=== PATIENT | female | born 1945 | race Caucasian/White ===

== ENCOUNTER 2016-11-18 05:11 | Emergency (ER) | payer MEDICARE ==
[2016-11-18] MEDS ORDERED: Magnesium Sulfate 2 GM IV* 2 GM/50 ML BAG IVPB ONE (05:30)
[2016-11-18] MEDS ORDERED: methylPREDNISolone 125 MG* 2 ML VIAL IV ONE (05:30)
[2016-11-18] MEDS ORDERED: Albuterol/Ipratropium NEB.SOL* Albuterol 2.5 MG/Ipratropium 0.5 MG 3 ML INH ONE ×2 (05:30→07:55)
[2016-11-18] MEDS ORDERED: Ondansetron ODT TAB* 4 MG ONE (05:56)
[2016-11-18 06:19] LABS: Hematocrit 47 % (35-47); Hemoglobin 15.5 g/dl (12.0-16.0); Mean Corpuscular HGB Conc 33 g/dl (31-36); Mean Corpuscular Hemoglobin 30 pg (27-31); Mean Corpuscular Volume 92 fL (80-97); Mean Platelet Volume 8 um3 (7.4-10.4); Red Blood Count 5.14 10^6/ul (4.0-5.4); Red Cell Distribution Width 14 % (10.5-15); White Blood Count 12.4 10^3/ul (3.5-10.8)
[2016-11-18 06:25] LABS: Albumin 4.5 g/dL (3.2-5.2); BUN/Creatinine Ratio 10.1 (8-20); Calcium 9.7 mg/dL (8.6-10.3); EGFR African American 91.7 (>60); EGFR Non-African American 71.3 (>60); Globulin 2.7 g/dL (2-4); Total Bilirubin 0.5 mg/dL (0.2-1.0); Total Protein 7.2 g/dL (6.4-8.9)
--- NOTE | 2016-11-18 06:47 | ED ---
Baldomero Cast Aidan, scribed for Wan Pickens on 11/18/16 at 0541 . Shortness of Breath - HPI Summary HPI Summary: 71 y/o female presents to the ED with a complaint of SOB that began at 0300 this morning. Pt uses 3.5 L O2 at baseline at home. She denies any fever, CP, or Hx of smoking. Hx of COPD. - History of Current Complaint Chief Complaint: EDShortnessOfBreath Time Seen by Provider: 11/18/16 05:21 Hx Obtained From: Patient, Family/Tissue Inserter Onset/Duration: Sudden Onset, Lasting Hours, Still Present Timing: Constant Current Severity: Moderate Dyspnea At: Rest Aggrevating Factors: Nothing - unknown Alleviating Factors: Nothing - unknown Associated Signs & Symptoms: Negative - Risk Factors Pulmonary Embolism: Smoking - former smoker Cardiac: Smoking - former smoker Tuberculosis: Smoking - former smoker - Allergy/Home Medications Allergies/Adverse Reactions: Allergies Allergy/AdvReac Type Severity Reaction Status Date / Time Bee Venom Allergy Severe Hives/Diff. Verified 01/28/15 21:12 Breathing/I tching PMH/Surg Hx/FS Hx/Imm Hx Cardiovascular History: Reports: Hx Hypercholesterolemia Respiratory History: Reports: Hx Chronic Obstructive Pulmonary Disease (COPD), Other Respiratory Problems/Disorders - Hx Emphysema Sensory History: Reports: Hx Hearing Aid - Cancer History Hx Chemotherapy: No Hx Radiation Therapy: No - Immunization History Date of Tetanus Vaccine: unknown Date of Influenza Vaccine: 2014 Infectious Disease History: No Infectious Disease History: Denies: Hx of Known/Suspected MRSA, Traveled Outside the [place] in Last 30 Days - Family History Known Family History: Positive: Other - [place] (sister) - Social History Occupation: Disabled Lives: Alone Alcohol Use: None Substance Use Type: Reports: None Smoking Status (MU): Former Smoker Review of Systems Constitutional: Negative Eyes: Negative ENT: Negative Cardiovascular: Negative Positive: Shortness Of Breath. Negative: Cough Gastrointestinal: Negative Genitourinary: Negative Musculoskeletal: Negative Skin: Negative Neurological: Negative Psychological: Normal All Other Systems Reviewed And Are Negative: Yes Physical Exam Triage Information Reviewed: Yes Vital Signs On Initial Exam: Initial Vitals Temp Pulse Resp BP Pulse Ox 97.4 F 94 30 155/90 100 11/18/16 05:17 11/18/16 05:11/18/16 05:11/18/16 05:17 05:17 Vital Signs Reviewed: Yes Appearance: Positive: Well-Appearing, No Pain Distress Skin: Positive: Warm, Skin Color Reflects Adequate Perfusion, Dry Head/Face: Positive: Normal Head/Face Inspection Eyes: Positive: EOMI, GARCÍA ENT: Positive: Normal ENT inspection Neck: Positive: Supple, Nontender Respiratory/Lung Sounds: Positive: Decreased Breath Sounds, Other - poor air entry, bilateral wheeze Cardiovascular: Positive: Pulses are Symmetrical in both Upper and Lower Extremities, Tachycardia Abdomen Description: Positive: Nontender, Soft Bowel Sounds: Positive: Present Musculoskeletal: Positive: Normal, Strength/ROM Intact Neurological: Positive: Normal, Sensory/Motor Intact, Alert, Oriented to Person Place, Time Psychiatric: Positive: Normal, Affect/Mood Appropriate AVPU Assessment: Alert Diagnostics - Vital Signs Vital Signs Temp Pulse Resp BP Pulse Ox 11/18/16 05:17 97.4 F 94 30 155/90 100 - Laboratory Lab Results: Lab Results 11/18/16 11/18/16 11/18/16 Range/Units 05:50 05:50 05:50 WBC 12.4 H (3.5-10.8) 10^3/ul RBC 5.14 (4.0-5.4) 10^6/ul Hgb 15.5 (12.0-16.0) g/dl Hct 47 (35-47) % MCV 92 (80-97) fL MCH 30 (27-31) pg MCHC 33 (31-36) g/dl RDW 14 (10.5-15) % Plt Count 330 (150-450) 10^3/ul MPV 8 (7.4-10.4) um3 Neut % (Auto) 58.7 (38-83) % Lymph % (Auto) 23.0 L (25-47) % [place] % (Auto) 8.9 (1-9) % Eos % (Auto) 8.4 H (0-6) % Baso % (Auto) 1.0 (0-2) % Absolute Neuts (auto) 7.3 (1.5-7.7) 10^3/ul Absolute Lymphs (auto) 2.9 (1.0-4.8) 10^3/ul Absolute Monos (auto) 1.1 H (0-0.8) 10^3/ul Absolute Eos (auto) 1.0 H (0-0.6) 10^3/ul Absolute Basos (auto) 0.1 (0-0.2) 10^3/ul Absolute Nucleated RBC 0.01 10^3/ul Nucleated RBC % 0.1 Sodium 138 (133-145) mmol/L Potassium 4.0 (3.5-5.0) mmol/L Chloride 103 (101-111) mmol/L Carbon Dioxide 28 (22-32) mmol/L Anion Gap 7 (2-11) mmol/L BUN 8 (6-24) mg/dL Creatinine 0.79 (0.51-0.95) mg/dL Est GFR ( Amer) 91.7 (>60) Est GFR (Non-Af Amer) 71.3 (>60) BUN/Creatinine Ratio 10.1 (8-20) Glucose 108 H (70-100) mg/dL Calcium 9.7 (8.6-10.3) mg/dL Total Bilirubin 0.50 (0.2-1.0) mg/dL AST 18 (13-39) U/L ALT 11 (7-52) U/L Alkaline Phosphatase 74 (34-104) U/L Troponin I 0.00 (<0.04) ng/mL B-Natriuretic Peptide 46 ( - 100) pg/mL Total Protein 7.2 (6.4-8.9) g/dL Albumin 4.5 (3.2-5.2) g/dL Globulin 2.7 (2-4) g/dL Albumin/Globulin Ratio 1.7 (1-3) Result Diagrams: 11/18/16 05:50 11/18/16 05:50 Lab Statement: Any lab studies that have been ordered have been reviewed, and results considered in the medical decision making process. - EKG EKG 0527 Cardiac Rate: Tachycardia - 105 EKG Rhythm: Atrial Flutter EKG Interpretation: ATRIAL FLUTTER Course/Dx - Course Course Of Treatment: This is a 71 y/o female presenting with SOB. - Diagnoses Provider Diagnoses: COPD exacerbation Discharge - Discharge Plan Condition: Good Disposition: OTHER Discharge Disposition Comment: signed out to Dr Mcgee Referrals: Hailey Levi MD [Primary Care Provider] - The documentation as recorded by the Baldomero rios Aidan accurately reflects the service I personally performed and the decisions made by me, Wan Pickens.
[2016-11-18] MEDS ORDERED: Azithromycin TAB* 250 MG PO ONE (07:55)
[2016-11-18 08:52] VITALS: BP 123/73
--- NOTE | 2016-11-18 09:21 | RAD ---
Indication: Shortness of breath. Single frontal view of the chest performed at 0549 hours was reviewed. Comparison is made with previous exam dated May 27, 2016. No mediastinal shift is noted. Heart is of normal size and configuration. Lung vasquez appear clear. IMPRESSION: NO ACTIVE CARDIOPULMONARY DISEASE IS NOTED.
--- NOTE | 2016-11-18 14:35 | ED ---
Khanh Cast Rebecca, scribed for Karl Walker MD on 11/18/16 at 0823 . Progress - Progress Note Progress Note: Pt was signed out from Dr. Pickens. CXR reveals no acute findings. - EKG/XRAY/CT XRAY: chest Xray Comments: NO ACTIVE CARDIOPULMONARY DISEASE IS NOTED Re-Evaluation - Re-Evaluation First Eval Re-Evaluation Time: 07:55 Change: Improved Comment: Pt is feeling significantly better and would like to be D/C. She will receive one more breathing treatment and will be started on Abx and steroids as an outpatient. Course/Dx - Course Course Of Treatment: Pt was signed out from Dr. Pickens. CXR reveals no acute findings. Pt was D/C to home with a Dx of COPD exacerbation with Rx for Albuterol, Zithromax and Prednisone. She understands and is agreeable with this plan. - Diagnoses Provider Diagnoses: COPD exacerbation The documentation as recorded by the Khanh rios Rebecca accurately reflects the service I personally performed and the decisions made by , Karl Walker MD.
== END 2016-11-18 08:51 | disposition home or self-care (01) ==
LOC: ED 05:11
DX: J44.1 Chronic obstructive pulmonary disease with (acute) exacerbation (principal); Z91.030 Bee allergy status; E78.00 Pure hypercholesterolemia, unspecified; I48.92 Unspecified atrial flutter; Z87.891 Personal history of nicotine dependence
CPT/HCPCS: 36415; 71010; 80053; 83880; 84484; 85025; 93005; 96365; 96375; 99285; A9270-GY; J2930

== ENCOUNTER 2016-11-26 20:21 | Emergency (ER) | payer MEDICARE ==
[2016-11-26] MEDS ORDERED: Albuterol/Ipratropium NEB.SOL* Albuterol 2.5 MG/Ipratropium 0.5 MG 3 ML INH ONE ×2 (20:42→22:59)
[2016-11-26] MEDS ORDERED: methylPREDNISolone 125 MG* 2 ML VIAL IV ONE (20:45)
[2016-11-26] MEDS ORDERED: NS 0.9% 1000 ML* 2,000 ML IV ONE (20:45)
[2016-11-26] MEDS ORDERED: Albuterol/Ipratropium NEB.SOL* Albuterol 2.5 MG/Ipratropium 0.5 MG 3 ML ONE (21:06)
[2016-11-26 21:32] LABS: FIO2 28
[2016-11-26 21:34] LABS: PCO2 Arterial 43 mmHg (35-45)
[2016-11-26 21:58] LABS: Hematocrit 45 % (35-47); Mean Corpuscular HGB Conc 33 g/dl (31-36); Mean Corpuscular Hemoglobin 30 pg (27-31); Mean Corpuscular Volume 91 fL (80-97); Mean Platelet Volume 7 um3 (7.4-10.4); Red Blood Count 4.94 10^6/ul (4.0-5.4); Red Cell Distribution Width 14 % (10.5-15); White Blood Count 14.7 10^3/ul (3.5-10.8)
[2016-11-26 22:03] LABS: Add Diff/Slide Review? Slide Review Added; Comments Flag Yes
--- NOTE | 2016-11-26 22:14 | RAD ---
Indication: Cough, shortness of breath, decreased breath sounds. Question pneumonia and CHF. History of emphysema. Comparison: November 18, 2016 Technique: Sitting AP and lateral chest views. Report: Elevated lung volumes and both diffuse mild prominence of the interstitial markings and patchy rarefaction of the mid to upper lung zone interstitial markings. No focal pulmonary lesion, compelling alveolar consolidation, pleural effusion, pneumothorax. The heart, pulmonary vasculature, and mediastinal contours are unremarkable. Unremarkable osseous structures and soft tissue contours. IMPRESSION: Stigmata of obstructive lung disease. No acute pulmonary or cardiac process evident.
[2016-11-26 22:19] LABS: Albumin 4.4 g/dL (3.2-5.2); BUN/Creatinine Ratio 11.4 (8-20); C Reactive Protein 24.45 mg/L (< 5.00); Calcium 9.5 mg/dL (8.6-10.3); EGFR African American 105.5 (>60); Globulin 2.4 g/dL (2-4); Potassium 3.9 mmol/L (3.5-5.0); Total Bilirubin 0.6 mg/dL (0.2-1.0); Total Protein 6.8 g/dL (6.4-8.9)
[2016-11-26 23:45] VITALS: BP 129/77
--- NOTE | 2016-11-27 03:00 | ED ---
I, Trung,Brandon, scribed for Rowdy Shelton MD on 11/26/16 at 2045 . Shortness of Breath - HPI Summary HPI Summary: This 71 y/o female presents to ED for acute on chronic SOB since 1600 PM tonight. Positive productive cough. Negative CP or fever. Pt is oxygen dependent at home with 2 L at night. PMHx includes COPD. She visited ED about a week ago with similar complaint of dyspnea and respiratory distress. Pt sleeps on 2 pillows. Pt did have AC on tonight. - History of Current Complaint Chief Complaint: EDShortnessOfBreath Hx Obtained From: Patient, Medical Records Onset/Duration: Sudden Onset Timing: Constant Dyspnea At: Rest Associated Signs & Symptoms: Cough (Productive), Wheezing - Allergy/Home Medications Allergies/Adverse Reactions: Allergies Allergy/AdvReac Type Severity Reaction Status Date / Time Bee Venom Allergy Severe Hives/Diff. Verified 01/28/15 21:12 Breathing/I tching PMH/Surg Hx/FS Hx/Imm Hx Cardiovascular History: Reports: Hx Hypercholesterolemia Respiratory History: Reports: Hx Chronic Obstructive Pulmonary Disease (COPD), Other Respiratory Problems/Disorders - Hx Emphysema Sensory History: Reports: Hx Hearing Aid - Cancer History Hx Chemotherapy: No Hx Radiation Therapy: No - Immunization History Date of Tetanus Vaccine: unknown Date of Influenza Vaccine: 2014 Infectious Disease History: Denies: Hx of Known/Suspected MRSA, Traveled Outside the [place] in Last 30 Days - Family History Known Family History: Positive: Other - Breast [place] (sister) - Social History Alcohol Use: None Substance Use Type: Reports: None Hx Tobacco Use: Yes Smoking Status (MU): Former Smoker Review of Systems Negative: Fever Negative: Chest Pain Positive: Shortness Of Breath Negative: dysuria All Other Systems Reviewed And Are Negative: Yes Physical Exam - Summary Physical Exam Summary: The patient is well-nourished in no acute distress and in no acute pain. The skin is warm and diaphoretic. HEENT: The head is normocephalic and atraumatic. The pupils are equal and reactive. The conjunctivae are clear and without drainage. Nares are patent and without drainage. Mouth reveals dry oral mucosa and the throat is without erythema and exudate. The external ears are intact. The ear canals are patent and without drainage. The tympanic membranes are intact. Neck is supple with full range of motion and non-tender. There are no carotid bruits. There is no neck vein distension. Respiratory: Chest is non-tender. Positive expiratory wheeze. Decreased breath sounds. NC in place. Cardiovascular: Hear is regular rate and rhythm. There is no murmur or rub auscultated. There is no peripheral edema and pulses are symmetrical and equal. Abdomen: The abdomen is soft and non-tender. There are normal bowel sounds heard in all four quadrants and there is no organomegaly palpated. Musculoskeletal: There is no back pain noted. Extremities are non-tender with full range of motion. There is good capillary refill. There is no peripheral edema or calf tenderness elicited. Neurological: Patient is alert and oriented to person, place and time. The patient has symmetrical motor strength in all four extremities. Cranial nerves are grossly intact. Deep tendon reflexes are symmetrical and equal in all four extremities. Psychiatric: The patient has an appropriate affect and does not exhibit any anxiety or depression. Triage Information Reviewed: Yes Vital Signs On Initial Exam: Initial Vitals Temp Pulse Resp BP Pulse Ox 96.7 F 106 24 156/86 96 11/26/16 20:22 11/26/16 20:22 11/26/16 20:22 11/26/16 20:22 11/26/16 20:22 Vital Signs Reviewed: Yes Diagnostics - Vital Signs Vital Signs Temp Pulse Resp BP Pulse Ox 11/26/16 20:22 96.7 F 106 24 156/86 96 - Laboratory Lab Results: Lab Results 11/26/16 11/26/16 11/26/16 Range/Units 21:20 21:45 21:45 WBC 14.7 H (3.5-10.8) 10^3/ul RBC 4.94 (4.0-5.4) 10^6/ul Hgb 15.0 (12.0-16.0) g/dl Hct 45 (35-47) % MCV 91 (80-97) fL MCH 30 (27-31) pg MCHC 33 (31-36) g/dl RDW 14 (10.5-15) % Plt Count 299 (150-450) 10^3/ul MPV 7 L (7.4-10.4) um3 Neut % (Auto) 62.5 (38-83) % Lymph % (Auto) 15.9 L (25-47) % [place] % (Auto) 9.0 (1-9) % Eos % (Auto) 11.6 H (0-6) % Baso % (Auto) 1.0 (0-2) % Absolute Neuts (auto) 9.2 H (1.5-7.7) 10^3/ul Absolute Lymphs (auto) 2.3 (1.0-4.8) 10^3/ul Absolute Monos (auto) 1.3 H (0-0.8) 10^3/ul Absolute Eos (auto) 1.7 H (0-0.6) 10^3/ul Absolute Basos (auto) 0.1 (0-0.2) 10^3/ul Absolute Nucleated RBC 0.01 10^3/ul Nucleated RBC % 0.1 Patient Temperature Not Reportable ABG pH 7.39 (7.35-7.45) ABG pCO2 43 (35-45) mmHg ABG pO2 173 H (80-100) mmHg ABG HCO3 25.4 (19-31) mmol/L ABG O2 Saturation 99.5 H (95-98) % ABG Base Excess 0.7 (-2.0-2.0) Respiration Rate Not Reportable O2 Delivery Device nasal cannula Ventilator Type Not Reportable Vent Mode Not Reportable FiO2 28 Inspiratory Time Not Reportable PEEP Not Reportable Pressure Support Not Reportable Pressure Control Not Reportable EPAP Not Reportable IPAP Not Reportable BiPAP Not Reportable Sodium 136 (133-145) mmol/L Potassium 3.9 (3.5-5.0) mmol/L Chloride 101 (101-111) mmol/L Carbon Dioxide 25 (22-32) mmol/L Anion Gap 10 (2-11) mmol/L BUN 8 (6-24) mg/dL Creatinine 0.70 (0.51-0.95) mg/dL Est GFR ( Amer) 105.5 (>60) Est GFR (Non-Af Amer) 82.0 (>60) BUN/Creatinine Ratio 11.4 (8-20) Glucose 139 H (70-100) mg/dL Lactic Acid (0.5-2.0) mmol/L Calcium 9.5 (8.6-10.3) mg/dL Total Bilirubin 0.60 (0.2-1.0) mg/dL AST 12 L (13-39) U/L ALT 12 (7-52) U/L Alkaline Phosphatase 61 (34-104) U/L Troponin I 0.00 (<0.04) ng/mL C-Reactive Protein 24.45 H (< 5.00) mg/L B-Natriuretic Peptide ( - 100) pg/mL Total Protein 6.8 (6.4-8.9) g/dL Albumin 4.4 (3.2-5.2) g/dL Globulin 2.4 (2-4) g/dL Albumin/Globulin Ratio 1.8 (1-3) 11/26/16 11/26/16 Range/Units 21:45 21:45 WBC (3.5-10.8) 10^3/ul RBC (4.0-5.4) 10^6/ul Hgb (12.0-16.0) g/dl Hct (35-47) % MCV (80-97) fL MCH (27-31) pg MCHC (31-36) g/dl RDW (10.5-15) % Plt Count (150-450) 10^3/ul MPV (7.4-10.4) um3 Neut % (Auto) (38-83) % Lymph % (Auto) (25-47) % [place] % (Auto) (1-9) % Eos % (Auto) (0-6) % Baso % (Auto) (0-2) % Absolute Neuts (auto) (1.5-7.7) 10^3/ul Absolute Lymphs (auto) (1.0-4.8) 10^3/ul Absolute Monos (auto) (0-0.8) 10^3/ul Absolute Eos (auto) (0-0.6) 10^3/ul Absolute Basos (auto) (0-0.2) 10^3/ul Absolute Nucleated RBC 10^3/ul Nucleated RBC % Patient Temperature ABG pH (7.35-7.45) ABG pCO2 (35-45) mmHg ABG pO2 (80-100) mmHg ABG HCO3 (19-31) mmol/L ABG O2 Saturation (95-98) % ABG Base Excess (-2.0-2.0) Respiration Rate O2 Delivery Device Ventilator Type Vent Mode FiO2 Inspiratory Time PEEP Pressure Support Pressure Control EPAP IPAP BiPAP Sodium (133-145) mmol/L Potassium (3.5-5.0) mmol/L Chloride (101-111) mmol/L Carbon Dioxide (22-32) mmol/L Anion Gap (2-11) mmol/L BUN (6-24) mg/dL Creatinine (0.51-0.95) mg/dL Est GFR ( Amer) (>60) Est GFR (Non-Af Amer) (>60) BUN/Creatinine Ratio (8-20) Glucose (70-100) mg/dL Lactic Acid 1.4 (0.5-2.0) mmol/L Calcium (8.6-10.3) mg/dL Total Bilirubin (0.2-1.0) mg/dL AST (13-39) U/L ALT (7-52) U/L Alkaline Phosphatase (34-104) U/L Troponin I (<0.04) ng/mL C-Reactive Protein (< 5.00) mg/L B-Natriuretic Peptide 19 ( - 100) pg/mL Total Protein (6.4-8.9) g/dL Albumin (3.2-5.2) g/dL Globulin (2-4) g/dL Albumin/Globulin Ratio (1-3) Result Diagrams: 11/26/16 21:45 11/26/16 21:45 Lab Statement: Any lab studies that have been ordered have been reviewed, and results considered in the medical decision making process. - Radiology CXR Xray Interpretation: No Acute Changes - Stigmata of obstructive lung disease. No acute pulmonary or cardiac process evident. Radiology Interpretation Completed By: Radiologist - EKG 2028 Cardiac Rate: Tachycardia - 2028 PM EKG Rhythm: Sinus Tachycardia ST Segment: Normal EKG Interpretation: Artifact noted. Re-Evaluation - Re-Evaluation First Eval Re-Evaluation Time: 22:36 Comment: Dr. Shelton in room to update pt on CXR and bloodwork. Pt was re-examined , and noted with increased breath sound upon ascultation. Course/Dx - Course Assessment/Plan: This 71 y/o female presents to ED for acute on chronic SOB since today. PMHx is significant for known COPD. Prior ED visit was due to similar complaint. She is two pillow sleeper. ABG is noted unremarkable. Pt is noted with improved air movement after breathing treatment. Pt is discharged with rx for duoneb and prednisone as well as instruction for outpatient f/u with her PCP. Bloodwork is noted with elevated WBC of 14.7 and CRP. - Diagnoses Differential Diagnosis/HQI/PQRI: Positive: Bronchitis, CHF, COPD Exacerbation, [place], Pneumonia Provider Diagnoses: Acute exacerbation of chronic obstructive pulmonary disease (COPD) - Critical Care Time Critical Care Time: 30-74 min - 30 minutes Discharge - Discharge Plan Condition: Stable Disposition: HOME Prescriptions: Albuterol/Ipratropium NEB.JAJA* [Duoneb (Albuterol 2.5 MG/Ipratropium 0.5 MG)] 1 neb INH Q6H PRN #30 neb.jaja PRN Reason: shortness of breath predniSONE TAB* [Deltasone TAB*] 60 mg PO DAILY #15 tab Patient Education Materials: COPD (Chronic Obstructive Pulmonary Disease) (ED) , Dyspnea (ED), Prednisone (By mouth), Ipratropium/Albuterol (By breathing), How to Use a Nebulizer (ED) Referrals: Hailey Levi MD [Primary Care Provider] - 2 Days The documentation as recorded by the Trung rios Soohyun accurately reflects the service I personally performed and the decisions made by , Rowdy Shelton MD.
== END 2016-11-26 23:40 | disposition home or self-care (01) ==
LOC: ED 20:21
DX: J44.1 Chronic obstructive pulmonary disease with (acute) exacerbation (principal); R06.02 Shortness of breath; R05 Cough; R06.2 Wheezing; Z87.891 Personal history of nicotine dependence
CPT/HCPCS: 36415; 36600; 71020; 80053; 82803; 83605; 83880; 84484; 85025; 86140; 87040; 93005; 94640; 96374; 99283; A9270-GY; J2930

== ENCOUNTER 2016-12-08 19:32 | Inpatient (IN) | payer MEDICARE ==
[2016-12-08] MEDS ORDERED: Albuterol (2.5 MG) 0.5 % CONC 2.5 MG/0.5 ML NEB.SOLN (ICU and ED only) INH ONE (19:39)
[2016-12-08] MEDS ORDERED: methylPREDNISolone 125 MG* 2 ML VIAL ONE (19:39)
[2016-12-08] MEDS ORDERED: Albuterol/Ipratropium NEB.SOL* Albuterol 2.5 MG/Ipratropium 0.5 MG 3 ML ONE (19:40)
[2016-12-08 20:03] LABS: Hematocrit 44 % (35-47); Hemoglobin 14.1 g/dl (12.0-16.0); Mean Corpuscular HGB Conc 32 g/dl (31-36); Mean Corpuscular Hemoglobin 30 pg (27-31); Mean Corpuscular Volume 94 fL (80-97); Mean Platelet Volume 8 um3 (7.4-10.4); Red Cell Distribution Width 14 % (10.5-15)
[2016-12-08 20:05] LABS: Add Diff/Slide Review? Slide Review Added; Comments Flag Yes
--- NOTE | 2016-12-08 20:10 | RAD ---
INDICATION: Respiratory distress COMPARISON: Chest x-ray November 26, 2016 TECHNIQUE: An AP portable view obtained at 2005 hours is submitted. FINDINGS: Bones/Soft Tissues: There are no acute bony findings. Cardiomediastinal: The cardiomediastinal silhouette is normal. Lungs: There are no infiltrates. There is mild hyperinflation Pleura: There are no pleural effusions. Other: None IMPRESSION: MILD HYPERINFLATION. NO ACTIVE DISEASE
[2016-12-08] MEDS ORDERED: Albuterol/Ipratropium NEB.SOL* Albuterol 2.5 MG/Ipratropium 0.5 MG 3 ML INH ONE (20:12)
[2016-12-08 20:14] LABS: BUN/Creatinine Ratio 15.7 (8-20); Calcium 9.3 mg/dL (8.6-10.3); EGFR African American 86.7 (>60); EGFR Non-African American 67.4 (>60); Globulin 2.4 g/dL (2-4); Potassium 4.4 mmol/L (3.5-5.0); Total Bilirubin 0.4 mg/dL (0.2-1.0); Total Protein 6.4 g/dL (6.4-8.9)
--- NOTE | 2016-12-08 20:25 | ED ---
Kisha Cast Alfonso, scribed for Serg Julio MD on 12/08/16 at 1942 . Shortness of Breath - HPI Summary HPI Summary: This is a 71 year old female presenting to [facility] accompanied by a friend for SOB at rest that began 30 minutes ago. The patient presents with rapid labored breathing, diaphoresis, abdominal pain, and a headache. Symptoms aggravated and alleviated by nothing. Her friend reports she smoked a cigarette tonight. Her friend reports she has presented to the ED for similar symptoms 4 times this month. She uses nasal cannula O2 at home during the night. PMHx of COPD. - History of Current Complaint Hx Obtained From: Patient, Family/[employer] - Friend of 35 years Onset/Duration: Sudden Onset, Lasting Minutes - 30 minutes ago Timing: Constant Current Severity: Moderate Dyspnea At: Rest Aggrevating Factors: Nothing Alleviating Factors: Nothing Associated Signs & Symptoms: Diaphoresis - Allergy/Home Medications Allergies/Adverse Reactions: Allergies Allergy/AdvReac Type Severity Reaction Status Date / Time Bee Venom Allergy Severe Hives/Diff. Verified 01/28/15 21:12 Breathing/I tching PMH/Surg Hx/FS Hx/Imm Hx Cardiovascular History: Reports: Hx Hypercholesterolemia Respiratory History: Reports: Hx Chronic Obstructive Pulmonary Disease (COPD), Other Respiratory Problems/Disorders - Hx Emphysema Sensory History: Reports: Hx Hearing Aid - Cancer History Hx Chemotherapy: No Hx Radiation Therapy: No - Immunization History Date of Tetanus Vaccine: unknown Date of Influenza Vaccine: 2014 Infectious Disease History: Denies: Hx of Known/Suspected MRSA, Traveled Outside the [place] in Last 30 Days - Family History Known Family History: Positive: Other - Breast [place] (sister) - Social History Alcohol Use: None Substance Use Type: Reports: None Hx Tobacco Use: Yes Smoking Status (MU): Former Smoker Review of Systems Positive: Skin Diaphoresis Positive: Shortness Of Breath - At rest, Other - Positive rapid labored breathing Positive: Abdominal Pain Positive: Headache All Other Systems Reviewed And Are Negative: Yes Physical Exam Triage Information Reviewed: Yes Vital Signs On Initial Exam: Initial Vitals Temp Pulse Resp BP Pulse Ox 96.5 F 102 33 166/92 96 12/08/16 20:02 12/08/16 20:02 12/08/16 20:02 12/08/16 20:02 12/08/16 20:02 Vital Signs Reviewed: Yes Appearance: Positive: Ill-Appearing - marked resp distress, Thin Skin: Positive: Warm Head/Face: Positive: Normal Head/Face Inspection Eyes: Positive: GARCÍA ENT: Positive: Hearing grossly normal Neck: Positive: Supple Respiratory/Lung Sounds: Positive: Decreased Breath Sounds, Unable to speak in full sentences, Other - m,arked distress, consuelo;at diffuse wheezing Cardiovascular: Positive: Tachycardia Abdomen Description: Positive: Nontender, Soft Musculoskeletal: Positive: Strength/ROM Intact Psychiatric: Positive: Anxious Diagnostics - Vital Signs Vital Signs Temp Pulse Resp BP Pulse Ox 12/08/16 20:12 100 34 96 12/08/16 20:02 96.5 F 102 33 166/92 96 - Laboratory Lab Results: Lab Results 12/08/16 12/08/16 12/08/16 Range/Units 19:41 19:41 19:41 WBC 16.0 H (3.5-10.8) 10^3/ul RBC 4.70 (4.0-5.4) 10^6/ul Hgb 14.1 (12.0-16.0) g/dl Hct 44 (35-47) % MCV 94 (80-97) fL MCH 30 (27-31) pg MCHC 32 (31-36) g/dl RDW 14 (10.5-15) % Plt Count 279 (150-450) 10^3/ul MPV 8 (7.4-10.4) um3 Neut % (Auto) 47.6 (38-83) % Lymph % (Auto) 35.6 (25-47) % [place] % (Auto) 9.7 H (1-9) % Eos % (Auto) 5.7 (0-6) % Baso % (Auto) 1.4 (0-2) % Absolute Neuts (auto) 7.6 (1.5-7.7) 10^3/ul Absolute Lymphs (auto) 5.7 H (1.0-4.8) 10^3/ul Absolute Monos (auto) 1.5 H (0-0.8) 10^3/ul Absolute Eos (auto) 0.9 H (0-0.6) 10^3/ul Absolute Basos (auto) 0.2 (0-0.2) 10^3/ul Absolute Nucleated RBC 0.02 10^3/ul Nucleated RBC % 0.1 Sodium 134 (133-145) mmol/L Potassium 4.4 (3.5-5.0) mmol/L Chloride 100 L (101-111) mmol/L Carbon Dioxide 23 (22-32) mmol/L Anion Gap 11 (2-11) mmol/L BUN 13 (6-24) mg/dL Creatinine 0.83 (0.51-0.95) mg/dL Est GFR ( Amer) 86.7 (>60) Est GFR (Non-Af Amer) 67.4 (>60) BUN/Creatinine Ratio 15.7 (8-20) Glucose 273 H (70-100) mg/dL Lactic Acid 5.3 H* (0.5-2.0) mmol/L Calcium 9.3 (8.6-10.3) mg/dL Total Bilirubin 0.40 (0.2-1.0) mg/dL AST 18 (13-39) U/L ALT 13 (7-52) U/L Alkaline Phosphatase 57 (34-104) U/L Troponin I 0.00 (<0.04) ng/mL B-Natriuretic Peptide ( - 100) pg/mL Total Protein 6.4 (6.4-8.9) g/dL Albumin 4.0 (3.2-5.2) g/dL Globulin 2.4 (2-4) g/dL Albumin/Globulin Ratio 1.7 (1-3) 12/08/16 Range/Units 19:41 WBC (3.5-10.8) 10^3/ul RBC (4.0-5.4) 10^6/ul Hgb (12.0-16.0) g/dl Hct (35-47) % MCV (80-97) fL MCH (27-31) pg MCHC (31-36) g/dl RDW (10.5-15) % Plt Count (150-450) 10^3/ul MPV (7.4-10.4) um3 Neut % (Auto) (38-83) % Lymph % (Auto) (25-47) % [place] % (Auto) (1-9) % Eos % (Auto) (0-6) % Baso % (Auto) (0-2) % Absolute Neuts (auto) (1.5-7.7) 10^3/ul Absolute Lymphs (auto) (1.0-4.8) 10^3/ul Absolute Monos (auto) (0-0.8) 10^3/ul Absolute Eos (auto) (0-0.6) 10^3/ul Absolute Basos (auto) (0-0.2) 10^3/ul Absolute Nucleated RBC 10^3/ul Nucleated RBC % Sodium (133-145) mmol/L Potassium (3.5-5.0) mmol/L Chloride (101-111) mmol/L Carbon Dioxide (22-32) mmol/L Anion Gap (2-11) mmol/L BUN (6-24) mg/dL Creatinine (0.51-0.95) mg/dL Est GFR ( Amer) (>60) Est GFR (Non-Af Amer) (>60) BUN/Creatinine Ratio (8-20) Glucose (70-100) mg/dL Lactic Acid (0.5-2.0) mmol/L Calcium (8.6-10.3) mg/dL Total Bilirubin (0.2-1.0) mg/dL AST (13-39) U/L ALT (7-52) U/L Alkaline Phosphatase (34-104) U/L Troponin I (<0.04) ng/mL B-Natriuretic Peptide 50 ( - 100) pg/mL Total Protein (6.4-8.9) g/dL Albumin (3.2-5.2) g/dL Globulin (2-4) g/dL Albumin/Globulin Ratio (1-3) Result Diagrams: 12/08/16 19:41 12/08/16 19:41 Lab Statement: Any lab studies that have been ordered have been reviewed, and results considered in the medical decision making process. - Radiology CXR Radiology Interpretation Completed By: Radiologist - MILD HYPERINFLATION. NO ACTIVE DISEASE - CT Chest/Thorax CTA CT Interpretation Completed By: Radiologist - NO CT EVIDENCE OF ACUTE PULMONARY EMBOLIC DISEASE. EMPHYSEMA. - EKG 1936 Cardiac Rate: Tachycardia - BPm 140 EKG Rhythm: Atrial Fibrillation - With Rapid Ventricular Response Re-Evaluation - Re-Evaluation First Eval Change: Improved Course/Dx - Diagnoses Provider Diagnoses: COPD exacerbation - Physician Notifications Instructed by Provider To: Admit As Inpatient Discharge - Discharge Plan Condition: Fair Disposition: ADMITTED TO [facility] documentation as recorded by the Kisha rios Alfonso accurately reflects the service I personally performed and the decisions made by me, Serg Julio MD.
[2016-12-08] MEDS ORDERED: Iohexol 350* (CONTRAST) 500 ML MDV IV ONE (20:41)
--- NOTE | 2016-12-08 21:11 | RAD ---
INDICATION: Chest pain. Short of breath. Evaluate for pulmonary embolus. COMPARISON: Chest x-ray December 08, 2016 TECHNIQUE: Axial source images were obtained from the thoracic inlet to the hemidiaphragms following administration of [address] angiographic technique was utilized. Coronal and sagittal reconstructed images were acquired. CHEST FINDINGS: Neck/thyroid: The visualized neck to include the thyroid appear normal. Chest wall: There are no acute abnormalities of the bony thorax or chest wall. There is no supraclavicular, infraclavicular, or axillary lymphadenopathy. Lungs : There are no pulmonary parenchymal masses or infiltrates. There is underlying emphysematous change. There is mild parenchymal scarring. There is a tiny right upper lobe granuloma There are no endobronchial lesions. Cardiomediastinal structures: There is no CT evidence of acute pulmonary embolic disease. The heart is normal in size. There is no pericardial effusion. There is no evidence of aortic aneurysm or dissection. There is no mediastinal or hilar adenopathy. The esophagus appears normal. Pleura : There are no pleural-based masses or effusions. Other: None. IMPRESSION: NO CT EVIDENCE OF ACUTE PULMONARY EMBOLIC DISEASE. EMPHYSEMA.
[2016-12-08] MEDS ORDERED: Acetaminophen TAB* 325 MG PO PRN (22:55)
[2016-12-08] MEDS ORDERED: Ondansetron INJ* 2 MG/ML VIAL IV PRN (22:56)
[2016-12-08] MEDS ORDERED: Nicotine Inhaler* 10 MG AMP INH PRN (22:56)
[2016-12-08] MEDS ORDERED: CMCS: Melatonin (NF) 3 MG TAB PO PRN (22:56)
--- NOTE | 2016-12-08 23:08 | HP ---
H&P (Free Text) History and Physical: PCP: Reginaldo Levi MD Date/Time of Evaluation: 12/08/2016 2245 CC: SOB HPI: Mrs Ely is a 72YO female HX COPD on 2L NC nightly last cigarette 3 months ago presenting with SOB onset around 0200 yesterday AM for which she used her nebulizer and returned to bed, but awakened in the AM with more SOB. She has used her nebulizer Q4H without relief. This is associated with cough producing clear phlegm and some sweats, but no F/C, N/V, normal bowel/bladder, chest pain, palpitations, or open wounds/rash. She does have some upper abdominal discomfort. This is her 3rd visit to [facility] this month for the same. PMedHx COPD on 2L NC nocturnal oxygen HLD GERD OU cataracts Ambulatory Orders Nursing to reconcile. Albuterol HFA INHALER* [Ventolin HFA Inhaler*] 2 puff INH Q4H PRN 05/29/16 Simvastatin [Zocor 5 MG-] 20 mg PO 1700 05/29/16 Fluticasone Furoate-Vilanterol [Breo Ellipta 200-25 Mcg/INH] 1 puff INH DAILY Tiotropium CAP.INH* [Spiriva CAP.INH*] 1 cap INH DAILY #30 cap.inh 05/31/16 predniSONE TAB* [Deltasone TAB*] 40 mg PO DAILY #4 tab 05/31/16 Albuterol/Ipratropium NEB.JAJA* [Duoneb (Albuterol 2.5 MG/Ipratropium 0.5 MG)] 1 jaja INH Q4H PRN #30 unit 11/18/16 Azithromycin TAB* [Zithromax TAB (Z-AMANDEEP) 250 mg #6 tabs] 250 mg PO DAILY #4 tab 11/18/16 predniSONE TAB* [Deltasone TAB*] 40 mg PO DAILY #10 tab 11/18/16 Albuterol/Ipratropium NEB.JAJA* [Duoneb (Albuterol 2.5 MG/Ipratropium 0.5 MG)] 1 neb INH Q6H PRN #30 neb.jaja 11/26/16 predniSONE TAB* [Deltasone TAB*] 60 mg PO DAILY #15 tab 11/26/16 Allergies Bee Venom Allergy (Severe, Verified 01/28/15 21:12) Hives/Diff.Breathing/Itching PSurgHx denies SocHx: former smoker last cigarette 3 months ago, mild alcohol, no recreational drugs; lives alone; DNR/I code status, MOLST filled out FamHx: Mother passed in her 80s 2nd CVA. Father passed in his 50s 2nd MVA. ROS: as above, otherwise reviewed and all were negative Constitutional: NAD, normally developed, well-nourished white female vitals: Vital Signs Temp 35.8 C 12/08/16 20:02 Pulse 102 12/08/16 21:30 Resp 26 12/08/16 21:30 BP 127/74 12/08/16 21:30 Pulse Ox 96 12/08/16 21:30 Intake & Output 12/07/16 12/08/16 12/08/16 23:59 11:59 23:59 Weight 58.967 kg HEENM: atraumatic; sclera/conjunctiva: non-icteric/clear; hearing: clinically intact; oropharynx: clear, mucosa moist Neck: soft tissue: non-tender; thyroid: normal Pulmonary: tachypneic, monreal-inspiratory & expiratory wheeze, poor aeration, moderate accessory muscle use; on Vapotherm CV: TR/RR, normal S1S2, no carotid bruit, no jugular venous distention, 2+ B DP/ PT, no edema Abdominal: soft, non-distended, non-tender, no rebound/guarding/rigidity, normoactive bowel sounds, no hepatosplenomegaly or masses, no costovertebral angle tenderness Musculoskeletal: general: grossly intact; gait: to SOB to ambulate Integumental: normal appearance and texture of exposed skin Psychiatric orientation: AA&O to PPS affect: calm mood: cooperative eye contact: good content: reliable responses: timely insight: fair to good Testing: Lab Results 12/08/16 12/08/16 12/08/16 Range/Units 19:41 19:41 19:41 WBC 16.0 H (3.5-10.8) 10^3/ul RBC 4.70 (4.0-5.4) 10^6/ul Hgb 14.1 (12.0-16.0) g/dl Hct 44 (35-47) % MCV 94 (80-97) fL MCH 30 (27-31) pg MCHC 32 (31-36) g/dl RDW 14 (10.5-15) % Plt Count 279 (150-450) 10^3/ul MPV 8 (7.4-10.4) um3 Neut % (Auto) 47.6 (38-83) % Lymph % (Auto) 35.6 (25-47) % Orange % (Auto) 9.7 H (1-9) % Eos % (Auto) 5.7 (0-6) % Baso % (Auto) 1.4 (0-2) % Absolute Neuts (auto) 7.6 (1.5-7.7) 10^3/ul Absolute Lymphs (auto) 5.7 H (1.0-4.8) 10^3/ul Absolute Monos (auto) 1.5 H (0-0.8) 10^3/ul Absolute Eos (auto) 0.9 H (0-0.6) 10^3/ul Absolute Basos (auto) 0.2 (0-0.2) 10^3/ul Absolute Nucleated RBC 0.02 10^3/ul Nucleated RBC % 0.1 D-Dimer, Quantitative (Less Than 230) ng/mL Sodium 134 (133-145) mmol/L Potassium 4.4 (3.5-5.0) mmol/L Chloride 100 L (101-111) mmol/L Carbon Dioxide 23 (22-32) mmol/L Anion Gap 11 (2-11) mmol/L BUN 13 (6-24) mg/dL Creatinine 0.83 (0.51-0.95) mg/dL Est GFR ( Amer) 86.7 (>60) Est GFR (Non-Af Amer) 67.4 (>60) BUN/Creatinine Ratio 15.7 (8-20) Glucose 273 H (70-100) mg/dL Lactic Acid 5.3 H* (0.5-2.0) mmol/L Calcium 9.3 (8.6-10.3) mg/dL Total Bilirubin 0.40 (0.2-1.0) mg/dL AST 18 (13-39) U/L ALT 13 (7-52) U/L Alkaline Phosphatase 57 (34-104) U/L Troponin I 0.00 (<0.04) ng/mL B-Natriuretic Peptide ( - 100) pg/mL Total Protein 6.4 (6.4-8.9) g/dL Albumin 4.0 (3.2-5.2) g/dL Globulin 2.4 (2-4) g/dL Albumin/Globulin Ratio 1.7 (1-3) 12/08/16 12/08/16 Range/Units 19:41 19:41 WBC (3.5-10.8) 10^3/ul RBC (4.0-5.4) 10^6/ul Hgb (12.0-16.0) g/dl Hct (35-47) % MCV (80-97) fL MCH (27-31) pg MCHC (31-36) g/dl RDW (10.5-15) % Plt Count (150-450) 10^3/ul MPV (7.4-10.4) um3 Neut % (Auto) (38-83) % Lymph % (Auto) (25-47) % Orange % (Auto) (1-9) % Eos % (Auto) (0-6) % Baso % (Auto) (0-2) % Absolute Neuts (auto) (1.5-7.7) 10^3/ul Absolute Lymphs (auto) (1.0-4.8) 10^3/ul Absolute Monos (auto) (0-0.8) 10^3/ul Absolute Eos (auto) (0-0.6) 10^3/ul Absolute Basos (auto) (0-0.2) 10^3/ul Absolute Nucleated RBC 10^3/ul Nucleated RBC % D-Dimer, Quantitative > 1050 H (Less Than 230) ng/mL Sodium (133-145) mmol/L Potassium (3.5-5.0) mmol/L Chloride (101-111) mmol/L Carbon Dioxide (22-32) mmol/L Anion Gap (2-11) mmol/L BUN (6-24) mg/dL Creatinine (0.51-0.95) mg/dL Est GFR ( Amer) (>60) Est GFR (Non-Af Amer) (>60) BUN/Creatinine Ratio (8-20) Glucose (70-100) mg/dL Lactic Acid (0.5-2.0) mmol/L Calcium (8.6-10.3) mg/dL Total Bilirubin (0.2-1.0) mg/dL AST (13-39) U/L ALT (7-52) U/L Alkaline Phosphatase (34-104) U/L Troponin I (<0.04) ng/mL B-Natriuretic Peptide 50 ( - 100) pg/mL Total Protein (6.4-8.9) g/dL Albumin (3.2-5.2) g/dL Globulin (2-4) g/dL Albumin/Globulin Ratio (1-3) ECG, personally reviewed: AFIB rate 140, no ischemia, artifactual baseline CXR, personally reviewed: IMPRESSION: MILD HYPERINFLATION. NO ACTIVE DISEASE CTA chest, personally reviewed: IMPRESSION: NO CT EVIDENCE OF ACUTE PULMONARY EMBOLIC DISEASE. EMPHYSEMA. Impression: 71F presenting with COPD exacerbation DIAGNOSIS & PLAN Primary COPD exacerbation : requires Vapotherm, may progress to BiPap; otherwise is DNR/I : 1H continuous albuterol neb upon arrival to ICU : ICU monitoring : albuterol nebs PRN after above : mometasone/formoterol : tiotropium : incentive spirometry : PO azithromycin : supportive care Secondary HLD : continue simvastatin GERD : continue omeprazole Admission Rational: inpatient for ICU management of COPD exacerbation in patient at high risk of terminal decompensation in outpatient setting DVTp: SCDs & heparin SQ Code Status: full HCP: daughter, Chanda Felix
[2016-12-09] MEDS: Azithromycin TAB* 250 MG PO SCH ×2 (00:03→10:46)
[2016-12-09] MEDS: NS 0.9% 1000 ML* 1,000 ML IV SCH ×3 (00:11→15:52)
[2016-12-09] MEDS ORDERED: Albuterol 0.5% CONC NEB.SOL* 5 MG/ML 20 ml BOT INH ONE (00:13)
[2016-12-09] MEDS ORDERED: Morphine INJ* 2 MG/ML 1 ML SYRINGE IV PRN (00:53)
[2016-12-09] MEDS: Albuterol 2.5 MG/3 ML NEB.SOL* (0.083%) INH SCH ×4 (00:57→19:54)
[2016-12-09] MEDS: Omeprazole CAP* 20 MG PO SCH (05:12)
[2016-12-09] MEDS: Heparin VIAL(*) 5000 UNITS/ML VIAL (FIVE THOUSAND) SUBCUT SCH ×3 (05:12→22:51)
[2016-12-09 05:23] LABS: Hematocrit 41 % (35-47); Hemoglobin 13.5 g/dl (12.0-16.0); Mean Corpuscular HGB Conc 33 g/dl (31-36); Mean Corpuscular Hemoglobin 30 pg (27-31); Mean Corpuscular Volume 92 fL (80-97); Mean Platelet Volume 8 um3 (7.4-10.4); Red Blood Count 4.51 10^6/ul (4.0-5.4); Red Cell Distribution Width 13 % (10.5-15); White Blood Count 11.9 10^3/ul (3.5-10.8)
[2016-12-09 05:34] LABS: BUN/Creatinine Ratio 17.1 (8-20); EGFR African American 105.5 (>60); Potassium 4.2 mmol/L (3.5-5.0)
[2016-12-09] MEDS: Tiotropium CAP.INH* CAP.INH/18 MCG INH SCH (07:58)
[2016-12-09] MEDS: Mometasone/Formoter 200/5 MDI INH SCH ×2 (07:59→19:54)
[2016-12-09] MEDS ORDERED: Spiriva Inhaler DEVICE* 1 EACH DEVICE INH ONE (09:00)
[2016-12-09] MEDS ORDERED: cefTRIAXone VIAL(*) 1,000 MG in NS 0.9% 50 ML* 50 ML IVPB SCH (10:00)
[2016-12-09] MEDS: methylPREDNISolone SOD 40 MG* 1 ML VIAL IV SCH ×2 (10:46→17:59)
[2016-12-09] MEDS: Docusate CAP* 100 MG PO SCH ×2 (10:46→22:46)
--- NOTE | 2016-12-09 16:11 | PN ---
Subjective Date of Service: 12/09/16 Interval History: Seen and examined this AM Breathing feels much better. Titrated off of vapotherm but back on later in the day Notes increase cough with sputum production for the entire week prior to presentation without fevers/chills COPD is worse in the summer for her Objective Active Medications: Acetaminophen (Tylenol Tab*) 650 mg PO Q6H PRN PRN Reason: FEVER/PAIN Last Admin: 12/09/16 04:56 Dose: 650 mg Albuterol (Ventolin 2.5 Mg/3 Ml Neb.Steph*) 2.5 mg INH Q2H PRN PRN Reason: SOB/WHEEZING Albuterol (Ventolin 2.5 Mg/3 Ml Neb.Steph*) 2.5 mg INH [id number] Last Admin: 12/09/16 13:57 Dose: 2.5 mg Azithromycin (Zithromax Tab*) 500 mg PO DAILY [facility] Last Admin: 12/09/16 10:46 Dose: 500 mg Docusate Sodium (Colace Cap*) 200 mg PO BID [facility] Last Admin: 12/09/16 10:46 Dose: Not Given Heparin Sodium (Porcine) (Heparin Vial(*)) 5,000 units SUBCUT Q8HR [facility] Last Admin: 12/09/16 14:22 Dose: 5,000 units Sodium Chloride (Ns 0.9% 1000 Ml*) 1,000 mls @ 125 mls/hr IV PER RATE [facility] Last Admin: 12/09/16 15:52 Dose: 125 mls/hr Melatonin (Melatonin (Nf)) 3 mg PO BEDTIME PRN; Protocol PRN Reason: Sleep Methylprednisolone Sodium Succinate (Solu-Medrol 40 Mg) 40 mg IV Q8H [facility] Last Admin: 12/09/16 10:46 Dose: 40 mg Mometasone Furoate/Formoterol Fumar (Dulera 200/5 Mdi*) 2 puff INH BID [facility] Last Admin: 12/09/16 07:59 Dose: 2 puff Morphine Sulfate (Morphine Inj (Syringe)*) 2 mg IV Q2H PRN PRN Reason: Air hunger Last Admin: 12/09/16 01:23 Dose: 2 mg Nicotine (Nicotine Inhaler*) 10 mg INH Q2H PRN PRN Reason: CRAVING Omeprazole (Prilosec Cap*) 20 mg PO DAILY@0600 [facility] Last Admin: 12/09/16 05:12 Dose: 20 mg Ondansetron HCl (Zofran Inj*) 4 mg IV Q6H PRN PRN Reason: NAUSEA Tiotropium [place] (Spiriva Cap.Inh*) 1 cap INH DAILY [facility] Last Admin: 12/09/16 07:58 Dose: 1 inh Vital Signs 12/08/16 12/08/16 12/09/16 23:30 23:52 00:00 Temperature 96.6 F 97.6 F Pulse Rate 100 106 Respiratory 26 26 32 Rate Blood Pressure 115/78 115/78 (mmHg) O2 Sat by Pulse 97 Oximetry 12/09/16 12/09/16 12/09/16 00:01 00:15 01:00 Temperature Pulse Rate 103 99 92 Respiratory 26 33 22 Rate Blood Pressure 134/70 147/65 137/90 (mmHg) O2 Sat by Pulse 97 98 99 Oximetry 12/09/16 12/09/16 12/09/16 01:02 01:03 01:08 Temperature 97.2 F Pulse Rate 91 106 Respiratory 25 28 Rate Blood Pressure 105/76 (mmHg) O2 Sat by Pulse 99 99 99 Oximetry 12/09/16 12/09/16 12/09/16 01:23 02:00 03:00 Temperature Pulse Rate 84 78 Respiratory 20 15 15 Rate Blood Pressure 119/53 95/56 (mmHg) O2 Sat by Pulse 99 100 Oximetry 12/09/16 12/09/16 12/09/16 04:00 05:00 05:45 Temperature 100.0 F Pulse Rate 77 90 Respiratory 15 24 18 Rate Blood Pressure 107/53 118/63 (mmHg) O2 Sat by Pulse 100 99 Oximetry 12/09/16 12/09/16 12/09/16 06:00 07:00 07:22 Temperature 97.6 F Pulse Rate 76 81 Respiratory 16 13 Rate Blood Pressure 98/64 109/49 (mmHg) O2 Sat by Pulse 99 99 Oximetry 12/09/16 12/09/16 12/09/16 07:42 08:00 09:00 Temperature Pulse Rate 80 78 77 Respiratory 17 19 17 Rate Blood Pressure 111/47 94/47 (mmHg) O2 Sat by Pulse 98 96 99 Oximetry 12/09/16 12/09/16 12/09/16 10:00 11:00 11:02 Temperature Pulse Rate 77 79 81 Respiratory 18 18 15 Rate Blood Pressure 110/61 106/48 (mmHg) O2 Sat by Pulse 100 100 100 Oximetry 12/09/16 12/09/16 12/09/16 11:51 12:00 13:00 Temperature 98 F Pulse Rate 72 78 Respiratory 19 23 Rate Blood Pressure 114/59 114/56 (mmHg) O2 Sat by Pulse 100 99 Oximetry 12/09/16 12/09/16 12/09/16 13:55 14:00 15:00 Temperature Pulse Rate 80 85 85 Respiratory 17 20 17 Rate Blood Pressure 116/59 (mmHg) O2 Sat by Pulse 98 98 100 Oximetry 12/09/16 15:39 Temperature 98.9 F Pulse Rate Respiratory Rate Blood Pressure (mmHg) O2 Sat by Pulse Oximetry Oxygen Devices in Use Now: High Flow Nasal Cannula Appearance: lying flat, NAD Eyes: No Scleral Icterus, PERRLA Ears/Nose/Mouth/Throat: Clear Oropharnyx, Mucous Membranes Moist Neck: NL Appearance and Movements; NL JVP, Trachea Midline Respiratory: Symmetrical Chest Expansion and Respiratory Effort, - - expiratory wheeze throughout Cardiovascular: RRR Abdominal: NL Sounds; No Tenderness; No Distention, No Hepatosplenomegaly Lymphatic: No Cervical Adenopathy Extremities: No Edema Skin: No Rash or Ulcers Neurological: Alert and Oriented x 3 Result Diagrams: 12/09/16 05:00 12/09/16 05:00 Additional Lab and Data: Lab Results 12/08/16 12/08/16 12/08/16 Range/Units 19:41 19:41 19:41 WBC 16.0 H (3.5-10.8) 10^3/ul RBC 4.70 (4.0-5.4) 10^6/ul Hgb 14.1 (12.0-16.0) g/dl Hct 44 (35-47) % MCV 94 (80-97) fL MCH 30 (27-31) pg MCHC 32 (31-36) g/dl RDW 14 (10.5-15) % Plt Count 279 (150-450) 10^3/ul MPV 8 (7.4-10.4) um3 Neut % (Auto) 47.6 (38-83) % Lymph % (Auto) 35.6 (25-47) % Hale % (Auto) 9.7 H (1-9) % Eos % (Auto) 5.7 (0-6) % Baso % (Auto) 1.4 (0-2) % Absolute Neuts (auto) 7.6 (1.5-7.7) 10^3/ul Absolute Lymphs (auto) 5.7 H (1.0-4.8) 10^3/ul Absolute Monos (auto) 1.5 H (0-0.8) 10^3/ul Absolute Eos (auto) 0.9 H (0-0.6) 10^3/ul Absolute Basos (auto) 0.2 (0-0.2) 10^3/ul Absolute Nucleated RBC 0.02 10^3/ul Nucleated RBC % 0.1 Sodium 134 (133-145) mmol/L Potassium 4.4 (3.5-5.0) mmol/L Chloride 100 L (101-111) mmol/L Carbon Dioxide 23 (22-32) mmol/L Anion Gap 11 (2-11) mmol/L BUN 13 (6-24) mg/dL Creatinine 0.83 (0.51-0.95) mg/dL Est GFR ( Amer) 86.7 (>60) Est GFR (Non-Af Amer) 67.4 (>60) BUN/Creatinine Ratio 15.7 (8-20) Glucose 273 H (70-100) mg/dL Lactic Acid 5.3 H* (0.5-2.0) mmol/L Calcium 9.3 (8.6-10.3) mg/dL Total Bilirubin 0.40 (0.2-1.0) mg/dL AST 18 (13-39) U/L ALT 13 (7-52) U/L Alkaline Phosphatase 57 (34-104) U/L Troponin I 0.00 (<0.04) ng/mL B-Natriuretic Peptide ( - 100) pg/mL Total Protein 6.4 (6.4-8.9) g/dL Albumin 4.0 (3.2-5.2) g/dL Globulin 2.4 (2-4) g/dL Albumin/Globulin Ratio 1.7 (1-3) 12/08/ Range/Units 19:41 WBC (3.5-10.8) 10^3/ul RBC (4.0-5.4) 10^6/ul Hgb (12.0-16.0) g/dl Hct (35-47) % MCV (80-97) fL MCH (27-31) pg MCHC (31-36) g/dl RDW (10.5-15) % Plt Count (150-450) 10^3/ul MPV (7.4-10.4) um3 Neut % (Auto) (38-83) % Lymph % (Auto) (25-47) % Hale % (Auto) (1-9) % Eos % (Auto) (0-6) % Baso % (Auto) (0-2) % Absolute Neuts (auto) (1.5-7.7) 10^3/ul Absolute Lymphs (auto) (1.0-4.8) 10^3/ul Absolute Monos (auto) (0-0.8) 10^3/ul Absolute Eos (auto) (0-0.6) 10^3/ul Absolute Basos (auto) (0-0.2) 10^3/ul Absolute Nucleated RBC 10^3/ul Nucleated RBC % Sodium (133-145) mmol/L Potassium (3.5-5.0) mmol/L Chloride (101-111) mmol/L Carbon Dioxide (22-32) mmol/L Anion Gap (2-11) mmol/L BUN (6-24) mg/dL Creatinine (0.51-0.95) mg/dL Est GFR ( Amer) (>60) Est GFR (Non-Af Amer) (>60) BUN/Creatinine Ratio (8-20) Glucose (70-100) mg/dL Lactic Acid (0.5-2.0) mmol/L Calcium (8.6-10.3) mg/dL Total Bilirubin (0.2-1.0) mg/dL AST (13-39) U/L ALT (7-52) U/L Alkaline Phosphatase (34-104) U/L Troponin I (<0.04) ng/mL B-Natriuretic Peptide 50 ( - 100) pg/mL Total Protein (6.4-8.9) g/dL Albumin (3.2-5.2) g/dL Globulin (2-4) g/dL Albumin/Globulin Ratio (1-3) Microbiology and Other Data: Microbiology 12/09/16 00:31 Nasal Screen MRSA (PCR)(JIGAR) - Final Nasal Mrsa Negative Assess/Plan/Problems-Billing Assessment: 71 yo F admitted with COPD exacerbation - Patient Problems (1) COPD exacerbation Comment: Last admission for same - 05/2016 Start IV steroids c/w nebs, dulera, spiriva (2) Chronic respiratory failure Comment: home oxygen 2L in setting of COPD (3) GERD (gastroesophageal reflux disease) Comment: omeprazole (4) Hyperlipidemia Comment: home simvastatin converted to atorvastatin (5) DVT prophylaxis Comment: HSQ
[2016-12-09] MEDS: Atorvastatin* 10 MG TAB PO SCH (17:59)
[2016-12-10] MEDS: Albuterol 2.5 MG/3 ML NEB.SOL* (0.083%) INH SCH ×2 (00:53→08:47)
[2016-12-10] MEDS: methylPREDNISolone SOD 40 MG* 1 ML VIAL IV SCH ×3 (02:44→17:39)
[2016-12-10] MEDS: Heparin VIAL(*) 5000 UNITS/ML VIAL (FIVE THOUSAND) SUBCUT SCH ×3 (05:20→20:46)
[2016-12-10] MEDS: Omeprazole CAP* 20 MG PO SCH (05:20)
[2016-12-10 05:36] LABS: Hematocrit 35 % (35-47); Hemoglobin 11.8 g/dl (12.0-16.0); Mean Corpuscular HGB Conc 34 g/dl (31-36); Mean Corpuscular Hemoglobin 31 pg (27-31); Mean Corpuscular Volume 91 fL (80-97); Mean Platelet Volume 8 um3 (7.4-10.4); Red Blood Count 3.85 10^6/ul (4.0-5.4); Red Cell Distribution Width 13 % (10.5-15); White Blood Count 12.5 10^3/ul (3.5-10.8)
[2016-12-10 05:41] LABS: BUN/Creatinine Ratio 14.3 (8-20); Calcium 8.8 mg/dL (8.6-10.3); EGFR African American 105.5 (>60); Potassium 4.2 mmol/L (3.5-5.0)
[2016-12-10] MEDS: Tiotropium CAP.INH* CAP.INH/18 MCG INH SCH (08:36)
[2016-12-10] MEDS: Mometasone/Formoter 200/5 MDI INH SCH ×2 (08:37→19:17)
[2016-12-10] MEDS: Azithromycin TAB* 250 MG PO SCH (08:59)
[2016-12-10] MEDS: Docusate CAP* 100 MG PO SCH ×2 (08:59→20:47)
[2016-12-10] MEDS: Albuterol 2.5 MG/3 ML NEB.SOL* (0.083%) INH PRN ×2 (11:05→19:16)
--- NOTE | 2016-12-10 13:55 | PN ---
Subjective Date of Service: 12/10/16 Interval History: Walking to bathroom with some SOB, no quite back to baseline minimal cough In good spirits Objective Active Medications: Acetaminophen (Tylenol Tab*) 650 mg PO Q6H PRN PRN Reason: FEVER/PAIN Last Admin: 12/09/16 04:56 Dose: 650 mg Albuterol (Ventolin 2.5 Mg/3 Ml Neb.Steph*) 2.5 mg INH Q2H PRN PRN Reason: SOB/WHEEZING Last Admin: 12/10/16 11:05 Dose: 2.5 mg Atorvastatin Calcium (Lipitor*) 10 mg PO 1700 [facility] Last Admin: 12/09/16 17:59 Dose: Not Given Azithromycin (Zithromax Tab*) 500 mg PO DAILY [facility] Last Admin: 12/10/16 08:59 Dose: 500 mg Docusate Sodium (Colace Cap*) 200 mg PO BID [facility] Last Admin: 12/10/16 08:59 Dose: 200 mg Heparin Sodium (Porcine) (Heparin Vial(*)) 5,000 units SUBCUT Q8HR [facility] Last Admin: 12/10/16 05:20 Dose: 5,000 units Melatonin (Melatonin (Nf)) 3 mg PO BEDTIME PRN; Protocol PRN Reason: Sleep Methylprednisolone Sodium Succinate (Solu-Medrol 40 Mg) 40 mg IV Q8H [facility] Last Admin: 12/10/16 09:00 Dose: 40 mg Mometasone Furoate/Formoterol Fumar (Dulera 200/5 Mdi*) 2 puff INH BID [facility] Last Admin: 12/10/16 08:37 Dose: 2 puff Nicotine (Nicotine Inhaler*) 10 mg INH Q2H PRN PRN Reason: CRAVING Omeprazole (Prilosec Cap*) 20 mg PO DAILY@0600 [facility] Last Admin: 12/10/16 05:20 Dose: 20 mg Ondansetron HCl (Zofran Inj*) 4 mg IV Q6H PRN PRN Reason: NAUSEA Last Admin: 12/09/16 18:56 Dose: 4 mg Tiotropium [place] (Spiriva Cap.Inh*) 1 cap INH DAILY [facility] Last Admin: 12/10/16 08:36 Dose: 1 inh Vital Signs 12/09/16 12/09/16 12/09/16 13:55 14:00 15:00 Temperature Pulse Rate 80 85 85 Respiratory 17 20 17 Rate Blood Pressure 116/59 103/39 (mmHg) O2 Sat by Pulse 98 98 100 Oximetry 12/09/16 12/09/16 12/09/16 15:39 16:00 17:00 Temperature 98.9 F Pulse Rate 81 87 Respiratory 19 23 Rate Blood Pressure 99/48 (mmHg) O2 Sat by Pulse 100 100 Oximetry 12/09/16 12/09/16 12/09/16 18:00 18:50 20:00 Temperature 98.0 F Pulse Rate 82 83 Respiratory 15 18 16 Rate Blood Pressure 116/48 (mmHg) O2 Sat by Pulse 99 99 Oximetry 12/09/16 12/10/16 12/10/16 23:11 03:20 03:21 Temperature 98.1 F 97.8 F Pulse Rate 75 76 Respiratory 16 18 Rate Blood Pressure 113/47 99/42 105/45 (mmHg) O2 Sat by Pulse 97 99 Oximetry 12/10/16 12/10/16 12/10/16 08:43 08:44 11:06 Temperature Pulse Rate 74 83 Respiratory 19 19 Rate Blood Pressure (mmHg) O2 Sat by Pulse 99 99 99 Oximetry Oxygen Devices in Use Now: Nasal Cannula - 3L Appearance: NAD Eyes: No Scleral Icterus, PERRLA Ears/Nose/Mouth/Throat: NL Teeth, Lips, Gums, Clear Oropharnyx, Mucous Membranes Moist Neck: NL Appearance and Movements; NL JVP Respiratory: Symmetrical Chest Expansion and Respiratory Effort, - - greatly decreased BS throughout all lung vasquez Cardiovascular: RRR Abdominal: NL Sounds; No Tenderness; No Distention, No Hepatosplenomegaly Lymphatic: No Cervical Adenopathy Extremities: No Edema Skin: No Rash or Ulcers Neurological: Alert and Oriented x 3 Result Diagrams: 12/10/16 05:05 12/10/16 05:05 Additional Lab and Data: Lab Results 12/08/16 12/08/16 12/08/16 Range/Units 19:41 19:41 19:41 WBC 16.0 H (3.5-10.8) 10^3/ul RBC 4.70 (4.0-5.4) 10^6/ul Hgb 14.1 (12.0-16.0) g/dl Hct 44 (35-47) % MCV 94 (80-97) fL MCH 30 (27-31) pg MCHC 32 (31-36) g/dl RDW 14 (10.5-15) % Plt Count 279 (150-450) 10^3/ul MPV 8 (7.4-10.4) um3 Neut % (Auto) 47.6 (38-83) % Lymph % (Auto) 35.6 (25-47) % Ogle % (Auto) 9.7 H (1-9) % Eos % (Auto) 5.7 (0-6) % Baso % (Auto) 1.4 (0-2) % Absolute Neuts (auto) 7.6 (1.5-7.7) 10^3/ul Absolute Lymphs (auto) 5.7 H (1.0-4.8) 10^3/ul Absolute Monos (auto) 1.5 H (0-0.8) 10^3/ul Absolute Eos (auto) 0.9 H (0-0.6) 10^3/ul Absolute Basos (auto) 0.2 (0-0.2) 10^3/ul Absolute Nucleated RBC 0.02 10^3/ul Nucleated RBC % 0.1 Sodium 134 (133-145) mmol/L Potassium 4.4 (3.5-5.0) mmol/L Chloride 100 L (101-111) mmol/L Carbon Dioxide 23 (22-32) mmol/L Anion Gap 11 (2-11) mmol/L BUN 13 (6-24) mg/dL Creatinine 0.83 (0.51-0.95) mg/dL Est GFR ( Amer) 86.7 (>60) Est GFR (Non-Af Amer) 67.4 (>60) BUN/Creatinine Ratio 15.7 (8-20) Glucose 273 H (70-100) mg/dL Lactic Acid 5.3 H* (0.5-2.0) mmol/L Calcium 9.3 (8.6-10.3) mg/dL Total Bilirubin 0.40 (0.2-1.0) mg/dL AST 18 (13-39) U/L ALT 13 (7-52) U/L Alkaline Phosphatase 57 (34-104) U/L Troponin I 0.00 (<0.04) ng/mL B-Natriuretic Peptide ( - 100) pg/mL Total Protein 6.4 (6.4-8.9) g/dL Albumin 4.0 (3.2-5.2) g/dL Globulin 2.4 (2-4) g/dL Albumin/Globulin Ratio 1.7 (1-3) 12/08/16 Range/Units 19:41 WBC (3.5-10.8) 10^3/ul RBC (4.0-5.4) 10^6/ul Hgb (12.0-16.0) g/dl Hct (35-47) % MCV (80-97) fL MCH (27-31) pg MCHC (31-36) g/dl RDW (10.5-15) % Plt Count (150-450) 10^3/ul MPV (7.4-10.4) um3 Neut % (Auto) (38-83) % Lymph % (Auto) (25-47) % Ogle % (Auto) (1-9) % Eos % (Auto) (0-6) % Baso % (Auto) (0-2) % Absolute Neuts (auto) (1.5-7.7) 10^3/ul Absolute Lymphs (auto) (1.0-4.8) 10^3/ul Absolute Monos (auto) (0-0.8) 10^3/ul Absolute Eos (auto) (0-0.6) 10^3/ul Absolute Basos (auto) (0-0.2) 10^3/ul Absolute Nucleated RBC 10^3/ul Nucleated RBC % Sodium (133-145) mmol/L Potassium (3.5-5.0) mmol/L Chloride (101-111) mmol/L Carbon Dioxide (22-32) mmol/L Anion Gap (2-11) mmol/L BUN (6-24) mg/dL Creatinine (0.51-0.95) mg/dL Est GFR ( Amer) (>60) Est GFR (Non-Af Amer) (>60) BUN/Creatinine Ratio (8-20) Glucose (70-100) mg/dL Lactic Acid (0.5-2.0) mmol/L Calcium (8.6-10.3) mg/dL Total Bilirubin (0.2-1.0) mg/dL AST (13-39) U/L ALT (7-52) U/L Alkaline Phosphatase (34-104) U/L Troponin I (<0.04) ng/mL B-Natriuretic Peptide 50 ( - 100) pg/mL Total Protein (6.4-8.9) g/dL Albumin (3.2-5.2) g/dL Globulin (2-4) g/dL Albumin/Globulin Ratio (1-3) Microbiology and Other Data: Microbiology 12/09/16 00:31 Nasal Screen MRSA (PCR)([facility]) - Final Nasal Mrsa Negative Assess/Plan/Problems-Billing Assessment: 71 yo F admitted with COPD exacerbation - Patient Problems (1) COPD exacerbation Comment: Last admission for same - 05/2016 c/w IV steroids in setting of poor lung exam c/w nebs, dulera, spiriva azithromycin (2) Chronic respiratory failure Comment: home oxygen 2L in setting of COPD (3) GERD (gastroesophageal reflux disease) Comment: omeprazole (4) Hyperlipidemia Comment: home simvastatin converted to atorvastatin (5) DVT prophylaxis Comment: HSQ Status and Disposition: suspect home tomorrow after another 24 hrs IV steroids
[2016-12-10] MEDS: Atorvastatin* 10 MG TAB PO SCH (17:39)
[2016-12-11] MEDS: methylPREDNISolone SOD 40 MG* 1 ML VIAL IV SCH ×2 (02:54→10:03)
[2016-12-11] MEDS: Omeprazole CAP* 20 MG PO SCH (06:44)
[2016-12-11] MEDS: Heparin VIAL(*) 5000 UNITS/ML VIAL (FIVE THOUSAND) SUBCUT SCH (06:44)
[2016-12-11] MEDS: Tiotropium CAP.INH* CAP.INH/18 MCG INH SCH (08:11)
[2016-12-11] MEDS: Mometasone/Formoter 200/5 MDI INH SCH (08:11)
[2016-12-11] MEDS: Albuterol 2.5 MG/3 ML NEB.SOL* (0.083%) INH PRN (08:15)
[2016-12-11] MEDS: Docusate CAP* 100 MG PO SCH (08:44)
[2016-12-11] MEDS: Azithromycin TAB* 250 MG PO SCH (08:45)
[2016-12-11 09:06] VITALS: BP 124/51
--- NOTE | 2016-12-12 09:48 | DS ---
CC: Dr. Levi * DISCHARGE SUMMARY: DATE OF ADMISSION: 12/08/16 DATE OF DISCHARGE: 12/11/16 PRIMARY CARE PROVIDER: Dr. Levi. PRIMARY DIAGNOSIS: Chronic obstructive pulmonary disease exacerbation. SECONDARY DIAGNOSES: 1. Chronic respiratory failure at 2 L oxygen at home at all times. 2. Hyperlipidemia. 3. Gastroesophageal reflux disease. MEDICATIONS ON DISCHARGE: 1. Simvastatin 20 mg in the evening. 2. Prednisone 40 mg daily for 3 additional days. 3. Tiotropium one cap inhaled daily. 4. Breo Ellipta 200/25 mcg one puff daily. 5. Albuterol ipratropium nebulizer one puff every 4 hours as needed for shortness of breath or wheezing. 6. Ventolin HFA as needed every 4 hours as needed for shortness of breath or wheezing. PERTINENT IMAGING PERFORMED DURING HOSPITAL STAY: CTA chest and thorax, impression: No CT evidence of acute pulmonary embolic disease. Emphysema present. HISTORY OF PRESENT ILLNESS AND HOSPITAL COURSE: This is a pleasant 72-year-old female with past medical history of chronic respiratory failure secondary to COPD on 2 L of oxygen at home who presented to the hospital after increasing cough frequency and volume for the week prior to presentation with shortness of breath and acute hypoxic respiratory failure requiring admission to the ICU and Vapotherm. She was treated with IV steroids in addition to nebulizers including Dulera, ipratropium, albuterol, and Spiriva with improvement in respiratory status titration back with 2 L nasal cannula. She was ambulatory in the hospital her usual distance without becoming shortness of breath on the day of discharge. She felt back to her baseline. There are no complications during this hospital stay. At followup, please: 1. Please review medications with patient; ensure she is taking accurately as prescribed. In particular, the patient has Ellipta prescribed, however, I am concerned about her insurance coverage for this medication, although she indicates she is currently taking it. 2. No other specific labs or vitals that need followup. Reasons to return to the hospital including, but not limited to recurrent or worsening symptoms, chest pain, shortness of breath, wheezing, nausea, vomiting , lightheadedness, loss of consciousness, near loss of consciousness, bleeding from any source, or inability to obtain or tolerate her medications were discussed with the patient, she acknowledged understanding. TIME SPENT: Greater than 45 minutes were spent on the discharge of this patient , greater than half was spent [id number] with the patient. [id number]/[facility] #: [id number] BELINDA
== END 2016-12-11 12:50 | disposition home or self-care (01) | DRG 189 ==
LOC: ED 19:32 → ICU 23:08 → MED 12-09 18:34
PROVIDERS: ADMIT Hospitalist; ATTEND Internal Medicine
DX: J96.21 Acute and chronic respiratory failure with hypoxia (principal); J44.1 Chronic obstructive pulmonary disease with (acute) exacerbation; Z99.81 Dependence on supplemental oxygen; E78.5 Hyperlipidemia, unspecified; K21.9 Gastro-esophageal reflux disease without esophagitis; Z66 Do not resuscitate; Z79.52 Long term (current) use of systemic steroids; Z79.899 Other long term (current) drug therapy; Z91.030 Bee allergy status; Z82.3 Family history of stroke; Z87.891 Personal history of nicotine dependence
CPT/HCPCS: 36415; 71010; 71275; 80048; 80053; 83605; 83880; 84484; 85025; 85379; 87641; 93005; 94640; 94760; 99285; 99406; A9270-GY; J0696; J1644; J2270; J2405; J2920; J2930; J7611; Q9967

== ENCOUNTER 2016-12-20 06:25 | Emergency (ER) | payer MEDICARE ==
[2016-12-20] MEDS ORDERED: Albuterol/Ipratropium NEB.SOL* Albuterol 2.5 MG/Ipratropium 0.5 MG 3 ML INH ONE (06:49)
[2016-12-20] MEDS ORDERED: Albuterol/Ipratropium NEB.SOL* Albuterol 2.5 MG/Ipratropium 0.5 MG 3 ML ONE (06:50)
[2016-12-20] MEDS ORDERED: NS 0.9% 1000 ML* 1,000 ML IV SCH (07:15)
[2016-12-20] MEDS ORDERED: methylPREDNISolone 125 MG* 2 ML VIAL IV ONE (07:15)
[2016-12-20] MEDS ORDERED: cefTRIAXone(*) 1 GM in NS 0.9% 50 ML* 50 ML IVPB ONE (07:15)
[2016-12-20] MEDS ORDERED: Azithromycin IV(*) 500 MG in NS 0.9% 250 ML* 250 ML IVPB ONE (07:16)
[2016-12-20 07:30] LABS: Hematocrit 43 % (35-47); Hemoglobin 14.5 g/dl (12.0-16.0); Mean Corpuscular HGB Conc 34 g/dl (31-36); Mean Corpuscular Hemoglobin 32 pg (27-31); Mean Corpuscular Volume 94 fL (80-97); Mean Platelet Volume 8 um3 (7.4-10.4); Red Cell Distribution Width 14 % (10.5-15); White Blood Count 12.8 10^3/ul (3.5-10.8)
[2016-12-20] MEDS ORDERED: cefTRIAXone(*) 1 GM ADVAN ONE (07:39)
[2016-12-20 07:55] LABS: Albumin 4.3 g/dL (3.2-5.2); BUN/Creatinine Ratio 11.7 (8-20); C Reactive Protein 23.95 mg/L (< 5.00); Calcium 9.4 mg/dL (8.6-10.3); EGFR African American 94.5 (>60); EGFR Non-African American 73.5 (>60); Globulin 2.6 g/dL (2-4); Magnesium 2.2 mg/dL (1.9-2.7); Potassium 4.1 mmol/L (3.5-5.0); Total Bilirubin 0.6 mg/dL (0.2-1.0); Total Protein 6.9 g/dL (6.4-8.9)
[2016-12-20 07:57] LABS: TSH (Thyroid Stimulating Horm) 2.66 mcIU/mL (0.34-5.60)
--- NOTE | 2016-12-20 08:02 | RAD ---
INDICATION: Shortness of breath. COMPARISON: Chest x-ray dated December 08, 2016 TECHNIQUE: Single AP portable view of the chest was obtained. FINDINGS: Image quality is compromised due to the relative inferiority of a portable chest x-ray. The heart and mediastinum exhibit normal size and contour. The lungs are grossly clear. There is no evidence of a large pleural effusion. Visualized bones are normal for the patient's age. IMPRESSION: No radiographic evidence for acute cardiopulmonary abnormality on this portable chest x-ray.
[2016-12-20] MEDS: Albuterol/Ipratropium NEB.SOL* Albuterol 2.5 MG/Ipratropium 0.5 MG 3 ML INH ONE ×2 (09:40→09:46)
--- NOTE | 2016-12-20 10:26 | ED ---
Kisha Cast Alfonso, scribed for Karl Walker MD on 12/20/16 at 0711 . Shortness of Breath - HPI Summary HPI Summary: This patient is a 71 year old female presenting accompanied by friend to [facility] c /o SOB at rest that became worse at 2000 yesterday. She presented to [facility] 12 days ago with a provider diagnosis of COPD exacerbation. She rates the pain 0/ 10 in severity. Symptoms aggravated by nothing and alleviated by breathing treatment. The patient reports a productive cough and insomnia. She denies fever , CP, and calf swelling. She uses nasal cannula O2 at home during the night. PMHx of COPD. - History of Current Complaint Chief Complaint: EDShortnessOfBreath Hx Obtained From: Patient Onset/Duration: Gradual Onset, Lasting Hours - Since 05 this morning, Worse Since Timing: Constant Current Severity: Moderate Dyspnea At: Rest Aggrevating Factors: Nothing Alleviating Factors: EMS Tx Associated Signs & Symptoms: Cough (Productive) - Allergy/Home Medications Allergies/Adverse Reactions: Allergies Allergy/AdvReac Type Severity Reaction Status Date / Time Bee Venom Allergy Severe Hives/Diff. 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 - Cancer History Hx Chemotherapy: No Hx Radiation Therapy: No - Immunization History Date of Tetanus Vaccine: unknown Date of Influenza Vaccine: 2014 Infectious Disease History: No Infectious Disease History: Denies: Hx of Known/Suspected MRSA, Traveled Outside the [place] in Last 30 Days - Family History Known Family History: Positive: Other - Breast CA (sister) - Social History Alcohol Use: Weekly Alcohol Amount: 3 drinks/week Substance Use Type: Reports: None Hx Tobacco Use: Yes Smoking Status (MU): Former Smoker Type: Cigarettes Amount Used/How Often: 10 cigarettes/day Length of Time of Smoking/Using Tobacco: 40 years Have You Smoked in the Last Year: Yes Review of Systems Negative: Fever Negative: Chest Pain Positive: Shortness Of Breath - at rest, Cough - Productive cough Positive: Edema - Negative calf swelling Neurological: Other - Positive insomnia All Other Systems Reviewed And Are Negative: Yes Physical Exam Triage Information Reviewed: Yes Vital Signs On Initial Exam: Initial Vitals Temp Pulse Resp BP Pulse Ox 97.5 F 115 26 178/92 95 12/20/16 06:25 12/20/16 06:25 12/20/16 06:25 12/20/16 06:25 12/20/16 06:25 Vital Signs Reviewed: Yes Appearance: Positive: Well-Appearing, No Pain Distress Skin: Positive: Warm, Skin Color Reflects Adequate Perfusion, Dry Head/Face: Positive: Normal Head/Face Inspection Eyes: Positive: EOMI, GARCÍA ENT: Positive: Normal ENT inspection Neck: Positive: Supple, Nontender Respiratory/Lung Sounds: Positive: Other - moderate respiratory distress and pursed lip breathing Cardiovascular: Positive: Tachycardia Abdomen Description: Positive: Nontender, Soft Bowel Sounds: Positive: Present Musculoskeletal: Positive: Normal, Strength/ROM Intact Neurological: Positive: Normal, Sensory/Motor Intact, Alert, Oriented to Person Place, Time Psychiatric: Positive: Affect/Mood Appropriate - [place] Coma Scale Coma Scale Total: 15 Diagnostics - Vital Signs Vital Signs Temp Pulse Resp BP Pulse Ox 12/20/16 06:53 98 24 98 12/20/16 06:25 97.5 F 115 26 178/92 95 - Laboratory Lab Results: Lab Results 12/20/16 12/20/16 12/20/16 Range/Units 06:40 06:40 06:40 WBC 12.8 H (3.5-10.8) 10^3/ul RBC 4.60 (4.0-5.4) 10^6/ul Hgb 14.5 (12.0-16.0) g/dl Hct 43 (35-47) % MCV 94 (80-97) fL MCH 32 H (27-31) pg MCHC 34 (31-36) g/dl RDW 14 (10.5-15) % Plt Count 312 (150-450) 10^3/ul MPV 8 (7.4-10.4) um3 Neut % (Auto) 65.3 (38-83) % Lymph % (Auto) 16.9 L (25-47) % Person % (Auto) 8.8 (1-9) % Eos % (Auto) 7.4 H (0-6) % Baso % (Auto) 1.6 (0-2) % Absolute Neuts (auto) 8.4 H (1.5-7.7) 10^3/ul Absolute Lymphs (auto) 2.2 (1.0-4.8) 10^3/ul Absolute Monos (auto) 1.1 H (0-0.8) 10^3/ul Absolute Eos (auto) 0.9 H (0-0.6) 10^3/ul Absolute Basos (auto) 0.2 (0-0.2) 10^3/ul Absolute Nucleated RBC 0.01 10^3/ul Nucleated RBC % 0.1 INR (Anticoag Therapy) 0.92 (0.89-1.11) APTT 29.4 (26.0-36.3) seconds Sodium 135 (133-145) mmol/L Potassium 4.1 (3.5-5.0) mmol/L Chloride 103 (101-111) mmol/L Carbon Dioxide 25 (22-32) mmol/L Anion Gap 7 (2-11) mmol/L BUN 9 (6-24) mg/dL Creatinine 0.77 (0.51-0.95) mg/dL Est GFR ( Amer) 94.5 (>60) Est GFR (Non-Af Amer) 73.5 (>60) BUN/Creatinine Ratio 11.7 (8-20) Glucose 133 H (70-100) mg/dL Lactic Acid (0.5-2.0) mmol/L Calcium 9.4 (8.6-10.3) mg/dL Magnesium 2.2 (1.9-2.7) mg/dL Total Bilirubin 0.60 (0.2-1.0) mg/dL AST 14 (13-39) U/L ALT 14 (7-52) U/L Alkaline Phosphatase 63 (34-104) U/L Troponin I 0.00 (<0.04) ng/mL C-Reactive Protein 23.95 H (< 5.00) mg/L B-Natriuretic Peptide ( - 100) pg/mL Total Protein 6.9 (6.4-8.9) g/dL Albumin 4.3 (3.2-5.2) g/dL Globulin 2.6 (2-4) g/dL Albumin/Globulin Ratio 1.7 (1-3) TSH 2.66 (0.34-5.60) mcIU/mL 12/20/16 12/20/16 Range/Units 06:40 06:40 WBC (3.5-10.8) 10^3/ul RBC (4.0-5.4) 10^6/ul Hgb (12.0-16.0) g/dl Hct (35-47) % MCV (80-97) fL MCH (27-31) pg MCHC (31-36) g/dl RDW (10.5-15) % Plt Count (150-450) 10^3/ul MPV (7.4-10.4) um3 Neut % (Auto) (38-83) % Lymph % (Auto) (25-47) % Person % (Auto) (1-9) % Eos % (Auto) (0-6) % Baso % (Auto) (0-2) % Absolute Neuts (auto) (1.5-7.7) 10^3/ul Absolute Lymphs (auto) (1.0-4.8) 10^3/ul Absolute Monos (auto) (0-0.8) 10^3/ul Absolute Eos (auto) (0-0.6) 10^3/ul Absolute Basos (auto) (0-0.2) 10^3/ul Absolute Nucleated RBC 10^3/ul Nucleated RBC % INR (Anticoag Therapy) (0.89-1.11) APTT (26.0-36.3) seconds Sodium (133-145) mmol/L Potassium (3.5-5.0) mmol/L Chloride (101-111) mmol/L Carbon Dioxide (22-32) mmol/L Anion Gap (2-11) mmol/L BUN (6-24) mg/dL Creatinine (0.51-0.95) mg/dL Est GFR ( Amer) (>60) Est GFR (Non-Af Amer) (>60) BUN/Creatinine Ratio (8-20) Glucose (70-100) mg/dL Lactic Acid 1.6 (0.5-2.0) mmol/L Calcium (8.6-10.3) mg/dL Magnesium (1.9-2.7) mg/dL Total Bilirubin (0.2-1.0) mg/dL AST (13-39) U/L ALT (7-52) U/L Alkaline Phosphatase (34-104) U/L Troponin I (<0.04) ng/mL C-Reactive Protein (< 5.00) mg/L B-Natriuretic Peptide 29 ( - 100) pg/mL Total Protein (6.4-8.9) g/dL Albumin (3.2-5.2) g/dL Globulin (2-4) g/dL Albumin/Globulin Ratio (1-3) TSH (0.34-5.60) mcIU/mL Result Diagrams: 12/20/16 06:40 12/20/16 06:40 Lab Statement: Any lab studies that have been ordered have been reviewed, and results considered in the medical decision making process. - Radiology CXR Radiology Interpretation Completed By: Radiologist - No radiographic evidence for acute cardiopulmonary abnormality on this portable chest x-ray. - EKG 0700 Cardiac Rate: NL - BPM 97 EKG Rhythm: Sinus Rhythm ST Segment: Normal Ectopy: None Re-Evaluation - Re-Evaluation First Eval Re-Evaluation Time: 09:13 Change: Improved Comment: Patient reports her symptoms have improved and she would like to be discharged home. Will administer another breathing treatment and do a road test in the ED course. Course/Dx - Course Course Of Treatment: NO CRITICAL CARE TIME. IMPROVED IN ED AFTER BREATHING TREATMENTS AND SOLUMEDROL. DISCUSSED ADMISSION, PATIENT WISHES TO GO HOME. AMBULATED IN ED. DISCHARGE HOME STABLE. - Diagnoses Provider Diagnoses: COPD with acute bronchitis Discharge - Discharge Plan Condition: Stable Disposition: HOME Prescriptions: Azithromycin TAB* [Zithromax TAB (Z-AMANDEEP) 250 mg #6 tabs] 250 mg PO DAILY #4 tab predniSONE TAB* [Deltasone TAB*] 40 mg PO DAILY #10 tab Patient Education Materials: COPD (Chronic Obstructive Pulmonary Disease) (ED) , Acute Bronchitis (ED) Referrals: Hailey Levi MD [Primary Care Provider] - Additional Instructions: FOLLOW UP WITH YOUR DOCTOR. RETURN TO THE EMERGENCY DEPARTMENT FOR ANY WORSENING OF YOUR CONDITION; CHEST PAIN, SHORTNESS OF BREATH, FEVER, YOU FEEL ILL OR QUESTIONS OR CONCERNS. The documentation as recorded by the Kisha rios Alfonso accurately reflects the service I personally performed and the decisions made by me, Karl Walker MD.
[2016-12-20 13:35] VITALS: BP 152/73
== END 2016-12-20 13:35 | disposition home or self-care (01) ==
LOC: ED 06:25
DX: J44.9 Chronic obstructive pulmonary disease, unspecified (principal); J20.9 Acute bronchitis, unspecified; R05 Cough; R06.02 Shortness of breath; Z87.891 Personal history of nicotine dependence
CPT/HCPCS: 36415; 71010; 80053; 83605; 83735; 83880; 84443; 84484; 85025; 85610; 85730; 86140; 87040; 93005; 94640; 99284; A9270-GY; J0456; J0696; J2930

== ENCOUNTER 2017-01-09 09:56 | Emergency (ER) | payer MEDICARE ==
[2017-01-09] MEDS ORDERED: diPHENhydraMINE IV* 50 MG/ML 1 ml VIAL (BENADRYL) IV ONE (10:01)
[2017-01-09] MEDS ORDERED: Albuterol/Ipratropium NEB.SOL* Albuterol 2.5 MG/Ipratropium 0.5 MG 3 ML INH ONE (10:01)
[2017-01-09] MEDS ORDERED: methylPREDNISolone 125 MG* 2 ML VIAL IV ONE (10:01)
[2017-01-09] MEDS ORDERED: Famotidine IV* 10 MG/ML 2 ML (20 mg) IV SLOW PU ONE (10:01)
[2017-01-09 12:52] VITALS: BP 124/87
--- NOTE | 2017-01-09 15:46 | ED ---
I, Oh,Solu, scribed for Shiva Harman MD on 01/09/17 at 1019 . Allergic Reaction/Systemic - HPI Summary HPI Summary: This 71 y/o female presents to ED via private transportation for acute allergic reaction after stung by a bee 20 minutes ago. Pt states that she does have prescription for EpiPen, but does not have it dispensed to herself due to financial problem, per pt. No Benadryl or EpiPen [employer]. Negative throat tightening. Positive itchiness bilat palms, dyspnea, and hives. PMHx includes COPD with oxygen dependence at home, and prior anaphylactic reaction. - History of Current Complaint Hx Obtained From: Patient, Medical Records Onset/Duration: Started minutes ago - 20 minutes ago, Still Present Timing: Constant Location: Diffuse Aggravating Factor(s): Nothing Alleviating Factor(s): Nothing Associated Signs And Symptoms: Positive: Vomiting - tingling/numbness at bilat hands. Negative: Throat Tightening - Allergies/Home Medications Allergies/Adverse Reactions: Allergies Allergy/AdvReac Type Severity Reaction Status Date / Time Bee Venom Allergy Severe Hives/Diff. 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 Denies: Hx Hearing Aid Opthamlomology History: Reports: Hx Contacts or Glasses, 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 - Cancer History Hx Chemotherapy: No Hx Radiation Therapy: No - Immunization History Date of Tetanus Vaccine: unknown Date of Influenza Vaccine: 2014 Infectious Disease History: Denies: Hx of Known/Suspected MRSA - Family History Known Family History: Positive: Other - Breast CA (sister) - Social History Alcohol Use: Weekly Alcohol Amount: 3 drinks/week Hx Substance Use: No Substance Use Type: Reports: None Hx Tobacco Use: Yes Smoking Status (MU): Former Smoker Type: Cigarettes Amount Used/How Often: 10 cigarettes/day Length of Time of Smoking/Using Tobacco: 40 years Have You Smoked in the Last Year: Yes Review of Systems Negative: Fever Negative: Other - throat tightening Positive: Shortness Of Breath Positive: Other - bilat hand itchiness. Positive hives All Other Systems Reviewed And Are Negative: Yes Physical Exam - Summary Physical Exam Summary: Well-appearing, no pain distress, BMI > 30 = obese Warm, dry, color reflects adequate perfusion. Negative hives. Positive erythemous bilat palms. Nml head/face Nml eyes Nml ENT. Throat patent. Supple, non-tender CTA, breath sound present RRR Abd soft, non-tender, Bowel sounds + Nml musculoskeletal Nml neuro (unless it is a neuro Pt, then click the first 4) Nml psychiatric, affect/mood appropriate Triage Information Reviewed: Yes Vital Signs On Initial Exam: Initial Vitals Temp Pulse Resp BP Pulse Ox 97.8 F 99 20 165/80 97 01/09/17 10:00 01/09/17 10:00 01/09/17 10:00 01/09/17 10:00 01/09/17 10:00 Vital Signs Reviewed: Yes Diagnostics - Vital Signs Vital Signs Temp Pulse Resp BP Pulse Ox 01/09/17 12:50 98.3 F 88 16 124/87 01/09/17 12:00 84 128/59 98 01/09/17 11:32 83 98 01/09/17 11:31 120/63 01/09/17 11:00 84 16 127/74 100 01/09/17 10:30 84 16 143/78 99 01/09/17 10:02 98.3 F 83 24 164/82 100 01/09/17 10:00 97.8 F 99 20 165/80 97 - Laboratory Lab Statement: Any lab studies that have been ordered have been reviewed, and results considered in the medical decision making process. Re-Evaluation - Re-Evaluation First Eval Re-Evaluation Time: 12:19 Comment: MD in room to re-evaluate pt. She is feeling better with Pt is agreeable to discharge. Allergic Reaction Course/Dx - Course Course Of Treatment: Ms. Ely did well here with medications and observation and was D/C'd. I recommended that she obtain an epipen but she is concerned about the roach. - Diagnoses Provider Diagnoses: Allergic reaction Discharge - Discharge Plan Condition: Stable Disposition: HOME Patient Education Materials: General Allergic Reaction (ED) Referrals: Hailey Levi MD [Primary Care Provider] - 2 Days The documentation as recorded by the Trung rios Soohyun accurately reflects the service I personally performed and the decisions made by me, Shiva Harman MD.
== END 2017-01-09 12:50 | disposition home or self-care (01) ==
LOC: ED 09:56
DX: T78.40XA Allergy, unspecified, initial encounter (principal); R11.10 Vomiting, unspecified; R06.02 Shortness of breath; Z87.891 Personal history of nicotine dependence; X58.XXXA Exposure to other specified factors, initial encounter
CPT/HCPCS: 96374; 96375; 99283; A9270-GY; J1200; J2930

== ENCOUNTER 2017-02-04 21:23 | Emergency (ER) | payer MEDICARE ==
[2017-02-04] MEDS ORDERED: Albuterol/Ipratropium NEB.SOL* Albuterol 2.5 MG/Ipratropium 0.5 MG 3 ML INH ONE ×2 (21:41→22:29)
[2017-02-04] MEDS ORDERED: Albuterol/Ipratropium NEB.SOL* Albuterol 2.5 MG/Ipratropium 0.5 MG 3 ML ONE (21:43)
[2017-02-04] MEDS ORDERED: methylPREDNISolone 125 MG* 2 ML VIAL IV ONE (22:29)
[2017-02-04] MEDS: NS 0.9% 1000 ML* 2,000 ML IV ONE (23:06)
[2017-02-04 23:10] LABS: Hematocrit 43 % (35-47); Hemoglobin 14.7 g/dl (12.0-16.0); Mean Corpuscular HGB Conc 34 g/dl (31-36); Mean Corpuscular Hemoglobin 32 pg (27-31); Mean Corpuscular Volume 93 fL (80-97); Mean Platelet Volume 8 um3 (7.4-10.4); Red Blood Count 4.64 10^6/ul (4.0-5.4); Red Cell Distribution Width 14 % (10.5-15); White Blood Count 10.5 10^3/ul (3.5-10.8)
[2017-02-04 23:23] LABS: Albumin 4.5 g/dL (3.2-5.2); Calcium 9.5 mg/dL (8.6-10.3); EGFR African American 97.1 (>60); EGFR Non-African American 75.5 (>60); Globulin 2.2 g/dL (2-4); Potassium 4.1 mmol/L (3.5-5.0); Total Bilirubin 0.3 mg/dL (0.2-1.0); Total Protein 6.7 g/dL (6.4-8.9)
[2017-02-05] MEDS ORDERED: Azithromycin TAB* 250 MG PO ONE (01:17)
[2017-02-05 01:41] VITALS: BP 110/60
--- NOTE | 2017-02-05 05:25 | ED ---
Khanh Cast Rebecca, scribed for Rowdy Shelton MD on 02/04/17 at 2208 . Shortness of Breath - HPI Summary HPI Summary: Pt is a 72 y/o F BIBA who presents to ED c/o SOB. Sx began tonight at 1999 while at rest. Sx aggravated and alleviated by nothing. Additionally c/o productive cough and sore throat. Denies fever, chills, nausea, CP, edema and rhionrrhea. Pt uses 2L O2 at home. Reports she slept well last night. PMHx COPD. SHx former smoker and lives alone in a one-story house. - History of Current Complaint Chief Complaint: EDRespiratoryDistress Time Seen by Provider: 02/04/17 21:57 Hx Obtained From: Patient Onset/Duration: Still Present Dyspnea At: Rest Aggrevating Factors: Nothing Alleviating Factors: Nothing Associated Signs & Symptoms: Cough (Productive) - Allergy/Home Medications Allergies/Adverse Reactions: Allergies Allergy/AdvReac Type Severity Reaction Status Date / Time Bee Venom Allergy Severe Hives/Diff. 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 - Cancer History Hx Chemotherapy: No Hx Radiation Therapy: No - Immunization History Date of Tetanus Vaccine: unknown Date of Influenza Vaccine: 2014 Infectious Disease History: No Infectious Disease History: Denies: Hx of Known/Suspected MRSA, Traveled Outside the [place] in Last 30 Days - Family History Known Family History: Positive: Other - Breast CA (sister) - Social History Alcohol Use: Weekly Alcohol Amount: 3 drinks/week Hx Substance Use: No Substance Use Type: Reports: None Hx Tobacco Use: Yes Smoking Status (MU): Former Smoker Type: Cigarettes Amount Used/How Often: 10 cigarettes/day Length of Time of Smoking/Using Tobacco: 40 years Have You Smoked in the Last Year: Yes Review of Systems Negative: Fever, Chills Positive: Sore Throat. Negative: Nasal Discharge Negative: Chest Pain Positive: Shortness Of Breath, Cough - productive Negative: Nausea Negative: Edema All Other Systems Reviewed And Are Negative: Yes Physical Exam - Summary Physical Exam Summary: The patient is in mild distress. The skin is warm and dry and skin color reflects adequate perfusion. Ther eis decreased skin turgor. HEENT: The head is normocephalic and atraumatic. The pupils are equal and reactive. The conjunctivae are clear and without drainage. Nares are patent and without drainage. Mouth reveals dry mucous membranes and the throat is without erythema and exudate. The external ears are intact. The ear canals are patent and without drainage. The tympanic membranes are intact. Neck is supple with full range of motion and non-tender. There are no carotid bruits. There is no neck vein distension. Respiratory: Chest is non-tender. Diminished breath sounds throughout with audible wheezing. There is no rhonchi and no rales. She is retracting and talking in full sentences. Cardiovascular: Hear is regular rate and rhythm. There is no murmur or rub auscultated. There is no peripheral edema and pulses are symmetrical and equal. Musculoskeletal: There is no back pain noted. Extremities are non-tender with full range of motion. There is good capillary refill of 2 seconds. There is no peripheral edema or calf tenderness elicited. Neurological: Patient is alert and oriented to person, place and time. The patient has symmetrical motor strength in all four extremities. Psychiatric: The patient has an appropriate affect and does not exhibit any anxiety or depression. Triage Information Reviewed: Yes Vital Signs On Initial Exam: Initial Vitals Temp Pulse Resp BP Pulse Ox 97.3 F 110 24 154/75 95 02/04/17 21:32 02/04/17 21:32 02/04/17 21:32 02/04/17 21:32 02/04/17 21:32 Vital Signs Reviewed: Yes - Mcgraw Coma Scale Coma Scale Total: 15 Diagnostics - Vital Signs Vital Signs Temp Pulse Resp BP Pulse Ox 02/04/17 21:57 110 25 99 02/04/17 21:32 97.3 F 110 24 154/75 95 - Laboratory Lab Results: Lab Results 02/04/17 02/04/17 02/04/17 Range/Units 22:52 22:52 22:52 WBC 10.5 (3.5-10.8) 10^3/ul RBC 4.64 (4.0-5.4) 10^6/ul Hgb 14.7 (12.0-16.0) g/dl Hct 43 (35-47) % MCV 93 (80-97) fL MCH 32 H (27-31) pg MCHC 34 (31-36) g/dl RDW 14 (10.5-15) % Plt Count 255 (150-450) 10^3/ul MPV 8 (7.4-10.4) um3 Neut % (Auto) 76.9 (38-83) % Lymph % (Auto) 12.4 L (25-47) % [place] % (Auto) 3.9 (1-9) % Eos % (Auto) 5.6 (0-6) % Baso % (Auto) 1.2 (0-2) % Absolute Neuts (auto) 8.1 H (1.5-7.7) 10^3/ul Absolute Lymphs (auto) 1.3 (1.0-4.8) 10^3/ul Absolute Monos (auto) 0.4 (0-0.8) 10^3/ul Absolute Eos (auto) 0.6 (0-0.6) 10^3/ul Absolute Basos (auto) 0.1 (0-0.2) 10^3/ul Absolute Nucleated RBC 0.01 10^3/ul Nucleated RBC % 0.1 Sodium 135 (133-145) mmol/L Potassium 4.1 (3.5-5.0) mmol/L Chloride 101 (101-111) mmol/L Carbon Dioxide 28 (22-32) mmol/L Anion Gap 6 (2-11) mmol/L BUN 6 (6-24) mg/dL Creatinine 0.75 (0.51-0.95) mg/dL Est GFR ( Amer) 97.1 (>60) Est GFR (Non-Af Amer) 75.5 (>60) BUN/Creatinine Ratio 8.0 (8-20) Glucose 145 H (70-100) mg/dL Lactic Acid 1.9 (0.5-2.0) mmol/L Calcium 9.5 (8.6-10.3) mg/dL Total Bilirubin 0.30 (0.2-1.0) mg/dL AST 16 (13-39) U/L ALT 12 (7-52) U/L Alkaline Phosphatase 59 (34-104) U/L Troponin I 0.00 (<0.04) ng/mL B-Natriuretic Peptide ( - 100) pg/mL Total Protein 6.7 (6.4-8.9) g/dL Albumin 4.5 (3.2-5.2) g/dL Globulin 2.2 (2-4) g/dL Albumin/Globulin Ratio 2.0 (1-3) 02/04/17 Range/Units 22:52 WBC (3.5-10.8) 10^3/ul RBC (4.0-5.4) 10^6/ul Hgb (12.0-16.0) g/dl Hct (35-47) % MCV (80-97) fL MCH (27-31) pg MCHC (31-36) g/dl RDW (10.5-15) % Plt Count (150-450) 10^3/ul MPV (7.4-10.4) um3 Neut % (Auto) (38-83) % Lymph % (Auto) (25-47) % [place] % (Auto) (1-9) % Eos % (Auto) (0-6) % Baso % (Auto) (0-2) % Absolute Neuts (auto) (1.5-7.7) 10^3/ul Absolute Lymphs (auto) (1.0-4.8) 10^3/ul Absolute Monos (auto) (0-0.8) 10^3/ul Absolute Eos (auto) (0-0.6) 10^3/ul Absolute Basos (auto) (0-0.2) 10^3/ul Absolute Nucleated RBC 10^3/ul Nucleated RBC % Sodium (133-145) mmol/L Potassium (3.5-5.0) mmol/L Chloride (101-111) mmol/L Carbon Dioxide (22-32) mmol/L Anion Gap (2-11) mmol/L BUN (6-24) mg/dL Creatinine (0.51-0.95) mg/dL Est GFR ( Amer) (>60) Est GFR (Non-Af Amer) (>60) BUN/Creatinine Ratio (8-20) Glucose (70-100) mg/dL Lactic Acid (0.5-2.0) mmol/L Calcium (8.6-10.3) mg/dL Total Bilirubin (0.2-1.0) mg/dL AST (13-39) U/L ALT (7-52) U/L Alkaline Phosphatase (34-104) U/L Troponin I (<0.04) ng/mL B-Natriuretic Peptide 21 ( - 100) pg/mL Total Protein (6.4-8.9) g/dL Albumin (3.2-5.2) g/dL Globulin (2-4) g/dL Albumin/Globulin Ratio (1-3) Result Diagrams: 02/04/17 22:52 02/04/17 22:52 Lab Statement: Any lab studies that have been ordered have been reviewed, and results considered in the medical decision making process. - Radiology CXR Radiology Interpretation Completed By: ED Physician - Hyperinflation. COPD changes. - EKG 2247 Cardiac Rate: NL - 94 bpm EKG Rhythm: Sinus Rhythm EKG Interpretation: Normal axis, no ST elevation Re-Evaluation - Re-Evaluation First Eval Re-Evaluation Time: 01:15 Change: Improved Comment: Expresses that she would like to go home. No more wheezing on auscultation. better aeration but still diminished breath sounds. Pt feels much better. Course/Dx - Course Assessment/Plan: Pt is a 72 y/o F BIBA who presents to ED c/o SOB. Sx began tonight at 1999 while at rest. Sx aggravated and alleviated by nothing. Additionally c/o productive cough and sore throat. Denies fever, chills, nausea , CP, edema and rhionrrhea. Pt uses 2L O2 at home. Reports she slept well last night. PMHx COPD. SHx former smoker and lives alone in a one-story house. CXR reveals Hyperinflation and COPD changes. EKG reveals sinus rhythm with no ST elevations. In the ED course, the pt received 2 Duonebs, Zithromax, Solu-Medrol and fluids which improved sx. Upon reevaluation her wheezing had improved and she expressed the desire to be D/C. She will be D/C to home with Dx of acute bronchitis and COPD exacerbation with a followup with her PCP and Rx for Z-Julio and Prednisone. She understands and agrees. Elevated BP noted and advised to f/ u with PCP. - Diagnoses Differential Diagnosis/HQI/PQRI: Positive: Bronchitis, CHF, COPD Exacerbation, [place], Pneumonia Provider Diagnoses: Acute bronchitis, COPD exacerbation Discharge - Discharge Plan Condition: Stable Disposition: HOME Prescriptions: Azithromycin TAB* [Zithromax TAB (Z-JULIO) 250 mg #6 tabs] 2 tab PO .TODAY, THEN 1 DAILY #1 julio predniSONE TAB* [Deltasone TAB*] 60 mg PO DAILY #15 tab Patient Education Materials: Acute Bronchitis (ED), COPD (Chronic Obstructive Pulmonary Disease) (ED) Referrals: Hailey Levi MD [Primary Care Provider] - 3 Days The documentation as recorded by the Khanh rios Rebecca accurately reflects the service I personally performed and the decisions made by me, Rowdy Shelton MD.
--- NOTE | 2017-02-05 07:56 | RAD ---
INDICATION: Shortness of breathing, wheezing, cough. History of emphysema; tobacco use. COMPARISON: December 08, 2016 CT. TECHNIQUE: Dual energy PA and routine lateral views of the chest were obtained. REPORT: Small calcified granuloma at the RIGHT lung apex. Elevated lung volumes and both diffuse mild prominence of the interstitial markings and patchy rarefaction of the mid to upper lung zone interstitial markings. No suspicious focal pulmonary lesions, alveolar consolidation, pleural effusion, pneumothorax. The heart, pulmonary vasculature, and mediastinal contours are unremarkable. IMPRESSION: Stigmata of obstructive lung disease. No acute pulmonary or cardiac process evident.
== END 2017-02-05 02:00 | disposition home or self-care (01) ==
LOC: ED 21:23
DX: J44.1 Chronic obstructive pulmonary disease with (acute) exacerbation (principal); J02.9 Acute pharyngitis, unspecified; R06.02 Shortness of breath; R05 Cough; Z87.891 Personal history of nicotine dependence; J20.9 Acute bronchitis, unspecified
CPT/HCPCS: 36415; 71020; 80053; 83605; 83880; 84484; 85025; 93005; 94640; 99283; A9270-GY; J2930

== ENCOUNTER 2017-02-20 16:36 | Inpatient (IN) | payer MEDICARE ==
[2017-02-20] MEDS ORDERED: Albuterol/Ipratropium NEB.SOL* Albuterol 2.5 MG/Ipratropium 0.5 MG 3 ML INH ONE ×2 (16:39→16:42)
[2017-02-20] MEDS ORDERED: methylPREDNISolone 125 MG* 2 ML VIAL IV ONE (16:39)
--- NOTE | 2017-02-20 17:06 | RAD ---
Indication: COPD exacerbation. Shortness of breath. Comparison: February 04, 2017 Technique: Upright AP 1642 hours Report: Elevated lung volumes and both diffuse mild prominence of the interstitial markings and patchy rarefaction of the mid to upper lung zone interstitial markings. IMPRESSION: Stigmata of obstructive lung disease. No acute pulmonary or cardiac process evident.
[2017-02-20 17:25] LABS: Hematocrit 43 % (35-47); Hemoglobin 14.7 g/dl (12.0-16.0); Mean Corpuscular HGB Conc 34 g/dl (31-36); Mean Corpuscular Hemoglobin 32 pg (27-31); Mean Corpuscular Volume 93 fL (80-97); Mean Platelet Volume 8 um3 (7.4-10.4); Red Blood Count 4.66 10^6/ul (4.0-5.4); Red Cell Distribution Width 14 % (10.5-15)
[2017-02-20 17:41] LABS: Albumin 4.3 g/dL (3.2-5.2); C Reactive Protein 5.95 mg/L (< 5.00); Calcium 9.3 mg/dL (8.6-10.3); EGFR African American 94.2 (>60); EGFR Non-African American 73.3 (>60); Globulin 2.7 g/dL (2-4); Magnesium 2.1 mg/dL (1.9-2.7); Total Bilirubin 0.3 mg/dL (0.2-1.0)
[2017-02-20] MEDS ORDERED: Albuterol 2.5 MG/3 ML NEB.SOL* (0.083%) INH PRN (18:08)
[2017-02-20] MEDS ORDERED: Ondansetron INJ* 2 MG/ML VIAL IV PRN (18:08)
[2017-02-20 18:15] LABS: TSH (Thyroid Stimulating Horm) 4.91 mcIU/mL (0.34-5.60)
[2017-02-20] MEDS: Albuterol/Ipratropium NEB.SOL* Albuterol 2.5 MG/Ipratropium 0.5 MG 3 ML INH SCH ×2 (19:30→23:29)
--- NOTE | 2017-02-20 19:49 | ED ---
Miguel Cast Angela, scribed for Karl Walker MD on 02/20/17 at 1648 . Shortness of Breath - HPI Summary HPI Summary: This pt is a 72 y/o female presenting to [facility] c/o SOB today. Pt reports using her nebulizer as usual with no relief. Pt endorses feeling "clammy" and productive cough with occasional yellow sputum. Pt has a PMHx of COPD. - History of Current Complaint Time Seen by Provider: 02/20/17 16:39 Hx Obtained From: Patient Onset/Duration: Sudden Onset - Allergy/Home Medications Allergies/Adverse Reactions: Allergies Allergy/AdvReac Type Severity Reaction Status Date / Time Bee Venom Allergy Severe Hives/Diff. 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 Denies: Hx Hearing Aid Opthamlomology History: Reports: Hx Contacts or Glasses, 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 - Cancer History Hx Chemotherapy: No Hx Radiation Therapy: No - Immunization History Date of Tetanus Vaccine: unknown Date of Influenza Vaccine: 2014 Infectious Disease History: Denies: Hx of Known/Suspected MRSA - Family History Known Family History: Positive: Other - Breast CA (sister) - Social History Alcohol Use: Weekly Alcohol Amount: 3 drinks/week Hx Substance Use: No Substance Use Type: Reports: None Hx Tobacco Use: Yes Smoking Status (MU): Former Smoker Type: Cigarettes Amount Used/How Often: 10 cigarettes/day Length of Time of Smoking/Using Tobacco: 40 years Have You Smoked in the Last Year: Yes Review of Systems Positive: Other - "clammy". Negative: Fever, Chills Eyes: Negative Positive: Shortness Of Breath, Cough Gastrointestinal: Negative Genitourinary: Negative Musculoskeletal: Negative Skin: Negative Neurological: Negative All Other Systems Reviewed And Are Negative: Yes Physical Exam Triage Information Reviewed: Yes Vital Signs On Initial Exam: Initial Vitals Temp Pulse Resp BP Pulse Ox 97 F 124 30 120/93 75 02/20/17 16:40 02/20/17 16:40 02/20/17 16:40 02/20/17 16:40 02/20/17 16:40 Vital Signs Reviewed: Yes Appearance: Positive: Well-Nourished Skin: Positive: Warm, Skin Color Reflects Adequate Perfusion, Dry Head/Face: Positive: Normal Head/Face Inspection Eyes: Positive: EOMI, GARCÍA ENT: Positive: Normal ENT inspection Neck: Positive: Supple, Nontender Cardiovascular: Positive: RRR Abdomen Description: Positive: Nontender, Soft Bowel Sounds: Positive: Present Musculoskeletal: Positive: Normal, Strength/ROM Intact Neurological: Positive: Normal, Sensory/Motor Intact, Alert, Oriented to Person Place, Time Psychiatric: Positive: Affect/Mood Appropriate Diagnostics - Vital Signs Vital Signs Temp Pulse Resp BP Pulse Ox 02/20/17 18:00 102 24 159/69 100 02/20/17 17:30 105 21 139/66 99 02/20/17 17:11 112 21 154/84 99 02/20/17 17:02 113 29 100 02/20/17 16:49 100 02/20/17 16:40 97 F 124 30 120/93 75 - Laboratory Lab Results: Lab Results 02/20/17 02/20/17 02/20/17 Range/Units 16:55 16:55 16:55 WBC (3.5-10.8) 10^3/ul RBC (4.0-5.4) 10^6/ul Hgb (12.0-16.0) g/dl Hct (35-47) % MCV (80-97) fL MCH (27-31) pg MCHC (31-36) g/dl RDW (10.5-15) % Plt Count (150-450) 10^3/ul MPV (7.4-10.4) um3 Neut % (Auto) (38-83) % Lymph % (Auto) (25-47) % [place] % (Auto) (1-9) % Eos % (Auto) (0-6) % Baso % (Auto) (0-2) % Absolute Neuts (auto) (1.5-7.7) 10^3/ul Absolute Lymphs (auto) (1.0-4.8) 10^3/ul Absolute Monos (auto) (0-0.8) 10^3/ul Absolute Eos (auto) (0-0.6) 10^3/ul Absolute Basos (auto) (0-0.2) 10^3/ul Absolute Nucleated RBC 10^3/ul Nucleated RBC % INR (Anticoag Therapy) 0.90 (0.89-1.11) APTT 28.9 (26.0-36.3) seconds D-Dimer, Quantitative < 200 (Less Than 230) ng/mL Sodium 137 (133-145) mmol/L Potassium 4.0 (3.5-5.0) mmol/L Chloride 104 (101-111) mmol/L Carbon Dioxide 24 (22-32) mmol/L Anion Gap 9 (2-11) mmol/L BUN 10 (6-24) mg/dL Creatinine 0.77 (0.51-0.95) mg/dL Est GFR ( Amer) 94.2 (>60) Est GFR (Non-Af Amer) 73.3 (>60) BUN/Creatinine Ratio 13.0 (8-20) Glucose 114 H (70-100) mg/dL Lactic Acid (0.5-2.0) mmol/L Calcium 9.3 (8.6-10.3) mg/dL Magnesium 2.1 (1.9-2.7) mg/dL Total Bilirubin 0.30 (0.2-1.0) mg/dL AST 16 (13-39) U/L ALT 11 (7-52) U/L Alkaline Phosphatase 64 (34-104) U/L Total Creatine Kinase 37 (10-223) U/L CK-MB (CK-2) 1.6 (0.6-6.3) ng/mL Troponin I 0.00 (<0.04) ng/mL C-Reactive Protein 5.95 H (< 5.00) mg/L B-Natriuretic Peptide 22 ( - 100) pg/mL Total Protein 7.0 (6.4-8.9) g/dL Albumin 4.3 (3.2-5.2) g/dL Globulin 2.7 (2-4) g/dL Albumin/Globulin Ratio 1.6 (1-3) Lipase 23 (11.0-82.0) U/L TSH 4.91 (0.34-5.60) mcIU/mL 02/20/17 02/20/17 Range/Units 16:55 16:55 WBC 11.0 H (3.5-10.8) 10^3/ul RBC 4.66 (4.0-5.4) 10^6/ul Hgb 14.7 (12.0-16.0) g/dl Hct 43 (35-47) % MCV 93 (80-97) fL MCH 32 H (27-31) pg MCHC 34 (31-36) g/dl RDW 14 (10.5-15) % Plt Count 319 (150-450) 10^3/ul MPV 8 (7.4-10.4) um3 Neut % (Auto) 45.2 (38-83) % Lymph % (Auto) 35.5 (25-47) % [place] % (Auto) 9.9 H (1-9) % Eos % (Auto) 8.0 H (0-6) % Baso % (Auto) 1.4 (0-2) % Absolute Neuts (auto) 5.0 (1.5-7.7) 10^3/ul Absolute Lymphs (auto) 3.9 (1.0-4.8) 10^3/ul Absolute Monos (auto) 1.1 H (0-0.8) 10^3/ul Absolute Eos (auto) 0.9 H (0-0.6) 10^3/ul Absolute Basos (auto) 0.2 (0-0.2) 10^3/ul Absolute Nucleated RBC 0.01 10^3/ul Nucleated RBC % 0.1 INR (Anticoag Therapy) (0.89-1.11) APTT (26.0-36.3) seconds D-Dimer, Quantitative (Less Than 230) ng/mL Sodium (133-145) mmol/L Potassium (3.5-5.0) mmol/L Chloride (101-111) mmol/L Carbon Dioxide (22-32) mmol/L Anion Gap (2-11) mmol/L BUN (6-24) mg/dL Creatinine (0.51-0.95) mg/dL Est GFR ( Amer) (>60) Est GFR (Non-Af Amer) (>60) BUN/Creatinine Ratio (8-20) Glucose (70-100) mg/dL Lactic Acid 1.5 (0.5-2.0) mmol/L Calcium (8.6-10.3) mg/dL Magnesium (1.9-2.7) mg/dL Total Bilirubin (0.2-1.0) mg/dL AST (13-39) U/L ALT (7-52) U/L Alkaline Phosphatase (34-104) U/L Total Creatine Kinase (10-223) U/L CK-MB (CK-2) (0.6-6.3) ng/mL Troponin I (<0.04) ng/mL C-Reactive Protein (< 5.00) mg/L B-Natriuretic Peptide ( - 100) pg/mL Total Protein (6.4-8.9) g/dL Albumin (3.2-5.2) g/dL Globulin (2-4) g/dL Albumin/Globulin Ratio (1-3) Lipase (11.0-82.0) U/L TSH (0.34-5.60) mcIU/mL Result Diagrams: 02/20/17 16:55 02/20/17 16:55 Lab Statement: Any lab studies that have been ordered have been reviewed, and results considered in the medical decision making process. - Radiology Chest XR Xray Interpretation: Positive (See Comments) - IMPRESSION: stigmata of obstructive lung disease. No acute pulmonary or cardiac process evident. ED physician has reviewed this radiology report and agrees. Radiology Interpretation Completed By: Radiologist Course/Dx - Course Assessment/Plan: This pt is a 72 y/o female presenting to [facility] c/o SOB today. Pt reports using her nebulizer as usual with no relief. Pt endorses feeling "clammy" and productive cough with occasional yellow sputum. Pt has a PMHx of COPD. Labs, UA, and chest XR were obtained. In the ED course, pt was given steroids and 2 breathing treatments. Labs show WBC of 11, CRP of 5.95, and glucose of 114. Elevated BP noted and advised to follow up with PCP. Medications reviewed. Pt will be admitted by the hospitalist in stable condition. ADMIT HOSPITALIST GUARDED. - Diagnoses Provider Diagnoses: COPD exacerbation - Critical Care Time Critical Care Time: 30-74 min Discharge - Discharge Plan Condition: Guarded Disposition: ADMITTED TO [facility] The documentation as recorded by the Miguel rios Angela accurately reflects the service I personally performed and the decisions made by me, Karl Walker MD.
[2017-02-20] MEDS: predniSONE TAB* 20 MG PO SCH (20:08)
[2017-02-20] MEDS: Acetaminophen TAB* 325 MG PO PRN (20:08)
[2017-02-20] MEDS: Azithromycin IV(*) 500 MG in NS 0.9% 250 ML* 250 ML IVPB SCH (20:13)
[2017-02-20] MEDS: Mometasone/Formoter 200/5 MDI INH SCH (20:24)
[2017-02-20] MEDS: Heparin VIAL(*) 5000 UNITS/ML VIAL (FIVE THOUSAND) SUBCUT SCH (22:33)
--- NOTE | 2017-02-20 22:54 | HP ---
CC: Dr. Levi * HISTORY AND PHYSICAL: DATE OF ADMISSION: 02/20/17 PRIMARY CARE PROVIDER: Dr. Levi. ATTENDING PHYSICIAN WHILE IN THE HOSPITAL: Jordy Anthony MD * (report dictated by Carlos Meadows NP) CHIEF COMPLAINT: 1. Shortness of breath. 2. Cough. HISTORY OF PRESENT ILLNESS: Mrs. Ely is a 72-year-old female patient with a history of significant COPD. She wears O2 at all times and she has a history of hyperlipidemia and GERD. She recently according to the patient was here about 2 weeks ago. She was seen and discharged on steroids and antibiotics; however, she recently about a week ago finished her antibiotics and she has noticed in the last 24 hours, she has had progressive worsening shortness of breath again, cough. No fevers or chills, no chest pain, but she says she just was not able to catch her breath. She called her friend and asked her to come and take her to the ER because she was having a hard time breathing. She denied having any abdominal discomfort, no nausea, no vomiting. She says she has not had any chest pain and again has no documented fever. She does state that she has not had any sick contacts that she is aware of. She was concerned because she knew her breathing was not getting any better. She tried her nebulizers and her p.r.n. inhalers, but they just did not help her so she came into the ER, was evaluated. She was noted to be profoundly hypoxic, tachypneic , and tachycardic. In addition to this, she was requiring a significant amount of oxygen, so the hospitalist service was asked to evaluate for admission. PAST MEDICAL HISTORY: Significant for: 1. COPD. 2. Hyperlipidemia. 3. GERD. 4. Cataracts. PAST SURGICAL HISTORY: She has had a cataract extraction. HOME MEDICATIONS: According to the list that we were able to obtain include: 1. EpiPen 0.3 mg IM once as needed daily. 2. Spiriva 1 capsule inhaled daily. 3. Aspirin 81 mg daily. 4. DuoNeb 1 neb inhaled every 4 hours as needed. 5. Ventolin 2 puffs inhaled every 4 hours as needed. ALLERGIES TO MEDICATIONS: None, but she is allergic to BEES. FAMILY HISTORY: Mother had a history of CVA. Father in his 50s from a motor vehicle accident. SOCIAL HISTORY: She is a former smoker. She rarely drinks alcohol. Surrogate decision maker is her daughter. REVIEW OF SYSTEMS: There is no documented fever. She denied any significant weight change. There was no double vision. She denies having any ear discharge. There was some rhinorrhea, but no sore throat and no thyroid enlargement. Denies having any chest pain. There is no orthopnea. There is dyspnea on exertion. There is no nocturnal dyspnea. There was no abdominal pain. No nausea, no vomiting, no dysuria, no frequency, no loss of consciousness, no pruritus, and no skin ulcerations. Review of 15 systems completed, all others negative. PHYSICAL EXAMINATION GENERAL: At this time, Ms. Ely is a 72-year-old female patient. She is chronically ill-appearing. She is sitting in the ER stretcher. She does not appear to be in any acute distress. She is awake and alert. VITAL SIGNS: Blood pressure 109/69 with a pulse of 101, respirations 24, O2 sat 100% on 40 L of Vapotherm, on 50% oxygen. HEENT: Head is atraumatic and normocephalic. Eyes, EOMs are intact. Sclerae anicteric. Throat, oral mucosa appears to be moist. No oropharyngeal erythema. NECK: Supple. LUNGS: She had rhonchi noted in the left upper lobe. She had equal diaphragmatic expansion. HEART: Sounds S1 and S2. Regular rate and rhythm. No murmurs, rubs, or gallops. ABDOMEN: Soft, flat, and nontender. Bowel sounds present. EXTREMITIES: No peripheral edema. She is able to move all 4 extremities with 5 /5 strength. NEUROLOGIC: The patient is awake, alert, oriented x3. There are no gross focal deficits. SKIN: Her skin is intact. LABORATORY DATA: Revealed a WBC of 11.0, RBC of 4.66, hemoglobin 14.7, hematocrit 43, platelet count of 319. Coags, INR 0.90, PTT 28, D-dimer less than 200. Sodium of 137, potassium of 4, chloride of 104, bicarb 24, BUN 10, creatinine of 0.77, glucose 114, lactic 1.5, calcium 9.3, mag 2.0. Total bili 0.3, AST 16, ALT 11, alk phos 54, CK 37, CK-MB 1.6, troponin 0. Albumin of 4.3 , TSH is 4.91, lipase of 23. The patient did have an EKG obtained today, which shows sinus tachycardia at a rate of 111. No ST elevations or T-wave inversions were noted. She did have a chest x- ray obtained today, which showed stigmata of obstructive lung disease. No acute cardiopulmonary process evident. Old medical records were reviewed. ASSESSMENT AND PLAN: Ms. Ely is a 72-year-old female patient coming into the ER today with complaints of cough, not feeling well. On evaluation, there was concern for exacerbation requiring a significant amount of increased O2. She will be admitted under inpatient status for ICU for: 1. Chronic obstructive pulmonary disease exacerbation. I suspect this is probably being brought on by bronchitis. She is rhonchorous on exam. She is also wheezing. Plan to go ahead and put her on azithromycin. In addition to this, we will continue her on Vapotherm. We will put her on nebs around the clock. In addition to this, we will also put her on steroids, antibiotics, pulmonary toileting, and we will follow her closely. 2. Hyperlipidemia. Continue lifestyle modifications. 3. Gastroesophageal reflux disease. Continue meds as prescribed. 4. DVT prophylaxis. She is a high risk. She will be placed on heparin subcu. 5. Code status. She is a DNR/DNI. 6. Fluids, electrolytes, and nutrition. She can have a regular diet. TIME SPENT: Time spent on admission 60 minutes greater than half the time spent [id number] with the patient obtaining my history and physical; other half time spent going over the plan of care with the patient and implementing the plan of care. I discussed the plan of care with my attending, Dr. Anthony, who is in agreement. CARLOS MEADOWS NP [id number]/CPS #: [id number] BELINDA
[2017-02-21] MEDS: Albuterol/Ipratropium NEB.SOL* Albuterol 2.5 MG/Ipratropium 0.5 MG 3 ML INH SCH ×6 (03:35→23:40)
[2017-02-21] MEDS: Acetaminophen TAB* 325 MG PO PRN (03:48)
[2017-02-21 04:20] LABS: Urine Bilirubin Negative (Negative); Urine Glucose 3+(>=500 mg/dL) (Negative); Urine Nitrite Negative (Negative)
[2017-02-21] MEDS: Heparin VIAL(*) 5000 UNITS/ML VIAL (FIVE THOUSAND) SUBCUT SCH ×3 (06:12→22:37)
[2017-02-21 06:17] LABS: Hematocrit 38 % (35-47); Hemoglobin 12.8 g/dl (12.0-16.0); Mean Corpuscular HGB Conc 34 g/dl (31-36); Mean Corpuscular Hemoglobin 31 pg (27-31); Mean Corpuscular Volume 93 fL (80-97); Mean Platelet Volume 8 um3 (7.4-10.4); Red Blood Count 4.08 10^6/ul (4.0-5.4); Red Cell Distribution Width 13 % (10.5-15)
[2017-02-21 06:35] LABS: BUN/Creatinine Ratio 11.9 (8-20); Calcium 9.3 mg/dL (8.6-10.3); EGFR African American 110.7 (>60); Potassium 4.1 mmol/L (3.5-5.0)
[2017-02-21] MEDS: Mometasone/Formoter 200/5 MDI INH SCH ×2 (07:13→21:05)
[2017-02-21] MEDS: Aspirin EC Low Dose* 81 MG TAB.EC PO SCH (08:06)
[2017-02-21] MEDS: predniSONE TAB* 20 MG PO SCH (08:06)
[2017-02-21] MEDS: cefTRIAXone VIAL(*) 1,000 MG in NS 0.9% 50 ML* 50 ML IVPB SCH (09:11)
--- NOTE | 2017-02-21 16:50 | PN ---
Subjective Date of Service: 02/21/17 Interval History: HOSPITALIST PROGRESS NOTE Patient seen and examined at bedside. She feels a little better today. Still dyspneic, not back at her baseline, but better than last night. Family History: Unchanged from Admission Social History: Unchanged from Admission Past Medical History: Unchanged from Admission Objective Active Medications: Acetaminophen (Tylenol Tab*) 650 mg PO Q4H PRN PRN Reason: FEVER/PAIN Last Admin: 02/21/17 03:48 Dose: 650 mg Albuterol (Ventolin 2.5 Mg/3 Ml Neb.Steph*) 2.5 mg INH Q2H PRN PRN Reason: SOB/WHEEZING Albuterol/Ipratropium (Duoneb (Albuterol 2.5 Mg/Ipratropium 0.5 Mg)) 1 neb INH Q4H [facility] Last Admin: 02/21/17 15:05 Dose: 1 neb Aspirin (Aspirin Ec Low Dose*) 81 mg PO DAILY [facility] Last Admin: 02/21/17 08:06 Dose: 81 mg Heparin Sodium (Porcine) (Heparin Vial(*)) 5,000 units SUBCUT Q8HR [facility] Last Admin: 02/21/17 15:07 Dose: 5,000 units Azithromycin 500 mg/ Sodium (Chloride) 250 mls @ 250 mls/hr IVPB Q24H [facility] Last Admin: 02/20/17 20:13 Dose: 250 mls/hr Ceftriaxone Sodium 1,000 mg/ (Sodium Chloride) 50 mls @ 200 mls/hr IVPB Q24H [facility] Last Admin: 02/21/17 09:11 Dose: 200 mls/hr Methylprednisolone Sodium Succinate (Solu-Medrol 40 Mg) 40 mg IV Q12H [facility] Mometasone Furoate/Formoterol Fumar (Dulera 200/5 Mdi*) 2 puff INH BID [facility] Last Admin: 02/21/17 07:13 Dose: 2 puff Ondansetron HCl (Zofran Inj*) 4 mg IV Q6H PRN PRN Reason: NAUSEA Vital Signs 02/21/17 02/21/17 02/21/17 11:49 12:00 13:00 Temperature 98.7 F Pulse Rate 88 90 103 Respiratory 20 16 24 Rate Blood Pressure 130/70 (mmHg) O2 Sat by Pulse 97 96 95 Oximetry Oxygen Devices in Use Now: High Flow Nasal Cannula Appearance: Pleasant elderly lady sitting up in bed in NAD. Eyes: No Scleral Icterus Ears/Nose/Mouth/Throat: Mucous Membranes Moist Neck: Trachea Midline Respiratory: Symmetrical Chest Expansion and Respiratory Effort, - - BS+ bilaterally decreased with scattered wheezes Cardiovascular: RRR - Normal S1 and S2 Abdominal: NL Sounds; No Tenderness; No Distention Neurological: Alert and Oriented x 3, NL Muscle Strength and Tone Lines/Tubes/Other Access: Clean, Dry and Intact Peripheral IV Nutrition: Taking PO's Result Diagrams: 02/21/17 05:50 02/21/17 05:50 Assess/Plan/Problems-Billing Assessment: Mrs. Ely is a 72yo F with PMH of COPD, HLD, GERD, who presented to ED with c/ o dyspnea and cough, found to have another episode of COPD exacerbation secondary to bronchitis. - Patient Problems (1) COPD exacerbation Comment: - Secondary to bronchitis. - Has had frequent ED visits and this is her 2nd admission for COPD since November. - CxR shows no infiltrates and CTA chest done in November did not show masses. - Continue treatment with Ceftriaxone, Zithromax, IV and inhaled steroids, bronchodilators. - Titrate Vapotherm down - may transfer to floor if she tolerates nasal cannula. - Will refer to Pulm on discharge. (2) DVT prophylaxis Comment: - SQ heparin. (3) DNR (do not resuscitate) Status and Disposition: Inpatient for management of COPD exacerbation requiring >48h for stabilization.
[2017-02-21] MEDS: methylPREDNISolone SOD 40 MG* 1 ML VIAL IV SCH (17:55)
[2017-02-21] MEDS: Azithromycin IV(*) 500 MG in NS 0.9% 250 ML* 250 ML IVPB SCH (20:52)
[2017-02-21] MEDS ORDERED: NS 0.9% 1000 ML* 500 ML IV ONE (23:45)
[2017-02-22] MEDS: Acetaminophen TAB* 325 MG PO PRN (00:36)
[2017-02-22] MEDS ORDERED: NS 0.9% 1000 ML* 1,000 ML IV ONE (01:37)
--- NOTE | 2017-02-22 01:39 | PN ---
Progress Note - Progress Note Date of Service: 02/22/17 Note: Cross cover note Called for drop in BP. HR also elevated. Patient asymptomatic Little response with 1L (given as 500cc x2). Additional liter now, check cbc, bmp and reevaluate after 2nd liter.
[2017-02-22] MEDS ORDERED: NS 0.9% 500 ML BAG* 500 ML IV ONE (02:00)
[2017-02-22 03:25] LABS: Hematocrit 33 % (35-47); Hemoglobin 11.1 g/dl (12.0-16.0); Mean Corpuscular HGB Conc 34 g/dl (31-36); Mean Corpuscular Hemoglobin 31 pg (27-31); Mean Corpuscular Volume 93 fL (80-97); Mean Platelet Volume 8 um3 (7.4-10.4); Red Blood Count 3.54 10^6/ul (4.0-5.4); Red Cell Distribution Width 13 % (10.5-15)
[2017-02-22 03:51] LABS: Calcium 8.1 mg/dL (8.6-10.3); EGFR African American 125.7 (>60); EGFR Non-African American 97.7 (>60)
[2017-02-22] MEDS: Albuterol/Ipratropium NEB.SOL* Albuterol 2.5 MG/Ipratropium 0.5 MG 3 ML INH SCH ×6 (03:56→23:03)
[2017-02-22] MEDS: Heparin VIAL(*) 5000 UNITS/ML VIAL (FIVE THOUSAND) SUBCUT SCH ×3 (05:52→23:25)
[2017-02-22] MEDS: methylPREDNISolone SOD 40 MG* 1 ML VIAL IV SCH ×2 (05:52→18:07)
[2017-02-22] MEDS: Mometasone/Formoter 200/5 MDI INH SCH ×2 (07:45→19:30)
[2017-02-22] MEDS: Aspirin EC Low Dose* 81 MG TAB.EC PO SCH (08:08)
[2017-02-22] MEDS: cefTRIAXone VIAL(*) 1,000 MG in NS 0.9% 50 ML* 50 ML IVPB SCH (08:08)
--- NOTE | 2017-02-22 12:56 | PN ---
Subjective Date of Service: 02/22/17 Interval History: HOSPITALIST PROGRESS NOTE Patient seen and examined at bedside. She still has some dyspnea, but less intense than yesterday. Was hypotensive overnight, but denies dizziness or lightheadedness. Family History: Unchanged from Admission Social History: Unchanged from Admission Past Medical History: Unchanged from Admission Objective Active Medications: Acetaminophen (Tylenol Tab*) 650 mg PO Q4H PRN PRN Reason: FEVER/PAIN Last Admin: 02/22/17 00:36 Dose: 650 mg Albuterol (Ventolin 2.5 Mg/3 Ml Neb.Steph*) 2.5 mg INH Q2H PRN PRN Reason: SOB/WHEEZING Albuterol/Ipratropium (Duoneb (Albuterol 2.5 Mg/Ipratropium 0.5 Mg)) 1 neb INH Q4H [facility] Last Admin: 02/22/17 07:44 Dose: 1 neb Aspirin (Aspirin Ec Low Dose*) 81 mg PO DAILY [facility] Last Admin: 02/22/17 08:08 Dose: 81 mg Guaifenesin (Robitussin*) 5 ml PO Q4H PRN PRN Reason: COUGH Heparin Sodium (Porcine) (Heparin Vial(*)) 5,000 units SUBCUT Q8HR [facility] Last Admin: 02/22/17 05:52 Dose: 5,000 units Azithromycin 500 mg/ Sodium (Chloride) 250 mls @ 250 mls/hr IVPB Q24H [facility] Last Admin: 02/21/17 20:52 Dose: 250 mls/hr Ceftriaxone Sodium 1,000 mg/ (Sodium Chloride) 50 mls @ 200 mls/hr IVPB Q24H [facility] Last Admin: 02/22/17 08:08 Dose: 200 mls/hr Methylprednisolone Sodium Succinate (Solu-Medrol 40 Mg) 40 mg IV Q12H [facility] Last Admin: 02/22/17 05:52 Dose: 40 mg Mometasone Furoate/Formoterol Fumar (Dulera 200/5 Mdi*) 2 puff INH BID [facility] Last Admin: 02/22/17 07:45 Dose: 2 puff Ondansetron HCl (Zofran Inj*) 4 mg IV Q6H PRN PRN Reason: NAUSEA Vital Signs 02/22/17 02/22/17 02/22/17 04:08 07:18 08:00 Temperature 97.6 F 97.8 F Pulse Rate 97 95 Respiratory 16 18 18 Rate Blood Pressure 95/54 98/59 (mmHg) O2 Sat by Pulse 100 99 Oximetry Oxygen Devices in Use Now: Nasal Cannula Appearance: Elderly lady lying in bed in NAD. Eyes: No Scleral Icterus Ears/Nose/Mouth/Throat: Mucous Membranes Moist Neck: Trachea Midline Respiratory: Symmetrical Chest Expansion and Respiratory Effort, - - BS+ bilaterally decreased with scattered wheezes Cardiovascular: RRR - Normal S1 and S2 Abdominal: NL Sounds; No Tenderness; No Distention Extremities: No Edema Neurological: Alert and Oriented x 3, NL Muscle Strength and Tone Lines/Tubes/Other Access: Clean, Dry and Intact Peripheral IV Nutrition: Taking PO's Result Diagrams: 02/22/17 03:13 02/22/17 03:13 Assess/Plan/Problems-Billing Assessment: Mrs. Ely is a 72yo F with PMH of COPD, HLD, GERD, who presented to ED with c/ o dyspnea and cough, found to have another episode of COPD exacerbation secondary to bronchitis. - Patient Problems (1) COPD exacerbation Comment: - Secondary to bronchitis. - Has had frequent ED visits and this is her 2nd admission for COPD since November. - CxR shows no infiltrates and CTA chest done in November did not show masses. - Continue treatment with Ceftriaxone, Zithromax, IV and inhaled steroids, bronchodilators. - Titrate Vapotherm down - may transfer to floor if she tolerates nasal cannula. - Will refer to Pulm on discharge. (2) Hypotension Comment: - Suspect this is probably her baseline BP as she is asymptomatic. - Higher BP on admission could be secondary to respiratory distress. - Continue to monitor. (3) DVT prophylaxis Comment: - SQ heparin. (4) DNR (do not resuscitate) Status and Disposition: Inpatient for management of COPD exacerbation requiring >48h for stabilization. Anticipate d/c in AM.
[2017-02-22] MEDS: guaiFENesin LIQ* 100 MG/5 ML UDC PO PRN ×2 (13:11→19:39)
[2017-02-22] MEDS: Azithromycin IV(*) 500 MG in NS 0.9% 250 ML* 250 ML IVPB SCH (19:39)
[2017-02-23] MEDS ORDERED: Heparin DRIP 25,000 UNITS(*) 25,000 UNITS/500 ML BAG IVPB SCH (02:30)
[2017-02-23] MEDS ORDERED: Heparin VIAL(*) 5000 UNITS/ML VIAL (FIVE THOUSAND) IV SCH (03:00)
[2017-02-23] MEDS: Albuterol/Ipratropium NEB.SOL* Albuterol 2.5 MG/Ipratropium 0.5 MG 3 ML INH SCH ×6 (03:09→23:09)
[2017-02-23 05:46] LABS: Hematocrit 35 % (35-47); Hemoglobin 11.9 g/dl (12.0-16.0); Mean Corpuscular HGB Conc 34 g/dl (31-36); Mean Corpuscular Hemoglobin 32 pg (27-31); Mean Corpuscular Volume 93 fL (80-97); Mean Platelet Volume 8 um3 (7.4-10.4); Red Blood Count 3.76 10^6/ul (4.0-5.4); Red Cell Distribution Width 14 % (10.5-15); White Blood Count 11.8 10^3/ul (3.5-10.8)
[2017-02-23 05:57] LABS: EGFR African American 125.7 (>60); EGFR Non-African American 97.7 (>60)
[2017-02-23] MEDS: methylPREDNISolone SOD 40 MG* 1 ML VIAL IV SCH ×2 (07:44→17:15)
[2017-02-23] MEDS: Mometasone/Formoter 200/5 MDI INH SCH ×2 (08:01→19:33)
[2017-02-23 08:03] LABS: Magnesium 2.1 mg/dL (1.9-2.7); Potassium 3.8 mmol/L (3.5-5.0)
[2017-02-23] MEDS: Aspirin EC Low Dose* 81 MG TAB.EC PO SCH (08:10)
[2017-02-23] MEDS: cefTRIAXone VIAL(*) 1,000 MG in NS 0.9% 50 ML* 50 ML IVPB SCH (08:10)
[2017-02-23] MEDS ORDERED: Diltiazem DRIP* 100 MG/100 ML ADDV.BAG IVPB SCH ×2 (10:00→13:02)
--- NOTE | 2017-02-23 13:27 | PN ---
Subjective Date of Service: 02/23/17 Interval History: HOSPITALIST PROGRESS NOTE Patient seen and examined at bedside. Her dyspnea and cough are improved, but overnight she was found to be in afib RVR. Family History: Unchanged from Admission Social History: Unchanged from Admission Past Medical History: Unchanged from Admission Objective Active Medications: Acetaminophen (Tylenol Tab*) 650 mg PO Q4H PRN PRN Reason: FEVER/PAIN Last Admin: 02/22/17 00:36 Dose: 650 mg Albuterol (Ventolin 2.5 Mg/3 Ml Neb.Steph*) 2.5 mg INH Q2H PRN PRN Reason: SOB/WHEEZING Albuterol/Ipratropium (Duoneb (Albuterol 2.5 Mg/Ipratropium 0.5 Mg)) 1 neb INH Q4H [facility] Last Admin: 02/23/17 12:25 Dose: 1 neb Aspirin (Aspirin Ec Low Dose*) 81 mg PO DAILY [facility] Last Admin: 02/23/17 08:10 Dose: 81 mg Guaifenesin (Robitussin*) 5 ml PO Q4H PRN PRN Reason: COUGH Last Admin: 02/22/17 19:39 Dose: 5 ml Heparin Sodium (Porcine) (Heparin Vial(*)) 0 units IV .PER PROTOCOL [facility] Last Admin: 02/23/17 03:59 Dose: 5,000 units Azithromycin 500 mg/ Sodium (Chloride) 250 mls @ 250 mls/hr IVPB Q24H [facility] Last Admin: 02/22/17 19:39 Dose: 250 mls/hr Ceftriaxone Sodium 1,000 mg/ (Sodium Chloride) 50 mls @ 200 mls/hr IVPB Q24H [facility] Last Admin: 02/23/17 08:10 Dose: 200 mls/hr Heparin Sodium/Dextrose (Heparin Drip 25,000 Units(*)) 25,000 units in 500 mls @ 0 mls/hr IVPB .(INITIAL RATE) [facility]; Per Protocol PRN Reason: Protocol Last Admin: 02/23/17 04:00 Dose: 16 mls/hr Diltiazem HCl (Cardizem Iv Advan*) 100 mg in 100 mls @ 10 mls/hr IVPB DAILY [facility] Methylprednisolone Sodium Succinate (Solu-Medrol 40 Mg) 40 mg IV Q12H [facility] Last Admin: 02/23/17 07:44 Dose: 40 mg Mometasone Furoate/Formoterol Fumar (Dulera 200/5 Mdi*) 2 puff INH BID [facility] Last Admin: 02/23/17 08:01 Dose: 2 puff Ondansetron HCl (Zofran Inj*) 4 mg IV Q6H PRN PRN Reason: NAUSEA Vital Signs 02/23/17 02/23/17 02/23/17 08:05 10:07 12:27 Temperature 98.1 F Pulse Rate 101 118 118 Respiratory 16 16 Rate Blood Pressure 132/81 (mmHg) O2 Sat by Pulse 99 99 Oximetry Oxygen Devices in Use Now: Nasal Cannula Appearance: Pleasant elderly lady sitting up in bed in NAD. Eyes: No Scleral Icterus Ears/Nose/Mouth/Throat: Mucous Membranes Moist Neck: Trachea Midline Respiratory: Symmetrical Chest Expansion and Respiratory Effort, - - BS+ bilaterally decreased with no added sounds Cardiovascular: - - Normal S1 and S2, irregularly irregular Abdominal: NL Sounds; No Tenderness; No Distention Extremities: No Edema Neurological: Alert and Oriented x 3, NL Muscle Strength and Tone Lines/Tubes/Other Access: Clean, Dry and Intact Peripheral IV Nutrition: Taking PO's Result Diagrams: 02/23/17 05:11 02/23/17 05:11 Assess/Plan/Problems-Billing Assessment: Mrs. Ely is a 72yo F with PMH of COPD, HLD, GERD, who presented to ED with c/ o dyspnea and cough, found to have another episode of COPD exacerbation secondary to bronchitis. - Patient Problems (1) Atrial fibrillation with RVR Comment: - Transferred to Telemetry. - Continue heparin and diltiazem drip. - Awaiting echocardiogram. - Cardiology consult requested. (2) Acute and chronic respiratory failure Comment: - Secondary to COPD exacerbation. - Continue supplemental O2. (3) COPD exacerbation Comment: - Secondary to bronchitis. - Has had frequent ED visits and this is her 2nd admission for COPD since November. - CxR shows no infiltrates and CTA chest done in November did not show masses. - Continue treatment with Ceftriaxone, Zithromax, IV and inhaled steroids, bronchodilators. - Continue supplemental O2 via nasal cannula. - To follow up with Dr. Newton on discharge. (4) DVT prophylaxis Comment: - Heparin. (5) DNR (do not resuscitate) Status and Disposition: Inpatient for management of COPD exacerbation requiring >48h for stabilization.
--- NOTE | 2017-02-23 14:40 | ECHO ---
Patient: RAMIREZ DISLA Rec#: [id number] : 1945 Date: 02/23/2017 Age: 72y Height: 157.48 cm / 62.0 in Weight: 57.15 kg / 126.0 lbs Sex: F BSA: 1.57 Room#: 446 Admit Date#: 02/20/2017 Type: Inpatient Referring: Lyndsey Hopson MD Reading: Félix Escoto MD Personnel Recruiter: Amber Raman RDCS,RDMS CC: Hailey Levi MD Transthoracic Echocardiogram Indication: AFIB BP: 118/46 HR: 138 Rhythm: A-Fib Findings History: COPD, HLD Technical Comments: The study is technically limited due to poor parasternal windows. The study is technically limited due to the patient's history of COPD. Completed 1410 Left Ventricle: The left ventricular chamber size is decreased. There is no left ventricular hypertrophy. The left ventricle appears hyperdynamic. The estimated ejection fraction is greater than 65%. The assessment of diastolic function is non-diagnostic. Left Atrium: The left atrial chamber size is normal. Right Ventricle: The right ventricle wall thickness is moderately increased. The right ventricular cavity size is normal. The right ventricular global systolic function is hyperdynamic. Right Atrium: The right atrial cavity size is normal. Aortic Valve: The aortic valve structure is not well visualized. There is no evidence of aortic valve thickening. There is no evidence of aortic regurgitation. There is no evidence of aortic stenosis. Mitral Valve: The mitral valve leaflets appear normal. There is no evidence of mitral regurgitation. There is no evidence of mitral stenosis. Tricuspid Valve: The tricuspid valve leaflets are normal. There is trace tricuspid regurgitation. Pulmonic Valve: The pulmonic valve structure is not well visualized. Pericardium: There is no significant pericardial effusion. A pericardial fat pad is visualized. Aorta: The aortic root appears normal. There is no dilatation of the aortic arch. Pulmonary Artery: The main pulmonary artery is not well visualized. Venous: The inferior vena cava appears normal in size. There is less than 50% respiratory change in the inferior vena cava dimension. Summary: There was not any prior study for comparison. Conclusions The study is technically limited due to the patient's history of COPD. Completed 1410 The study is technically limited due to poor parasternal windows. The left ventricular chamber size is decreased. The left ventricle appears hyperdynamic. The estimated ejection fraction is greater than 65%. The assessment of diastolic function is non-diagnostic. There is trace tricuspid regurgitation. A pericardial fat pad is visualized. There is no significant pericardial effusion. Measurements Name Value Normal Range RVIDd (AP) 2D 2.4 cm (0.9 - 2.6) RVDdMajor (2D) 2.4 cm (2.2 - 4.4) RAd ISD 4CH 4.2 cm (3.4 - 4.9) RA (A4C)W 2.5 cm (2.9 - 4.6) IVSd (2D) 1 cm (0.6 - 1) LVPWd (2D) 1 cm (0.6 - 1) LVIDd (2D) 3.4 cm (3.6 - 5.4) Aortic Annulus 1.7 cm (1.4 - 2.6) Ao root diameter (2D) 2.4 cm (2.1 - 3.5) Ascending Ao 2.5 cm (2.1 - 3.4) Aortic arch 2.2 cm (1.8 - 3.4) LAd ISD 4CH 4.1 cm (2.9 - 5.3) LA ISD 4CH W 3.7 cm (2.5 - 4.5) Name Value Normal Range LA ESV SP 4CH (A/L) 42.14 ml - LA ESV SP 2CH (A/L) 25.57 ml - LA ESV BP (A/L) 33.73 ml - LA ESV BP (A/L) index 21.5 ml/m2 - LA ESV SP 4CH (MOD) 36.17 ml - LA ESV SP 2CH (MOD) 23.98 ml - Name Value Normal Range MV E-wave Vmax 0.9 m/sec - MV deceleration time 121 msec - LV lateral e' Vmax 0.1 m/sec - LV E:e' lateral ratio 9 ratio - Name Value Normal Range AV Vmax 1.2 m/sec - AV peak gradient 6 mmHg - LVOT Vmax 0.8 m/sec - LVOT peak gradient 2.6 mmHg - Name Value Normal Range RAP 8 mmHg - IVC diameter 1.5 cm - Name Value Normal Range PV Vmax 1.2 m/sec - PV peak gradient 6 mmHg -
[2017-02-23] MEDS: Azithromycin TAB* 250 MG PO SCH (20:27)
--- NOTE | 2017-02-23 21:10 | CONS ---
CC: Hospitalist service, Dr. Monique; Dr. Levi; Dr. Escoto CARDIOLOGY CONSULTATION: DATE OF CONSULT: 02/23/17 PRIMARY CARE DOCTOR: Dr. Levi. HISTORY OF PRESENT ILLNESS: I was asked by Dr. Monique from the hospitalist service to do a Cardiolo gy consult on this 72-year-old female patient, who was found to be in atrial fibrillation. The wesly ent had longstanding history of COPD with recurrent hospitalization. She had long years of history of tobacco consumption, although she quit a few years ago. She does have history of borderline hype rtension, hyperlipidemia, gastroesophageal reflux disease, and significant COPD. She was hospitaliz ed with shortness of breath. She is on outpatient COPD inhalers, medication. According to Dr. Lori sadler, she was found to be in atrial fibrillation. There is no documented history of atrial fibrillati on; however, heart rate was as fast as in the 120s. She was transferred to telemetry floor. She was started on IV Cardizem drip and heparin drip as well and heart rate is much better controlled, less than 100, although it does go up when she ambulates. PAST MEDICAL HISTORY: History of COPD, hyperlipidemia, gastroesophageal reflux disease, and catarac t surgery. PAST SURGICAL HISTORY: History of cataract extraction. MEDICATIONS: As an outpatient include: 1. Ventolin 2 puffs inhaler every 4 hours as needed. 2. DuoNeb 1 nebulizer inhaled treatment every 4 hours as needed. 3. Aspirin 81 mg daily. 4. Spiriva 1 capsule inhaled daily. 5. EpiPen 0.3 mg IM once as needed daily. Her medications as an inpatient include: 1. Tylenol 650 mg p.o. q.4 hours p.r.n. 2. Ventolin 2.5 mg inhaler q.2 hours p.r.n. 3. DuoNeb treatment 1 nebulizer q.4 hours. 4. Aspirin 81 mg daily. 5. Zithromax 250 mg daily. 6. Ceftriaxone 1000 mg IV q.24 hours. 7. Diltiazem 10 mg per hour IV daily. 8. Heparin adjusted to her PTT. ALLERGIES: She does have allergy to BEES, but no allergy to medications. FAMILY HISTORY: No history of premature coronary artery disease. SOCIAL HISTORY: She used to smoke, she did smoke for 40 years, she quit about 6 years ago. She rar james drinks alcohol. No history of illicit drug use. REVIEW OF SYSTEMS: She gives no fever, no chills, no skin rash. No tremors. No hematochezia. No nausea, no vomiting, no abdominal pain. No syncope. No orthopnea. No swelling in the lower extrem ities is appreciated. Her review of all other systems essentially is negative. PHYSICAL EXAM: She is awake, alert, and oriented. She is not in acute distress. Her vitals, blood pressure 120/70, pulse is irregularly irregular with heart rate of about 90, she is in atrial fibril lation on the shelter monitor. Respiratory rate is 18 and she is afebrile. Head and Neck Exam: Normocephalic and atraumatic head. Ears, Nose, and Throat: Essentially benign. Neck: Supple. JV P is not elevated. No carotid bruits. No masses in the neck are appreciated. Chest: Clear to ausc ultation. No rales, no wheezes, no added sounds are appreciated, although diminished air entry at t he bases. Heart: Normal, but irregularly irregular. S1, S2. No added sounds, no gallops, no rubs . Abdomen: Benign. Positive bowel sounds. Extremities: No edema, no cyanosis, no clubbing. Skin exam is normal. Psych: Normal affect and mood. PARKING SUPERVISOR: No focal deficits are appreciated. DIAGNOSTIC STUDIES/LAB DATA: Her labs, white cell 11.8, hemoglobin 11.9, hematocrit 35, and platele ts 238. Chemistries showed sodium 142, potassium 4, chloride 113, BUN 9, creatinine 0.60, magnesium 2.1. CRP is 6. TSH 4.91. EKG that was done on 02/23/17, which is today, showed the patient to be in atrial fibrillation with a heart rate of 108 beats per minute, there is poor R wave progression and borderline low voltage. Her EKG from 02/20/17 showed normal sinus rhythm, sinus tachycardia, poor R wave progression appreci ated. Her chest x-ray was reported that was done on 02/20/17, obstructive lung disease, no acute pulmonary or cardiac process event. IMPRESSION: The patient is 72-year-old with: 1. Atrial fibrillation, rapid, of unknown duration, probably related to her extensive history of ch ronic obstructive pulmonary disease with current chronic obstructive pulmonary disease exacerbation. 2. Chronic obstructive pulmonary disease exacerbation. 3. Long use of tobacco consumption, although she quit a few years ago. 4. Gastroesophageal reflux disease. 5. Hyperlipidemia. 6. Abnormal EKG as described. 7. Normal left ventricular systolic function with an echo done today, ejection fraction 65%. 8. No significant valvular disease. PLAN: The patient is currently on telemetry floor. She is on Cardizem for rate control, which I ag ree. She is on heparin for anticoagulation, which I agree. She is female and she is more than 63 y ears old, there is questionable history of hypertension. She is at least intermediate risk for card ioembolic phenomenon because of atrial fibrillation. At the present time, we will continue to obser ve very closely her rate control and how she will respond. Continue anticoagulation at least for 48 to 72 hours. If she continues to be in atrial fibrillation, consideration might be given for trans esophageal echocardiography-guided cardioversion. Make sure that her electrolytes especially potass ium and magnesium are within normal limits and follow up closely. Continue to receive COPD treatmen t. TIME SPENT: More than half of at least 60-plus minute was [id number] in the education and child care counselor ing mode discussing this patient further, answering all of her concerns and questions, and making fu rther recommendations accordingly. [id number]/[facility] #: [id number]
[2017-02-23] MEDS: Diltiazem DRIP* 100 MG/100 ML ADDV.BAG IVPB SCH (23:05)
[2017-02-24] MEDS: Albuterol/Ipratropium NEB.SOL* Albuterol 2.5 MG/Ipratropium 0.5 MG 3 ML INH SCH ×6 (03:29→23:29)
[2017-02-24] MEDS ORDERED: Potassium Chlor TAB* 20 MEQ TAB.ER PO ONE (04:12)
[2017-02-24] MEDS: methylPREDNISolone SOD 40 MG* 1 ML VIAL IV SCH ×2 (05:18→18:24)
[2017-02-24 05:29] LABS: Hematocrit 37 % (35-47); Hemoglobin 12.6 g/dl (12.0-16.0); Mean Corpuscular HGB Conc 34 g/dl (31-36); Mean Corpuscular Hemoglobin 31 pg (27-31); Mean Corpuscular Volume 92 fL (80-97); Mean Platelet Volume 8 um3 (7.4-10.4); Red Blood Count 4.05 10^6/ul (4.0-5.4); Red Cell Distribution Width 13 % (10.5-15); White Blood Count 9.3 10^3/ul (3.5-10.8)
[2017-02-24] MEDS: Diltiazem DRIP* 100 MG/100 ML ADDV.BAG IVPB SCH (06:25)
[2017-02-24] MEDS: Mometasone/Formoter 200/5 MDI INH SCH ×2 (07:35→19:26)
[2017-02-24] MEDS: Aspirin EC Low Dose* 81 MG TAB.EC PO SCH (08:48)
[2017-02-24] MEDS: cefTRIAXone VIAL(*) 1,000 MG in NS 0.9% 50 ML* 50 ML IVPB SCH (08:48)
[2017-02-24] MEDS: Diltiazem TAB* 60 MG PO SCH ×2 (12:37→18:24)
--- NOTE | 2017-02-24 14:03 | PN ---
Subjective Date of Service: 02/24/17 Interval History: Feels good and wants to go home. She has been walking without shortness of breath. She denies chest pain, palpitations, lightheadedness, dizziness, dyspnea on exertion. Family History: Unchanged from Admission Social History: Unchanged from Admission Past Medical History: Unchanged from Admission Objective Active Medications: Acetaminophen (Tylenol Tab*) 650 mg PO Q4H PRN PRN Reason: FEVER/PAIN Last Admin: 02/22/17 00:36 Dose: 650 mg Albuterol (Ventolin 2.5 Mg/3 Ml Neb.Steph*) 2.5 mg INH Q2H PRN PRN Reason: SOB/WHEEZING Albuterol/Ipratropium (Duoneb (Albuterol 2.5 Mg/Ipratropium 0.5 Mg)) 1 neb INH Q4H [facility] Last Admin: 02/24/17 13:30 Dose: Not Given Apixaban (Eliquis*) 5 mg PO BID [facility] Aspirin (Aspirin Ec Low Dose*) 81 mg PO DAILY [facility] Last Admin: 02/24/17 08:48 Dose: 81 mg Azithromycin (Zithromax Tab*) 250 mg PO DAILY@1999 [facility] Last Admin: 02/23/17 20:27 Dose: 250 mg Diltiazem HCl (Cardizem Tab*) 90 mg PO Q6H [facility] Last Admin: 02/24/17 12:37 Dose: 90 mg Guaifenesin (Robitussin*) 5 ml PO Q4H PRN PRN Reason: COUGH Last Admin: 02/22/17 19:39 Dose: 5 ml Ceftriaxone Sodium 1,000 mg/ (Sodium Chloride) 50 mls @ 200 mls/hr IVPB Q24H [facility] Last Admin: 02/24/17 08:48 Dose: 200 mls/hr Methylprednisolone Sodium Succinate (Solu-Medrol 40 Mg) 40 mg IV Q12H [facility] Last Admin: 02/24/17 05:18 Dose: 40 mg Mometasone Furoate/Formoterol Fumar (Dulera 200/5 Mdi*) 2 puff INH BID [facility] Last Admin: 02/24/17 07:35 Dose: 2 puff Ondansetron HCl (Zofran Inj*) 4 mg IV Q6H PRN PRN Reason: NAUSEA Vital Signs 02/23/17 02/23/17 02/23/17 15:39 16:16 19:34 Temperature 98.2 F Pulse Rate 100 87 Respiratory 18 18 Rate Blood Pressure (mmHg) O2 Sat by Pulse 98 99 Oximetry 02/23/17 02/23/17 02/23/17 20:00 20:35 20:44 Temperature 97.5 F Pulse Rate 87 97 Respiratory 18 Rate Blood Pressure 134/65 (mmHg) O2 Sat by Pulse 99 97 Oximetry 02/23/17 02/23/17 02/23/17 20:59 21:01 21:14 Temperature Pulse Rate 106 106 121 Respiratory Rate Blood Pressure 130/75 131/82 (mmHg) O2 Sat by Pulse 97 97 96 Oximetry 02/23/17 02/23/17 02/23/17 22:00 22:01 22:14 Temperature Pulse Rate 101 99 94 Respiratory Rate Blood Pressure 124/83 131/82 (mmHg) O2 Sat by Pulse 97 97 97 Oximetry 02/23/17 02/23/17 02/23/17 22:29 22:44 23:00 Temperature Pulse Rate 104 101 109 Respiratory Rate Blood Pressure 138/75 132/87 125/78 (mmHg) O2 Sat by Pulse 97 98 97 Oximetry 02/23/17 02/23/17 02/23/17 23:01 23:11 23:14 Temperature Pulse Rate 89 86 Respiratory 18 Rate Blood Pressure 128/80 (mmHg) O2 Sat by Pulse 97 99 Oximetry 02/23/17 02/23/17 02/23/17 23:29 23:43 23:44 Temperature 97.7 F Pulse Rate 107 Respiratory 16 Rate Blood Pressure 130/77 135/81 (mmHg) O2 Sat by Pulse 97 Oximetry 02/23/17 02/24/17 02/24/17 23:59 00:00 00:14 Temperature Pulse Rate 96 Respiratory Rate Blood Pressure 119/77 111/70 (mmHg) O2 Sat by Pulse 98 Oximetry 02/24/17 02/24/17 02/24/17 00:29 00:44 00:59 Temperature Pulse Rate Respiratory Rate Blood Pressure 113/65 102/54 100/56 (mmHg) O2 Sat by Pulse Oximetry 02/24/17 02/24/17 02/24/17 01:00 01:14 01:29 Temperature Pulse Rate 92 92 Respiratory Rate Blood Pressure 107/61 104/51 (mmHg) O2 Sat by Pulse 97 98 Oximetry 02/24/17 02/24/17 02/24/17 01:44 01:59 02:01 Temperature Pulse Rate 100 87 91 Respiratory Rate Blood Pressure 122/65 93/53 (mmHg) O2 Sat by Pulse 98 97 96 Oximetry 02/24/17 02/24/17 02/24/17 02:14 02:29 02:44 Temperature Pulse Rate 85 Respiratory Rate Blood Pressure 120/65 103/59 102/63 (mmHg) O2 Sat by Pulse 93 Oximetry 02/24/17 02/24/17 02/24/17 02:59 03:00 03:14 Temperature Pulse Rate 90 89 Respiratory Rate Blood Pressure 107/69 101/51 (mmHg) O2 Sat by Pulse 93 95 Oximetry 02/24/17 02/24/17 02/24/17 03:29 03:35 03:38 Temperature 97.4 F Pulse Rate 97 Respiratory 18 20 Rate Blood Pressure 96/53 (mmHg) O2 Sat by Pulse 99 Oximetry 02/24/17 02/24/17 02/24/17 03:45 03:59 04:00 Temperature Pulse Rate 94 Respiratory Rate Blood Pressure 124/80 108/69 (mmHg) O2 Sat by Pulse 94 Oximetry 02/24/17 02/24/17 02/24/17 04:14 04:29 04:44 Temperature Pulse Rate 93 Respiratory Rate Blood Pressure 107/59 103/66 106/64 (mmHg) O2 Sat by Pulse 92 Oximetry 02/24/17 02/24/17 02/24/17 04:59 05:00 05:14 Temperature Pulse Rate 99 86 Respiratory Rate Blood Pressure 117/61 112/65 (mmHg) O2 Sat by Pulse 92 93 Oximetry 02/24/17 02/24/17 02/24/17 05:44 05:59 06:00 Temperature Pulse Rate 80 80 Respiratory Rate Blood Pressure 122/67 110/73 (mmHg) O2 Sat by Pulse 93 93 Oximetry 02/24/17 02/24/17 02/24/17 06:14 07:00 07:38 Temperature Pulse Rate 76 63 110 Respiratory 14 Rate Blood Pressure 110/74 (mmHg) O2 Sat by Pulse 92 89 98 Oximetry 02/24/17 02/24/17 02/24/17 07:57 08:00 09:00 Temperature Pulse Rate 94 112 Respiratory 16 Rate Blood Pressure (mmHg) O2 Sat by Pulse 97 97 Oximetry 02/24/17 02/24/17 02/24/17 10:42 11:00 11:23 Temperature 98.6 F Pulse Rate 102 55 118 Respiratory 24 Rate Blood Pressure 121/75 130/82 (mmHg) O2 Sat by Pulse 96 97 95 Oximetry 02/24/17 02/24/17 12:00 12:44 Temperature Pulse Rate 85 85 Respiratory Rate Blood Pressure 120/57 (mmHg) O2 Sat by Pulse 96 97 Oximetry Oxygen Devices in Use Now: Nasal Cannula Appearance: alert, well appearing, mildly tachypneic while talking Eyes: No Scleral Icterus, PERRLA Ears/Nose/Mouth/Throat: NL Teeth, Lips, Gums, Clear Oropharnyx Neck: NL Appearance and Movements; NL JVP, Trachea Midline Respiratory: Symmetrical Chest Expansion and Respiratory Effort, - - no wheezing , distant breath sounds Cardiovascular: - - tachycardic, no murmur s Abdominal: NL Sounds; No Tenderness; No Distention, No Hepatosplenomegaly Lymphatic: No Cervical Adenopathy Extremities: No Edema Skin: No Rash or Ulcers Neurological: Alert and Oriented x 3 Result Diagrams: 02/24/17 05:05 02/23/17 05:11 Additional Lab and Data: Lab Results 02/20/17 02/20/17 02/20/17 Range/Units 16:55 16:55 16:55 WBC (3.5-10.8) 10^3/ul RBC (4.0-5.4) 10^6/ul Hgb (12.0-16.0) g/dl Hct (35-47) % MCV (80-97) fL MCH (27-31) pg MCHC (31-36) g/dl RDW (10.5-15) % Plt Count (150-450) 10^3/ul MPV (7.4-10.4) um3 Neut % (Auto) (38-83) % Lymph % (Auto) (25-47) % [place] % (Auto) (1-9) % Eos % (Auto) (0-6) % Baso % (Auto) (0-2) % Absolute Neuts (auto) (1.5-7.7) 10^3/ul Absolute Lymphs (auto) (1.0-4.8) 10^3/ul Absolute Monos (auto) (0-0.8) 10^3/ul Absolute Eos (auto) (0-0.6) 10^3/ul Absolute Basos (auto) (0-0.2) 10^3/ul Absolute Nucleated RBC 10^3/ul Nucleated RBC % INR (Anticoag Therapy) 0.90 (0.89-1.11) APTT 28.9 (26.0-36.3) seconds D-Dimer, Quantitative < 200 (Less Than 230) ng/mL Sodium 137 (133-145) mmol/L Potassium 4.0 (3.5-5.0) mmol/L Chloride 104 (101-111) mmol/L Carbon Dioxide 24 (22-32) mmol/L Anion Gap 9 (2-11) mmol/L BUN 10 (6-24) mg/dL Creatinine 0.77 (0.51-0.95) mg/dL Est GFR ( Amer) 94.2 (>60) Est GFR (Non-Af Amer) 73.3 (>60) BUN/Creatinine Ratio 13.0 (8-20) Glucose 114 H (70-100) mg/dL Lactic Acid (0.5-2.0) mmol/L Calcium 9.3 (8.6-10.3) mg/dL Magnesium 2.1 (1.9-2.7) mg/dL Total Bilirubin 0.30 (0.2-1.0) mg/dL AST 16 (13-39) U/L ALT 11 (7-52) U/L Alkaline Phosphatase 64 (34-104) U/L Total Creatine Kinase 37 (10-223) U/L CK-MB (CK-2) 1.6 (0.6-6.3) ng/mL Troponin I 0.00 (<0.04) ng/mL C-Reactive Protein 5.95 H (< 5.00) mg/L B-Natriuretic Peptide 22 ( - 100) pg/mL Total Protein 7.0 (6.4-8.9) g/dL Albumin 4.3 (3.2-5.2) g/dL Globulin 2.7 (2-4) g/dL Albumin/Globulin Ratio 1.6 (1-3) Lipase 23 (11.0-82.0) U/L TSH 4.91 (0.34-5.60) mcIU/mL 02/20/17 02/20/17 Range/Units 16:55 16:55 WBC 11.0 H (3.5-10.8) 10^3/ul RBC 4.66 (4.0-5.4) 10^6/ul Hgb 14.7 (12.0-16.0) g/dl Hct 43 (35-47) % MCV 93 (80-97) fL MCH 32 H (27-31) pg MCHC 34 (31-36) g/dl RDW 14 (10.5-15) % Plt Count 319 (150-450) 10^3/ul MPV 8 (7.4-10.4) um3 Neut % (Auto) 45.2 (38-83) % Lymph % (Auto) 35.5 (25-47) % [place] % (Auto) 9.9 H (1-9) % Eos % (Auto) 8.0 H (0-6) % Baso % (Auto) 1.4 (0-2) % Absolute Neuts (auto) 5.0 (1.5-7.7) 10^3/ul Absolute Lymphs (auto) 3.9 (1.0-4.8) 10^3/ul Absolute Monos (auto) 1.1 H (0-0.8) 10^3/ul Absolute Eos (auto) 0.9 H (0-0.6) 10^3/ul Absolute Basos (auto) 0.2 (0-0.2) 10^3/ul Absolute Nucleated RBC 0.01 10^3/ul Nucleated RBC % 0.1 INR (Anticoag Therapy) (0.89-1.11) APTT (26.0-36.3) seconds D-Dimer, Quantitative (Less Than 230) ng/mL Sodium (133-145) mmol/L Potassium (3.5-5.0) mmol/L Chloride (101-111) mmol/L Carbon Dioxide (22-32) mmol/L Anion Gap (2-11) mmol/L BUN (6-24) mg/dL Creatinine (0.51-0.95) mg/dL Est GFR ( Amer) (>60) Est GFR (Non-Af Amer) (>60) BUN/Creatinine Ratio (8-20) Glucose (70-100) mg/dL Lactic Acid 1.5 (0.5-2.0) mmol/L Calcium (8.6-10.3) mg/dL Magnesium (1.9-2.7) mg/dL Total Bilirubin (0.2-1.0) mg/dL AST (13-39) U/L ALT (7-52) U/L Alkaline Phosphatase (34-104) U/L Total Creatine Kinase (10-223) U/L CK-MB (CK-2) (0.6-6.3) ng/mL Troponin I (<0.04) ng/mL C-Reactive Protein (< 5.00) mg/L B-Natriuretic Peptide ( - 100) pg/mL Total Protein (6.4-8.9) g/dL Albumin (3.2-5.2) g/dL Globulin (2-4) g/dL Albumin/Globulin Ratio (1-3) Lipase (11.0-82.0) U/L TSH (0.34-5.60) mcIU/mL Microbiology and Other Data: Microbiology 02/21/17 03:50 Legionella Urinary Antigen - Final Urine Negative Legionella Streptococcus pneumoniae Ag Screen - Final Negative S. pneumo Antigen 02/20/17 18:13 Influenza Types A,B Antigen (JIGAR) - Final Nasal Specimen received for Influenza A/B Molecular testing Assess/Plan/Problems-Billing Assessment: Mrs. Ely is a 72yo F with PMH of COPD, HLD, GERD, who presented to ED with c/ o dyspnea and cough, found to have another episode of COPD exacerbation secondary to bronchitis. 1. Afib with RVR Still on cardizem and heparin drips today. She is refusing heparin. will plan to start eliquis today. I discussed the risks and benefits of therapeutic anticoagulation with her, and she agrees that the benefit of stroke prevention outweighs the risks of bleeding in her. I will transition cardizem drip to PO now. Start cardizem 90mg po q6 now and DC cardizem drip in one hour. 2. Acute on chronic hypoxic respiratory failure likely secondary to copd exacerbation. Now back to her home O2 requirement of 2L. 3. Acute COPD exacerbation likely secondary to bronchitis. continue steroids, nebs, and abx. Status and Disposition: Inpatient for management of COPD exacerbation requiring >48h for stabilization.
[2017-02-24] MEDS: Azithromycin TAB* 250 MG PO SCH (20:56)
[2017-02-24] MEDS: Apixaban* 5 MG TAB PO SCH (20:56)
[2017-02-25] MEDS: Albuterol/Ipratropium NEB.SOL* Albuterol 2.5 MG/Ipratropium 0.5 MG 3 ML INH SCH ×3 (03:43→11:05)
[2017-02-25] MEDS: Diltiazem TAB* 60 MG PO SCH ×4 (04:20→20:38)
[2017-02-25] MEDS: methylPREDNISolone SOD 40 MG* 1 ML VIAL IV SCH (05:49)
[2017-02-25 07:01] LABS: Hematocrit 38 % (35-47); Mean Corpuscular HGB Conc 34 g/dl (31-36); Mean Corpuscular Hemoglobin 32 pg (27-31); Mean Corpuscular Volume 92 fL (80-97); Mean Platelet Volume 8 um3 (7.4-10.4); Red Blood Count 4.12 10^6/ul (4.0-5.4); Red Cell Distribution Width 13 % (10.5-15); White Blood Count 10.2 10^3/ul (3.5-10.8)
[2017-02-25 07:04] LABS: Add Diff/Slide Review? Slide Review Added; Comments Flag Yes
[2017-02-25 07:16] LABS: EGFR African American 98.7 (>60); EGFR Non-African American 76.7 (>60)
[2017-02-25] MEDS: Mometasone/Formoter 200/5 MDI INH SCH ×2 (07:50→19:40)
[2017-02-25] MEDS: Aspirin EC Low Dose* 81 MG TAB.EC PO SCH (08:25)
[2017-02-25] MEDS: cefTRIAXone VIAL(*) 1,000 MG in NS 0.9% 50 ML* 50 ML IVPB SCH (08:25)
[2017-02-25] MEDS: Apixaban* 5 MG TAB PO SCH ×2 (08:25→20:38)
[2017-02-25] MEDS ORDERED: Diltiazem IV* 5 MG/ML 5 ML VIAL (for loading dose/IV Push) (25 MG) IV SLOW PU ONE (09:40)
[2017-02-25] MEDS ORDERED: Diltiazem IV* 5 MG/ML 5 ML VIAL (for loading dose/IV Push) (25 MG) ONE (09:48)
[2017-02-25] MEDS: guaiFENesin LIQ* 100 MG/5 ML UDC PO PRN (10:15)
[2017-02-25] MEDS ORDERED: Albuterol/Ipratropium NEB.SOL* Albuterol 2.5 MG/Ipratropium 0.5 MG 3 ML INH PRN (11:35)
--- NOTE | 2017-02-25 12:55 | PN ---
Subjective Date of Service: 02/25/17 Interval History: Missed a dose of cardizem overnight at 2am; called by RN for HR in 130s this morning around 9:30am. RVR responded to cardizem 10mg IV push. Ms. Ely says she wants to go home, but says she was nervous walking to the bathroom this morning and needed help because she felt lightheaded. She admits to feeling more short of breath today than yesterday, but denies chest pain, palpitations, or orthopnea. Family History: Unchanged from Admission Social History: Unchanged from Admission Past Medical History: Unchanged from Admission Objective Active Medications: Acetaminophen (Tylenol Tab*) 650 mg PO Q4H PRN PRN Reason: FEVER/PAIN Last Admin: 02/22/17 00:36 Dose: 650 mg Albuterol (Ventolin 2.5 Mg/3 Ml Neb.Steph*) 2.5 mg INH Q2H PRN PRN Reason: SOB/WHEEZING Albuterol/Ipratropium (Duoneb (Albuterol 2.5 Mg/Ipratropium 0.5 Mg)) 1 neb INH Q4H PRN PRN Reason: WHEEZING Apixaban (Eliquis*) 5 mg PO BID [facility] Last Admin: 02/25/17 08:25 Dose: 5 mg Aspirin (Aspirin Ec Low Dose*) 81 mg PO DAILY [facility] Last Admin: 02/25/17 08:25 Dose: 81 mg Azithromycin (Zithromax Tab*) 250 mg PO DAILY@1999 [facility] Last Admin: 02/24/17 20:56 Dose: 250 mg Diltiazem HCl (Cardizem Tab*) 90 mg PO Q6H [facility] Last Admin: 02/25/17 08:25 Dose: 90 mg Guaifenesin (Robitussin*) 5 ml PO Q4H PRN PRN Reason: COUGH Last Admin: 02/25/17 10:15 Dose: 5 ml Ceftriaxone Sodium 1,000 mg/ (Sodium Chloride) 50 mls @ 200 mls/hr IVPB Q24H [facility] Last Admin: 02/25/17 08:25 Dose: 200 mls/hr Methylprednisolone Sodium Succinate (Solu-Medrol 40 Mg) 40 mg IV Q12H [facility] Last Admin: 02/25/17 05:49 Dose: 40 mg Mometasone Furoate/Formoterol Fumar (Dulera 200/5 Mdi*) 2 puff INH BID [facility] Last Admin: 02/25/17 07:50 Dose: 2 puff Ondansetron HCl (Zofran Inj*) 4 mg IV Q6H PRN PRN Reason: NAUSEA Vital Signs 02/24/17 02/24/17 02/24/17 13:00 15:58 16:00 Temperature Pulse Rate 89 94 Respiratory 14 Rate Blood Pressure (mmHg) O2 Sat by Pulse 95 98 98 Oximetry 02/24/17 02/24/17 02/24/17 16:10 18:03 19:26 Temperature 97.9 F Pulse Rate 85 96 100 Respiratory 16 18 Rate Blood Pressure 99/66 110/53 (mmHg) O2 Sat by Pulse 98 99 Oximetry 02/24/17 02/24/17 02/24/17 19:49 20:00 23:29 Temperature 97.5 F Pulse Rate 96 89 88 Respiratory 16 18 18 Rate Blood Pressure 110/60 (mmHg) O2 Sat by Pulse 95 98 98 Oximetry 02/25/17 02/25/17 02/25/17 00:00 00:10 02:30 Temperature 97.5 F 97.7 F Pulse Rate 110 93 Respiratory 20 Rate Blood Pressure 104/75 98/74 (mmHg) O2 Sat by Pulse 98 97 94 Oximetry 02/25/17 02/25/17 02/25/17 02:35 03:15 03:45 Temperature Pulse Rate 111 78 Respiratory 24 18 Rate Blood Pressure 100/78 142/76 (mmHg) O2 Sat by Pulse 98 98 Oximetry 02/25/17 02/25/17 02/25/17 07:12 07:16 07:53 Temperature 97.8 F Pulse Rate 103 103 Respiratory 18 20 Rate Blood Pressure 109/60 (mmHg) O2 Sat by Pulse 97 98 Oximetry 02/25/17 02/25/17 11:05 11:06 Temperature Pulse Rate 109 109 Respiratory 14 14 Rate Blood Pressure (mmHg) O2 Sat by Pulse 98 98 Oximetry Oxygen Devices in Use Now: Nasal Cannula Appearance: alert, tachypneic when talking Eyes: No Scleral Icterus, PERRLA Ears/Nose/Mouth/Throat: NL Teeth, Lips, Gums, Clear Oropharnyx Neck: NL Appearance and Movements; NL JVP, Trachea Midline Respiratory: Symmetrical Chest Expansion and Respiratory Effort, - - distant breath sounds b/l, no rhonchi or rales or wheezes Cardiovascular: NL Sounds; No Murmurs; No JVD, - - tachycardic, irregular Abdominal: NL Sounds; No Tenderness; No Distention, No Hepatosplenomegaly Lymphatic: No Cervical Adenopathy Extremities: No Edema Skin: No Rash or Ulcers Neurological: Alert and Oriented x 3 Result Diagrams: 02/25/17 06:36 02/25/17 06:36 Additional Lab and Data: Lab Results 02/20/17 02/20/17 02/20/17 Range/Units 16:55 16:55 16:55 WBC (3.5-10.8) 10^3/ul RBC (4.0-5.4) 10^6/ul Hgb (12.0-16.0) g/dl Hct (35-47) % MCV (80-97) fL MCH (27-31) pg MCHC (31-36) g/dl RDW (10.5-15) % Plt Count (150-450) 10^3/ul MPV (7.4-10.4) um3 Neut % (Auto) (38-83) % Lymph % (Auto) (25-47) % [place] % (Auto) (1-9) % Eos % (Auto) (0-6) % Baso % (Auto) (0-2) % Absolute Neuts (auto) (1.5-7.7) 10^3/ul Absolute Lymphs (auto) (1.0-4.8) 10^3/ul Absolute Monos (auto) (0-0.8) 10^3/ul Absolute Eos (auto) (0-0.6) 10^3/ul Absolute Basos (auto) (0-0.2) 10^3/ul Absolute Nucleated RBC 10^3/ul Nucleated RBC % INR (Anticoag Therapy) 0.90 (0.89-1.11) APTT 28.9 (26.0-36.3) seconds D-Dimer, Quantitative < 200 (Less Than 230) ng/mL Sodium 137 (133-145) mmol/L Potassium 4.0 (3.5-5.0) mmol/L Chloride 104 (101-111) mmol/L Carbon Dioxide 24 (22-32) mmol/L Anion Gap 9 (2-11) mmol/L BUN 10 (6-24) mg/dL Creatinine 0.77 (0.51-0.95) mg/dL Est GFR ( Amer) 94.2 (>60) Est GFR (Non-Af Amer) 73.3 (>60) BUN/Creatinine Ratio 13.0 (8-20) Glucose 114 H (70-100) mg/dL Lactic Acid (0.5-2.0) mmol/L Calcium 9.3 (8.6-10.3) mg/dL Magnesium 2.1 (1.9-2.7) mg/dL Total Bilirubin 0.30 (0.2-1.0) mg/dL AST 16 (13-39) U/L ALT 11 (7-52) U/L Alkaline Phosphatase 64 (34-104) U/L Total Creatine Kinase 37 (10-223) U/L CK-MB (CK-2) 1.6 (0.6-6.3) ng/mL Troponin I 0.00 (<0.04) ng/mL C-Reactive Protein 5.95 H (< 5.00) mg/L B-Natriuretic Peptide 22 ( - 100) pg/mL Total Protein 7.0 (6.4-8.9) g/dL Albumin 4.3 (3.2-5.2) g/dL Globulin 2.7 (2-4) g/dL Albumin/Globulin Ratio 1.6 (1-3) Lipase 23 (11.0-82.0) U/L TSH 4.91 (0.34-5.60) mcIU/mL 02/20/17 02/20/17 Range/Units 16:55 16:55 WBC 11.0 H (3.5-10.8) 10^3/ul RBC 4.66 (4.0-5.4) 10^6/ul Hgb 14.7 (12.0-16.0) g/dl Hct 43 (35-47) % MCV 93 (80-97) fL MCH 32 H (27-31) pg MCHC 34 (31-36) g/dl RDW 14 (10.5-15) % Plt Count 319 (150-450) 10^3/ul MPV 8 (7.4-10.4) um3 Neut % (Auto) 45.2 (38-83) % Lymph % (Auto) 35.5 (25-47) % [place] % (Auto) 9.9 H (1-9) % Eos % (Auto) 8.0 H (0-6) % Baso % (Auto) 1.4 (0-2) % Absolute Neuts (auto) 5.0 (1.5-7.7) 10^3/ul Absolute Lymphs (auto) 3.9 (1.0-4.8) 10^3/ul Absolute Monos (auto) 1.1 H (0-0.8) 10^3/ul Absolute Eos (auto) 0.9 H (0-0.6) 10^3/ul Absolute Basos (auto) 0.2 (0-0.2) 10^3/ul Absolute Nucleated RBC 0.01 10^3/ul Nucleated RBC % 0.1 INR (Anticoag Therapy) (0.89-1.11) APTT (26.0-36.3) seconds D-Dimer, Quantitative (Less Than 230) ng/mL Sodium (133-145) mmol/L Potassium (3.5-5.0) mmol/L Chloride (101-111) mmol/L Carbon Dioxide (22-32) mmol/L Anion Gap (2-11) mmol/L BUN (6-24) mg/dL Creatinine (0.51-0.95) mg/dL Est GFR ( Amer) (>60) Est GFR (Non-Af Amer) (>60) BUN/Creatinine Ratio (8-20) Glucose (70-100) mg/dL Lactic Acid 1.5 (0.5-2.0) mmol/L Calcium (8.6-10.3) mg/dL Magnesium (1.9-2.7) mg/dL Total Bilirubin (0.2-1.0) mg/dL AST (13-39) U/L ALT (7-52) U/L Alkaline Phosphatase (34-104) U/L Total Creatine Kinase (10-223) U/L CK-MB (CK-2) (0.6-6.3) ng/mL Troponin I (<0.04) ng/mL C-Reactive Protein (< 5.00) mg/L B-Natriuretic Peptide ( - 100) pg/mL Total Protein (6.4-8.9) g/dL Albumin (3.2-5.2) g/dL Globulin (2-4) g/dL Albumin/Globulin Ratio (1-3) Lipase (11.0-82.0) U/L TSH (0.34-5.60) mcIU/mL Microbiology and Other Data: Microbiology 02/21/17 03:50 Legionella Urinary Antigen - Final Urine Negative Legionella Streptococcus pneumoniae Ag Screen - Final Negative S. pneumo Antigen 02/20/17 18:13 Influenza Types A,B Antigen (JIGAR) - Final Nasal Specimen received for Influenza A/B Molecular testing Assess/Plan/Problems-Billing Assessment: Mrs. lEy is a 72yo F with PMH of COPD, HLD, GERD, who presented to ED with c/ o dyspnea and cough, found to have another episode of COPD exacerbation secondary to bronchitis. 1. Afib with RVR Cardizem drip discontinued yesterday and transitioned to cardizem 90mg po q6. She is now rate controlled. I suspect her RVR this morning was related to the missed overnight dose. Still, she is uncomfortable, and I discussed possible cardioversion with cardiology today. Will plan for CAMRON/Cardioversion tomorrow. She was switched yesterday from heparin to eliquis, which she is tolerating well with no bleeding. I discussed the risks and benefits of therapeutic anticoagulation with her, and she agrees that the benefit of stroke prevention outweighs the risks of bleeding in her. 2. Acute on chronic hypoxic respiratory failure likely secondary to copd exacerbation. Now back to her home O2 requirement of 2L. DC standing nebs today and make PRN--may be contributing to tachycardia. 3. Acute COPD exacerbation likely secondary to bronchitis. Continue steroids, nebs, and abx. Will wean solumedrol to prednisone today. Status and Disposition: Inpatient for management of COPD exacerbation requiring >48h for stabilization.
[2017-02-25] MEDS: Azithromycin TAB* 250 MG PO SCH (20:33)
[2017-02-26] MEDS: Diltiazem TAB* 60 MG PO SCH ×2 (01:24→07:49)
[2017-02-26 05:54] LABS: Add Diff/Slide Review? Slide Review Added; Comments Flag Yes; Hematocrit 39 % (35-47); Hemoglobin 13.4 g/dl (12.0-16.0); Mean Corpuscular HGB Conc 34 g/dl (31-36); Mean Corpuscular Hemoglobin 32 pg (27-31); Mean Corpuscular Volume 93 fL (80-97); Mean Platelet Volume 7 um3 (7.4-10.4); Red Blood Count 4.22 10^6/ul (4.0-5.4); Red Cell Distribution Width 14 % (10.5-15); White Blood Count 14.6 10^3/ul (3.5-10.8)
[2017-02-26 06:46] LABS: Neutrophil % 76 % (38-83); RBC Morphology Normal (Normal); Reactive Lymph % 8 % (0-6)
[2017-02-26] MEDS ORDERED: Midazolam* 1 MG/ML 5 ML VIAL (5 MG) ONE (07:55)
[2017-02-26] MEDS ORDERED: Naloxone* 0.4 MG/ML 1 ML VIAL ONE (07:56)
[2017-02-26] MEDS ORDERED: Lidocaine 2% VISCOUS* 15 ML UDC ONE (07:56)
[2017-02-26] MEDS ORDERED: fentaNYL* 50 MCG/ML 2 ML VIAL (100 MCG VIAL) ONE (07:56)
[2017-02-26] MEDS ORDERED: Flumazenil* 0.1 MG/ML 5 ML MDV ONE (07:56)
[2017-02-26] MEDS: Mometasone/Formoter 200/5 MDI INH SCH (08:26)
[2017-02-26] MEDS ORDERED: predniSONE TAB* 50 MG PO SCH (09:00)
[2017-02-26] MEDS: cefTRIAXone VIAL(*) 1,000 MG in NS 0.9% 50 ML* 50 ML IVPB SCH (09:27)
[2017-02-26] MEDS: Aspirin EC Low Dose* 81 MG TAB.EC PO SCH (11:11)
[2017-02-26] MEDS: Apixaban* 5 MG TAB PO SCH (11:11)
[2017-02-26 11:28] VITALS: BP 96/61
--- NOTE | 2017-02-26 12:07 | DCNOTE ---
Patient seen this morning. Reports breathing is stable, continues to improve. Understands CAMRON findings and need for repeat in 6 weeks. On exam, IRIR, mild tachycardia, lungs CTA B/L, good air movement Plan to discharge today on steroid taper, also on Eliquis and CCB. Will need PCP , Pulm and Cards f/u.
[2017-02-26] MEDS ORDERED: Diltiazem CD CAP* 180 MG PO SCH (13:00)
--- NOTE | 2017-02-26 16:25 | TEE ---
Amended Report Patient: RAMIREZ DISLA Rec#: [id number] : 1945 Date: 02/26/2017 Age: 72y Height: 157.5 cm / 62.0 in Weight: 57.2 kg / 126.1 lbs Sex: F BSA: 1.6 Room#: [facility] Admit Date#: 02/20/2017 Type: Inpatient Referring: Félix Escoto MD Performing: Guillermo Soni MD Reading: Guillermo Soni MD Skin Care Instructor: Donya Shukla RN RDCS Nurse: ZAIRA Mcnair Alicia CC: Hailey Levi MD Transesophageal Echocardiogram Indication: Atrial fibrillation BP: 114/70 HR: 89 Rhythm: A-Fib Findings History: COPD, HLD, GERD, former smoker, borderline HTN Technical Comments: The study quality is good. Left Ventricle: The left ventricular chamber size is normal. Global left ventricular wall motion and contractility are within normal limits. Left ventricular systolic function is at the lower limits of normal. The estimated ejection fraction is 50-55%. The assessment of diastolic function is non-diagnostic. Left Atrium: The left atrial chamber size is normal. No thrombus is visualized within the left atrium. A thrombus is visualized in the left atrial appendage. Right Ventricle: The right ventricular cavity size is normal. The right ventricular global systolic function is normal. Right Atrium: The right atrial cavity size is normal. A prominent eustachian valve is noted in the right atrium. The bubble study is negative. A patent foramen ovale is not demonstrated with color Doppler and agitated contrast. Aortic Valve: The aortic valve is trileaflet. The aortic valve leaflets are mildly thickened. There is a trace of aortic regurgitation. There is no evidence of aortic stenosis. Mitral Valve: The mitral valve leaflets are mildly thickened. There is mild mitral regurgitation. There is no evidence of mitral stenosis. Tricuspid Valve: The tricuspid valve leaflets are normal. There is trace to mild tricuspid regurgitation. Pulmonic Valve: The pulmonic valve structure is not well visualized. There is a trace pulmonic regurgitation. Pericardium: There is no significant pericardial effusion. Aorta: There is no dilatation of the ascending aorta. There is no dilation of the aortic root. There is mild to moderate atherosclerotic plaque seen in the aorta. Pulmonary Artery: The main pulmonary artery appears normal. Venous: The bicaval view was obtained and appears normal. The pulmonary veins appear normal. 2 of 4 pulmonary veins are seen and interrogated with Doppler. CAMRON Procedures: All standard views were attempted within the limitations of patient tolerance and safety. History and physical as well as labs were reviewed. The patient was in a fasting state. Risks and benefits of the procedure, including alternatives, were discussed and written informed consent was obtained. The patient and/or their health care sales representative electric service expressed understanding of the procedure, risks and benefits. Baseline and continuous monitoring of blood pressure, heart rate, pulse oximetry and heart rhythm was performed throughout the procedure. The appropriate time-out procedure was performed as per [facility] protocol. The patient was placed in the left lateral decubitus position. The patient's posterior pharynx was anesthetized with 20ml of 2% viscous lidocaine. The patient received IV Midazolam with a total dose of 4 mg. The patient received IV Fentanyl with a total dose of 50 mcg. The multiplane transesophageal echocardiogram probe was inserted through the posterior oropharynx and advanced into the esophagus without difficulty. Multiple 2D images were obtained of the heart and its related structures. Color flow Doppler was used for evaluation. Spectral Doppler was also used. The atrial septum was interrogated with color flow Doppler. At the conclusion of the procedure the probe was removed with continuous suction without complications. The patient tolerated the procedure with no apparent complications. Contrast: Normal saline was used as contrast for the bubble study. Image 36. Conclusions Left ventricular systolic function is at the lower limits of normal. The estimated ejection fraction is 50-55%. The assessment of diastolic function is non-diagnostic. A thrombus is visualized in the left atrial appendage. The right ventricular global systolic function is normal. A patent foramen ovale is not demonstrated with color Doppler and agitated contrast. There is a trace of aortic regurgitation. There is mild mitral regurgitation. There is trace to mild tricuspid regurgitation. There is no significant pericardial effusion. Cardioversion not done Measurements Name Value Normal Range Aortic Annulus 1.8 cm (1.4 - 2.6) Ao root diameter (2D) 3.1 cm (2.1 - 3.5) Ascending Ao 2.8 cm (2.1 - 3.4) Name Value Normal Range MV E-wave Vmax 0.68 m/sec - MV deceleration time 104 msec - Name Value Normal Range AV Vmax 1 m/sec -
--- NOTE | 2017-02-27 06:19 | DS ---
CC: Dr. Hailey Levi * DISCHARGE SUMMARY: DATE OF ADMISSION: 02/20/17 DATE OF DISCHARGE: 02/26/17 PRIMARY CARE PROVIDER: Dr. Hailey Levi. PRINCIPAL DISCHARGE DIAGNOSES: 1. Chronic obstructive pulmonary disease exacerbation. 2. Atrial fibrillation with rapid ventricular response. 3. Atrial appendage clot. SECONDARY DIAGNOSES: 1. Hyperlipidemia. 2. Gastroesophageal reflux disease. 3. Cataracts. DISCHARGE MEDICATION REGIMEN: 1. Eliquis 5 mg by mouth 2 times daily. 2. Diltiazem 360 mg by mouth daily. 3. Dulera 200/5 two puffs inhaled 2 times daily. 4. Prednisone 50 mg by mouth daily, taper as instructed. 5. Albuterol 2 puffs inhaled every 4 hours as needed for shortness of breath or wheezing. 6. DuoNeb 1 solution inhaled every 4 as needed for shortness of breath or wheezing. 7. Aspirin 81 mg by mouth daily. 8. Spiriva 1 capsule inhaled daily. 9. Epinephrine 0.3 mg IM once as needed for allergy symptoms. STUDIES DURING HOSPITALIZATION: Chest x-ray, impression: Stigmata of obstructive lung disease. No acute pulmonary or cardiac process evident. Transthoracic echocardiogram, conclusion: Study is technically limited due to the patient's COPD. Left ventricular chamber size is decreased. The left ventricular appears hyperdynamic. Estimated ejection fraction is greater than 65%. The assessment of diastolic function is nondiagnostic. No significant pericardial effusion. Trace tricuspid regurgitation. Left pericardial fat pad is visualized. Transesophageal echocardiogram, conclusion: Left ventricular function is at the lower limits of normal with an EF of 50% to 55%. The assessment of diastolic function is nondiagnostic. A thrombus is visualized in the left arterial appendage. The right ventricular global systolic function is normal and patent foramen ovale is not demonstrated with color Doppler and agitated contrast. There is trace aortic regurgitation, mild mitral regurgitation, trace mild tricuspid regurgitation. No significant pericardial effusion. Cardioversion not done. HISTORY OF PRESENT ILLNESS/HOSPITAL SUMMARY: Please see the full history and physical by Eriberto Meadows NP for full details. Ms. Ely is a 72-year-old female with a past medical history as above who presented to the hospital with progressive shortening of breath and cough after recent treatment with steroids and antibiotics. The patient was treated here for COPD exacerbation. She was placed on antibiotics and required a significant amount of oxygen, was placed on Vapotherm. Over the following days, her O2 was able to be weaned down. The patient also developed atrial fibrillation with rapid ventricular response, which is a new diagnosis. She was started on rate controlling agents as well as a heparin drip. She was transitioned from IV Cardizem to p.o. Cardizem. She was transitioned to Eliquis as the patient remained in atrial fibrillation. She was evaluated by Cardiology and Dr. Escoto recommended potential CAMRON with cardioversion. This was done on 02/26/17. Unfortunately, the patient was found to have a clot in the atrial appendage, so a cardio-version was not undertaken. She will be continued on blood thinning medications and rate control medications and will be reevaluated as an outpatient for possible repeat procedure and cardioversion at that time if the clot is resolved. The patient felt her breathing had significantly improved. She will be discharged on a prolonged steroid taper. She will follow up with Cardiology as well as with Pulmonology and her PCP. TIME SPENT: Total time spent on this discharge 40 minutes. This is a summary of hospitalization, please see the full medical record and for further details. [id number]/[facility] #: [id number] [facility]
== END 2017-02-26 14:46 | disposition home or self-care (01) | DRG 190 ==
LOC: ED 16:36 → ICU 18:05 → MED 02-21 17:20 → MEDTELE 02-23 09:19
PROVIDERS: ADMIT Internal Medicine; ATTEND Hospitalist
PROC: B246ZZ4 Ultrasonography of Right and Left Heart, Transesophageal (ICD-10-PCS; principal; 2017-02-23)
PROC: B246ZZ4 Ultrasonography of Right and Left Heart, Transesophageal (ICD-10-PCS; 2017-02-26)
DX: J44.1 Chronic obstructive pulmonary disease with (acute) exacerbation (principal); J96.21 Acute and chronic respiratory failure with hypoxia; I95.9 Hypotension, unspecified; Z99.81 Dependence on supplemental oxygen; I51.3 Intracardiac thrombosis, not elsewhere classified; I48.91 Unspecified atrial fibrillation; I08.3 Combined rheumatic disorders of mitral, aortic and tricuspid valves; H54.42 Blindness, left eye, normal vision right eye; E78.5 Hyperlipidemia, unspecified; K21.9 Gastro-esophageal reflux disease without esophagitis; Z79.82 Long term (current) use of aspirin; Z91.030 Bee allergy status; Z87.891 Personal history of nicotine dependence
CPT/HCPCS: 36415; 71010; 80048; 80053; 81003; 82550; 82553; 82565; 83605; 83690; 83735; 83880; 84132; 84443; 84484; 84520; 85025; 85379; 85610; 85730; 86140; 87040; 87086; 87502; 87899; 93005; 93306; 93312; 93325; 94640; 94760; 99157; A9270-GY; J0456; J0696; J1644; J2250; J2310; J2920; J2930; J3010; J7512

== ENCOUNTER 2017-03-28 21:55 | Observation (INO) | payer MEDICARE ==
[2017-03-28] MEDS ORDERED: Albuterol/Ipratropium NEB.SOL* Albuterol 2.5 MG/Ipratropium 0.5 MG 3 ML INH ONE ×2 (22:36→23:03)
[2017-03-28] MEDS ORDERED: methylPREDNISolone 125 MG* 2 ML VIAL IV ONE (22:36)
[2017-03-28] MEDS ORDERED: Albuterol/Ipratropium NEB.SOL* Albuterol 2.5 MG/Ipratropium 0.5 MG 3 ML ONE (22:59)
[2017-03-28 23:22] LABS: Hematocrit 37 % (35-47); Hemoglobin 12.7 g/dl (12.0-16.0); Mean Corpuscular HGB Conc 35 g/dl (31-36); Mean Corpuscular Hemoglobin 32 pg (27-31); Mean Corpuscular Volume 92 fL (80-97); Mean Platelet Volume 7 um3 (7.4-10.4); Red Blood Count 3.99 10^6/ul (4.0-5.4); Red Cell Distribution Width 13 % (10.5-15); White Blood Count 6.3 10^3/ul (3.5-10.8)
[2017-03-28 23:35] LABS: C Reactive Protein 7.12 mg/L (< 5.00); Calcium 9.3 mg/dL (8.6-10.3); EGFR African American 105.2 (>60); EGFR Non-African American 81.8 (>60); Globulin 2.5 g/dL (2-4); Potassium 3.9 mmol/L (3.5-5.0); Total Bilirubin 0.3 mg/dL (0.2-1.0); Total Protein 6.5 g/dL (6.4-8.9)
[2017-03-29] MEDS ORDERED: NS 0.9% 1000 ML* 1,000 ML IV SCH ×2 (01:00→02:15)
[2017-03-29] MEDS ORDERED: Albuterol/Ipratropium NEB.SOL* Albuterol 2.5 MG/Ipratropium 0.5 MG 3 ML INH ONE ×2 (01:29→01:39)
[2017-03-29] MEDS ORDERED: Acetaminophen TAB* 325 MG PO PRN (02:32)
[2017-03-29] MEDS ORDERED: Morphine INJ* 2 MG/ML 1 ML SYRINGE (TWO MG - NEW SYRINGE VERSION) IV PRN (02:32)
[2017-03-29] MEDS: Albuterol 2.5 MG/3 ML NEB.SOL* (0.083%) INH SCH ×5 (02:50→20:01)
--- NOTE | 2017-03-29 05:07 | HP ---
CC: Dr. Levi; Dr. Newton; Dr. Escoto * HISTORY AND PHYSICAL: DATE OF ADMISSION: 03/29/17 PRIMARY CARE PROVIDER: Dr. Levi. CARPENTER PROTOTYPE: Dr. Escoto. CEMENT GUN OPERATOR: Dr. Newton. CHIEF COMPLAINT: Shortness of breath. HISTORY OF PRESENT ILLNESS: Ms. Ely is a 72-year-old female with a history of chronic hypoxic respiratory failure, requiring 2 L of oxygen continuously secondary to COPD, who presented to the emergency room with complaints of progressive shortness of breath. The patient states over the last 2 days prior to admission, the patient has noted that her breathing is become more difficult. The patient did see Dr. Newton on 03/27/17 at which time, she was feeling okay. The patient states that she thought she was feeling okay because she had time to rest after getting into the office. The patient states that she has had several hospitalizations this year. She states that she was admitted in February, in November, but had additional ER visits in December and January. When asked why she is needing to visit the ER and be admitted so frequently, she states that when she comes off the prednisone, she noticed that her breathing is much worse. The patient states over the last couple of days, she has been using her nebulizer more frequently than usual. She denies any fever, but does admit chills. She had sweats on the evening prior to admission. She has not had any increase in cough or has had an increase in mucus production over the last couple of days. PAST MEDICAL HISTORY: 1. O2 dependant COPD. 2. Chronic hypoxic respiratory failure. 3. Hyperlipidemia. 4. GERD. 5. Atrial fibrillation. PAST SURGICAL HISTORY: Tubal ligation. MEDICATIONS: 1. Eliquis 5 mg p.o. b.i.d. 2. Diltiazem ER 360 mg p.o. daily. 3. Dulera 200/5 two puffs inhaled twice daily. 4. Aspirin 81 mg p.o. daily. 5. Spiriva 1 puff inhaled daily. 6. EpiPen injected as needed for allergic reaction to bee sting. 7. DuoNeb 1 neb inhaled 3 times daily p.r.n. shortness of breath. 8. Albuterol 2 puffs inhaled 4 times daily p.r.n. shortness of breath. ALLERGIES: BEES. FAMILY HISTORY: Dad secondary to motor vehicle accident. Mom due to stroke. SOCIAL HISTORY: The patient is x2. She is a former smoker. She quit in 2008. She smoked 1 pack per day for at least 50 years. She indicates that her daughter Chanda is her healthcare proxy. REVIEW OF SYSTEMS: The patient denies any fevers. Does admit to chills and anorexia over the last couple of days. No chest pain. No edema. She admits to chronic cough, shortness of breath and some increase in mucus production. No nausea, vomiting, or diarrhea. She does admit to upper abdominal discomfort related to her rapid breathing. No hematuria. No dysuria. No focal weakness or sensory loss. No sudden changes in vision. No dysphagia. No joint pains or muscle pains out of the ordinary. No rashes. No anxiety or depression. PHYSICAL EXAMINATION GENERAL: The patient is a well-developed elderly female, sitting up in the stretcher with tachypnea and pursed lip breathing noted. VITAL SIGNS: Blood pressure 124/62, pulse 94, respirations 26, temp 98.3, O2 sat 98% on 3.5 L. HEENT: Pupils are equal and round. Extraocular muscles are intact. Oropharynx is clear. Oral mucosa is dry. The patient wears upper and lower dentures. There is no submandibular, cervical, or supraclavicular adenopathy. Thyroid is not enlarged. No thyroid nodules are noted. PULMONARY: Breath sounds are markedly diminished. There are no wheezing or crackles are heard on exam. CARDIAC: Normal S1 and S2. Heart rate is tachycardic. I do not appreciate any murmurs. There is no lower extremity edema. ABDOMEN: Bowel sounds are present. Abdomen is soft, nontender, and nondistended. MUSCULOSKELETAL: There is no cyanosis or clubbing of the digits. There is full active range of motion of all 4 extremities. SKIN: Warm and dry. There are no rashes. NEURO: Cranial nerves II through XII are grossly intact. Sensation is intact to light touch throughout. Strength is 5/5 and symmetric to upper and lower extremities bilaterally. PSYCH: The patient is alert. She is oriented x3. Affect appears appropriate. DIAGNOSTIC STUDIES/LAB DATA: WBC 6.3, hemoglobin 12.7, hematocrit 37, platelets 383. Sodium 139, potassium 3.9, chloride 105, CO2 27, BUN 7, creatinine 0.7, glucose 122, lactic acid 0.9, calcium 9.3. Bilirubin 0.3, AST 14, ALT 13, alk phos 63. Troponin 0. CRP 7.12. BNP 16. Albumin 4. Chest x-ray appears clear without any evidence of infiltrate to my evaluation. EKG reveals normal sinus rhythm without any acute ST-T wave abnormalities. ASSESSMENT AND PLAN: Ms. Ely is a 72-year-old female with a history of chronic hypoxic respiratory failure on 2 L of oxygen continuously at home secondary to chronic obstructive pulmonary disease, who presents to the emergency room with complaints of progressive shortness of breath over the last 2 days. 1. Chronic obstructive pulmonary disease exacerbation. At this point, the patient will be admitted to inpatient status, as she is noted to be quite tachypneic and unlikely to leave the hospital within 24 hours. She will be started on Solu-Medrol 40 mg IV q.8 hours. Additionally, she will have albuterol nebs every 4 hours while awake. She will continue on her Dulera and Spiriva. I will also go ahead and treat with azithromycin, though there are no clear signs of infection at this point. The azithromycin may be helpful as an anti-inflammatory. 2. Atrial fibrillation. At this point, the patient is in sinus rhythm. She will continue on her usual dose of Cardizem and Eliquis. 3. DVT prophylaxis. According to the Adult Thrombosis Prophylaxis Risk Factor Assessment Guide, the patient has a total risk factor score of 4, making her high risk. She is already on Eliquis and this will act as her DVT prophylaxis. 4. Code status is DNR/DNI and again the patient indicates that her daughter Chanda is her healthcare proxy. TIME SPENT: Sixty-five minutes were spent admitting this patient. [id number]/[facility] #: [id number] [facility]
[2017-03-29] MEDS ORDERED: methylPREDNISolone SOD 40 MG* 1 ML VIAL IVPB SCH (06:00)
[2017-03-29] MEDS ORDERED: methylPREDNISolone SOD SUCC* 500 MG VIAL IVPB SCH (06:00)
--- NOTE | 2017-03-29 07:20 | ED ---
Ethel Cast Abhishek, scribed for Karl Walker MD on 03/29/17 at 0207 . Respiratory - HPI Summary HPI Summary: This patient is a 72 year old F presenting to [facility] by ambulance with a chief complaint of SOB worse since yesterday 0800. The patient rates the pain 0/10 in severity. Symptoms aggravated by nothing. Symptoms alleviated by nothing. Patient reports she used to take steroid medication. Pt states she would like to be admitted. Patient denies edema in the ankles. PMHx includes COPD, and chronic SOB. - History of Current Complaint Chief Complaint: EDShortnessOfBreath Stated Complaint: SHORT OF BREATH Time Seen by Provider: 03/29/17 00:37 Hx Obtained From: Patient Onset/Duration: Still Present, Worse Since - yesterday Current Severity: None Pain Intensity: 0 Sputum Amount: None Aggravating Factor(s): Nothing Alleviating Factor(s): Nothing Associated Signs and Symptoms: SOB - Risk Factors Status Asthmaticus Risk Factors: Recent Steroids - Pt states she used to take steroid medication - Allergy/Home Medications Allergies/Adverse Reactions: Allergies Allergy/AdvReac Type Severity Reaction Status Date / Time Bee Venom Allergy Severe Hives/Diff. 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 - Cancer History Hx Chemotherapy: No Hx Radiation Therapy: No - Immunization History Date of Tetanus Vaccine: unknown Date of Influenza Vaccine: 2014 Infectious Disease History: No Infectious Disease History: Denies: Hx of Known/Suspected MRSA, Traveled Outside the [place] in Last 30 Days - Family History Known Family History: Positive: Other - Breast CA (sister) - Social History Alcohol Use: None Alcohol Amount: 3 drinks/week Hx Substance Use: No Substance Use Type: Reports: None Hx Tobacco Use: Yes Smoking Status (MU): Former Smoker Type: Cigarettes Amount Used/How Often: 10 cigarettes/day Length of Time of Smoking/Using Tobacco: 40 years Have You Smoked in the Last Year: Yes Review of Systems Constitutional: Negative Eyes: Negative ENT: Negative Cardiovascular: Negative Positive: Shortness Of Breath Gastrointestinal: Negative Genitourinary: Negative Negative: Edema - no pedal edema Skin: Negative Neurological: Negative Psychological: Normal All Other Systems Reviewed And Are Negative: Yes Physical Exam - Summary Physical Exam Summary: General: well-appearing, no pain distress Skin: warm, color reflects adequate perfusion, dry, Head: normal Eyes: EOMI, GARCÍA ENT: normal Neck: supple, nontender Respiratory: Poor air movement in both lungs bilaterally, mild respiratory distress Cardiovascular: RRR Abdomen: soft, nontender Bowel: present Musculoskeletal: normal, strength/ROM intact, no pedal edema Neurological: normal, sensory/motor intact, A&O x3 Psychological: affect/mood appropriate Triage Information Reviewed: Yes Vital Signs On Initial Exam: Initial Vitals Temp Pulse Resp BP Pulse Ox 98.3 F 88 24 142/72 96 03/28/17 22:05 03/28/17 22:05 03/28/17 22:05 03/28/17 22:05 03/28/17 22:05 Vital Signs Reviewed: Yes - [place] Coma Scale Coma Scale Total: 15 Diagnostics - Vital Signs Vital Signs Temp Pulse Resp BP Pulse Ox 03/29/17 00:00 87 19 95 03/28/17 23:03 93 25 98 03/28/17 23:00 92 22 118/70 98 03/28/17 22:47 80 20 98 03/28/17 22:30 78 17 129/66 95 03/28/17 22:05 98.3 F 88 24 142/74 96 - Laboratory Lab Results: Lab Results 03/28/17 03/28/17 03/28/17 Range/Units 23:12 23:12 23:12 WBC 6.3 (3.5-10.8) 10^3/ul RBC 3.99 L (4.0-5.4) 10^6/ul Hgb 12.7 (12.0-16.0) g/dl Hct 37 (35-47) % MCV 92 (80-97) fL MCH 32 H (27-31) pg MCHC 35 (31-36) g/dl RDW 13 (10.5-15) % Plt Count 383 (150-450) 10^3/ul MPV 7 L (7.4-10.4) um3 Neut % (Auto) 60.0 (38-83) % Lymph % (Auto) 23.3 L (25-47) % [place] % (Auto) 10.8 H (1-9) % Eos % (Auto) 4.7 (0-6) % Baso % (Auto) 1.2 (0-2) % Absolute Neuts (auto) 3.8 (1.5-7.7) 10^3/ul Absolute Lymphs (auto) 1.5 (1.0-4.8) 10^3/ul Absolute Monos (auto) 0.7 (0-0.8) 10^3/ul Absolute Eos (auto) 0.3 (0-0.6) 10^3/ul Absolute Basos (auto) 0.1 (0-0.2) 10^3/ul Absolute Nucleated RBC 0.01 10^3/ul Nucleated RBC % 0.1 Sodium 139 (133-145) mmol/L Potassium 3.9 (3.5-5.0) mmol/L Chloride 105 (101-111) mmol/L Carbon Dioxide 27 (22-32) mmol/L Anion Gap 7 (2-11) mmol/L BUN 7 (6-24) mg/dL Creatinine 0.70 (0.51-0.95) mg/dL Est GFR ( Amer) 105.2 (>60) Est GFR (Non-Af Amer) 81.8 (>60) BUN/Creatinine Ratio 10.0 (8-20) Glucose 122 H (70-100) mg/dL Lactic Acid 0.9 (0.5-2.0) mmol/L Calcium 9.3 (8.6-10.3) mg/dL Total Bilirubin 0.30 (0.2-1.0) mg/dL AST 14 (13-39) U/L ALT 13 (7-52) U/L Alkaline Phosphatase 63 (34-104) U/L Troponin I 0.00 (<0.04) ng/mL C-Reactive Protein 7.12 H (< 5.00) mg/L B-Natriuretic Peptide ( - 100) pg/mL Total Protein 6.5 (6.4-8.9) g/dL Albumin 4.0 (3.2-5.2) g/dL Globulin 2.5 (2-4) g/dL Albumin/Globulin Ratio 1.6 (1-3) 03/28/17 Range/Units 23:12 WBC (3.5-10.8) 10^3/ul RBC (4.0-5.4) 10^6/ul Hgb (12.0-16.0) g/dl Hct (35-47) % MCV (80-97) fL MCH (27-31) pg MCHC (31-36) g/dl RDW (10.5-15) % Plt Count (150-450) 10^3/ul MPV (7.4-10.4) um3 Neut % (Auto) (38-83) % Lymph % (Auto) (25-47) % [place] % (Auto) (1-9) % Eos % (Auto) (0-6) % Baso % (Auto) (0-2) % Absolute Neuts (auto) (1.5-7.7) 10^3/ul Absolute Lymphs (auto) (1.0-4.8) 10^3/ul Absolute Monos (auto) (0-0.8) 10^3/ul Absolute Eos (auto) (0-0.6) 10^3/ul Absolute Basos (auto) (0-0.2) 10^3/ul Absolute Nucleated RBC 10^3/ul Nucleated RBC % Sodium (133-145) mmol/L Potassium (3.5-5.0) mmol/L Chloride (101-111) mmol/L Carbon Dioxide (22-32) mmol/L Anion Gap (2-11) mmol/L BUN (6-24) mg/dL Creatinine (0.51-0.95) mg/dL Est GFR ( Amer) (>60) Est GFR (Non-Af Amer) (>60) BUN/Creatinine Ratio (8-20) Glucose (70-100) mg/dL Lactic Acid (0.5-2.0) mmol/L Calcium (8.6-10.3) mg/dL Total Bilirubin (0.2-1.0) mg/dL AST (13-39) U/L ALT (7-52) U/L Alkaline Phosphatase (34-104) U/L Troponin I (<0.04) ng/mL C-Reactive Protein (< 5.00) mg/L B-Natriuretic Peptide 16 ( - 100) pg/mL Total Protein (6.4-8.9) g/dL Albumin (3.2-5.2) g/dL Globulin (2-4) g/dL Albumin/Globulin Ratio (1-3) Result Diagrams: 03/28/17 23:12 03/28/17 23:12 Lab Statement: Any lab studies that have been ordered have been reviewed, and results considered in the medical decision making process. - Radiology CXR Xray Interpretation: No Acute Changes - COPD. No infiltrate. Radiology Interpretation Completed By: ED Physician - EKG 2255 Cardiac Rate: NL - 89 bpm EKG Rhythm: Sinus Rhythm ST Segment: Non-Specific - Borderline T abnormalities in the lateral leads Ectopy: None Disposition - Course Course Of Treatment: Allergy noted. Medication reviewed and elevated blood pressure noted. ADMIT HOSPITALIST. NO CRITICAL CARE TIME. - Diagnoses Provider Diagnoses: COPD exacerbation Discharge - Discharge Plan Condition: Stable Disposition: ADMITTED TO [facility] documentation as recorded by the Ethel rios Abhishek accurately reflects the service I personally performed and the decisions made by , Karl Walker MD.
[2017-03-29] MEDS: Tiotropium CAP.INH* CAP.INH/18 MCG (USE ORDER SET !) INH SCH (07:34)
[2017-03-29] MEDS: Mometasone/Formoter 200/5 MDI INH SCH ×2 (07:34→20:16)
--- NOTE | 2017-03-29 07:42 | RAD ---
HISTORY: Shortness of breath COMPARISONS: February 20, 2017 VIEWS: 1: frontal portable view of the chest at 10:43 PM FINDINGS: LINES AND TUBES: None. CARDIOMEDIASTINAL SILHOUETTE: The cardiomediastinal silhouette is normal for portable technique. PLEURA: The costophrenic angles are sharp. No pleural abnormalities are noted. LUNG PARENCHYMA: There is patchy alveolar opacification of the medial basal right lower lobe. There is positive lung markings indices bilaterally. ABDOMEN: The upper abdomen is clear. There is no subphrenic gas. BONES AND SOFT TISSUES: No bone or soft tissue abnormalities are noted. IMPRESSION: 1. RIGHT LOWER LUNG CONSOLIDATION. RECOMMEND FOLLOW-UP TO RESOLUTION TO EXCLUDE UNDERLYING PULMONARY PARENCHYMAL PATHOLOGY. 2. COPD.
[2017-03-29] MEDS: Diltiazem CD CAP* 180 MG PO SCH (08:56)
[2017-03-29] MEDS: Aspirin EC Low Dose* 81 MG TAB.EC PO SCH (08:57)
[2017-03-29] MEDS: Apixaban* 5 MG TAB PO SCH ×2 (08:57→21:14)
[2017-03-29] MEDS ORDERED: Tiotropium CAP.INH* CAP.INH/18 MCG (USE ORDER SET !) INH SCH (09:00)
[2017-03-29] MEDS ORDERED: Spiriva Inhaler DEVICE* 1 EACH DEVICE INH ONE (09:00)
--- NOTE | 2017-03-29 10:44 | PN ---
Subjective Date of Service: 03/29/17 Interval History: Some white sputum today, none yesterday. Feels much better today, less SOB. Appetite fair. No other c/o. Objective Active Medications: Acetaminophen (Tylenol Tab*) 650 mg PO Q4H PRN PRN Reason: PAIN Albuterol (Ventolin 2.5 Mg/3 Ml Neb.Steph*) 2.5 mg INH [id number] AWAKE [facility] Last Admin: 03/29/17 07:30 Dose: 2.5 mg Apixaban (Eliquis*) 5 mg PO BID [facility] Last Admin: 03/29/17 08:57 Dose: 5 mg Aspirin (Aspirin Ec Low Dose*) 81 mg PO DAILY [facility] Last Admin: 03/29/17 08:57 Dose: 81 mg Diltiazem HCl (Cardizem Cd Cap*) 360 mg PO DAILY [facility] Last Admin: 03/29/17 08:56 Dose: 360 mg Sodium Chloride (Ns 0.9% 1000 Ml*) 1,000 mls @ 75 mls/hr IV PER RATE [facility] Stop: 03/29/17 15:34 Last Admin: 03/29/17 03:49 Dose: 75 mls/hr Azithromycin 500 mg/ Sodium (Chloride) 250 mls @ 250 mls/hr IVPB Q24H [facility] Mometasone Furoate/Formoterol Fumar (Dulera 200/5 Mdi*) 2 puff INH BID [facility] Last Admin: 03/29/17 07:34 Dose: 2 puff Prednisone (Deltasone Tab*) 50 mg PO DAILY [facility] Tiotropium [place] (Spiriva Cap.Inh*) 1 cap INH DAILY [facility] Last Admin: 03/29/17 07:34 Dose: 1 cap Vital Signs 03/29/17 03/29/17 03/29/17 02:30 03:00 03:24 Temperature 98.1 F Pulse Rate 103 96 Respiratory 20 19 Rate Blood Pressure 131/57 123/68 (mmHg) O2 Sat by Pulse 95 94 Oximetry 03/29/17 03/29/17 03/29/17 03:45 03:49 04:45 Temperature 97.7 F Pulse Rate 95 Respiratory 22 20 20 Rate Blood Pressure 128/53 (mmHg) O2 Sat by Pulse 95 Oximetry 03/29/17 03/29/17 03/29/17 07:28 07:59 09:04 Temperature 97.5 F Pulse Rate 92 89 Respiratory 16 24 Rate Blood Pressure 119/52 (mmHg) O2 Sat by Pulse 98 Oximetry Oxygen Devices in Use Now: Nasal Cannula Appearance: Alert, partly up in bed. In good spirits. Looks comfortable. No cough during my visit. Eyes: No Scleral Icterus Ears/Nose/Mouth/Throat: Clear Oropharnyx, Mucous Membranes Moist Neck: NL Appearance and Movements; NL JVP, No Thyroid Enlargement, Masses Respiratory: Symmetrical Chest Expansion and Respiratory Effort, Clear to Auscultation, Clear to Percussion Cardiovascular: NL Sounds; No Murmurs; No JVD, RRR, No Edema, - Extremities: No Edema, No Clubbing, Cyanosis, - Skin: No Rash or Ulcers, No Nodules or Sclerosis, - Neurological: Alert and Oriented x 3, NL Sensation Result Diagrams: 03/28/17 23:12 03/28/17 23:12 Additional Lab and Data: Lab Results 03/28/17 03/28/17 03/28/17 Range/Units 23:12 23:12 23:12 WBC 6.3 (3.5-10.8) 10^3/ul RBC 3.99 L (4.0-5.4) 10^6/ul Hgb 12.7 (12.0-16.0) g/dl Hct 37 (35-47) % MCV 92 (80-97) fL MCH 32 H (27-31) pg MCHC 35 (31-36) g/dl RDW 13 (10.5-15) % Plt Count 383 (150-450) 10^3/ul MPV 7 L (7.4-10.4) um3 Neut % (Auto) 60.0 (38-83) % Lymph % (Auto) 23.3 L (25-47) % Stark % (Auto) 10.8 H (1-9) % Eos % (Auto) 4.7 (0-6) % Baso % (Auto) 1.2 (0-2) % Absolute Neuts (auto) 3.8 (1.5-7.7) 10^3/ul Absolute Lymphs (auto) 1.5 (1.0-4.8) 10^3/ul Absolute Monos (auto) 0.7 (0-0.8) 10^3/ul Absolute Eos (auto) 0.3 (0-0.6) 10^3/ul Absolute Basos (auto) 0.1 (0-0.2) 10^3/ul Absolute Nucleated RBC 0.01 10^3/ul Nucleated RBC % 0.1 Sodium 139 (133-145) mmol/L Potassium 3.9 (3.5-5.0) mmol/L Chloride 105 (101-111) mmol/L Carbon Dioxide 27 (22-32) mmol/L Anion Gap 7 (2-11) mmol/L BUN 7 (6-24) mg/dL Creatinine 0.70 (0.51-0.95) mg/dL Est GFR ( Amer) 105.2 (>60) Est GFR (Non-Af Amer) 81.8 (>60) BUN/Creatinine Ratio 10.0 (8-20) Glucose 122 H (70-100) mg/dL Lactic Acid 0.9 (0.5-2.0) mmol/L Calcium 9.3 (8.6-10.3) mg/dL Total Bilirubin 0.30 (0.2-1.0) mg/dL AST 14 (13-39) U/L ALT 13 (7-52) U/L Alkaline Phosphatase 63 (34-104) U/L Troponin I 0.00 (<0.04) ng/mL C-Reactive Protein 7.12 H (< 5.00) mg/L B-Natriuretic Peptide ( - 100) pg/mL Total Protein 6.5 (6.4-8.9) g/dL Albumin 4.0 (3.2-5.2) g/dL Globulin 2.5 (2-4) g/dL Albumin/Globulin Ratio 1.6 (1-3) 03/28/17 Range/Units 23:12 WBC (3.5-10.8) 10^3/ul RBC (4.0-5.4) 10^6/ul Hgb (12.0-16.0) g/dl Hct (35-47) % MCV (80-97) fL MCH (27-31) pg MCHC (31-36) g/dl RDW (10.5-15) % Plt Count (150-450) 10^3/ul MPV (7.4-10.4) um3 Neut % (Auto) (38-83) % Lymph % (Auto) (25-47) % Stark % (Auto) (1-9) % Eos % (Auto) (0-6) % Baso % (Auto) (0-2) % Absolute Neuts (auto) (1.5-7.7) 10^3/ul Absolute Lymphs (auto) (1.0-4.8) 10^3/ul Absolute Monos (auto) (0-0.8) 10^3/ul Absolute Eos (auto) (0-0.6) 10^3/ul Absolute Basos (auto) (0-0.2) 10^3/ul Absolute Nucleated RBC 10^3/ul Nucleated RBC % Sodium (133-145) mmol/L Potassium (3.5-5.0) mmol/L Chloride (101-111) mmol/L Carbon Dioxide (22-32) mmol/L Anion Gap (2-11) mmol/L BUN (6-24) mg/dL Creatinine (0.51-0.95) mg/dL Est GFR ( Amer) (>60) Est GFR (Non-Af Amer) (>60) BUN/Creatinine Ratio (8-20) Glucose (70-100) mg/dL Lactic Acid (0.5-2.0) mmol/L Calcium (8.6-10.3) mg/dL Total Bilirubin (0.2-1.0) mg/dL AST (13-39) U/L ALT (7-52) U/L Alkaline Phosphatase (34-104) U/L Troponin I (<0.04) ng/mL C-Reactive Protein (< 5.00) mg/L B-Natriuretic Peptide 16 ( - 100) pg/mL Total Protein (6.4-8.9) g/dL Albumin (3.2-5.2) g/dL Globulin (2-4) g/dL Albumin/Globulin Ratio (1-3) Assess/Plan/Problems-Billing Assessment: - Patient Problems (1) COPD exacerbation Current Visit: No Status: Acute Priority: High Code(s): J44.1 - CHRONIC OBSTRUCTIVE PULMONARY DISEASE W (ACUTE) EXACERBATION SNOMED Code(s): 764524421 Comment: - Continue aithromycin, bronchodilators. Prednisone taper. - CT chest to visualize RLL better. - To follow up with Dr. Newton on discharge. (2) Atrial fibrillation with RVR Current Visit: No Status: Acute Code(s): I48.91 - UNSPECIFIED ATRIAL FIBRILLATION SNOMED Code(s): 342207084034093 Comment: Continue apixaban, diltiazem.
--- NOTE | 2017-03-29 12:15 | RAD ---
INDICATION: To further characterize chest x-ray findings in a patient with shortness of breath COMPARISON: Chest x-ray dated March 28, 2017 TECHNIQUE: Axial source images of the chest were acquired without intravenous contrast from just above the lung apices to the base of the diaphragm. Coronal and sagittal reconstructed images were acquired. FINDINGS: The lungs exhibit diffuse centrilobular emphysematous changes. There is no significant focal infiltrate or consolidation. At the right upper lobe (axial image 24 and sagittal image 31) there is a 4 mm pulmonary nodule. The heart is normal in size. There is no evidence of pericardial effusion. Atherosclerotic calcification of the coronary arteries and arch of the aorta are noted. There is no readily apparent mediastinal, hilar, or axillary lymphadenopathy. Degenerative changes of the thoracic spine includes loss of intervertebral disc height and mild marginal osteophyte formation. Limited views of the upper abdomen show no acute abnormalities. IMPRESSION: 1. Chronic lung findings include centrilobular emphysematous changes without significant infiltrate or consolidation. 2. There is a small 4 mm pulmonary nodule in the right upper lobe unchanged since the December 08, 2016 CT of the chest. As clinically warranted this could be followed according to the Fleischner Society criteria. THE RECOMMENDATIONS FOR FOLLOWUP AND MANAGEMENT OF AN INCIDENTALLY DETECTED PULMONARY NODULE LESS THAN 6 MM IN SIZE, IN A PATIENT WITHOUT A HISTORY OF MALIGNANCY, INCLUDE NO FOLLOWUP FOR A LOW-RISK PATIENT OR OPTIONAL FOLLOWUP CT IN 12 MONTHS FOR A HIGH RISK PATIENT. NOTES: SIZE = AVERAGE LENGTH AND WIDTH; HIGH RISK IS DEFINED A HISTORY OF SMOKING OR OTHER KNOW RISK FACTORS FOR LUNG CANCER; LOW RISK IS DEFINED MINIMAL OR ABSENT HISTORY OF SMOKING OR OTHER KNOWN RISK FACTORS. oCn H, TIGRE Bradford, KRISH Soni, et al (2017) "Guidelines for Management of Incidental Pulmonary Nodules Detected on CT Images: From the Fleischner Society 2017." Radiology; 284(1): 228-243. doi:10.1148/radiol.6985562112
[2017-03-29] MEDS ORDERED: Azithromycin IV(*) 500 MG in NS 0.9% 250 ML* 250 ML IVPB SCH (20:00)
[2017-03-30] MEDS: Albuterol 2.5 MG/3 ML NEB.SOL* (0.083%) INH SCH ×3 (00:57→07:16)
[2017-03-30] MEDS: Tiotropium CAP.INH* CAP.INH/18 MCG (USE ORDER SET !) INH SCH (07:16)
[2017-03-30] MEDS: Mometasone/Formoter 200/5 MDI INH SCH (07:16)
[2017-03-30] MEDS ORDERED: predniSONE TAB* 50 MG PO SCH (09:00)
[2017-03-30 09:12] VITALS: BP 118/46
[2017-03-30] MEDS: Aspirin EC Low Dose* 81 MG TAB.EC PO SCH (09:12)
[2017-03-30] MEDS: Diltiazem CD CAP* 180 MG PO SCH (09:12)
[2017-03-30] MEDS: Apixaban* 5 MG TAB PO SCH (09:12)
--- NOTE | 2017-03-30 09:26 | DCNOTE ---
Subjective Date of Service: 03/30/17 Interval History: Feels much better. No cough. She only has albuterol for her home nebulizer. She states she seems to have more trouble breathing whenever she finishes her prednisone course. Objective Active Medications: Acetaminophen (Tylenol Tab*) 650 mg PO Q4H PRN PRN Reason: PAIN Last Admin: 03/29/17 17:40 Dose: 650 mg Albuterol (Ventolin 2.5 Mg/3 Ml Neb.Steph*) 2.5 mg INH [id number] [facility]WA[facility] Last Admin: 03/30/17 07:16 Dose: 2.5 mg Apixaban (Eliquis*) 5 mg PO BID [facility] Last Admin: 03/30/17 09:12 Dose: 5 mg Aspirin (Aspirin Ec Low Dose*) 81 mg PO DAILY [facility] Last Admin: 03/30/17 09:12 Dose: 81 mg Azithromycin (Zithromax Tab*) 250 mg PO DAILY [facility] Budesonide (Pulmicort Neb*) 0.5 mg INH RT.BID [facility] Diltiazem HCl (Cardizem Cd Cap*) 360 mg PO DAILY [facility] Last Admin: 03/30/17 09:12 Dose: 360 mg Mometasone Furoate/Formoterol Fumar (Dulera 200/5 Mdi*) 2 puff INH BID [facility] Last Admin: 03/30/17 07:16 Dose: 2 puff Prednisone (Deltasone Tab*) 50 mg PO DAILY [facility] Last Admin: 03/30/17 09:12 Dose: 50 mg Tiotropium [place] (Spiriva Cap.Inh*) 1 cap INH DAILY [facility] Last Admin: 03/30/17 07:16 Dose: 1 cap Vital Signs 03/29/17 03/29/17 03/29/17 11:09 11:30 14:30 Temperature 97.9 F 98.2 F Pulse Rate 106 88 78 Respiratory 20 Rate Blood Pressure 125/51 104/45 (mmHg) O2 Sat by Pulse 94 98 Oximetry 03/29/17 03/29/17 03/29/17 14:45 15:16 19:24 Temperature 98.2 F 97.7 F Pulse Rate 92 78 85 Respiratory 20 20 Rate Blood Pressure 104/45 110/45 (mmHg) O2 Sat by Pulse 98 99 Oximetry 03/29/17 03/29/17 03/29/17 20:04 21:17 23:36 Temperature 97.7 F Pulse Rate 90 71 Respiratory 20 18 16 Rate Blood Pressure 95/42 (mmHg) O2 Sat by Pulse 98 98 Oximetry 03/30/17 03/30/17 03/30/17 02:31 07:18 08:01 Temperature 97.8 F Pulse Rate 80 74 Respiratory 16 16 16 Rate Blood Pressure 106/59 (mmHg) O2 Sat by Pulse 99 99 Oximetry 03/30/17 09:11 Temperature Pulse Rate Respiratory Rate Blood Pressure 118/46 (mmHg) O2 Sat by Pulse Oximetry Oxygen Devices in Use Now: Nasal Cannula Appearance: Alert, sitting up in bed. In good spirits. Looks comfortable. Eyes: No Scleral Icterus Neck: NL Appearance and Movements; NL JVP, No Thyroid Enlargement, Masses Respiratory: Symmetrical Chest Expansion and Respiratory Effort, Clear to Auscultation, Clear to Percussion - diminished BS BL Cardiovascular: NL Sounds; No Murmurs; No JVD, RRR, No Edema, - Extremities: No Edema, No Clubbing, Cyanosis, - Skin: No Rash or Ulcers, No Nodules or Sclerosis, - Neurological: Alert and Oriented x 3, NL Sensation Result Diagrams: 03/28/17 23:12 03/28/17 23:12 Additional Lab and Data: Lab Results 03/28/17 03/28/17 03/28/17 Range/Units 23:12 23:12 23:12 WBC 6.3 (3.5-10.8) 10^3/ul RBC 3.99 L (4.0-5.4) 10^6/ul Hgb 12.7 (12.0-16.0) g/dl Hct 37 (35-47) % MCV 92 (80-97) fL MCH 32 H (27-31) pg MCHC 35 (31-36) g/dl RDW 13 (10.5-15) % Plt Count 383 (150-450) 10^3/ul MPV 7 L (7.4-10.4) um3 Neut % (Auto) 60.0 (38-83) % Lymph % (Auto) 23.3 L (25-47) % Wilson % (Auto) 10.8 H (1-9) % Eos % (Auto) 4.7 (0-6) % Baso % (Auto) 1.2 (0-2) % Absolute Neuts (auto) 3.8 (1.5-7.7) 10^3/ul Absolute Lymphs (auto) 1.5 (1.0-4.8) 10^3/ul Absolute Monos (auto) 0.7 (0-0.8) 10^3/ul Absolute Eos (auto) 0.3 (0-0.6) 10^3/ul Absolute Basos (auto) 0.1 (0-0.2) 10^3/ul Absolute Nucleated RBC 0.01 10^3/ul Nucleated RBC % 0.1 Sodium 139 (133-145) mmol/L Potassium 3.9 (3.5-5.0) mmol/L Chloride 105 (101-111) mmol/L Carbon Dioxide 27 (22-32) mmol/L Anion Gap 7 (2-11) mmol/L BUN 7 (6-24) mg/dL Creatinine 0.70 (0.51-0.95) mg/dL Est GFR ( Amer) 105.2 (>60) Est GFR (Non-Af Amer) 81.8 (>60) BUN/Creatinine Ratio 10.0 (8-20) Glucose 122 H (70-100) mg/dL Lactic Acid 0.9 (0.5-2.0) mmol/L Calcium 9.3 (8.6-10.3) mg/dL Total Bilirubin 0.30 (0.2-1.0) mg/dL AST 14 (13-39) U/L ALT 13 (7-52) U/L Alkaline Phosphatase 63 (34-104) U/L Troponin I 0.00 (<0.04) ng/mL C-Reactive Protein 7.12 H (< 5.00) mg/L B-Natriuretic Peptide ( - 100) pg/mL Total Protein 6.5 (6.4-8.9) g/dL Albumin 4.0 (3.2-5.2) g/dL Globulin 2.5 (2-4) g/dL Albumin/Globulin Ratio 1.6 (1-3) 03/28/17 Range/Units 23:12 WBC (3.5-10.8) 10^3/ul RBC (4.0-5.4) 10^6/ul Hgb (12.0-16.0) g/dl Hct (35-47) % MCV (80-97) fL MCH (27-31) pg MCHC (31-36) g/dl RDW (10.5-15) % Plt Count (150-450) 10^3/ul MPV (7.4-10.4) um3 Neut % (Auto) (38-83) % Lymph % (Auto) (25-47) % Wilson % (Auto) (1-9) % Eos % (Auto) (0-6) % Baso % (Auto) (0-2) % Absolute Neuts (auto) (1.5-7.7) 10^3/ul Absolute Lymphs (auto) (1.0-4.8) 10^3/ul Absolute Monos (auto) (0-0.8) 10^3/ul Absolute Eos (auto) (0-0.6) 10^3/ul Absolute Basos (auto) (0-0.2) 10^3/ul Absolute Nucleated RBC 10^3/ul Nucleated RBC % Sodium (133-145) mmol/L Potassium (3.5-5.0) mmol/L Chloride (101-111) mmol/L Carbon Dioxide (22-32) mmol/L Anion Gap (2-11) mmol/L BUN (6-24) mg/dL Creatinine (0.51-0.95) mg/dL Est GFR ( Amer) (>60) Est GFR (Non-Af Amer) (>60) BUN/Creatinine Ratio (8-20) Glucose (70-100) mg/dL Lactic Acid (0.5-2.0) mmol/L Calcium (8.6-10.3) mg/dL Total Bilirubin (0.2-1.0) mg/dL AST (13-39) U/L ALT (7-52) U/L Alkaline Phosphatase (34-104) U/L Troponin I (<0.04) ng/mL C-Reactive Protein (< 5.00) mg/L B-Natriuretic Peptide 16 ( - 100) pg/mL Total Protein (6.4-8.9) g/dL Albumin (3.2-5.2) g/dL Globulin (2-4) g/dL Albumin/Globulin Ratio (1-3) Microbiology and Other Data: Microbiology 03/29/17 03:15 Aerobic Blood Culture - Preliminary Blood Venous No Growth Day 1 Anaerobic Blood Culture - Preliminary No Growth Day 1 Assess/Plan/Problems-Billing Assessment: - Patient Problems (1) COPD exacerbation Current Visit: No Status: Acute Priority: High Code(s): J44.1 - CHRONIC OBSTRUCTIVE PULMONARY DISEASE W (ACUTE) EXACERBATION SNOMED Code(s): 381556975 Comment: - Complete aithromycin course. Prednisone taper. Add budesonide 0.5 mg by neb bid at home. - CT chest showed 4 mm RUL nodule, unchanged from 11/2016. - Dr. Newton's office will call her with an appt . (2) Atrial fibrillation with RVR Current Visit: No Status: Acute Code(s): I48.91 - UNSPECIFIED ATRIAL FIBRILLATION SNOMED Code(s): 134502664337784 Comment: Continue apixaban, diltiazem.
--- NOTE | 2017-03-30 09:57 | DS ---
CC: Dr. Levi; Dr. Newton * DATE OF ADMISSION: 03/29/17 DATE OF DISCHARGE: 03/30/17 HISTORY: This 72-year-old woman presented with shortness of breath. She has a long history of COPD. She uses oxygen at home and has a nebulizer. She's followed by Dr. Newton as well as Dr. Levi. She's been having more difficulty breathing for two days before admission. She saw Dr. Newton on 03/27/17, but at that time she had been feeling well. The patient was given Azithromycin and glucocorticoids. Her chest x-ray showed question of right lower lobe consolidation; it's not clear how definite a finding this was. CT of the chest only showed a 4 mm nodule of the right upper lobe, unchanged since November 2016. There were no other infiltrates. She has evidence of emphysema. The patient improved markedly in the hospital. She will complete her course of Azithromycin at home. The patient told me that she seems to have more trouble breathing every time she finishes a prednisone course. I'm going to start her on Budesonide 0.5 mg bid by nebulizer at home. She was given enough prednisone to last ten days at home. She'll taper from four a day to one a day at home over three days, and then continue one a day to complete a ten-day course. Dr. Newton's office will try to get her an appointment within the next week. FINAL DIAGNOSES: 1. COPD exacerbation. 2. Atrial fibrillation. DISCHARGE MEDICATIONS: 1. Azithromycin 250 mg daily for four days. 2. Budesonide 0.5 mg by nebulizer bid. 3. Prednisone 10 mg, taper from four to one over three days, then continue one a day for a total of ten days. 4. Albuterol inhaler two puffs every 4 hours prn. 5. Albuterol ipratropium by nebulizer every 4 hours prn. 6. Tiotropium one daily. 7. Aspirin 81 mg daily. 8. Epi-pen as prescribed. 9. Apixaban 5 mg daily. 10. Diltiazem 360 mg daily. 11. Mometasone/formoterol 250/5 two puffs bid. [id number]/[facility] #: [id number] [facility]
[2017-03-30] MEDS ORDERED: Budesonide NEB* 0.5 MG/2 ML NEB.SOLN INH SCH (19:00)
[2017-03-31] MEDS ORDERED: Azithromycin TAB* 250 MG PO SCH (09:00)
== END 2017-03-30 11:15 | disposition home or self-care (01) ==
LOC: ED 21:55 → INTOOBSV 03-29 02:09 → MED 03-29 02:09
PROVIDERS: ADMIT Hospitalist; ATTEND Internal Medicine
DX: J44.1 Chronic obstructive pulmonary disease with (acute) exacerbation (principal); I48.91 Unspecified atrial fibrillation; Z79.01 Long term (current) use of anticoagulants; E78.5 Hyperlipidemia, unspecified; K21.9 Gastro-esophageal reflux disease without esophagitis; Z99.81 Dependence on supplemental oxygen; Z79.899 Other long term (current) drug therapy; F17.210 Nicotine dependence, cigarettes, uncomplicated
CPT/HCPCS: 36415; 71010; 71250; 80053; 83605; 83880; 84484; 85025; 86140; 87040; 93005; 94640; 94760; 96374; 96375; 99285; A9270-GY; G0378; J0456; J2270; J2920; J2930; J7512

== ENCOUNTER → 2017-05-20 10:58 | Emergency (ER) | payer MEDICARE, OTHER ==
[~2017-05-20 10:58] MED LIST: Albuterol 2.5 MG/3 ML NEB.SOL* (0.083%) INH ONE; Albuterol/Ipratropium NEB.SOL* Albuterol 2.5 MG/Ipratropium 0.5 MG 3 ML INH ONE; LORazepam INJ* 2 MG/ML 1 ML VIAL IV PUSH ONE; methylPREDNISolone 125 MG* 2 ML VIAL IV ONE
[2017-05-20 11:47] LABS: Hematocrit 36 % (35-47); Hemoglobin 12.5 g/dl (12.0-16.0); Mean Corpuscular HGB Conc 35 g/dl (31-36); Mean Corpuscular Hemoglobin 32 pg (27-31); Mean Corpuscular Volume 91 fL (80-97); Mean Platelet Volume 7 um3 (7.4-10.4); Red Blood Count 3.97 10^6/ul (4.0-5.4); Red Cell Distribution Width 13 % (10.5-15)
[2017-05-20 12:02] LABS: Albumin 4.2 g/dL (3.2-5.2); BUN/Creatinine Ratio 17.9 (8-20); C Reactive Protein 6.3 mg/L (< 5.00); Calcium 9.6 mg/dL (8.6-10.3); EGFR African American 110.7 (>60); Globulin 2.2 g/dL (2-4); Potassium 3.8 mmol/L (3.5-5.0); Total Bilirubin 0.3 mg/dL (0.2-1.0); Total Protein 6.4 g/dL (6.4-8.9)
--- NOTE | 2017-05-20 12:31 | RAD ---
INDICATION: Difficulty breathing COMPARISON: Similar chest x-ray dated March 28, 2017 TECHNIQUE: Single AP portable view of the chest was obtained. FINDINGS: Image quality is compromised due to the relative inferiority of a portable chest x-ray. The heart and mediastinum exhibit normal size and contour. The lungs are grossly clear. There is no evidence of a large pleural effusion. Visualized bones are normal for the patient's age. IMPRESSION: No radiographic evidence for acute cardiopulmonary abnormality on this portable chest x-ray.
--- NOTE | 2017-05-20 12:57 | ED ---
Ethel Cast Abhishek, scribed for Wicho Lucas MD on 05/20/17 at 1125 . Shortness of Breath - HPI Summary HPI Summary: This patient is a 72 year old F presenting to [facility] accompanied by two females with a chief complaint of SOB since since . CC is described as worse since onset. Pt states onset occurred while performing lung perfusion test and exercise tolerance test. Pt states she uses oxygen tank at home of 3L and denies taking any prednisone. The patient rates the pain 0/10 in severity. Symptoms aggravated by nothing. Symptoms alleviated by nothing. Patient reports cough (productive), and diaphoresis. Patient denies pain, and fever. - History of Current Complaint Time Seen by Provider: 05/20/17 11:14 Hx Obtained From: Patient, Family/Qa Test Analyst Onset/Duration: Gradual Onset Timing: Constant Aggrevating Factors: Nothing Alleviating Factors: Nothing Associated Signs & Symptoms: Cough (Productive), Diaphoresis - Allergy/Home Medications Allergies/Adverse Reactions: Allergies Allergy/AdvReac Type Severity Reaction Status Date / Time Bee Venom Allergy Severe Hives/Diff. 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 - Cancer History Hx Chemotherapy: No Hx Radiation Therapy: No - Immunization History Date of Tetanus Vaccine: unknown Date of Influenza Vaccine: 2014 Infectious Disease History: No Infectious Disease History: Denies: Hx of Known/Suspected MRSA, Traveled Outside the [place] in Last 30 Days - Family History Known Family History: Positive: Other - Breast CA (sister) Negative: Diabetes - Social History Alcohol Use: None Hx Substance Use: No Substance Use Type: Reports: None Hx Tobacco Use: Yes Smoking Status (MU): Former Smoker Type: Cigarettes Amount Used/How Often: 10 cigarettes/day Length of Time of Smoking/Using Tobacco: 40 years Have You Smoked in the Last Year: Yes Review of Systems Positive: Skin Diaphoresis. Negative: Fever Eyes: Negative ENT: Negative Cardiovascular: Negative Positive: Shortness Of Breath, Cough - productive Gastrointestinal: Negative Genitourinary: Negative Musculoskeletal: Negative Skin: Negative Neurological: Negative Psychological: Normal All Other Systems Reviewed And Are Negative: Yes Physical Exam - Summary Physical Exam Summary: VITAL SIGNS: Reviewed. GENERAL: ~Patient is a well-developed and nourished (FEMALE) who is lying comfortable in the stretcher. Anxious. HEAD AND FACE: No signs of trauma. No ecchymosis, hematomas or skull depressions. No sinus tenderness. EYES: PERRLA, EOMI x 2, No injected conjunctiva, no nystagmus. EARS: Hearing grossly intact. Ear canals and tympanic membranes are within normal limits. MOUTH: Oropharynx within normal limits. NECK: Supple, trachea is midline, no adenopathy, no JVD, no carotid bruit, no c- spine tenderness, neck with full ROM. CHEST: Symmetric, no tenderness at palpation LUNGS: Hyperventilating, decreased breath sounds bilaterally CVS: Regular rate and rhythm, S1 and S2 present, no murmurs or gallops appreciated. ABDOMEN: Soft, non-tender. No signs of distention. No rebound no guarding, and no masses palpated. Bowel sounds are normal. EXTREMITIES: FROM in all major joints, no edema, no cyanosis or clubbing. NEURO: Alert and oriented x 3. No acute neurological deficits. Speech is normal and follows commands. SKIN: Dry and warm Triage Information Reviewed: Yes Vital Signs On Initial Exam: Initial Vitals Temp Pulse Resp BP Pulse Ox 98.1 F 91 18 134/69 96 05/20/17 11:04 05/20/17 11:04 05/20/17 11:04 05/20/17 11:04 05/20/17 11:04 Vital Signs Reviewed: Yes Diagnostics - Vital Signs Vital Signs Temp Pulse Resp BP Pulse Ox 05/20/17 11:04 98.1 F 91 18 134/69 96 - Laboratory Result Diagrams: 05/20/17 11:36 05/20/17 11:36 Lab Statement: Any lab studies that have been ordered have been reviewed, and results considered in the medical decision making process. - Radiology Chest X-ray Radiology Interpretation Completed By: Radiologist - CXR reveals, per radiologist, No radiographic evidence for acute cardiopulmonary abnormality on this portable chest x-ray. ED physician has reviewed this radiology report and agrees. - EKG 1151 EKG Rhythm: Sinus Rhythm EKG Interpretation: 77 bpm; normal axis; normal intervals; no acute ischemic changes Re-Evaluation - Re-Evaluation 1145 Re-Evaluation Time: 11:45 Change: Unchanged - Pt refuses ABG Course/Dx - Course Course Of Treatment: This patient is a 72 year old F presenting to [facility] accompanied by two females with a chief complaint of SOB since . CC is described as worse since onset. Pt states onset occurred while performing lung perfusion test and exercise tolerance test. Pt states she uses oxygen tank at home of 3L and denies taking any prednisone. Patient reports cough (productive) , and diaphoresis. Patient denies pain, and fever. CXR reveals, per radiologist , No radiographic evidence for acute cardiopulmonary abnormality on this portable chest x-ray. ED physician has reviewed this radiology report and agrees. An EKG reveals Sinus rhythm 77 bpm; normal axis; normal intervals; and no acute ischemic changes. Pt will be Discharged home and with a prescription for steroids and Xanax. Patients symptoms are due to anxiety. Dx will be COPD and anxiety. PT is recommended to follow up with private MD and take medication as needed. The patient is agreeable with this plan. - Diagnoses Provider Diagnoses: Anxiety, COPD (chronic obstructive pulmonary disease) Discharge - Discharge Plan Condition: Stable Disposition: HOME Prescriptions: ALPRAZolam TAB* [Xanax TAB*] 0.5 mg PO BID PRN #14 tab MDD 2 PRN Reason: Anxiety predniSONE TAB* [Deltasone TAB*] 40 mg PO DAILY #10 tab Patient Education Materials: COPD (Chronic Obstructive Pulmonary Disease) (ED) , Anxiety (ED) Referrals: Hailey Levi MD [Primary Care Provider] - (Patient should follow up with Private MD as needed.) The documentation as recorded by the Ethel rios Abhishek accurately reflects the service I personally performed and the decisions made by , Wicho Lucas MD.
[2017-05-20 13:06] VITALS: BP 106/90
--- OUTSIDE RECORDS SUMMARY | 2017-05-20 13:15 | XMS REPORT ---
:1945 External Reference #:[id number] Author Organization [employer] Address [address] [place] [address] Phone [phone] Care Team Providers Name Role Phone Hailey Levi MD Primary Care Physician Unavailable Payers Type Date Identification Numbers Payment Provider Subscriber Health Maintenance Policy Number: Medicare Blue Ppo Saritha Ely Organization (O) [id number] Group Number: [id number] [address] PayID: [id number] [address] Commercial Effective: 05/28/2016 Policy Number: [facility] Saritha Ely [id number] Expires: 04/11/2018 Group Number: 60% [id number] [facility] PayID: [id number] [address] Problems Description No Information Family History Date Family Member(s) Problem(s) Comments Father due to Motor Vehicle Accident () Mother due to Stroke () Siblings 10 Social History Type Date Description Comments Marital Status Lives With Alone Occupation Retired Cigarette Use Former Cigarette Smoker Cigarette Use Former Cigarette Smoker 1 Pack Daily for 56 ETOH Use Denies alcohol use Smoking Patient is a former smoker Recreational Drug Use Denies Drug Use Smoking Patient is a former smoker quit 6 years ago Daily Caffeine Consumes on average 1 cup of regular coffee per day Exercise Type/Frequency Exercises rarely Allergies, Adverse Reactions, Alerts Date Description Reaction Status Severity Comments 03/13/2017 Bee Sting active Medications Medication Date Status Form Strength Qnty SIG Indications Ordering Provider Oxygen 05/14/ Active Misc 1unit please use o2 R09.02 Elisa 2017 s at 3l/min Lamar, 24x7, pls provide pt with portable o2 concentrator, ok to test for conserving device Budesonide 10/17/ Active Suspension 0.5mg/2ML 30ml 1 dose twice J44.9 Elisa 2016 a day via pamela Newton MD last seen in office 03/27/17 Prednisone 04/03/ Active Tablets 10mg 30tab 1 tablet by Elisa 2017 s mouth daily MD Lamar Eliquis / Active Tablets 5mg 180ta 1 by mouth Qutaybeh 0000 bs twice a day Xavi Escoto M.D. Diltiazem HCL / Active Caps ER 360mg 90cap 1 by mouth Qutaybeh ER Beads 0000 24HR s every day Xavi Escoto M.D. Aspirin Adult / Active Tablets DR 81mg 1 by mouth Unknown Low Dose 0000 every day Epinephrine / Active Solution 0.3mg/0.3 1 injection Unknown 0000 Auto-Inject ML as needed allergic reaction (bee stings) Ipratropium / Active Solution 0.5-2.5(3 1 vial in Unknown [place]/Albut 0000 )mg/3ML nebulizer yeni Sulfate three times a day as needed for asthma Oxygen / Active Misc 2L please use o2 [facility] 0000 at 2l/min, jaci Newton provide pt with portable o2 concentrator Ventolin HFA / Active Aerosol 108(90Bas 2 puffs by Unknown 0000 e) mouth four mcg/Act times a day as needed Bevespi / Active Aerosol 9-4.8mcg/ 2 puffs twice Unknown Aerosphere 0000 Act daily Dulera / Hx Aerosol 200-5mcg/ 2 puff twice Unknown 0000 - Act a day 2016 Prednisone / Hx Tablets 10mg 1 tab qd Unknown 0000 - 2016 Albuterol / Hx Powder 1-2 puffs Unknown Sulfate 0000 - every 4 hours 03/12/ as needed sob 2017 Duoneb / Hx Solution 0.5-2.5(3 1 unit nebl Unknown 0000 - )mg/3ML every 6 hours 03/12/ as needed 2016 Spiriva / Hx Capsules 18mcg 1 unit Unknown Handihaler 0000 - inhalation 2016 Vital Signs Date Vital Result Comment 05/14/2017 Height 63 inches 5'3" Weight 137.00 lb Heart Rate 92 /min BP Systolic Sitting 106 mmHg BP Diastolic Sitting 70 mmHg Respiratory Rate 24 /min O2 % BldC Oximetry 97 % on 2L BMI (Body Mass Index) 24.3 kg/m2 04/11/2017 Height 63 inches 5'3" Weight 130.00 lb w/ shoes Heart Rate 82 /min BP Systolic Sitting 132 mmHg BP Diastolic Sitting 72 mmHg Respiratory Rate 22 /min O2 % BldC Oximetry 98 % 2L O2 BMI (Body Mass Index) 23.0 kg/m2 03/27/2017 Height 63 inches 5'3" Weight 128.00 lb Heart Rate 80 /min BP Systolic Sitting 112 mmHg BP Diastolic Sitting 70 mmHg Respiratory Rate 14 /min O2 % BldC Oximetry 94 % BMI (Body Mass Index) 22.7 kg/m2 Neck Circumference in inches 14.75 03/13/2017 Height 63 inches 5'3" Weight 127.75 lb w/shoes Heart Rate 74 /min BP Systolic Sitting 150 mmHg LA reg cuff BP Diastolic Sitting 72 mmHg LA reg cuff O2 % BldC Oximetry 95 % room air BMI (Body Mass Index) 22.6 kg/m2 Ejection Fraction 50-55% Jose Guadalupe 02/26/17 Results Test Date Test Result H/L Range Note Order 05/14/2017 6 Minute Walk <pending> Procedures Date CPT Code Description Status 05/14/2017 76828 Pulmonary Stress Test Simple Completed 03/22/2017 38803 Holter Monitor Review (24 hr)dr lynn & interp Completed only 03/20/2017 26599 ECG Monitor/Recording W/Visual Superimposition Scanning Completed 03/13/2017 97278 EKG Tracing & Interpretation Completed 02/26/2017 07565 Color Flow Doppler/Interp & Reprt Completed 02/26/2017 42520 Pulse Wave/Continuous-Interp.RPT Completed 02/26/2017 13987 Echocardiography, Transesophageal, Real Time W/Image 2D Completed W/W/O M-M 02/23/2017 34815 ECHO Transthorasic Realtime 2D W Doppler & Color Completed Flow Hosp Encounters Type Date Location Provider CPT E/M Dx Office Visit 05/14/2017 [facility] [address] J44.9 9:15a [facility] J96.10 R09.02 Office Visit 04/11/2017 12:00p [facility] [place] [address] J44.1 [facility] J96.10 Office Visit 03/30/2017 1:00p [facility],pc Devan Felixalthea, 88272 J44.1 Hospitalists M.D. I48.0 J96.11 K21.9 Office Visit 03/29/2017 12:59p [facility],pc Megan Leach, [address] J44.1 Hospitalists M.D. I48.0 J96.11 K21.9 Office Visit 03/27/2017 2:00p [facility] [place] [address] J44.9 [facility] R09.02 Office Visit 03/13/2017 9:00a [facility] Qutaybeh S. Maghaydah, 32968 I48.91 M.D. J44.1 E78.5 R06.00 I34.0 Office Visit 02/26/2017 4:28p [facility],[place] [address] J44.1 Hospitalists I48.91 K21.9 J96.01 Office Visit 02/25/2017 3:15p [facility] Qutaybeh S. Maghaydah, 92231 I48.91 M.D. J44.1 Office Visit 02/25/2017 4:27p [facility], [place] [address] J44.1 Hospitalists I48.91 K21.9 J96.01 Office Visit 02/24/2017 4:25p [facility],[place] [address] J44.1 Hospitalists I48.91 K21.9 J96.01 Office Visit 02/24/2017 3:14p [facility] Qutaybeh S. Maghaydah, 68705 I48.91 M.D. J44.1 Office Visit 02/23/2017 4:24p [facility],pc Lyndsey Horne, 88811 J44.1 Hospitalists M.D. I48.91 K21.9 J96.01 Office Visit 02/23/2017 3:34p [facility] Qutaybeh S. Maghaydah, 96257 I48.91 M.D. J44.1 E78.5 K21.9 R94.31 Office Visit 02/22/2017 4:24p [facility], Lyndsey Horne, 33327 J44.1 Hospitalists M.D. E78.5 K21.9 J96.01 Office Visit 02/21/2017 4:23p [facility], Lyndsey Horne, 75275 J44.1 Hospitalists M.D. E78.5 K21.9 J96.01 Office Visit 02/20/2017 4:22p [facility], Vaibhav Abdiel, 10438 J44.1 Hospitalists N.P. E78.5 K21.9 J96.01 Office Visit 12/11/2016 1:44p [facility], [address] J44.1 Hospitalists M.D. K21.9 E78.5 J96.01 Office Visit 12/10/2016 1:44p [facility], [address] J44.1 Hospitalists M.D. E78.5 K21.9 J96.01 Office Visit 12/09/2016 1:43p [facility], [address] J44.1 Hospitalists M.D. K21.9 E78.5 J96.01 Office Visit 12/08/2016 1:43p [facility], [address] J44.1 Assoc, Hospitalists M.D. K21.9 E78.5 Office Visit 05/31/2016 4:23p [facility], [place] [address] R06.00 Hospitalists J44.1 J96.02 Office Visit 05/30/2016 4:22p [facility], [place] [address] R06.00 Hospitalists J44.1 J96.02 Office Visit 05/29/2016 4:22p [facility], [place] [address] R06.00 Hospitalists J44.1 J96.02 Office Visit 05/28/2016 4:21p [facility], [address] R06.00 Assoc,pc Niya Dozier J44.1 Office Visit 05/27/2016 4:20p [facility],darian Red M.D. 09972 R06.00 Hospitalists J44.1 Office Visit 10/09/2009 12:30a [facility] Assdana,darian Duff M.D. 29712 496 Hospitalists Plan of Care Future Appointment(s):08/16/2017 9:00 am - Elisa Newton MD at [facility]09/25/2017 1:30 pm - Elisa Newton MD at [facility]05/14/2017 - Elisa Newton MDJ44.9 Chronic obstructive pulmonary disease, unspecifiedFollow up:3 tyhqeuM48.10 Chronic respiratory failure, unsp w hypoxia or ahuxsquunuqB76.02 HypoxemiaNew Medication:Oxygen
--- OUTSIDE RECORDS SUMMARY | 2017-05-20 13:15 | XMS REPORT ---
:1945 External Reference #:[id number] Author Organization [employer] Address [address] [place] [address] Phone [phone] Care Team Providers Name Role Phone Hailey Levi MD Primary Care Physician Unavailable Payers Type Date Identification Numbers Payment Provider Subscriber Health Maintenance Policy Number: Medicare Blue Ppo Saritha Ely Organization (O) [id number] Group Number: [id number] [address] PayID: [id number] [address] Commercial Effective: 05/28/2016 Policy Number: [facility] Saritha Ely [id number] Expires: 04/11/2018 Group Number: 60% [id number] [facility] PayID: [id number] [address] Problems Description No Information Family History Date [...] pls provide pt with portable o2 concentrator, pt having trouble carrying current tank Budesonide 10/17/ Active Suspension 0.5mg/2ML 30ml 1 dose twice J44.9 Elisa 2017 a day via pamela Newton MD last [...] Active Solution 0.5-2.5(3 1 vial in Unknown [place]/Albut 0000 )mg/3ML nebulizer yeni Sulfate three times a day as needed for asthma Oxygen / Active Misc 2L please use o2 [facility] 0000 at 2l/min, jaci Newton provide pt [...] 1 unit Unknown Handihaler 0000 - inhalation 05/14/ 2016 Vital Signs Date Vital Result Comment [...] Procedures Date CPT Code Description Status 05/14/2017 53465 Pulmonary Stress Test Simple Completed 03/22/2017 82524 Holter Monitor Review (24 hr)dr leah & interp Completed only 03/20/2017 04436 ECG Monitor/Recording W/Visual Superimposition Scanning Completed 03/13/2017 39238 EKG Tracing & Interpretation Completed 02/26/2017 31511 Color Flow Doppler/Interp & Reprt Completed 02/26/2017 22272 Pulse Wave/Continuous-Interp.RPT Completed 02/26/2017 62794 Echocardiography, Transesophageal, Real Time W/Image 2D Completed W/W/O M-M 02/23/2017 61380 ECHO Transthorasic Realtime 2D W Doppler & Color Completed Flow Hosp Encounters Type Date Location Provider CPT E/M Dx Office Visit 04/11/2017 [facility] [place] [address] J44.1 12:00p [facility] J96.10 Office Visit 03/30/2017 1:00p [facility],pc Devan Anthony, 301[address] J44.1 Hospitalists M.D. I48.0 J96.11 K21.9 Office Visit 03/29/2017 12:59p [facility],pc Meganrosetta Leach, 65104 J44.1 Hospitalists M.D. I48.0 J96.11 K21.9 Office Visit 03/27/2017 2:00p [facility] [place] [address] J44.9 [facility] R09.02 Office Visit 03/13/2017 9:00a [facility] Qutaybeh S. Maghaydah, 45048 I48.91 M.D. J44.1 E78.5 R06.00 I34.0 Office Visit 02/26/2017 4:28p [facility],[place] [address] J44.1 Hospitalists I48.91 K21.9 J96.01 Office Visit 02/25/2017 3:15p [facility] Qutaybeh S. Maghaydah, 82264 I48.91 M.D. J44.1 Office Visit 02/25/2017 4:27p [facility], [place] [address] J44.1 Hospitalists I48.91 K21.9 J96.01 Office Visit 02/24/2017 4:25p [facility], [place] [address] J44.1 Hospitalists I48.91 K21.9 J96.01 Office Visit 02/24/2017 3:14p [facility] Qutaybeh S. Maghaydah, 25859 I48.91 M.D. J44.1 Office Visit 02/23/2017 4:24p [facility],pc Lyndsey Horne, 46166 J44.1 Hospitalists M.D. I48.91 K21.9 J96.01 Office Visit 02/23/2017 3:34p [facility] Qutaybeh S. Maghaydah, 41264 I48.91 M.D. J44.1 E78.5 K21.9 R94.31 Office Visit 02/22/2017 4:24p [facility], Lyndsey Horne, 71306 J44.1 Hospitalists M.Tad E78.5 K21.9 J96.01 Office Visit 02/21/2017 4:23p [facility], Lyndsey Horne, 11469 J44.1 Hospitalists M.Tad E78.5 K21.9 J96.01 Office Visit 02/20/2017 4:22p [facility], Vaibhav Meadows, 20711 J44.1 Hospitalists N.P. E78.5 K21.9 J96.01 Office Visit 12/11/2016 1:44p [facility], Jonathan Valencia, 21618 J44.1 Hospitalists M.Tad K21.9 E78.5 J96.01 Office Visit 12/10/2016 1:44p [facility], [address] J44.1 Hospitalists Jacoby E78.5 K21.9 J96.01 Office Visit 12/09/2016 1:43p [facility], Jonathan Valencia, 10354 J44.1 Hospitalists M.Tad K21.9 E78.5 J96.01 Office Visit 12/08/2016 1:43p [facility], [address] J44.1 Assoc, Hospitalists M.Tad K21.9 E78.5 Office Visit 05/31/2016 4:23p [facility], [place] [address] R06.00 Hospitalists J44.1 J96.02 Office Visit 05/30/2016 4:22p [facility], [place] [address] R06.00 Hospitalists J44.1 J96.02 Office Visit 05/29/2016 4:22p [facility], [place] [address] R06.00 Hospitalists J44.1 J96.02 Office Visit 05/28/2016 4:21p [facility], 71702 R06.00 Assoc, Hospitalists MМария J44.1 Office Visit 05/27/2016 4:20p [facility],darian Red M.D. 14869 R06.00 Hospitalists J44.1 Office Visit 10/09/2009 12:30a [facility], Mor Duff M.D. 40108 496 Hospitalists Plan of Care Future Appointment(s):08/16/2017 9:00 am - Elisa Newton MD at [facility]09/25/2017 1:30 pm - Elisa Newton MD at [facility]05/14/2017 - Elisa Newton MDJ44.9 Chronic obstructive pulmonary disease, unspecifiedFollow up:3 fqvqknV75.10 Chronic respiratory failure, unsp w hypoxia or btemywfvzyyG46.02 HypoxemiaNew Medication:Oxygen
== END | disposition home or self-care (01) ==
LOC: ED 10:58
DX: F41.9 Anxiety disorder, unspecified (principal); J44.9 Chronic obstructive pulmonary disease, unspecified; Z87.891 Personal history of nicotine dependence; E78.00 Pure hypercholesterolemia, unspecified; H54.40 Blindness, one eye, unspecified eye
CPT/HCPCS: 36415; 71010; 80053; 83880; 84484; 85025; 86140; 93005; 94640; 96374; 96375; 99282; A9270-GY; J2060; J2930

== ENCOUNTER 2018-11-04 10:42 | Inpatient (IN) | payer MEDICARE, OTHER ==
--- OUTSIDE RECORDS SUMMARY | 2018-11-04 10:48 | XMS REPORT | Continuity of Care Document ---
:1945 External Reference #:[id number] Author Name Evaristo Bee Care Team Providers Name Role Phone Hailey Levi MD Care Team Information Public Health Officer Unavailable Hailey Levi MD Primary Care Physician Unavailable Payers Date Identification Numbers Payment Provider Subscriber Policy Number: [id number] BS Medicare Saritha Ely PayID: [id number] [address] [address] [place] [address] Problems Active Problems Provider Date Nuclear senile cataract Terell Carreon M.D. Onset: 12/02/2015 Nonexudative age-related macular degeneration Terell Carreon M.D. 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 Onset: eyes Family History Date Family Member(s) Observation Comments General Cancer General Sister Father Noncontributory Mother Cerebrovascular Accident Social History Type Date Description Comments Sex Unknown ETOH Use Rarely consumed alcohol in the past Tobacco Use Start: Unknown End: Unknown Patient is a former smoker Smoking Status Reviewed: 10/28/18 Patient is a former smoker Allergies, Adverse Reactions, Alerts Active Allergies Reaction Severity Comments Date Bee Sting 12/02/2015 Spider Bites 12/02/2015 Inactive Allergies NKDA 12/02/2015 Medications Active Medications SIG Qnty Indications Ordering Provider Date Prednisolone Acetate 1 drop right eye 5ml H40.033 Terell Carreon 2018 1% four times a day M.D. Suspension for 4 days Budesonide Inhale The Unknown 0.5mg/2ML Contents Of 1 Vial Suspension Via Nebulizer Twice Daily For COPD Albuterol Sulfate HFA Inhale Two Puffs Unknown By Mouth Every 4 108(90Base) mcg/Act Hours as Needed Aerosol Eliquis Unknown 5mg Tablets Diltiazem HCL ER Beads Unknown 360mg Caps ER 24HR Alprazolam Kofi, 0.5mg Tablets MD Kalyan Prednisone Kofi, 10mg Tablets MD Kalyan Ipratropium Kofi, [place]/Albuterol MD Kalyan Sulfate 0.5-2.5(3)mg/3ML Solution Albuterol Sulfate HFA Kofi, MD Kalyan 108(90Base) mcg/Act Aerosol Ventolin HFA Kofi, 108(90Base) MD Kalyan mcg/Act Aerosol History Medications Ocuvite-Lutein one cap twice a 90caps Baudilio Cruz, OD 05/19/2016 - Capsules day by mouth 09/30/2018 Spiriva Respimat Unknown - 1.25mcg/Act 09/30/2018 Aerosol Vital Signs Date Vital Result Comment 10/21/2018 3:32pm Intraocular Pressure Right Eye 20 mmHg 09/30/2018 9:22am Intraocular Pressure Right Eye 20 mmHg Intraocular Pressure Left Eye 20 mmHg 12/02/2015 9:26am Intraocular Pressure Right Eye 20 mmHg Intraocular Pressure Left Eye 21 mmHg Procedures Date Code Description Status 10/28/2018 62490 Iridotomy/Iredectomy By Laser Surgery Completed 10/21/2018 05047 Iridotomy/Iredectomy By Laser Surgery Completed 09/30/2018 19417 Fundus Photography W/Interpretation & Report Completed 09/30/2018 30173 Gonioscopy Completed 09/30/2018 24087 Eye Exam Est Comprehensive Completed 05/19/2016 05409 Oct Retina Completed 05/19/2016 72009 Gonioscopy Completed 05/19/2016 72890 Eye Exam Est Intermediate Completed 12/02/2015 43327 Fundus Photography W/Interpretation & Report Completed 12/02/2015 43645 Gonioscopy Completed 12/02/2015 82199 Eye Exam Est Comprehensive Completed Plan of Treatment Future Appointment(s):11/04/2018 1:00 pm - Baudilio Cruz, OD at [id number] - Terell Carreon M.D.H40.033 Anatomical narrow angle, bilateralFollow up:1 wk post yag LI OU 6 mos oct mac
--- OUTSIDE RECORDS SUMMARY | 2018-11-04 10:48 | XMS REPORT | Continuity of Care Document ---
:1945 External Reference #:[id number] Author Name Teerll Carreon M.D. Address [address] [place] [address] Care Team Providers Name Role Phone Hailey Levi MD Care Team Information Program Director Substance Abuse Unavailable Hailey Levi MD Primary Care Physician Unavailable Payers Date Identification Numbers Payment Provider Subscriber Policy Number: [id number] BS Medicare Saritha Ely PayID: [id number] [address] [address] [place] [address] Advance Directives Description No Information Available Problems Active Problems Provider Date Nuclear senile [...] is a former smoker Smoking Status Reviewed: 10/21/18 Patient is a former smoker Allergies, Adverse [...] Kofi, 10mg Tablets MD Kalyan Ipratropium Kofi, [place]/Albuterol MD Kalyna Sulfate 0.5-2.5(3)mg/3ML Solution Albuterol Sulfate HFA Kofi, MD Kalyan 108(90Base) mcg/Act Aerosol Ventolin HFA Kofi, 108(90Base) MD Kalyan mcg/Act Aerosol History Medications Ocuvite-Lutein one cap twice a 90caps Baudilio Cruz, OD 05/19/2016 - Capsules day by mouth 09/30/2018 Spiriva Respimat Unknown - 1.25mcg/Act 09/30/2018 Aerosol Immunizations Description No Information Available Vital Signs Date Vital Result Comment 10/21/2018 3:32pm Intraocular Pressure Right Eye 20 mmHg 09/30/2018 9:22am Intraocular Pressure Right Eye 20 mmHg Intraocular Pressure Left Eye 20 mmHg 12/02/2015 9:26am Intraocular Pressure Right Eye 20 mmHg Intraocular Pressure Left Eye 21 mmHg Results Description No Information Available Procedures Date Code Description Status 10/21/2018 73134 Iridotomy/Iredectomy By Laser Surgery Completed 09/30/2018 62615 Fundus Photography W/Interpretation & Report Completed 09/30/2018 46658 Gonioscopy Completed 09/30/2018 86327 Eye Exam Est Comprehensive Completed 05/19/2016 14361 Oct Retina Completed 05/19/2016 21355 Gonioscopy Completed 05/19/2016 39841 Eye Exam Est Intermediate Completed 12/02/2015 64711 Fundus Photography W/Interpretation & Report Completed 12/02/2015 08445 Gonioscopy Completed 12/02/2015 50572 Eye Exam Est Comprehensive Completed Encounters Description No Information Available Plan of Treatment Future Appointment(s):11/04/2018 1:00 pm - Baudilio Cruz, OD at [id number] 3:30 pm - Terell Carreon M.D. at [id number]/21/2018 - Terell Carreon M.D.H40.033 Anatomical narrow angle, bilateralNew Medication: Prednisolone Acetate 1 % - 1 drop right eye four times a day for 4 daysFollow up :yag LI OS 1 wk
--- OUTSIDE RECORDS SUMMARY | 2018-11-04 10:48 | XMS REPORT | Continuity of Care Document ---
:1945 External Reference #:[id number] Author Name Anahy Curry Care Team Providers Name Role Phone Kalyan Kirby MD Primary Care Physician Unavailable Payers Date Identification Numbers Payment Provider Subscriber Policy Number: [id number] Medicare Blue Ppo Saritha Ely Group Number: [id number] [address] [address] PayID: [id number] KENNEDY Mckeon [address] Effective: 2017 Policy Number: [id number] [employer] Saritha Ely Expires: 2019 PayID: [id number] [address] Effective: 2016 Policy Number: [id number] [employer] Saritha Ely Expires: 2018 Group Number: 60% [id number] [facility] PayID: [id number] [address] Advance Directives Description No Information Available Problems Description No Information Family History Date Family Member(s) Observation Comments General Heart Disease General Stroke Father due to Motor Vehicle Accident () Mother due to Stroke () Siblings 10 Social History Type Date Description Comments Sex Unknown Marital Status Lives With Alone Occupation Retired Tobacco Use Start: Unknown End: Former Cigarette Smoker Unknown Tobacco Use Start: Unknown End: Former Cigarette Smoker for 54 Unknown 1 Pack Daily Smoking Status Reviewed: 10/29/18 Former Cigarette Smoker for 54 1 Pack Daily ETOH Use Denies alcohol use Tobacco Use Start: Unknown End: Patient is a former Unknown smoker Recreational Drug Use Denies Drug Use Tobacco Use Start: Unknown End: Patient is a former quit 6 years ago Unknown smoker Exercise Type/Frequency Exercises rarely Allergies, Adverse Reactions, Alerts Active Allergies Reaction Severity Comments Date Bee Sting 03/13/2017 Medications Active Medications SIG Qnty Indications Ordering Date Provider Nebulizer 1 unit inhaled every 1units J44.9 Elisa Newton, 09/10/2017 Device 6 hours and as MD needed for shortness of breath Oxygen please use o2 at 1units R09.02 Elisa Newton, 05/14/2017 Misc 3l/min 24x7, pls MD provide pt with portable o2 concentrator, ok to test for conserving device Budesonide 1 dose twice a day 30ml J44.9 Elisayuki Romeroali, 04/03/2017 via nebulizer, last MD 0.5mg/2ML seen in office Suspension 03/27/17 Alprazolam 1 po as needed up to Unknown 0.5mg 3x per day Tablets Bevespi Aerosphere 2 puffs twice daily [facility] 9-4.8mcg/Act Aerosol Ventolin HFA 2 puffs by mouth Unknown four times a day as 108(90Base) mcg/Act needed Aerosol Oxygen please use o2 at [facility], 2L Misc 2l/min, pls provide MD pt with portable o2 concentrator Ipratropium 1 vial in nebulizer Unknown Price/Albuterol three times a day as Sulfate needed for asthma 0.5-2.5(3)mg/3ML Solution Epinephrine 1 injection as Unknown needed allergic 0.3mg/0.3ML reaction (bee Solution stings) Auto-Inject Aspirin Adult Low 1 by mouth every day Unknown Dose 81mg Tablets DR Diltiazem HCL ER 1 by mouth every day 90caps Qutaybeh S. Beads Jacoby Escoto 360mg Caps ER 24HR Eliquis 1 by mouth twice a 180tabs Qutaybeh S. 5mg Tablets day Jacoby Escoto History Medications Prednisone 1/2 tablet by mouth 30tabs [facility], 04/03/2017 - 10mg daily on even days 10/28/2018 Tablets and 1 tab on odd days. Dulera 2 puff twice a day Unknown - 200-5mcg/Act 05/14/2017 Aerosol Prednisone 1 tab qd Unknown - 10mg 03/26/2017 Tablets Albuterol Sulfate 1-2 puffs every 4 Unknown - hours as needed sob 03/12/2017 Powder Duoneb 1 unit nebl every 6 Unknown - hours as needed 03/12/2017 0.5-2.5(3)mg/3ML Solution Spiriva Handihaler 1 unit inhalation Unknown - daily 05/14/2017 18mcg Capsules Medications Administered in Office Medication SIG Qnty Indications Ordering Provider Date Depomedrol 40MG Sudhri Lopez M.D. 06/19/2018 Injection Immunizations Description No Information Available Vital Signs Date Vital Result Comment 10/29/2018 10:35am Height 63 inches 5'3" Weight 157.12 lb Heart Rate 104 /min BP Systolic Sitting 170 mmHg right arm (regular cuff) BP Diastolic Sitting 70 mmHg right arm (regular cuff) O2 % BldC Oximetry 93 % on 2L via NC BMI (Body Mass Index) 27.8 kg/m2 Ejection Fraction <65% Echocardiogram 02/23/2017 06/20/2018 10:27am Height 63 inches 5'3" Heart Rate 98 /min BP Systolic Sitting 130 mmHg Lue regular cuff BP Diastolic Sitting 64 mmHg Lue regular cuff Respiratory Rate 12 /min O2 % BldC Oximetry 97 % 06/19/2018 3:12pm Height 63 inches 5'3" Weight 158.00 lb BP Systolic 130 mmHg BP Diastolic 60 mmHg Respiratory Rate 20 /min Body Temperature 97.4 F Pain Level 10 BMI (Body Mass Index) 28.0 kg/m2 03/21/2018 9:45am Height 63 inches 5'3" Weight 158.00 lb W/ Shoes Heart Rate 82 /min BP Systolic Sitting 158 mmHg Lue Reg Cuff BP Diastolic Sitting 74 mmHg Lue Reg Cuff BMI (Body Mass Index) 28.0 kg/m2 Ejection Fraction <65% ECHO 02/23/17 12/11/2017 9:46am Height 63 inches 5'3" Weight 156.38 lb Heart Rate 88 /min BP Systolic Sitting 130 mmHg Lue reg cuff BP Diastolic Sitting 66 mmHg Lue reg cuff Respiratory Rate 24 /min O2 % BldC Oximetry 97 % On Ra on 3L O2 BMI (Body Mass Index) 27.7 kg/m2 10/04/2017 11:06am Height 63 inches 5'3" Weight 158.12 lb w/shoes Heart Rate 90 /min BP Systolic Sitting 150 mmHg L/A reg cuff BP Diastolic Sitting 78 mmHg L/A reg cuff O2 % BldC Oximetry 97 % on oxygen BMI (Body Mass Index) 28.0 kg/m2 Ejection Fraction >65% echo 02/23/2017 09/10/2017 10:54am Height 63 inches 5'3" Weight 152.00 lb Heart Rate 74 /min BP Systolic Sitting 130 mmHg Lue large cuff BP Diastolic Sitting 76 mmHg Lue large cuff Respiratory Rate 20 /min O2 % BldC Oximetry 98 % On Ra BMI (Body Mass Index) 26.9 kg/m2 05/14/2017 8:50am Height 63 inches 5'3" Weight 137.00 lb Heart Rate 92 /min BP Systolic Sitting 106 mmHg BP Diastolic Sitting 70 mmHg Respiratory Rate 24 /min O2 % BldC Oximetry 97 % on 2L BMI (Body Mass Index) 24.3 kg/m2 04/11/2017 11:39am Height 63 inches 5'3" Weight 130.00 lb w/ shoes Heart Rate 82 /min BP Systolic Sitting 132 mmHg BP Diastolic Sitting 72 mmHg Respiratory Rate 22 /min O2 % BldC Oximetry 98 % 2L O2 BMI (Body Mass Index) 23.0 kg/m2 03/27/2017 2:17pm Height 63 inches 5'3" Weight 128.00 lb Heart Rate 80 /min BP Systolic Sitting 112 mmHg BP Diastolic Sitting 70 mmHg Respiratory Rate 14 /min O2 % BldC Oximetry 94 % BMI (Body Mass Index) 22.7 kg/m2 Neck Circumference in inches 14.75 03/13/2017 8:43am Height 63 inches 5'3" Weight 127.75 lb w/shoes Heart Rate 74 /min BP Systolic Sitting 150 mmHg LA reg cuff BP Diastolic Sitting 72 mmHg LA reg cuff O2 % BldC Oximetry 95 % room air BMI (Body Mass Index) 22.6 kg/m2 Ejection Fraction 50-55% Jose Guadalupe 02/26/17 Results Test Date Facility Test Result H/L Range Note CBC Auto Diff 03/21/2018 [facility] White Blood 12.2 10^3/uL High 3.5-10.[address] [place] [address] [phone] Red Blood Count 4.07 10^6/uL N 4.00-5.40 Hemoglobin 11.6 g/dL Low 12.0-16.0 Hematocrit 34 % Low 35-47 Mean Corpuscular Volume 85 fL N 80-97 Mean Corpuscular Hemoglobin 29 pg N 27-31 Mean Corpuscular HGB Conc 34 g/dL N 31-36 Red Cell Distribution Width 16 % High 10.5-15 Platelet Count 374 10^3/uL N 150-450 Mean Platelet Volume 6.9 um3 Low 7.4-10.4 Abs Neutrophils 9.0 10^3/uL High 1.5-7.7 Abs Lymphocytes 1.7 10^3/uL N 1.0-4.8 Abs Monocytes 1.2 10^3/uL High 0-0.8 Abs Eosinophils 0.2 10^3/uL N 0-0.6 Abs Basophils 0.1 10^3/uL N 0-0.2 Abs Nucleated RBC 0 10^3/uL Granulocyte % 73.9 % N 38-83 Lymphocyte % 14.0 % Low 25-47 Monocyte % 9.5 % High 0-7 Eosinophil % 1.7 % N 0-6 Basophil % 0.9 % N 0-2 Nucleated Red Blood Cells % 0 Comp Metabolic Panel 03/21/2018 [facility] Sodium 139 mmol/L N 135-[address] [place] [address] [phone] Potassium 4.1 mmol/L N 3.5-5.0 Chloride 104 mmol/L N 101-111 Co2 Carbon Dioxide 29 mmol/L N 22-32 Anion Gap 6 mmol/L N 2-11 Glucose 116 mg/dL High 70-100 Blood Urea Nitrogen 12 mg/dL N 6-24 Creatinine 0.90 mg/dL N 0.51-0.95 BUN/Creatinine Ratio 13.3 N 8-20 Calcium 9.3 mg/dL N 8.6-10.3 Total Protein 6.0 g/dL Low 6.4-8.9 Albumin 4.0 g/dL N 3.2-5.2 Globulin 2.0 g/dL N 2-4 Albumin/Globulin Ratio 2.0 N 1-3 Total Bilirubin 0.20 mg/dL N 0.2-1.0 Alkaline Phosphatase 69 U/L N 34-104 Alt 12 U/L N 7-52 Ast 12 U/L Low 13-39 Egfr Non- 61.0 >60 Egfr 73.9 >60 1 Order 10/04/2017 [employer] In-House EKG <pending> 1 Because ethnic data is not always readily available, this report includes an eGFR for both -Americans and non- Americans. The National Kidney Disease Education Program (NKDEP) does not endorse the use of the MDRD equation for patients that are not between the ages of 18 and 70, are , have extremes of body size, muscle mass, or nutritional status, or are non- or non-. According to the National Kidney Foundation, irrespective of diagnosis, the stage of the disease is based on the level of kidney function: Stage Description GFR(mL/min/1.73 m(2)) 1 Kidney damage with normal or decreased GFR 90 2 Kidney damage with mild decrease in GFR 60-89 3 Moderate decrease in GFR 30-59 4 Severe decrease in GFR 15-29 5 Kidney failure <15 (or dialysis) Procedures Date Code Description Status 10/29/2018 66316 EKG Tracing & Interpretation Completed 06/19/2018 61934 Inject/Drain Joint/Bursa Major W/O US Completed 03/21/2018 34232 EKG Tracing & Interpretation Completed 10/04/2017 03454 EKG Tracing & Interpretation Completed 05/18/2017 60515 Diffusing Capacity Completed 05/18/2017 32917 Plethysmography Determination Lung Volumes & Per Airway Completed Resist 05/18/2017 36720 Pulmonary Stress Test Simple Completed 05/18/2017 43722 Pulmonary Function><Bronchodil Completed 05/14/2017 91894 Pulmonary Stress Test Simple Completed 03/22/2017 45723 Holter Monitor Review (24 hr)dr review & interp only Completed 03/20/2017 29136 ECG Monitor/Recording W/Visual Superimposition Scanning Completed 03/13/2017 29714 EKG Tracing & Interpretation Completed 02/26/2017 84454 Color Flow Doppler/Interp & Reprt Completed 02/26/2017 15892 Pulse Wave/Continuous-Interp.RPT Completed 02/26/2017 65946 Echocardiography, Transesophageal, Real Time W/Image 2D Completed W/W/O M-M 02/23/2017 54729 ECHO Transthorasic Realtime 2D W Doppler & Color Flow Hosp Completed Encounters Type Date Location Provider Dx Diagnosis Office Visit 06/20/2018 Pulmonology Royce Saldana.9 Chronic obstructive 10:45a Sleep Services Of pulmonary disease [employer] unspecified J96.10 Chronic respiratory failure, unsp w hypoxia or hypercapnia Office Visit 06/19/2018 3:00p Orthopedic Dirk Jessica, M25.511 Pain in right Services Of Jaqueline Dozier shoulder M19.011 Primary osteoarthritis, right shoulder Office Visit 03/21/2018 10:00a [facility] Emilia Hurley I34.0 Nonrheumatic mitral Clinton Smith (valve) insufficiency I48.0 Paroxysmal atrial fibrillation R94.31 Abnormal electrocardiogram [ECG] [EKG] E78.5 Hyperlipidemia, unspecified Office Visit 12/11/2017 10:00a PulmonYamileth Crane.9 Chronic Sleep Services Of [place] obstructive [employer] pulmonary disease, unspecified J96.10 Chronic respiratory failure, unsp w hypoxia or hypercapnia Office Visit 10/04/2017 11:20a [facility] Félix Acevedo44.9 Chronic Cardiology Jacoby Escoto obstructive pulmonary disease, unspecified I48.0 Paroxysmal atrial fibrillation E78.5 Hyperlipidemia, unspecified I34.0 Nonrheumatic mitral (valve) insufficiency Office Visit 09/10/2017 11:00a Pulmonology And Sleep Emilia Smith, R09.02 Hypoxemia Services Of [place]ung N.PDeion J44.9 Chronic obstructive pulmonary disease, unspecified Office Visit 05/14/2017 9:15a Pulmonology And Elisa Acevedo44.9 Chronic Sleep Services Of [place] obstructive [employer] pulmonary disease, unspecified J96.10 Chronic respiratory failure, unsp w hypoxia or hypercapnia R09.02 Hypoxemia Office Visit 04/11/2017 12:00p Pulmonology June Acevedo44.1 Chronic Sleep Services Of [place] obstructive [employer] pulmonary disease w (acute) exacerbation J96.10 Chronic respiratory failure, unsp w hypoxia or hypercapnia Office Visit 03/30/2017 1:00p [facility] Devan J44.1 Chronic Assoc,darian Anthony M.D. obstructive Hospitalists pulmonary disease w (acute) exacerbation I48.0 Paroxysmal atrial fibrillation J96.11 Chronic respiratory failure with hypoxia K21.9 Gastro-esophageal reflux disease without esophagitis Office Visit 03/29/2017 12:59p [facility] Megan J44.1 Chronic Assoc,darian Leach D.O. obstructive Hospitalists pulmonary disease w (acute) exacerbation I48.0 Paroxysmal atrial fibrillation J96.11 Chronic respiratory failure with hypoxia K21.9 Gastro-esophageal reflux disease without esophagitis Office Visit 03/27/2017 2:00p Pulmonology And Elisa J44.9 Chronic [facility] [place] obstructive [employer] pulmonary disease, unspecified R09.02 Hypoxemia Office Visit 03/13/2017 [facility] Qutaybeh S. I48.91 Unspecified atrial 9:00a Cardiology Jacoby Escoto fibrillation J44.1 Chronic obstructive pulmonary disease w (acute) exacerbation E78.5 Hyperlipidemia, unspecified R06.00 Dyspnea, unspecified I34.0 Nonrheumatic mitral (valve) insufficiency Office Visit 02/26/2017 [facility] Kranthi J44.1 Chronic 4:28p Assoc,pc MD Paul obstructive Hospitalists pulmonary disease w (acute) exacerbation I48.91 Unspecified atrial fibrillation K21.9 Gastro-esophageal reflux disease without esophagitis J96.01 Acute respiratory failure with hypoxia Office Visit 02/25/2017 4:27p [facility] Janell J44.1 Chronic Assoc,darian Murillo DO obstructive Hospitalists pulmonary disease w (acute) exacerbation I48.91 Unspecified atrial fibrillation K21.9 Gastro-esophageal reflux disease without esophagitis J96.01 Acute respiratory failure with hypoxia Office Visit 02/25/2017 [facility] Qutaybeh S. I48.91 Unspecified atrial 3:15p Cardiology Jacoby Escoto fibrillation J44.1 Chronic obstructive pulmonary disease w (acute) exacerbation Office Visit 02/24/2017 4:25p [facility] Janell J44.1 Chronic Assoc,darian Murillo DO obstructive Hospitalists pulmonary disease w (acute) exacerbation I48.91 Unspecified atrial fibrillation K21.9 Gastro-esophageal reflux disease without esophagitis J96.01 Acute respiratory failure with hypoxia Office Visit 02/24/2017 [facility] Qutaybeh S. I48.91 Unspecified atrial 3:14p Elizabeth Escoto M.D. fibrillation J44.1 Chronic obstructive pulmonary disease w (acute) exacerbation Office Visit 02/23/2017 4:24p [facility] Maryan Solorio J44.1 Chronic Assoc,darian Horne M.D. obstructive Hospitalists pulmonary disease w (acute) exacerbation I48.91 Unspecified atrial fibrillation K21.9 Gastro-esophageal reflux disease without esophagitis J96.01 Acute respiratory failure with hypoxia Office Visit 02/23/2017 [facility] Qutaybeh S. I48.91 Unspecified atrial 3:34p Elizabeth Escoto M.D. fibrillation J44.1 Chronic obstructive pulmonary disease w (acute) exacerbation E78.5 Hyperlipidemia, unspecified K21.9 Gastro-esophageal reflux disease without esophagitis R94.31 Abnormal electrocardiogram [ECG] [EKG] Office Visit 02/22/2017 4:24p [facility] Maryan Solorio J44.1 Chronic Assoc,darian Horne M.D. obstructive Hospitalists pulmonary disease w (acute) exacerbation E78.5 Hyperlipidemia, unspecified K21.9 Gastro-esophageal reflux disease without esophagitis J96.01 Acute respiratory failure with hypoxia Office Visit 02/21/2017 4:23p [facility] Maryan Solorio J44.1 Chronic Assoc,darian Horne M.D. obstructive Hospitalists pulmonary disease w (acute) exacerbation E78.5 Hyperlipidemia, unspecified K21.9 Gastro-esophageal reflux disease without esophagitis J96.01 Acute respiratory failure with hypoxia Office Visit 02/20/2017 [facility] Maryan Esposito J44.1 Chronic 4:22p Assoc,darian Meadows NJessica obstructive Hospitalists pulmonary disease w (acute) exacerbation E78.5 Hyperlipidemia, unspecified K21.9 Gastro-esophageal reflux disease without esophagitis J96.01 Acute respiratory failure with hypoxia Office Visit 12/11/2016 1:44p Dea Castillo J44.1 Chronic Assoc,darian Kearney M.D. obstructive Hospitalists pulmonary disease w (acute) exacerbation K21.9 Gastro-esophageal reflux disease without esophagitis E78.5 Hyperlipidemia, unspecified J96.01 Acute respiratory failure with hypoxia Office Visit 12/10/2016 1:44p Dea Acevedo44.1 Chronic Assoc,darian Kearney M.D. obstructive Hospitalists pulmonary disease w (acute) exacerbation E78.5 Hyperlipidemia, unspecified K21.9 Gastro-esophageal reflux disease without esophagitis J96.01 Acute respiratory failure with hypoxia Office Visit 12/09/2016 1:43p [facility] Jonathan J44.1 Chronic Assoc,darian Kearney M.D. obstructive Hospitalists pulmonary disease w (acute) exacerbation K21.9 Gastro-esophageal reflux disease without esophagitis E78.5 Hyperlipidemia, unspecified J96.01 Acute respiratory failure with hypoxia Office Visit 12/08/2016 [facility] Steve Leoneldavid J44.1 Chronic 1:43p Assoc,darian DEY M.D. obstructive Hospitalists pulmonary disease w (acute) exacerbation K21.9 Gastro-esophageal reflux disease without esophagitis E78.5 Hyperlipidemia, unspecified [facility], 4:23p Assoc,darian Miller MD unspecified Hospitalists J44.1 Chronic obstructive pulmonary disease w (acute) exacerbation J96.02 Acute respiratory failure with hypercapnia [facility] Dyspnea, 4:22p Assoc,darian Miller MD unspecified Hospitalists J44.1 Chronic obstructive pulmonary disease w (acute) exacerbation J96.02 Acute respiratory failure with hypercapnia Office Visit 05/29/2016 [facility] R06.00 Dyspnea, 4:22p Assoc,darian Miller MD unspecified Hospitalists J44.1 Chronic obstructive pulmonary disease w (acute) exacerbation J96.02 Acute respiratory failure with hypercapnia Office Visit 05/28/2016 [facility] Félix R06.00 Dyspnea, 4:21p Assoc,darian Hong M.D. unspecified Hospitalists J44.1 Chronic obstructive pulmonary disease w (acute) exacerbation Office Visit 05/27/2016 4:20p [facility] Scotty Red, R06.00 Dyspnea, Assocdarian M.D. unspecified Hospitalists J44.1 Chronic obstructive pulmonary disease w (acute) exacerbation Office Visit 10/09/2009 12:30a [facility] Mor Duff, 496 COPD Airway Assocdarian M.D. Obstruction Hospitalists Chronic Not Class Elsewhere Plan of Treatment Future Appointment(s):11/27/2018 10:45 am - Elisa Newton MD at [facility]10/29/2018 - Félix Escoto M.D.J44.9 Chronic obstructive pulmonary disease, ciutucymovqX40.0 Nonrheumatic mitral (valve) vslcewbhdrdrjU36.0 Paroxysmal atrial fibrillationFollow up:one yr ovR94.31 Abnormal electrocardiogram [ECG] [EKG]E78.5 Hyperlipidemia, unspecified
--- OUTSIDE RECORDS SUMMARY | 2018-11-04 10:48 | XMS REPORT | Continuity of Care Document ---
:1945 External Reference #:[id number] Author Name Terell Carreon M.D. Address [address] [place] [address] Care Team Providers Name Role Phone Hailey Levi MD Care Team Information Fur Mixer Unavailable Hailey Levi MD Primary Care Physician Unavailable Payers Date Identification Numbers Payment Provider Subscriber Policy Number: [id number] BS Medicare Saritha Ely PayID: [id number] [address] [address] [place] [address] Problems Active Problems Provider Date Nuclear senile [...] Kofi, 10mg Tablets MD Kalyan Ipratropium Kofi, [place]/Albuterol MD Kalyan Sulfate 0.5-2.5(3)mg/3ML Solution Albuterol Sulfate [...] mmHg Procedures Date Code Description Status 10/28/2018 01575 Iridotomy/Iredectomy By Laser Surgery Completed 10/21/2018 95639 Iridotomy/Iredectomy By Laser Surgery Completed 09/30/2018 96883 Fundus Photography W/Interpretation & Report Completed 09/30/2018 98424 Gonioscopy Completed 09/30/2018 56242 Eye Exam Est Comprehensive Completed 05/19/2016 80065 Oct Retina Completed 05/19/2016 33340 Gonioscopy Completed 05/19/2016 91022 Eye Exam Est Intermediate Completed 12/02/2015 57474 Fundus Photography W/Interpretation & Report Completed 12/02/2015 25573 Gonioscopy Completed 12/02/2015 31755 Eye Exam Est Comprehensive Completed Plan of Treatment Future Appointment(s):11/04/2018 1:00 pm - Baudilio Cruz, OD at [id number] - Terell Carreon M.D.H40.033 Anatomical narrow angle, bilateralFollow up:1 wk post yag LI OU 6 mos oct mac
--- NOTE | 2018-11-04 10:55 | ED ---
Shortness of Breath - HPI Summary HPI Summary: The patient is a 73 y/o F presenting to [facility] arriving by ambulance with a chief complaint of gradual onset SOB worsening since yesterday without any symptoms two days ago. The dyspnea is present at rest. 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 She also reports that she uses 3L O2 at home, and in the ambulance the O2 was increased to 4L allowing her Sat% O2 to increase to 99%. She additionally c/o rhinorrhea and cough. She denies edema in her lower extremities. She has been hospitalized for this condition before, and she had previously been taking Prednisone prescribed by her PCP, but she didn't refill the prescription and has not taken the medication for approximately 2-3 weeks now. Hx of COPD and emphysema. Former smoker. - History of Current Complaint Chief Complaint: EDShortnessOfBreath Time Seen by Provider: 11/04/18 10:43 Hx Obtained From: Patient Onset/Duration: Gradual Onset, Lasting Days - since yesterday, Still Present Timing: Constant Current Severity: Moderate Dyspnea At: Rest Aggrevating Factors: Nothing Alleviating Factors: Oxygen, Other - at home and in-ambulance nebulizer treatments Associated Signs & Symptoms: Cough (Nonproductive) - Allergy/Home Medications Allergies/Adverse Reactions: Allergies Allergy/AdvReac Type Severity Reaction Status Date / Time bee venom protein (honey bee) Allergy See Comment Verified 11/04/18 11:08 Home Medications: Home Medications Albuterol HFA INHALER* [Ventolin HFA Inhaler*] 2 puff INH QID PRN 11/04/18 [ History Confirmed 11/04/18] Budesonide NEB* [Pulmicort Neb*] 0.5 mg INH BID 11/04/18 [History Confirmed ] Diltiazem CD CAP* [Cardizem CD CAP*] 360 mg PO DAILY 11/04/18 [History Confirmed 11/04/18] Glycopyrrolate/Formoterol (NF) [Bevespi Aerospere Inhaler] 2 puff INH BID [History Confirmed 11/04/18] Ipratropium 0.5MG/2.5ML NEB* [Atrovent 0.5 MG NEB.JAJA*] 0.5 mg INH TID PRN 11/04 [History Confirmed 11/04/18] PMH/Surg Hx/FS Hx/Imm Hx Endocrine/Hematology History: Denies: Hx Diabetes Cardiovascular History: Reports: Hx Hypercholesterolemia - Had it in the past, was taking medication but not currently Respiratory History: Reports: Hx Chronic Obstructive Pulmonary Disease (COPD), Other Respiratory Problems/Disorders - Hx Emphysema, chronic SOB Denies: Hx Asthma Sensory History: Reports: Hx Contacts or Glasses, 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 Denies: Hx Hearing Aid Opthamlomology History: Reports: Hx Contacts or Glasses, 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 - Cancer History Hx Chemotherapy: No Hx Radiation Therapy: No - Immunization History Date of Tetanus Vaccine: unknown Date of Influenza Vaccine: 2014 Infectious Disease History: No Infectious Disease History: Denies: Hx of Known/Suspected MRSA, Traveled Outside the [place] in Last 30 Days - Family History Known Family History: Positive: Other - Breast CA (sister) Negative: Diabetes - Social History Alcohol Use: None Alcohol Amount: 3 drinks/week Hx Substance Use: No Substance Use Type: Reports: None Hx Tobacco Use: Yes Smoking Status (MU): Former Smoker Type: Cigarettes Amount Used/How Often: 10 cigarettes/day Length of Time of Smoking/Using Tobacco: 40 years Have You Smoked in the Last Year: Yes Review of Systems Positive: Other - rhinorrhea Positive: Shortness Of Breath, Cough Negative: Edema All Other Systems Reviewed And Are Negative: Yes Physical Exam - Summary Physical Exam Summary: Appearance: The patient is well-nourished in no acute distress and in no acute pain. Skin: The skin is warm and dry and skin color reflects adequate perfusion. HEENT: The head is normocephalic and atraumatic. The pupils are equal and reactive. The conjunctivae are clear and without drainage. Nares are patent and without drainage. Mouth reveals moist mucous membranes and the throat is without erythema and exudate. The external ears are intact. The ear canals are patent and without drainage. The tympanic membranes are intact. Neck: The neck is supple with full range of motion and non-tender. There are no carotid bruits. There is no neck vein distension. Respiratory: Chest is non-tender. Lungs are clear to auscultation and breath sounds decreased. Cardiovascular: Heart is tachycardic rate and rhythm. There is no murmur or rub auscultated. There is no peripheral edema and pulses are symmetrical and equal. Abdomen: The abdomen is soft and non-tender. There are normal bowel sounds heard in all four quadrants and there is no organomegaly palpated. Musculoskeletal: There is no back tenderness noted. Extremities are non-tender with full range of motion. There is good capillary refill. There is no peripheral edema or calf tenderness elicited. Neurological: Patient is alert and oriented to person, place and time. The patient has symmetrical motor strength in all four extremities. Cranial nerves are grossly intact. Deep tendon reflexes are symmetrical and equal in all four extremities. Psychiatric: The patient has an appropriate affect and does not exhibit any anxiety or depression. Triage Information Reviewed: Yes Vital Signs On Initial Exam: Initial Vitals Temp Pulse Resp BP Pulse Ox 98.3 F 108 16 144/73 99 11/04/18 10:44 11/04/18 10:44 11/04/18 10:44 11/04/18 10:44 11/04/18 10:44 Vital Signs Reviewed: Yes Diagnostics - Vital Signs Vital Signs Temp Pulse Resp BP Pulse Ox 11/04/18 10:44 98.3 F 108 16 144/73 99 - Laboratory Result Diagrams: 11/04/18 11:07 11/04/18 11:07 Lab Statement: Any lab studies that have been ordered have been reviewed, and results considered in the medical decision making process. - Radiology CXR Radiology Interpretation Completed By: Radiologist Summary of Radiographic Findings: No active cardiopulmonary disease is noted. ED physician has reviewed this report. - EKG 10:59 Cardiac Rate: Tachycardia - 100 BPM EKG Rhythm: Sinus Tachycardia Summary of EKG Findings: Sinus tachycardia, normal ST, no ectopy, no STEMI Re-Evaluation - Re-Evaluation First Eval Re-Evaluation Time: 12:40 Change: Unchanged Comment: I spoke with the patient concerning results and acceptance for admission at this time. Course/Dx - Course Course Of Treatment: Ms. Ely presented with some gradual onset shortness of breath. She has been using her nebulizers her some relief at home. She did get much more relief with the nebulizer in route. When I first saw her she was nontoxic in appearance with stable vitals aside from some mild tachycardia. Her breath sounds were reduced but I did not hear any wheezes. She was treated with an additional DuoNeb and Solu-Medrol while labs were obtained and she was noted to be quite anemic. This is a microcytic anemia. I consult the hospitalist for admission and workup. - Diagnoses Provider Diagnoses: Severe anemia, COPD exacerbation - Physician Notifications Discussed Care of Patient With: Diana Tucker - hospitalist Time Discussed With Above Provider: 12:40 Instructed by Provider To: Other - I spoke with Dr. Tucker who accepts the patient for admission at this time. She will come see the patient in the ED. - Critical Care Time Critical Care Time: 30-74 min Discharge - Sign-Out/Discharge Documenting (check all that apply): Patient Departure - Patient will be admitted to [facility] for further care by Dr. Tucker. Patient Received Moderate/Deep Sedation with Procedure: No - Discharge Plan Condition: Stable Disposition: ADMITTED TO [facility] Referrals: Kalyan Kirby MD [Primary Care Provider] - - Billing Disposition and Condition Condition: STABLE Disposition: Admitted to [facility] - Attestation Statements Document Initiated by Kenton: Yes Documenting Scribe: Yennifer Briceno Provider For Whom Kenton is Documenting (Include Credential): Dr. Shiva Harman MD Scribe Attestation: I, sonam Lazoed for Dr. Shiva Harman MD on 11/04/18 at 1419. Scribe Documentation Reviewed: Yes Provider Attestation: The documentation as recorded by the Yennifer rios accurately reflects the service I personally performed and the decisions made by me, Dr. Shiva Harman MD Status of Scribe Document: Viewed
[2018-11-04] MEDS ORDERED: Albuterol/Ipratropium NEB.SOL* Albuterol 2.5 MG/Ipratropium 0.5 MG 3 ML INH ONE (11:06)
[2018-11-04] MEDS ORDERED: methylPREDNISolone 125 MG* 2 ML VIAL IV ONE (11:06)
[2018-11-04 11:26] LABS: Hematocrit 23 % (35-47); Hemoglobin 6.9 g/dL (12.0-16.0); Mean Corpuscular HGB Conc 30 g/dL (31-36); Mean Corpuscular Hemoglobin 21 pg (27-31); Mean Corpuscular Volume 70 fL (80-97); Mean Platelet Volume 6.7 fL (7.4-10.4); Platelet Count 526 10^3/uL (150-450); Red Blood Count 3.28 10^6 /uL (3.70-4.87); Red Cell Distribution Width 18 % (10.5-15); White Blood Count 5.8 10^3/uL (3.5-10.8)
[2018-11-04 11:30] LABS: INR 1.55 (0.82-1.09)
[2018-11-04 11:43] LABS: Albumin 3.9 g/dL (3.2-5.2); Albumin/Globulin Ratio 1.7 (1-3); BUN/Creatinine Ratio 9.3 (8-20); C Reactive Protein 8.32 mg/L (<8.01); Calcium 9.1 mg/dL (8.6-10.3); EGFR African American 77.8 (>60); EGFR Non-African American 64.3 (>60); Globulin 2.3 g/dL (2-4); Total Bilirubin 0.2 mg/dL (0.2-1.0); Total Protein 6.2 g/dL (6.4-8.9)
[2018-11-04 11:55] LABS: Microcytosis 2+
[2018-11-04 11:56] LABS: Polychromasia 1+
[2018-11-04 12:06] LABS: ABS Basophils 0.1 10^3/ul (0-0.2); ABS Eosinophils 0.5 10^3/ul (0-0.6); ABS Lymphocytes 1.4 10^3/ul (1.0-4.8); ABS Monocytes 0.7 10^3/ul (0-0.8); ABS Neutrophils 3.2 10^3/ul (1.5-7.7); Eosinophil % 7.7 %; Nucleated Red Blood Cells % 0.1
[2018-11-04] MEDS ORDERED: ALPRAZolam TAB* 0.5 MG PO PRN (13:57)
[2018-11-04] MEDS ORDERED: Albuterol HFA INHALER* 8 gm MDI INH PRN (13:57)
[2018-11-04] MEDS ORDERED: Ipratropium 0.5MG/2.5ML NEB* 0.5 MG/2.5 ML NEB.SOLN INH PRN (13:57)
--- NOTE | 2018-11-04 15:17 | HP ---
CC: Kalyan Kirby MD * HISTORY AND PHYSICAL: DATE OF ADMISSION: 11/04/18 PRIMARY CARE PROVIDER: Kalyan Kirby MD ATTENDING PHYSICIAN: Diana Tucker MD * (dictated by DAVID Tovar) CHIEF COMPLAINT: Shortness of breath. HISTORY OF PRESENT ILLNESS: Ms. Ely is a 73-year-old female with a past medical history of COPD, requiring 2 L of oxygen and atrial fibrillation, who presented to the ER today with complaints of shortness of breath. She states that this began yesterday, but worsened today. She states that she has had decreased appetite for approximately 1-1/2 weeks, decreased energy. She does complain of an occasional cough with some mucus and states that she does not typically have a cough. She also complains of diaphoresis when she is having shortness of breath. She noted that she used approximately 3 nebulizers consecutively prior to calling 911 today and then was transported to the ER. She denies nausea, vomiting, hematochezia, melena. She denies use of Aleve or ibuprofen. She denies wheezing. She denies dizziness, lightheadedness, syncope , or recent fall. While in the emergency room, the patient received a full workup which included a chest x-ray and blood work. She is noted to have tachycardia, anemia with hemoglobin of 6.9, hematocrit of 23. Slightly elevated platelet count at 526. The hospitalist team were asked to evaluate the patient for admission. PAST MEDICAL HISTORY: 1. COPD. 2. Atrial fibrillation. 3. Anxiety. PAST SURGICAL HISTORY: None. MEDICATIONS: Home medications: 1. Albuterol/ipratropium 1 nebulizer q.4 hours p.r.n. shortness of breath/ wheeze. 2. Albuterol HFA inhaler 2 puff inhalation 4 time a day p.r.n. shortness of breath/wheeze. 3. Alprazolam 0.5 mg p.o. b.i.d. p.r.n. anxiety, MDD 2. 4. Apixaban 5 mg p.o. b.i.d. 5. Aspirin 81 mg p.o. daily. 6. Budesonide nebulizer 0.5 mg inhalation b.i.d. 7. Diltiazem 360 mg p.o. daily. 8. Epinephrine 0.3 mg IM once p.r.n. allergy symptoms. 9. Bevespi Aerosphere inhaler 2 puffs inhalation b.i.d. 10. Ipratropium nebulizer 0.5 mg inhalation t.i.d. p.r.n. shortness of breath/ wheeze. ALLERGIES: BEE VENOM, hives/difficulty breathing/itching. FAMILY HISTORY: Positive for heart disease, CVA, and likely positive for cancer. Negative for hypertension, hyperlipidemia, and diabetes. SOCIAL HISTORY: The patient is a former smoker. She states she quit 8 to 9 years ago. She smoked approximately 1 pack per day for approximately 40 years. She rarely uses alcohol, stating that she has had no alcohol in the last 2 to 3 years. She is retired. She lives alone. In the event that she is unable to make her own medical decision, she has appointed her daughter, Chanda Felix, to be her surrogate decision maker. REVIEW OF SYSTEMS: A 10-point review of systems was performed and all the pertinent positives and negatives are in the HPI. All other systems are negative. PHYSICAL EXAMINATION GENERAL: Ms. Ely is a well-developed, well-nourished, overweight, older white woman who is sitting up in bed. She appears to be working to breathe and is pursed lip breathing, but she is not in acute respiratory distress. She is requiring 3 L of oxygen nasal cannula at this time, 1 L more than baseline. VITAL SIGNS: Temperature 98.3 temporal, heart rate 101, respiratory rate 19, oxygen saturation 100% on 3 L, blood pressure 143/65. HEENT: Visual vasquez are grossly intact. PERRL. Extraocular movements are intact. There is no scleral icterus. Conjunctiva is pale. Hearing is grossly intact. Oral mucus membranes are moist. There are no lesions. Pharynx is clear. RESPIRATORY: Symmetrical chest expansion. There is no use of accessory muscles. Breath sounds are decreased throughout bilaterally. There is no rhonchi, wheezes, or rubs. CARDIOVASCULAR: Tachycardic rate, regular rhythm with S1 and S2 present. There are no murmurs, rubs, or gallops. There is no JVD. ABDOMEN: Bowel sounds in all quadrants. The abdomen is soft and nontender to palpation. There is no hepatosplenomegaly. EXTREMITIES: Skin is warm and smooth bilaterally. There is no clubbing, cyanosis, or edema. Radial and pedal pulses are palpable. NEUROLOGIC: The patient is awake. She is alert and oriented x3. She is able to move all of her extremities. DIAGNOSTIC STUDIES/LABORATORY DATA: Chest x-ray 11/04/18, impression: No active cardiopulmonary disease is noted. RBC 3.28, HGB is 6.9, HCT 23, MCV 70, MCH 21, MCHC 30, RDW 18, platelet count 526. D-dimer less than 200. CMP within normal limits. BNP 32, CRP 8.32. ASSESSMENT AND PLAN: Ms. Ely is a 73-year-old female with a past medical history of chronic obstructive pulmonary disease and atrial fibrillation, who presents to the ER today with complaints of shortness of breath. She is found to be anemic. The patient will be admitted on observation for: 1. Shortness of breath. Pulmonary exam is benign. There are no wheezes. I do not suspect that the patient is having a chronic obstructive pulmonary disease exacerbation, although she is noted to have had multiple nebulizers as well as Solu- Medrol 125 in the ER this morning. She is noted to be anemic. One unit of red blood cells will be ordered. A guaiac stool for occult blood has been ordered. Pending the results of that, we may consult Gastroenterology. She will be placed on PPI for the time being. 2. Chronic obstructive pulmonary disease. Continue home nebulizers. The patient is noted to have prednisone 10 on her med list, but she states that she stopped taking this more than 1 month ago. 3. Atrial fibrillation. Continue diltiazem. We will hold apixaban in the setting of possible gastrointestinal bleed. 4. Anxiety. Continue alprazolam b.i.d. p.r.n. 5. Code status. Full code. 6. DVT prophylaxis. Based on the DVT risk assessment, the patient scores 4 and is high risk. At the current time, she is on Eliquis. This will be held for the time being pending results of guaiac test. TIME SPENT: Approximately 45 minutes were spent on this admission; greater than half that time was spent [id number] with the patient obtaining history, performing physical , and reviewing the plan of care. The case was then reviewed with my attending Dr. Tucker who is in agreement with the plan of care. DAVID DALE [id number]/[facility] #: [id number] API HEALTHCAREGhulam
[2018-11-04] MEDS: Pantoprazole IV* 40 MG IV SCH (18:54)
[2018-11-04] MEDS: Budesonide NEB* 0.5 MG/2 ML NEB.SOLN INH SCH (19:24)
[2018-11-04] MEDS: GLYCOPYRROLATE INH SCH (19:32)
[2018-11-04] MEDS: [UNRECOGNIZED DRUG - OTHER] INH SCH (19:32)
[2018-11-04] MEDS ORDERED: Docusate CAP* 100 MG PO PRN (21:47)
[2018-11-04] MEDS: Albuterol/Ipratropium NEB.SOL* Albuterol 2.5 MG/Ipratropium 0.5 MG 3 ML INH PRN (23:49)
[2018-11-05] MEDS: GLYCOPYRROLATE INH SCH (07:09)
[2018-11-05] MEDS: [UNRECOGNIZED DRUG - OTHER] INH SCH (07:09)
[2018-11-05 07:10] LABS: ABS Lymphocytes 0.8 10^3/ul (1.0-4.8); ABS Monocytes 0.2 10^3/ul (0-0.8); ABS Neutrophils 4.9 10^3/ul (1.5-7.7); Hematocrit 27 % (35-47); Hemoglobin 8.5 g/dL (12.0-16.0); Mean Corpuscular HGB Conc 32 g/dL (31-36); Mean Corpuscular Hemoglobin 23 pg (27-31); Mean Corpuscular Volume 72 fL (80-97); Mean Platelet Volume 6.6 fL (7.4-10.4); Platelet Count 575 10^3/uL (150-450); Red Blood Count 3.78 10^6 /uL (3.70-4.87); Red Cell Distribution Width 20 % (10.5-15); White Blood Count 5.8 10^3/uL (3.5-10.8)
[2018-11-05 07:21] LABS: Calcium 9.1 mg/dL (8.6-10.3); EGFR African American 81.1 (>60); Potassium 4.1 mmol/L (3.5-5.0)
[2018-11-05] MEDS: Budesonide NEB* 0.5 MG/2 ML NEB.SOLN INH SCH (07:26)
[2018-11-05] MEDS: Diltiazem CD CAP* 180 MG PO SCH (07:51)
--- NOTE | 2018-11-05 13:31 | PN ---
Subjective Date of Service: 11/05/18 Interval History: Arrived while eating lunch. Very dyspneic, purse lip breathing, difficulty talking in full sentences After several minutes became calmer and while pursed lip breathing continues her rate and comfort with respiration improved dramatically She indicated breathing became worse when I arrived She indicates breathing better than yesterday but not much improved Indicated some improvement with nebulizers prior to arrival but the effect was not durable No BMs No change in BMs Last cscope 6-7 years prior per her report Indicates she eats "lots of hamburgers" when asked about her diet Objective Active Medications: Albuterol (Ventolin Hfa Inhaler*) 2 puff INH QID PRN PRN Reason: SOB/WHEEZING Albuterol/Ipratropium (Duoneb (Albuterol 2.5 Mg/Ipratropium 0.5 Mg)) 1 neb INH Q4H PRN PRN Reason: SOB/WHEEZING Last Admin: 11/04/18 23:49 Dose: 1 neb Albuterol/Ipratropium (Duoneb (Albuterol 2.5 Mg/Ipratropium 0.5 Mg)) 1 neb INH [id number] AWAKE ELLE Alprazolam (Xanax Tab*) 0.5 mg PO BID PRN PRN Reason: ANXIETY Budesonide (Pulmicort Neb*) 0.5 mg INH BID [facility] Last Admin: 11/05/18 07:26 Dose: 0.5 mg Diltiazem HCl (Cardizem Cd Cap*) 360 mg PO DAILY [facility] Last Admin: 11/05/18 07:51 Dose: 360 mg Docusate Sodium (Colace Cap*) 100 mg PO DAILY PRN PRN Reason: CONSTIPATION Glycopyrrolate/Formoterol Fumarate (Bevespi Aerospere Inhaler) 2 puff INH BID [facility] Last Admin: 11/05/18 07:09 Dose: Not Given Ipratropium [place] (Atrovent 0.5 Mg Neb.Steph*) 0.5 mg INH TID PRN PRN Reason: SOB/WHEEZING Methylprednisolone Sodium Succinate (Solu-Medrol 125mg *) 60 mg IV Q8H ELLE Pantoprazole Sodium (Protonix Iv*) 40 mg IV Q24H [facility] Last Admin: 11/04/18 18:54 Dose: 40 mg Vital Signs - 8 hr 0511/05/18 11/05/18 07:28 07:44 12:26 Temperature 97.9 F 97.9 F Pulse Rate 78 74 84 Respiratory 18 24 22 Rate Blood Pressure 136/60 133/59 (mmHg) O2 Sat by Pulse 97 98 97 Oximetry Oxygen Devices in Use Now: Nasal Cannula - 2L 98% Appearance: purse lipped breathing but no distress Eyes: No Scleral Icterus, PERRLA Ears/Nose/Mouth/Throat: Clear Oropharnyx, Mucous Membranes Moist Neck: NL Appearance and Movements; NL JVP, Trachea Midline Respiratory: Symmetrical Chest Expansion and Respiratory Effort, Clear to Auscultation, - - clear throughout - prolonged expiratory phase Cardiovascular: RRR Abdominal: NL Sounds; No Tenderness; No Distention, No Hepatosplenomegaly Lymphatic: No Cervical Adenopathy Extremities: No Edema Skin: No Rash or Ulcers, No Nodules or Sclerosis Neurological: Alert and Oriented x 3 Result Diagrams: 11/05/18 07:00 11/05/18 07:00 Microbiology and Other Data: Microbiology 11/04/18 11:11 Aerobic Blood Culture - Preliminary Blood Venous No Growth Day 1 Anaerobic Blood Culture - Preliminary No Growth Day 1 11/04/18 11:07 Aerobic Blood Culture - Preliminary Blood Venous No Growth Day 1 Anaerobic Blood Culture - Preliminary No Growth Day 1 Assess/Plan/Problems-Billing Assessment: 73 yo F h/o COPD, afib, anxiety pw SOB - Patient Problems (1) Shortness of breath Comment: Suspect COPD exacerbation - allergies are a trigger transition home medications to dulera since hers are not all formulary duonebs standing while awake until improved Anemia may have been contributing. She indicates she has not had blood drawn at PCP in over a year which is c/w what we have in our records IV steroids (2) Anemia Comment: Microcytic Add on ferritin, transferrin sat, iron lvl and retic count to ED labs prior to receipt of blood. She is s/p 1U PRBC on 11/04 She is generally against a cscope 2/2 prep but not an EGD. She was not unwavering in this decision and so I have placed a GI consultation and called endoscopy to relay order (3) Atrial fibrillation Comment: holding apixaban in setting of anemia and need for PRBC restart tomorrow if stable and no e/o bleed c/w diltizaem (4) DVT prophylaxis Comment: SCDs in setting of anemia
[2018-11-05 13:50] LABS: Hematocrit for Retic CNT 27 % (35-47); RBC Retic Count 3.78 10^6/uL (3.70-4.87)
[2018-11-05 13:55] LABS: Corrected Retic Count 1.1 % (0.5-1.5); Immature Retic Fraction 0.47
[2018-11-05 14:01] LABS: Ferritin 8.3 ng/mL (11-307)
[2018-11-05] MEDS: Pantoprazole IV* 40 MG IV SCH (14:58)
[2018-11-05] MEDS: methylPREDNISolone 125 MG* 2 ML VIAL IV SCH ×2 (15:00→20:48)
[2018-11-05] MEDS: Albuterol/Ipratropium NEB.SOL* Albuterol 2.5 MG/Ipratropium 0.5 MG 3 ML INH SCH ×2 (15:31→19:26)
[2018-11-05] MEDS ORDERED: PEG 3000 GI LAVAGE* 1 GALLON PO ONE (17:34)
[2018-11-05] MEDS ORDERED: Acetaminophen TAB* 325 MG PO PRN (17:40)
[2018-11-05] MEDS: Mometasone/Formoter 200/5 MDI INH SCH (19:21)
--- NOTE | 2018-11-05 20:45 | CONS ---
GASTROENTEROLOGY CONSULT: DATE: 11/05/18 CONSULTING PHYSICIANS: Dr. Jonathan Kearney, Dr. Kalyan Kirby. REASON FOR CONSULTATION: 1. Iron-deficiency anemia. 2. COPD. 3. Atrial fibrillation, taking Eliquis for about 2 years. HISTORY: This 73-year-old woman with COPD, on home O2, and yet fairly functional, again feeling poorly 2 or 3 days ago. She lost her appetite. She became overtly short of breath. Yesterday, she came to the emergency room and her hemoglobin was 6.9, MCV 70. She has not had any overt bleeding and no indicator symptoms from the guts. She states her appetite had been generally good. She eats an unrestricted diet and has a fair amount of red meat. She does not have any acid peptic problems and denies taking any OTC gastrointestinal remedies. She does not take any NSAIDs. She is on a baby aspirin and has been so for 15 or 20 years. Eliquis was added a couple of years ago and she presented with AFib. She had colonoscopies in 2002 and 2007, routine screening. There were no findings. Upper endoscopy in 2007 showed some minimal erosions. PAST MEDICAL HISTORY: 1. COPD - she quit smoking over 10 years ago. 2. Atrial fibrillation - no thromboembolic phenomena. 3. Long chronic anticoagulation - 2 years without overt problems. 4. Hypertension. 5. History of tonsillectomy. SOCIAL HISTORY: She is single. She has a daughter living with her. 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 REVIEW OF SYSTEMS: She denies any history of syncope, overt palpitations, NE, hemoptysis, TB, hepatitis, jaundice or rectal bleeding. She takes laxatives very rarely "whatever is entail." PHYSICAL EXAM: She is a somewhat pasty complected woman with slightly pursed lip breathing, sitting in chair, in no distress. She is fairly jovial. HEENT exam is unremarkable otherwise. She is afebrile through 1 p.m., pulse approximately 80, blood pressure 132/59. Breath sounds are diminished symmetrically. Heart sounds are irregular, but without overt murmur. Chest is a little bit barrel. Her abdomen is obese, symmetric without scars and nontender. Perianal inspection is normal and rectum reveals firm, grayish brown stool, submitted for Hemoccult. Extremity showed no edema. Neurologic is nonfocal. DIAGNOSTIC STUDIES/LAB DATA: Labs - CBC trend showed CBC slowly edging downwards in the last 2 or 3 years. Hemoglobin of 15.5 on 11/18/16 to 11.6 in March 2018. MCV during that time going from 92 to 85. Creatinine currently is 0.83, BUN 10, ferritin 8.3 (only determination in the database) and albumin 3.9. CRP currently is 8.32. LFTs normal. IMPRESSION: This 73-year-old woman with chronic obstructive pulmonary disease who presents with clearcut iron deficiency anemia without any gastrointestinal symptoms suggesting a source. She is not taking prednisone or NSAIDs and thus choice between an upper source and lower source is indeterminate. Bidirectional endoscopy she accepts that plan. Though, she has fairly severe chronic obstructive pulmonary disease, she has a fairly outward facing perspective on life that appears and it is not clear that any findings would be beyond her capacity to withstand the treatment including surgery. [id number]/[facility] #: [id number] MTDD
[2018-11-06] MEDS: Albuterol/Ipratropium NEB.SOL* Albuterol 2.5 MG/Ipratropium 0.5 MG 3 ML INH SCH (00:27)
[2018-11-06] MEDS: Albuterol/Ipratropium NEB.SOL* Albuterol 2.5 MG/Ipratropium 0.5 MG 3 ML INH PRN ×2 (04:02→19:38)
[2018-11-06] MEDS: methylPREDNISolone 125 MG* 2 ML VIAL IV SCH ×2 (05:42→16:25)
[2018-11-06 08:35] LABS: Hematocrit 24 % (35-47); Hemoglobin 7.5 g/dL (12.0-16.0); Mean Corpuscular HGB Conc 32 g/dL (31-36); Mean Corpuscular Hemoglobin 23 pg (27-31); Mean Corpuscular Volume 72 fL (80-97); Mean Platelet Volume 6.9 fL (7.4-10.4); Platelet Count 535 10^3/uL (150-450); Red Cell Distribution Width 20 % (10.5-15); White Blood Count 12.1 10^3/uL (3.5-10.8)
[2018-11-06] MEDS: Diltiazem CD CAP* 180 MG PO SCH (08:56)
[2018-11-06] MEDS: Mometasone/Formoter 200/5 MDI INH SCH ×2 (09:12→19:37)
[2018-11-06] MEDS ORDERED: PEG 3000 GI LAVAGE* 1 GALLON PO ONE (10:00)
[2018-11-06] MEDS ORDERED: fentaNYL* 50 MCG/ML 2 ML VIAL (100 MCG VIAL) ONE (14:17)
[2018-11-06] MEDS ORDERED: Midazolam* 1 MG/ML 10 ML VIAL (10 MG) ONE (14:17)
[2018-11-06] MEDS: Pantoprazole IV* 40 MG IV SCH (16:26)
[2018-11-06] MEDS ORDERED: Iron Sucrose* 200 MG in NS 0.9% 100 ML* 100 ML IVPB ONE (16:30)
--- NOTE | 2018-11-06 16:44 | PRO ---
DATE: 11/06/18 - Inpatient, room 419-02 REFERRING PHYSICIAN: Dr. Kalyan Kirby, [facility]* PROCEDURE: Upper gastrointestinal endoscopy to distal duodenum; colonoscopy and ileoscopy. INDICATION: This 73-year-old woman known to have COPD, came to the emergency room with shortness of breath and fatigue. She was found to be profoundly anemic with hemoglobin of 6.9, MCV of 70. She was transfused 1 unit, keeping her hemoglobin to 8.0 and then this morning 7.5. She has not had any overt bleeding. She has been on Eliquis for a couple of years. Yesterday, she was heme positive. Informed consent was obtained in a wide ranging discussion. ENDOSCOPIST: Dr. Pyle. MEDICATIONS: Midazolam 6, fentanyl 87.5. FINDINGS: She is a pasty complected elderly woman with slightly pursed lip breathing, in no overt distress. She was positioned left side down and moderate sedation induced with very gradual doses of medication. EGD: Larynx - no gross disease. Esophagus - easily entered. The mucosa is normal in the upper and mid esophagus and then an erosive change is seen at 34 with no nodules or ridges. It did appear to be a potentially columnar lined esophagus, short segment. Granularity was present and it may have been just peptic esophagitis. The EG junction appeared to be at 37 and the hiatus is 39. There was a small to medium hiatal hernia without any stricture. Stomach - generally normal mucosa in the cardia, fundus, body, and antrum. The rugal folds were normal. There was no indication to biopsy. Duodenum - the pylorus, bulb, and second through fourth portions were normal. Excellent views were obtained despite the use of the ultraslim pediatric scope. Colonoscopy - initial views show an excellent prep and normal mucosa. The adult scope passed easily into the sigmoid where there was 1 to 2+ diverticulosis without any haustral changes or erythema. There was no fixation and a haustral pattern was still rather delicate without any signs of past inflammation. The scope passed easily to the cecum. The cecum had a fair amount of granulated debris, but full insufflation, was able to visualize the appendiceal orifice. No AVMs were seen. No blood was seen. The ileocecal valve was normal and the ileum intubated for 20 cm and normal. Coming back slowly, no abnormalities were seen. No blood was seen. Final views in the rectum including retroflexion was normal. IMPRESSION: 1. Small to medium hiatal hernia. 2. Mild to moderate erosive gastroesophageal reflux disease - fairly short segment. 3. Mild sigmoid diverticulosis. 4. Otherwise normal colonoscopy and ileoscopy. 5. Iron deficiency anemia - long-term Eliquis with the erosive gastroesophageal reflux disease could be the explanation and would hold Eliquis until outpatient followup where Hemoccult can be confirmed as negative. In the interim, would give an iron infusion and discharge on omeprazole 20 mg along with low-dose iron and multivitamin. [id number]/[facility] #: [id number] [facility]
--- NOTE | 2018-11-06 18:22 | PN ---
Subjective Date of Service: 11/06/18 Interval History: Seen s/p procedure short segment GE erosion noted Breathing feels better, not SOB No e/o on going bleeding Objective Active Medications: Acetaminophen (Tylenol Tab*) 650 mg PO Q6H PRN PRN Reason: PAIN Albuterol (Ventolin Hfa Inhaler*) 2 puff INH QID PRN PRN Reason: SOB/WHEEZING Albuterol/Ipratropium (Duoneb (Albuterol 2.5 Mg/Ipratropium 0.5 Mg)) 1 neb INH Q4H PRN PRN Reason: SOB/WHEEZING Last Admin: 11/06/18 04:02 Dose: 1 neb Alprazolam (Xanax Tab*) 0.5 mg PO BID PRN PRN Reason: ANXIETY Diltiazem HCl (Cardizem Cd Cap*) 360 mg PO DAILY [facility] Last Admin: 11/06/18 08:56 Dose: 360 mg Docusate Sodium (Colace Cap*) 100 mg PO DAILY PRN PRN Reason: CONSTIPATION Ipratropium Golden (Atrovent 0.5 Mg Neb.Steph*) 0.5 mg INH TID PRN PRN Reason: SOB/WHEEZING Methylprednisolone Sodium Succinate (Solu-Medrol 40 Mg) 40 mg IV Q12H [facility] Stop: 11/06/18 19:31 Mometasone Furoate/Formoterol Fumar (Dulera 200/5 Mdi*) 2 puff INH BID [facility] Last Admin: 11/06/18 09:12 Dose: 2 puff Pantoprazole Sodium (Protonix Tab*) 40 mg PO BID [facility] Prednisone (Deltasone Tab*) 40 mg PO DAILY [facility] Vital Signs - 8 hr 11/06/18 11/06/18 11/06/18 11:35 16:35 17:32 Temperature 97.7 F 97.7 F 98 F Pulse Rate 73 63 68 Respiratory 20 20 20 Rate Blood Pressure 136/70 136/61 135/61 (mmHg) O2 Sat by Pulse 100 97 100 Oximetry Oxygen Devices in Use Now: Nasal Cannula Appearance: NAD Eyes: No Scleral Icterus, PERRLA Ears/Nose/Mouth/Throat: NL Teeth, Lips, Gums, Clear Oropharnyx Neck: NL Appearance and Movements; NL JVP Respiratory: Symmetrical Chest Expansion and Respiratory Effort, Clear to Auscultation Cardiovascular: RRR Abdominal: NL Sounds; No Tenderness; No Distention, No Hepatosplenomegaly Lymphatic: No Cervical Adenopathy Extremities: No Edema Skin: No Rash or Ulcers Neurological: Alert and Oriented x 3, - - still a little groggy from procedure Result Diagrams: 11/06/18 07:47 11/05/18 07:00 Microbiology and Other Data: Microbiology 11/04/18 11:11 Aerobic Blood Culture - Preliminary Blood Venous No Growth Day 1 Anaerobic Blood Culture - Preliminary No Growth Day 1 11/04/18 11:07 Aerobic Blood Culture - Preliminary Blood Venous No Growth Day 1 Anaerobic Blood Culture - Preliminary No Growth Day 1 Assess/Plan/Problems-Billing Assessment: 73 yo F h/o COPD, afib, anxiety pw SOB found with new anemia - Patient Problems (1) Shortness of breath Comment: Suspect COPD exacerbation - allergies are a trigger transitioned home medications to dulera since hers are not all formulary duonebs PRN Anemia may have been contributing. She indicates she has not had blood drawn at PCP in over a year which is c/w what we have in our records IV steroids tonight then PO starting tomorrow (2) Anemia Comment: Microcytic - suspect anticoagulation and short segment gastroesophageal reflux dz contributed Hold eliquis until f/u with [facility] in 2-3 weeks 1 dose venofer while here PO Iron and MVI on discharge Repeat CBC tomorrow prior to d/c - additional PRBC if needed She is s/p 1U PRBC on 11/04 (3) Atrial fibrillation Comment: holding apixaban in setting of anemia and need for PRBC c/w diltizaem (4) DVT prophylaxis Comment: SCDs in setting of anemia
[2018-11-06] MEDS ORDERED: methylPREDNISolone SOD 40 MG* 1 ML VIAL IV SCH (19:30)
[2018-11-06] MEDS: Pantoprazole TAB * 40 MG TAB PO SCH (20:28)
[2018-11-07 06:37] LABS: ABS Lymphocytes 0.5 10^3/ul (1.0-4.8); ABS Monocytes 0.4 10^3/ul (0-0.8); ABS Neutrophils 11.5 10^3/ul (1.5-7.7); Hematocrit 23 % (35-47); Hemoglobin 7.3 g/dL (12.0-16.0); Lymphocyte % 4.1 %; Mean Corpuscular HGB Conc 32 g/dL (31-36); Mean Corpuscular Hemoglobin 23 pg (27-31); Mean Corpuscular Volume 72 fL (80-97); Platelet Count 494 10^3/uL (150-450); Red Blood Count 3.22 10^6 /uL (3.70-4.87); Red Cell Distribution Width 20 % (10.5-15); White Blood Count 12.4 10^3/uL (3.5-10.8)
[2018-11-07 06:53] LABS: BUN/Creatinine Ratio 22.5 (8-20); Calcium 8.4 mg/dL (8.6-10.3); EGFR African American 97.1 (>60); EGFR Non-African American 80.3 (>60); Potassium 3.5 mmol/L (3.5-5.0)
[2018-11-07] MEDS: Mometasone/Formoter 200/5 MDI INH SCH (07:17)
[2018-11-07 07:55] VITALS: BP 125/58
[2018-11-07] MEDS: Diltiazem CD CAP* 180 MG PO SCH (08:49)
[2018-11-07] MEDS: Pantoprazole TAB * 40 MG TAB PO SCH (08:49)
[2018-11-07] MEDS ORDERED: predniSONE TAB* 20 MG PO SCH (09:00)
--- NOTE | 2018-11-07 13:27 | DS ---
CC: Dr. Kirby * DISCHARGE SUMMARY: DATE OF ADMISSION: 11/04/18 DATE OF DISCHARGE: 11/07/18 PRIMARY CARE PROVIDER: Dr. Kirby. DISPOSITION ON DISCHARGE: Home. CONDITION ON DISCHARGE: Good. PRIMARY DIAGNOSES: 1. Acute blood loss anemia. 2. Chronic obstructive pulmonary disease exacerbation. SECONDARY DIAGNOSES: Include: 1. Atrial fibrillation, on anticoagulation. 2. Anxiety. MEDICATIONS ON DISCHARGE: 1. Albuterol/ipratropium nebulized 1 inhaled every 4 hours as needed. 2. Alprazolam 0.5 mg twice daily as needed. 3. Bevespi Aerosphere inhaler 2 puffs inhaled twice daily. 4. Ipratropium 0.5 mg inhaled 3 times a day as needed. 5. Albuterol HFA 2 puffs inhaled every 4 hours as needed. 6. Epinephrine 2 packs for allergic reaction. 7. Aspirin 81 mg daily. 8. Diltiazem CD 360 mg daily. 9. Budesonide 0.5 mg twice daily. 10. Prednisone 40 mg for 4 additional days. 11. Omeprazole 20 mg twice daily. 12. Multivitamin with iron and folic acid 1 tab daily. 13. Ferric citrate 210 mg daily. PROCEDURES PERFORMED DURING HOSPITAL STAY: 1. Colonoscopy. 2. EGD. IMPRESSION: 1. Cbwnv-zv-meoiyy hiatal hernia. 2. Vsqz-ud-axuilbuz erosive gastroesophageal reflux disease in a fairly short segment. 3. Mild sigmoid diverticulosis. 4. Otherwise normal colonoscopy and ileoscopy. Recommendation is to hold Eliquis until followed up by Dr. Pyle in 2 to 3 weeks. PERTINENT LABORATORY DATA: Hemoglobin on presentation 6.9, increased to 8.5 after 1 unit of packed red blood cells, decreased to 7.5 after that. The patient is receiving 1 additional unit of packed red blood cells prior to her discharge. HISTORY OF PRESENT ILLNESS AND HOSPITAL COURSE: This is a 73-year-old woman with past medical history as outlined in the history of present illness on the day of admission, who presented to the hospital with increased shortness of breath, had been feeling unwell for several days prior to her presentation. She denied any nausea, vomiting, hematochezia, or melena. She was found to be anemic, thought to be contributing to her shortness of breath, however additionally in COPD exacerbation. The patient was started on steroids, received 1 unit of packed red blood cells the following day, she had largely improved. She underwent an EGD and colonoscopy as indicated above with the results as indicated above, the short segment and GERD likely contributing to slow oozing of blood and iron-deficiency anemia. She received 1 infusion of Venofer prior to her departure as well as started on a multivitamin as well as iron supplementation in conjunction with omeprazole twice daily. In discussion with the patient as well as Gastroenterology, the patient will hold her apixaban for 2 to 3 weeks until she is followed up with Dr. Pyle. Discussed the risks and benefits of holding apixaban with the patient, which included decreased risk of bleeding and anemia and increased risk of stroke over that period of time. The patient has opted to hold the apixaban as indicated above until followup with Dr. Pyle or at least a later date after full discussion of associated risks and benefits. On the day of discharge, the patient's breathing was much improved. She had no wheezes, rhonchi, or rales. She was in no distress. Talking fairly jovial and laughing. During the course of hospital stay, she had no episode of blood loss above or below, although her stool occult blood on the third day of the hospital stay was positive. There were no complications during the course of the hospital stay. FOLLOWUP: 1. Ensure the patient follows up with Dr. Pyle. 2. Restart apixaban appropriate duration. 3. Recommend repeat CBC at a later date to ensure hemoglobin stability and improving hematocrit. 4. Adjust medications as necessary in the future, including likely discontinuation of PPI when no longer necessary. 5. No other specific labs or vitals that need followup, although I am not sure Dr. Pyle took any biopsies; if so, then biopsies will need to be followed to their completion. Reason to return to the hospital include, but are not limited to, recurrent or worsening symptoms, chest pain, shortness of breath or difficulty breathing, nausea, vomiting, lightheadedness, loss of consciousness or near loss of consciousness, or bleeding from any source, including black stools, discussed with the patient and she acknowledged understanding. TIME SPENT: Greater than 60 minutes was spent on discharge of this patient; greater than half was spent [id number] with the patient. [id number]/[facility] #: [id number] [facility]
== END 2018-11-07 15:00 | disposition home or self-care (01) | DRG 191 ==
LOC: ED 10:42 → MED 13:47 → OBSVTOIN 11-05 14:00
PROVIDERS: ADMIT Internal Medicine; ATTEND Internal Medicine
PROC: 30233N1 Transfusion of Nonautologous Red Blood Cells into Peripheral Vein, Percutaneous Approach (ICD-10-PCS; principal; 2018-11-05)
PROC: 0DJ08ZZ Inspection of Upper Intestinal Tract, Via Natural or Artificial Opening Endoscopic (ICD-10-PCS; 2018-11-06)
PROC: 0DJD8ZZ Inspection of Lower Intestinal Tract, Via Natural or Artificial Opening Endoscopic (ICD-10-PCS; 2018-11-06)
DX: J43.9 Emphysema, unspecified (principal); D62 Acute posthemorrhagic anemia; K22.10 Ulcer of esophagus without bleeding; I48.91 Unspecified atrial fibrillation; K25.9 Gastric ulcer, unspecified as acute or chronic, without hemorrhage or perforation; F41.9 Anxiety disorder, unspecified; K44.9 Diaphragmatic hernia without obstruction or gangrene; K21.9 Gastro-esophageal reflux disease without esophagitis; K57.30 Diverticulosis of large intestine without perforation or abscess without bleeding; R19.5 Other fecal abnormalities; J34.89 Other specified disorders of nose and nasal sinuses; R00.0 Tachycardia, unspecified; E66.3 Overweight; K21.0 Gastro-esophageal reflux disease with esophagitis; Z87.891 Personal history of nicotine dependence; Z91.030 Bee allergy status; Z80.3 Family history of malignant neoplasm of breast; Z72.89 Other problems related to lifestyle; Z79.01 Long term (current) use of anticoagulants; Z79.82 Long term (current) use of aspirin; Z68.27 Body mass index [BMI] 27.0-27.9, adult
CPT/HCPCS: 36415; 71045; 80048; 80053; 82272; 82728; 83540; 83605; 83880; 84466; 84484; 85025; 85027; 85045; 85060; 85379; 85610; 86140; 86850; 86900; 86901; 86922; 87040; 93005; 94640; 99156; 99157; 99284; A9270-GY; G0378; J1756; J2250; J2920; J2930; J3010; J7512; P9040

== ENCOUNTER 2018-11-09 10:20 | Observation (INO) | payer MEDICARE, OTHER ==
--- NOTE | 2018-11-09 12:24 | ED ---
Shortness of Breath - HPI Summary HPI Summary: This patient is a 73 year old F presenting to ED with a chief complaint of SOB since 1030 this morning. Patient is accompanied by caregiver. The patient was admitted 11/04/18 for similar symptoms and discharged home 11/07/18. Patient had a colonoscopy during her visit. Patient has COPD and is on home O2 at 2L NC. She lives alone. The patient rates the pain 5/10 in severity. Symptoms aggravated by nothing. Symptoms alleviated by nothing. Patient reports unable to eat, CP, transient right jaw pain. PMHx of HLD, COPD, emphysema, chronic SOB , no DM. FHx of breast cancer but no DM. Patient drinks alcohol, does not use substances, but is a former smoker. No previous surgeries. - History of Current Complaint Chief Complaint: EDShortnessOfBreath Time Seen by Provider: 11/09/18 12:02 Hx Obtained From: Patient Onset/Duration: Lasting Days - Since 11/04/18, Still Present Current Severity: Moderate Aggrevating Factors: Nothing Alleviating Factors: Nothing Associated Signs & Symptoms: Chest Pain Unrelated to Cough - Allergy/Home Medications Allergies/Adverse Reactions: Allergies Allergy/AdvReac Type Severity Reaction Status Date / Time bee venom protein (honey bee) Allergy See Comment Verified 11/09/18 10:31 PMH/Surg Hx/FS Hx/Imm Hx Previously Healthy: No Endocrine/Hematology History: Denies: Hx Diabetes Cardiovascular History: Reports: Hx Hypercholesterolemia - Had it in the past, was taking medication but not currently Comment Only: Other Cardiovascular Problems/Disorders - A fib Respiratory History: Reports: Hx Chronic Obstructive Pulmonary Disease (COPD), Other Respiratory Problems/Disorders - Hx Emphysema, chronic SOB Denies: Hx Asthma Sensory History: Reports: Hx Contacts or Glasses, 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 Denies: Hx Hearing Aid Opthamlomology History: Reports: Hx Contacts or Glasses, 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 - Cancer History Hx Chemotherapy: No Hx Radiation Therapy: No - Surgical History Surgery Procedure, Year, and Place: None - Immunization History Date of Tetanus Vaccine: unknown Date of Influenza Vaccine: 2014 Infectious Disease History: No Infectious Disease History: Denies: Hx of Known/Suspected MRSA, Traveled Outside the [place] in Last 30 Days - Family History Known Family History: Positive: Other - Breast CA (sister) Negative: Diabetes - Social History Alcohol Use: Weekly Alcohol Amount: 3 drinks/week Hx Substance Use: No Substance Use Type: Reports: None Hx Tobacco Use: Yes Smoking Status (MU): Former Smoker Type: Cigarettes Amount Used/How Often: 10 cigarettes/day Length of Time of Smoking/Using Tobacco: 40 years Have You Smoked in the Last Year: Yes Review of Systems Positive: Chest Pain Positive: Shortness Of Breath Gastrointestinal: Other - Unable to eat Musculoskeletal: Other - Transient right jaw pain All Other Systems Reviewed And Are Negative: Yes Physical Exam - Summary Physical Exam Summary: GENERAL: Patient is a well-developed and nourished F who is lying comfortable in the stretcher. Patient is not in any acute respiratory distress. HEAD AND FACE: Normocephalic EYES: PERRLA, EOMI x 2. EARS: Hearing grossly intact. MOUTH: Oropharynx within normal limits. NECK: Supple, trachea is midline, no adenopathy, no JVD, no carotid bruit. CHEST: Symmetric, no tenderness at palpation LUNGS: Clear to auscultation bilaterally. No wheezing or crackles. CVS: Regular rate and rhythm, S1 and S2 present, no murmurs or gallops appreciated. ABDOMEN: Soft, non-tender. Bowel sounds are normal. No abnormal abdominal pulsations. EXTREMITIES: Full ROM in all major joints, trace bilateral edema, no cyanosis or clubbing. NEURO: Alert and oriented x 3. No acute neurological deficits. Speech is normal and follows commands. SKIN: Dry and warm Triage Information Reviewed: Yes Vital Signs On Initial Exam: Initial Vitals Temp Pulse Resp BP Pulse Ox 98 F 56 16 151/72 96 11/09/18 10:27 11/09/18 10:27 11/09/18 10:27 11/09/18 10:27 11/09/18 10:27 Vital Signs Reviewed: Yes Diagnostics - Vital Signs Vital Signs Temp Pulse Resp BP Pulse Ox 11/09/18 10:27 98 F 56 16 151/72 96 - Laboratory Result Diagrams: 11/09/18 12:59 11/09/18 12:59 Lab Statement: Any lab studies that have been ordered have been reviewed, and results considered in the medical decision making process. - Radiology CXR Radiology Interpretation Completed By: Radiologist Summary of Radiographic Findings: Stigmata of obstructive lung disease. No acute pulmonary or cardiac process evident. Dr. Rosado has reviewed this radiology report. - CT Chest/Thorax CT Interpretation Completed By: Radiologist Summary of CT Findings: 1. Negative for pulmonary embolism or pneumonia. 2. Advanced emphysema. Dr. Rosado has reviewed this radiology report. - EKG 1209 Cardiac Rate: Bradycardia - 57 BPM EKG Rhythm: Sinus Bradycardia Summary of EKG Findings: Sinus bradycardia at 57 BPM, normal axis. Re-Evaluation - Re-Evaluation First Eval Re-Evaluation Time: 15:04 Change: Worse Comment: After the patient went to use the bathroom, she is tachypneic, speaking in broken phrases, and extremely out of breath. Because she lives alone , I do not feel comfortable discharging her at the moment. Therefore, I discussed admission to the hospital. Patient understands and agrees with this plan. Course/Dx - Course Course Of Treatment: This patient is a 73 year old F presenting to ED with a chief complaint of SOB since 1030 this morning. In the ED course, patient was given Duoneb, Decadron, and fluids. Bloodwork and UA obtained. CXR revealed stigmata of obstructive lung disease. No acute pulmonary or cardiac process evident. EKG of sinus bradycardia at 57 BPM, normal axis. CT chest/thorax revealed 1. Negative for pulmonary embolism or pneumonia. 2. Advanced emphysema. After the patient got up to use the bathroom, she was tachypneic and extremely out of breath. Because she lives alone, I discussed the patient case with Dr. Anthony, hospitalist, who accepted the patient for admission. She will be admitted to [facility] with diagnosis of COPD exacerbation. I discussed results with patient. The patient agrees with this plan. - Diagnoses Differential Diagnosis/HQI/PQRI: Positive: COPD Exacerbation Provider Diagnoses: COPD exacerbation - Physician Notifications Discussed Care of Patient With: Jordy Anthony Time Discussed With Above Provider: 15:10 Instructed by Provider To: Admit As Inpatient - Discussed patient case with Dr. Anthony, hospitalist who accepted the patient for admission to [facility] because of her SOB after exertion and due to her living alone at home. She will be admitted with diagnosis of COPD exacerbation. Discharge - Sign-Out/Discharge Documenting (check all that apply): Patient Departure Patient Received Moderate/Deep Sedation with Procedure: No - Discharge Plan Condition: Fair Disposition: ADMITTED TO [facility] - Billing Disposition and Condition Condition: FAIR Disposition: Admitted to [facility] - Attestation Statements Document Initiated by Scribe: Yes Documenting Scribe: Isaias Kelly Provider For Whom Scribe is Documenting (Include Credential): Loretta Rosado MD Scribe Attestation: I, Isaias Kelly, scribed for Loretta Rosado MD on 11/09/18 at 2045. Scribe Documentation Reviewed: Yes Provider Attestation: The documentation as recorded by the scribe, Isaias Kelly accurately reflects the service I personally performed and the decisions made by me, Loretta Rosado MD Status of Scribe Document: Viewed
[2018-11-09] MEDS ORDERED: Dexamethasone IV* 4 MG/ML 1 ML (4 MG) IV SLOW PU ONE (12:55)
[2018-11-09] MEDS ORDERED: Albuterol/Ipratropium NEB.SOL* Albuterol 2.5 MG/Ipratropium 0.5 MG 3 ML INH ONE (12:55)
[2018-11-09 13:08] LABS: Hematocrit 34 % (35-47); Hemoglobin 10.8 g/dL (12.0-16.0); Mean Corpuscular HGB Conc 31 g/dL (31-36); Mean Corpuscular Hemoglobin 23 pg (27-31); Mean Corpuscular Volume 74 fL (80-97); Mean Platelet Volume 6.9 fL (7.4-10.4); Platelet Count 536 10^3/uL (150-450); Red Blood Count 4.61 10^6 /uL (3.70-4.87); Red Cell Distribution Width 22 % (10.5-15)
[2018-11-09 13:09] LABS: ABS Lymphocytes 0.8 10^3/ul (1.0-4.8); ABS Monocytes 0.4 10^3/ul (0-0.8); ABS Neutrophils 10.8 10^3/ul (1.5-7.7); Lymphocyte % 6.8 %; Nucleated Red Blood Cells % 0.1
[2018-11-09 13:15] LABS: Activated Partial Thrombo Time 21.6 seconds (26.0-36.3); INR 1.11 (0.82-1.09)
[2018-11-09 13:30] LABS: Albumin 4.2 g/dL (3.2-5.2); Albumin/Globulin Ratio 1.9 (1-3); BUN/Creatinine Ratio 21.6 (8-20); Calcium 8.8 mg/dL (8.6-10.3); EGFR African American 75.8 (>60); EGFR Non-African American 62.6 (>60); Globulin 2.2 g/dL (2-4); Magnesium 2.4 mg/dL (1.9-2.7); Potassium 3.3 mmol/L (3.5-5.0); Total Bilirubin 0.5 mg/dL (0.2-1.0); Total Protein 6.4 g/dL (6.4-8.9)
[2018-11-09] MEDS ORDERED: NS 0.9% 1000 ML** 1,000 ML IV ONE (13:51)
[2018-11-09 14:07] LABS: Urine Appearance Clear; Urine Bilirubin Negative (Negative); Urine Blood Negative (Negative); Urine Color Straw; Urine Glucose Negative (Negative); Urine Ketones Negative (Negative); Urine Nitrite Negative (Negative); Urine Protein Negative (Negative); Urine Specific Gravity 1.004 (1.010-1.030); Urine Urobilinogen Negative (Negative)
[2018-11-09] MEDS ORDERED: Iohexol 350* (CONTRAST) 500 ML MDV IV ONE (14:07)
[2018-11-09] MEDS ORDERED: Acetaminophen TAB* 325 MG PO PRN (16:49)
[2018-11-09] MEDS ORDERED: Ipratropium 0.5MG/2.5ML NEB* 0.5 MG/2.5 ML NEB.SOLN INH PRN (18:45)
[2018-11-09] MEDS ORDERED: Albuterol/Ipratropium NEB.SOL* Albuterol 2.5 MG/Ipratropium 0.5 MG 3 ML INH PRN (18:45)
[2018-11-09] MEDS ORDERED: Albuterol HFA INHALER* 8 gm MDI INH PRN (18:45)
[2018-11-09] MEDS ORDERED: Potassium Chlor TAB* 20 MEQ TAB.ER PO ONE (18:48)
[2018-11-09] MEDS: ALPRAZolam TAB* 0.5 MG PO PRN (19:37)
[2018-11-09] MEDS: Pantoprazole TAB * 40 MG TAB PO SCH (20:09)
[2018-11-09] MEDS: Budesonide NEB* 0.5 MG/2 ML NEB.SOLN INH SCH (21:37)
[2018-11-09] MEDS: FORMOTEROL INH SCH (21:40)
[2018-11-09] MEDS: GLYCOPYRROLATE INH SCH (21:40)
--- NOTE | 2018-11-10 04:58 | HP ---
CC: Dr. Kirby* HISTORY AND PHYSICAL: DATE OF ADMISSION: 11/09/18 PROVIDER: Marion Andrews NP. PRIMARY CARE PROVIDER: Dr. Kirby. ATTENDING PHYSICIAN WHILE IN THE HOSPITAL: Dr. Jordy Anthony* (dictated by Marion Andrews NP). CHIEF COMPLAINT: Shortness of breath. HISTORY OF PRESENT ILLNESS: Ms. Ely is a 73-year-old female who was recently admitted to [facility] [place] 11/04/18 to 11/07/18 with acute blood loss anemia and chronic obstructive pulmonary disease exacerbation. The patient reports that she was feeling well on the day of discharge. She continued taking her prednisone 40 mg at home. The patient reports that she was discharged approximately 3 p.m. and that night when she went to bed, she did not wear her oxygen to bed and she woke very short of breath as the patient does report that she is chronically on 2 L of O2 daily. She reports that her shortness of breath progressively became worse. She reports that she woke approximately 8 o' clock this morning. She was short of breath and having a hard time breathing. Due to her shortness of breath, she was unable to eat. So, she presented to the emergency room for further evaluation. The patient also reports that she was not taking her Xanax for approximately 2 days and she was also feeling anxious. She denies any fever or chills. She denies any chest pain. She does report shortness of breath. She denies any increased cough or sputum production. While in the emergency room, the patient had a chest x-ray. Radiologist's impression: She had a chest x-ray and a CTA of the chest. The CTA of the chest was negative for pulmonary embolism. Due to her progressively worsening shortness of breath, we were asked to see and evaluate her for admission. PAST MEDICAL HISTORY: Significant for: 1. COPD. 2. Atrial fibrillation. 3. Anxiety. PAST SURGICAL HISTORY: None. HOME MEDICATIONS: Include: 1. Albuterol/ipratropium 1 neb q.4 hours as needed for shortness of breath. 2. Albuterol HFA inhaler 2 puffs q.4 hours as needed for shortness of breath and wheezing. 3. Alprazolam 0.5 mg p.o. b.i.d. p.r.n. anxiety. 4. Apixaban 5 mg p.o. b.i.d., currently on hold for 14 days. 5. Aspirin 81 mg p.o. daily, currently on hold for 14 days from 11/07/18. 6. Budesonide nebulizer 0.5 mg inhaled b.i.d. 7. Diltiazem 360 mg p.o. daily. 8. Epinephrine 0.3 mg IM once as needed for allergy symptoms. 9. Bevespi Aerosphere inhaler 2 puffs b.i.d. 10. Ipratropium nebulizer t.i.d. as needed for shortness of breath and wheezing. 11. Omeprazole 20 mg p.o. twice daily. 12. Multivitamin with iron 1 tab p.o. daily. 13. Ferric citrate 210 mg p.o. daily. 14. Prednisone 40 mg p.o. daily x4 days. Should be completed on 11/11/18. ALLERGIES: BEE VENOM. FAMILY HISTORY: Mother had a CVA in her 80s, no reported history of diabetes. Brother had triple bypass. No reported history of cancer. SOCIAL HISTORY: The patient is a former smoker. She quite smoking approximately 8 to 9 years ago. Prior to that, she smoked a pack a day for approximately 40 years. She rarely uses alcohol. No alcohol use in the past 2 to 3 years. She lives alone. In the event, she is unable to make her own decisions. Her surrogate decision maker is her daughter Chanda Garcia. She is a DNR/DNI. A MOLST form has been completed and placed on the chart. REVIEW OF SYSTEMS: A 11-point review of systems was completed. All pertinent positives are mentioned in the HPI, otherwise were negative. PHYSICAL EXAMINATION GENERAL: At this time, Ms. Ely is a well-developed, well-nourished elderly female, sitting in the bed in the emergency room. She has pursed lip breathing with mild respiratory distress. She is currently on 2 L nasal cannula. VITAL SIGNS: 136/62, heart rate is 62, respirations are 22, O2 saturation 99%, temperature was 98. HEENT: Head is atraumatic, normocephalic. Eyes: EOMs are intact. Sclerae anicteric and not pale. Oral mucosa appeared to be moist. NECK: Supple. LUNGS: Her lung sounds are diminished bilaterally. No wheezes, rales, or rhonchi. CARDIAC: S1, S2. Regular rate and rhythm. No murmurs, rubs, or gallops. ABDOMEN: Soft and nontender. Bowel sounds are present x4. EXTREMITIES: She is able to move all 4 extremities with 5/5 strength. There is no clubbing or cyanosis. NEUROLOGIC: She is awake, alert, oriented x3. Speech is clear. Thought process is intact. There is no gross focal deficits. SKIN: Intact. DIAGNOSTIC STUDIES/LAB DATA: WBCs are 12.0, RBCs 4.61, hemoglobin 10.8, hematocrit was 34, platelet count was 536. INR 1.11. APTT was 21.6, D-dimer was 354. Sodium 137, potassium 3.3, chloride 102, carbon dioxide was 27, anion gap was 8, BUN was 19, creatinine 0.88, lactic acid was 1.5, calcium 8.8, magnesium 2.4, AST was 30, ALT was 44, alkaline phosphatase 53, troponin was 0.00 x2, BNP was 109. Urine was within normal limits with the exception of specific gravity of 1.004. Chest x-ray, radiologist's impression: Stigmata for obstructive lung disease. No acute pulmonary or cardiac process was evident. She had a CTA of the chest. Radiologist's impression: Negative for pulmonary embolism or pneumonia. Advanced emphysema. She had electrocardiogram, which showed sinus bradycardia at a rate of 53. ASSESSMENT AND PLAN: Ms. Ely is a 73-year-old female with past medical history significant for chronic obstructive pulmonary disease, atrial fibrillation, and anxiety, who presented to the emergency room with complaints of progressively worsening shortness of breath, recently discharged on . She will be admitted under observation for: 1. Shortness of breath. I suspect this is related to exacerbation of her chronic obstructive pulmonary disease. She was given dexamethasone 8 mg in the emergency room. I will continue her on 40 mg of prednisone p.o. daily. She will continue her home nebulizer treatments. I will hold off on adding antibiotics at this time as the patient is afebrile and has no increased sputum production or cough and no compelling evidence of underlying pneumonia. Chest x -ray and CTA of the chest were both negative for pneumonia. I suspect that some of her shortness of breath could be related to her untreated anxiety as the patient did not take her Xanax for the past few days. 2. History of atrial fibrillation. The patient will continue on diltiazem 360 mg p.o. daily. 3. Anxiety. The patient will continue on alprazolam 0.5 mg p.o. b.i.d. p.r.n. anxiety. 4. FEN: She can have a regular diet. 5. Code status: She is a DNR/DNI. 6. DVT prophylaxis: I will place her on SCDs as chemical DVT prophylaxis is contraindicated as the patient did have a GI bleed during her last admission to 11/07/18 and at that time was recommended that her Eliquis and aspirin be held for 14 days, so she will just continue with SCDs at this time. TIME SPENT: Time spent on this admission was approximately 60 minutes, greater than half that time was spent at the bedside reviewing events leading thus far to her hospitalization, performing my physical exam, and reviewing my plan of care. I have discussed this with my attending Dr. Steve Anthony, he is in agreement with my plan. MARION ANDREWS, RADIATION CONTROL HEALTH PHYSICIST [id number]/[facility] #: [id number] BELINDA
[2018-11-10] MEDS: Budesonide NEB* 0.5 MG/2 ML NEB.SOLN INH SCH (07:32)
[2018-11-10] MEDS: Pantoprazole TAB * 40 MG TAB PO SCH (07:51)
[2018-11-10 07:57] LABS: Hematocrit 33 % (35-47); Hemoglobin 10.3 g/dL (12.0-16.0); Mean Corpuscular HGB Conc 32 g/dL (31-36); Mean Corpuscular Hemoglobin 24 pg (27-31); Mean Corpuscular Volume 75 fL (80-97); Mean Platelet Volume 7.3 fL (7.4-10.4); Platelet Count 482 10^3/uL (150-450); Red Blood Count 4.34 10^6 /uL (3.70-4.87); Red Cell Distribution Width 22 % (10.5-15); White Blood Count 7.4 10^3/uL (3.5-10.8)
[2018-11-10] MEDS: ALPRAZolam TAB* 0.5 MG PO PRN (07:58)
[2018-11-10 08:10] VITALS: BP 141/58
[2018-11-10 08:10] LABS: BUN/Creatinine Ratio 19.7 (8-20); Calcium 8.8 mg/dL (8.6-10.3); EGFR African American 89.8 (>60); EGFR Non-African American 74.2 (>60); Potassium 3.9 mmol/L (3.5-5.0)
[2018-11-10 08:48] LABS: ABS Lymphocytes 0.7 10^3/ul (1.0-4.8); ABS Monocytes 0.5 10^3/ul (0-0.8); ABS Neutrophils 6.1 10^3/ul (1.5-7.7); Lymphocyte % 9.5 %; Nucleated Red Blood Cells % 0.1
[2018-11-10] MEDS ORDERED: Multivitamins/Minerals TAB PO SCH (09:00)
[2018-11-10] MEDS ORDERED: Diltiazem CD CAP* 180 MG PO SCH (09:00)
[2018-11-10] MEDS ORDERED: predniSONE TAB* 20 MG PO SCH (09:00)
[2018-11-10] MEDS: GLYCOPYRROLATE INH SCH (11:13)
[2018-11-10] MEDS: FORMOTEROL INH SCH (11:13)
--- NOTE | 2018-11-10 13:48 | DS ---
DISCHARGE SUMMARY: DATE OF ADMISSION: 11/10/18 DATE OF DISCHARGE: 11/10/18 PRIMARY DIAGNOSIS: Chronic obstructive pulmonary disease exacerbation. HOSPITAL COURSE: A 73-year-old female who was recently admitted to [facility] [place] from 11/04/18 to 11/07/18 wit h acute blood loss anemia and COPD exacerbation came into the hospital due to shortness of breath. Mamta moss refer to the history and physical for details and recent discharge summary for further plan, bu t it appears that the patient was taking prednisone, but had not worn her oxygen that they usually on 2 L oxygen and had also not taken her Xanax for a couple of days felt more short of breath and came into the hospital for further evaluation. The patient has also been off her Eliquis in the setting o f her recent GI bleed and the plan was to restart this in 14 days. After her prior discharge patient has an outpatient GI appointment. When the patient came to the ER, patient had a chest x-ray, which did not show pneumonia and was suggestive of obstructive lung disease and no acute pulmonary or card iac process. The patient had a CTA to rule out PE and this was negative for PE or pneumonia; showed advanced emphysema. The patient was placed in observation status and placed on 40 mg of prednisone. This morning patient reports that she feels better further as the patient does have advanced emphysema to use IV steroids for COPD exacerbation; however, the patient reports that she feels trever r and wishes to go home and continue her prednisone and antibiotics at home. In light of this, we yury l discharge the patient on a prednisone taper. We will also discharge patient on Z-Julio for bronchiti s and antiinflammatory properties in the setting of COPD exacerbation. The patient is on her usual i nhalers. The patient to continue using oxygen at home. The patient also has nebulizer at home p.r.n . and has enough medication per discussion with her. The patient to follow up with her PCP in a week . With respect to her atrial fibrillation we will continue the diltiazem that she is on and currentl y the Eliquis is on hold as discussed above. The patient to touch base with GI at her appointment an d her PCP/cardiology to determine restarting this, but the original plan was to restart this in 14 da ys from her prior discharge and to be evaluated when she sees Dr. Yu as an outpatient. Vitals and lab noted to be stable at the time of discharge. LABS: WBC 7.4, hemoglobin 10.3, hematocrit 33, platelets noted to be 482. Sodium 140, potassium 3.9 , chloride 107, CO2 29, BUN 15, creatinine 0.76, glucose noted to be 129. PHYSICAL EXAM: HEENT: NCAT. Heart: S1, S2 present. Tachycardic at the time of exam. Lungs: Cl ear to auscultation bilaterally. Decreased bilateral air entry. Abdomen: Soft. Extremities: Noted to have no edema. Neuro: Alert and oriented. DISCHARGE MEDICATIONS: 1. Xanax 0.5 mg p.o. b.i.d. p.r.n. 2. Budesonide 0.5 mg inhalation b.i.d. 3. Aspirin 81 mg p.o. daily. 4. DuoNeb nebulizer 1 solution inhalation q.4 hours p.r.n. 5. Albuterol inhaler 2 puffs inhalation q.i.d. p.r.n. 6. Glycopyrrolate/formoterol 2 puffs inhalation b.i.d. 7. Ferric citrate 210 mg p.o. daily. 8. EpiPen as needed. 9. Cardizem CD 360 mg p.o. daily. 10. Omeprazole 20 mg p.o. b.i.d. 11. Multivitamin. 12. Prednisone 40 mg p.o. daily for 3 days followed by prednisone 30 mg p.o. daily for 3 days, follo wed by prednisone 20 mg p.o. daily for 3 days, followed by prednisone 10 mg p.o. daily for 3 days, fo llowed by prednisone 5 mg p.o. daily for 3 days and then to stop. We will use an extended prednisone taper in light of patient severe emphysema and recurring symptoms. 13. Z-Julio to be taken per instruction. The patient will be discharged home. DISCHARGE CONDITION: Stable. DISPOSITION: Home. INSTRUCTIONS: The patient to follow up with her PCP in a week and other instructions as above. TOTAL TIME SPENT ON DISCHARGE: Equals 45 minutes. [id number]/[facility] #: [id number]
== END 2018-11-10 15:49 | disposition home or self-care (01) ==
LOC: ED 10:20 → MED 16:49
PROVIDERS: ADMIT Internal Medicine; ATTEND Internal Medicine
DX: J44.1 Chronic obstructive pulmonary disease with (acute) exacerbation (principal); Z79.82 Long term (current) use of aspirin; I48.91 Unspecified atrial fibrillation; F41.9 Anxiety disorder, unspecified; Z87.891 Personal history of nicotine dependence; E78.5 Hyperlipidemia, unspecified; R07.9 Chest pain, unspecified
CPT/HCPCS: 36415; 71046; 71275; 80048; 80053; 81003; 83605; 83735; 83880; 84484; 85025; 85379; 85610; 85730; 93005; 94640; 96374; 99285; A9270-GY; G0378; J1100; J7512; Q9967

== ENCOUNTER 2019-06-12 08:44 | Inpatient (IN) | payer MEDICARE, OTHER ==
[2019-06-12] MEDS ORDERED: Albuterol/Ipratropium NEB.SOL* Albuterol 2.5 MG/Ipratropium 0.5 MG 3 ML INH ONE ×2 (08:45)
--- NOTE | 2019-06-12 08:52 | ED ---
Respiratory - HPI Summary HPI Summary: This pt is a 74 y/o female, with hx of COPD, presenting to [facility] via EMS for respiratory distress x2-3 days, worsening yesterday. EMS reports pt has had worsening respiratory distress for the last 2-3 days. Additionally pt has been coughing. Pt denies chest pain. Pt uses oxygen at home. Pt used her inhaler this morning with no relief. EMS states upon their arrival pt was not moving a lot of air and had wheezing. EMS administered 1 duoneb [employer] with moderate relief. Per EMS pt is saturating in the low 90s after duoneb. Pt is anticoagulated. - History of Current Complaint Stated Complaint: RESPIRATORY DISTRES PER EMS Time Seen by Provider: 06/12/19 08:45 Hx Obtained From: Patient Onset/Duration: Lasting Days, Worse Since - yesterday Timing: Constant Current Severity: Moderate Character: Wheezing, Dyspnea at Rest Aggravating Factor(s): Nothing Alleviating Factor(s): Nothing Associated Signs and Symptoms: SOB - Allergy/Home Medications Allergies/Adverse Reactions: Allergies Allergy/AdvReac Type Severity Reaction Status Date / Time bee venom protein (honey bee) Allergy See Comment Verified 11/09/18 10:31 Home Medications: Home Medications ALPRAZolam TAB* [Xanax TAB*] 0.5 mg PO DAILY PRN 06/12/19 [History Confirmed ] Apixaban* [Eliquis*] 5 mg PO BID 06/12/19 [History Confirmed 06/12/19] Omeprazole CAP (NF) [Prilosec CAP* 20 MG] 20 mg PO DAILY 06/12/19 [History Confirmed 06/12/19] PMH/Surg Hx/FS Hx/Imm Hx Endocrine/Hematology History: Denies: Hx Diabetes Cardiovascular History: Reports: Hx Hypercholesterolemia - Had it in the past, was taking medication but not currently Denies: Hx Hypertension Comment Only: Other Cardiovascular Problems/Disorders - A fib Respiratory History: Reports: Hx Chronic Bronchitis, Hx Chronic Obstructive Pulmonary Disease (COPD), Other Respiratory Problems/Disorders - Hx Emphysema, chronic SOB Denies: Hx Asthma, Hx Pneumonia History: Denies: Hx Renal Disease Sensory History: Reports: Hx Contacts or Glasses, 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 Denies: Hx Hearing Aid Opthamlomology History: Reports: Hx Contacts or Glasses, 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 Psychiatric History: Reports: Hx Anxiety - Cancer History Hx Chemotherapy: No Hx Radiation Therapy: No - Surgical History Surgical History: None Surgery Procedure, Year, and Place: None - Immunization History Date of Tetanus Vaccine: unknown Date of Influenza Vaccine: 2014 Infectious Disease History: Denies: Hx of Known/Suspected MRSA - Family History Known Family History: Positive: Other - Breast CA (sister) Negative: Diabetes - Social History Alcohol Use: Weekly Alcohol Amount: 3 drinks/week Hx Substance Use: No Substance Use Type: Reports: None Hx Tobacco Use: Yes Smoking Status (MU): Former Smoker Type: Cigarettes Amount Used/How Often: 10 cigarettes/day Length of Time of Smoking/Using Tobacco: 40 years Have You Smoked in the Last Year: Yes Review of Systems Negative: Fever Negative: Chest Pain Positive: Shortness Of Breath, Cough Genitourinary: Negative Musculoskeletal: Negative All Other Systems Reviewed And Are Negative: Yes Physical Exam - Summary Physical Exam Summary: Constitutional: Well-developed, Well-nourished, mild respiratory distress Skin: Warm, Dry HENT: Normocephalic; Atraumatic Eyes: Conjunctiva normal Neck: Musculoskeletal ROM normal neck. (-) JVD, (-) Stridor Cardio: Rhythm regular, rate normal, Heart sounds normal; Intact distal pulses; Radial pulses are 2+ and symmetric. (-) Murmur Pulmonary/Chest wall: Increased work of breathing. Diffuse wheezing bilaterally. Accessory muscle use. Abd: Soft, (-) tenderness, (-) Distension, (-) Guarding, (-) Rebound Musculoskeletal: (-) Edema Lymph: (-) Cervical adenopathy Neuro: Alert, Oriented x3 Psych: Mood and affect Normal Triage Information Reviewed: Yes Vital Signs On Initial Exam: Initial Vitals Temp Pulse Resp BP Pulse Ox 97.8 F 103 31 174/94 91 06/12/19 08:45 06/12/19 08:45 06/12/19 08:45 06/12/19 08:45 06/12/19 08:45 Vital Signs Reviewed: Yes Procedures - Sedation Patient Received Moderate/Deep Sedation with Procedure: No Diagnostics - Laboratory Result Diagrams: 06/12/19 08:59 06/12/19 08:59 Lab Statement: Any lab studies that have been ordered have been reviewed, and results considered in the medical decision making process. - Radiology Chest XR Radiology Interpretation Completed By: Radiologist Summary of Radiographic Findings: IMPRESSION: Findings consistent with COPD, no evidence for acute disease. Dr. Melton has reviewed this report. Re-Evaluation - Re-Evaluation First Eval Re-Evaluation Time: 09:08 Comment: Pt is still wheezing. Will give additional albuterol. Second Eval Re-Evaluation Time: 10:05 Comment: Patient still has increased work of breathing. Will admit patient. Disposition - Course Course Of Treatment: 74-year-old female with a history of COPD presents with respiratory distress. Shortness of breath ddx: Most likely 2/2 COPD, given duonebx2 and solumedrol. Also consider: PNA - no sputum production, no fevers or chills. No leukocytosis. CXR w/o infiltrate. Low suspicion. PTX - breath sounds equal, no risk factors for PTX, CXR w/o e/o PTX. ACS - no CP, no EKG changes, initial trop not elevated. Low suspicion. CHF - no h/o CHF, no RICHARDSON or orthopnea, no BLE edema, CXR w/o pulmonary edema. PE - no risk factors for PE, no unilateral leg swelling. Plan [place] [facility] [place] persistent SOB - Diagnoses Provider Diagnoses: COPD exacerbation Discharge ED - Sign-Out/Discharge Documenting (check all that apply): Patient Departure - Discharge Plan Condition: Stable Disposition: HOME Referrals: Kalyan Kirby MD [Primary Care Provider] - - Billing Disposition and Condition Condition: STABLE Disposition: Home - Attestation Statements Document Initiated by Kenton: Yes Documenting Scribe: Diana Rivera Provider For Whom Kenton is Documenting (Include Credential): Judith Melton MD Scribdanilo Attestation: I, Diana Rivera, scribed for Judith Melton MD on 06/12/19 at 1025. Scribe Documentation Reviewed: Yes Provider Attestation: The documentation as recorded by the Diana rios accurately reflects the service I personally performed and the decisions made by me, Judith Melotn MD Status of Scribe Document: Viewed
[2019-06-12 09:05] LABS: ABS Basophils 0.1 10^3/ul (0-0.2); ABS Eosinophils 0.8 10^3/ul (0-0.6); ABS Lymphocytes 1.5 10^3/ul (1.0-4.8); ABS Monocytes 0.6 10^3/ul (0-0.8); ABS Neutrophils 4.9 10^3/ul (1.5-7.7); Eosinophil % 10.3 %; Hematocrit 40 % (35-47); Hemoglobin 13.7 g/dL (12.0-16.0); Lymphocyte % 18.6 %; Mean Corpuscular HGB Conc 35 g/dL (31-36); Mean Corpuscular Hemoglobin 30 pg (27-31); Mean Corpuscular Volume 88 fL (80-97); Mean Platelet Volume 7.3 fL (7.4-10.4); Platelet Count 413 10^3/uL (150-450); Red Blood Count 4.54 10^6 /uL (3.70-4.87); Red Cell Distribution Width 14 % (10-15); White Blood Count 7.8 10^3/uL (3.5-10.8)
[2019-06-12] MEDS ORDERED: methylPREDNISolone 125 MG* 2 ML VIAL IV ONE (09:07)
[2019-06-12] MEDS ORDERED: Albuterol 0.5% CONC NEB.SOL* 5 MG/ML 20 ml BOT INH ONE (09:07)
[2019-06-12 09:22] LABS: Albumin 4.2 g/dL (3.2-5.2); Albumin/Globulin Ratio 1.4 (1-3); BUN/Creatinine Ratio 13.6 (8-20); Calcium 9.6 mg/dL (8.6-10.3); EGFR African American 105.4 (>60); EGFR Non-African American 87.1 (>60); Globulin 2.9 g/dL (2-4); Potassium 4.1 mmol/L (3.5-5.0); Total Bilirubin 0.3 mg/dL (0.2-1.0); Total Protein 7.1 g/dL (6.4-8.9)
[2019-06-12] MEDS ORDERED: Ondansetron INJ* 2 MG/ML VIAL IV PRN (11:07)
[2019-06-12] MEDS ORDERED: Benzonatate CAP* 100 MG PO PRN (11:07)
[2019-06-12] MEDS ORDERED: Albuterol 2.5 MG/3 ML NEB.SOL* (0.083%) INH PRN (11:07)
[2019-06-12] MEDS ORDERED: ALPRAZolam TAB* 0.5 MG PO PRN (11:12)
[2019-06-12] MEDS ORDERED: DOXYcycline IV* 100 MG in NS 0.9% 250 ML* 250 ML IVPB SCH (12:00)
--- NOTE | 2019-06-12 13:31 | HP ---
CC: Dr. Kirby; Dr. Jonathan Kearney* ADMISSION HISTORY AND PHYSICAL: DATE OF ADMISSION: 06/12/19 PRIMARY CARE PROVIDER: Dr. Kirby. MY ATTENDING WHILE IN THE HOSPITAL: Dr. Jonathan Kearney* (dictated by DAVID Echavarria). CHIEF COMPLAINT: Shortness of breath x1 day. HISTORY OF PRESENT ILLNESS: Ms. Ely is a 74-year-old female with past medical history significant for COPD with chronic hypoxic respiratory failure, on 2 L of oxygen at all times, who presents to the emergency department after yesterday evening with no obvious provocation. She began to feel short of breath, which came unrelatively suddenly and got worse gradually. She felt like she was unable to catch her breath, it was not affected by her position. It was worse with activity. It was not affected by her inhalers. She was unable to sleep overnight. She felt like she was getting weaker and that she was not able to swallow. She felt like this was like other COPD exacerbations but they had never been this bad before and she never had swallowing dysfunction before, so she called the ambulance who brought her into the emergency department. In the emergency department she received steroids and she felt better after this but still felt like she was having significant shortness of breath, significant work of breathing. The patient had no swelling in her legs, no recent changes in her diet, has never had a history of heart failure or any changes to the control in her atrial fibrillation. The patient was unable to take her rate control medications this morning. The patient had seen Dr. Newton, her detail manager approximately 1 month ago and was prescribed a medication, she is not sure which but was likely as needed prednisone and also azithromycin. Due to concern for acute hypoxic respiratory failure due to likely COPD exacerbation, we were asked to evaluate the patient for admission to the hospital. PAST MEDICAL HISTORY: COPD with chronic hypoxic respiratory failure, on 2 L oxygen at all times; atrial fibrillation; anxiety; hiatal hernia; erosive esophagitis. PAST SURGICAL HISTORY: None. MEDICATIONS: 1. Albuterol nebulizer q.6 hours as needed. 2. Budesonide nebulizer q.12 hours as scheduled. 3. Prednisone 10 mg p.o. daily when instructed. 4. Eliquis 5 mg p.o. b.i.d. 5. Diltiazem 360 mg p.o. daily. 6. Aspirin 81 mg p.o. daily. 7. EpiPen 0.3 mg as needed. 8. Ipratropium bromide nebulizer t.i.d. as needed for shortness of breath. 9. Albuterol meter dose inhaler q.6 hours as needed. 10. Omeprazole 20 mg p.o. daily. 11. Bevespi 4-4.8 mcg 2 puffs twice daily. ALLERGIES: BEE VENOM. FAMILY HISTORY: Mother had a stroke in her 80s. The patient's brother had triple bypass. The patient's father's history is unknown. SOCIAL HISTORY: The patient is a former smoker with a 40-pack year history of smoking, quitting 9 to 10 years ago. The patient rarely uses alcohol, lives alone. Her surrogate decision maker will be her friend Rea Dash. She is a DNR/ DNI. REVIEW OF SYSTEMS: A 10-point review of systems reviewed is negative except as above in the HPI. PHYSICAL EXAMINATION GENERAL: The patient is a 74-year-old female who appears stated age, sitting in the bed with significantly increased work of breathing. No accessory muscle use. VITAL SIGNS: At the time of evaluation temperature 97.8, pulse rate 108, respiratory rate 18, oxygen saturation 94% on 3 L, blood pressure 137/75. HEENT: Head normocephalic and atraumatic. Sclerae anicteric. No conjunctival injection. Nasal mucosa moist. Oral mucosa moist. No pharyngeal erythema, discharge, or exudate. NECK: Supple, nontender. No lymphadenopathy. No carotid bruits auscultated. No JVD. RESPIRATORY: Poor air exchange throughout, prolonged expiratory wheezing bilaterally, slight rhonchi. CARDIAC: Tachycardic. No clicks, murmurs, gallops, or rubs. Pulses 2+ in the dorsalis pedis, posterior tibialis, and radial areas. No bilateral lower extremity edema noted. ABDOMEN: Soft, nontender, and nondistended. Bowel sounds presents. Bowel sounds normoactive in all 4 quadrants. No hepatosplenomegaly. No abdominal bruits auscultated. No hepatojugular reflux. GENITOURINARY: No suprapubic or CVA tenderness. SKIN: Clean, dry, and intact. No rashes. NEUROLOGIC: Cranial nerves II through XII intact. No other focal deficits. Alert and oriented x3. PSYCHIATRIC: Pleasant and cooperative. DIAGNOSTIC STUDIES/LAB DATA: White blood cell count 7.8, hemoglobin 13.7, platelet count 413. Sodium 140, potassium 4.1, chloride 104, carbon dioxide 29 , anion gap 7, BUN 9, creatinine 0.66, glucose 113, calcium 9.6. Bilirubin 0.3 , AST 17, ALT 13, alkaline phosphatase 93. BNP 38. Protein 7.1, albumin 4.2, globulin 2.9. Studies: Chest x-ray read as emphysema, no acute cardiopulmonary disease. ASSESSMENT AND PLAN: Impression: Ms. Ely is a 74-year-old female with the past medical history significant for chronic obstructive pulmonary disease with multiple exacerbations requiring hospitalization; atrial fibrillation; and recent history of erosive esophagitis, who presented to the emergency department with 24 hours of shortness of breath and wheezing with concern for chronic obstructive pulmonary disease exacerbation, who was admitted to the ICU for Vapotherm and supportive care. 1. Acute hypoxic respiratory failure likely due to chronic obstructive pulmonary disease exacerbation. The patient has no signs this morning of bacterial pneumonia. There is an unclear provocation for her chronic obstructive pulmonary disease exacerbation though viral infection, irritant, the cold weather, are on the differential. The patient has not had any clearly identified triggers or allergies. No recent changes in her medications or other things that she has changed. The patient will be started on steroids methylprednisolone 60 mg IV twice daily. The patient due to her increased work of breathing will be started on high- flow. ABG will be obtained to see if she would benefit from BiPAP though she at this time is refusing BiPAP. The patient is on Eliquis and making a pulmonary embolism unlikely. The patient will be continued on her long-acting Bevespi as well as having scheduled DuoNeb nebulizers and p.r.n. Ventolin inhaler. The patient is a DNR/DNI. The patient has no signs of bacterial infection at this point. If she develops a white blood cell count, worsening tachycardia, fevers, or fails to improve on current treatment; antibiotics for community acquired pneumonia could be considered. 2. Atrial fibrillation. The patient is currently tachycardic. This is likely related to her respiratory status and inhalers. The patient's diltiazem will be continued at a decreased dose. The patient's Eliquis will be continued. The patient appears to be in regular rhythm on physical exam on the monitor. 3. Hiatal hernia with erosive esophagitis. Continue the patient's omeprazole, particularly while on high-dose steroids. 4. FEN. The patient will have a regular unrestricted diet and fluids not indicated. 5. Disposition. The patient admitted to the ICU for Vapotherm. 6. Code status. The patient will be a DNR/DNI. TIME SPENT: Approximately 60 minutes spent on the admission of this patient, 30 of which was spent [id number] with the patient obtaining the history and physical and discussing treatment plan. Plan was discussed with my attending Dr. Jonathan Kearney. He is in agreement. DAVID ECHAVARRIA [id number]/CPS #: [id number] MTDD
[2019-06-12] MEDS: Albuterol/Ipratropium NEB.SOL* Albuterol 2.5 MG/Ipratropium 0.5 MG 3 ML INH SCH ×3 (14:24→22:39)
[2019-06-12] MEDS: Acetaminophen TAB* 325 MG PO PRN ×2 (16:05→20:53)
[2019-06-12] MEDS: Apixaban* 5 MG TAB PO SCH (20:43)
[2019-06-12] MEDS: guaiFENesin ER TAB 600 MG PO SCH (20:43)
[2019-06-12] MEDS ORDERED: methylPREDNISolone 125 MG* 2 ML VIAL IV SCH (21:00)
[2019-06-13] MEDS: Albuterol/Ipratropium NEB.SOL* Albuterol 2.5 MG/Ipratropium 0.5 MG 3 ML INH SCH ×4 (03:08→18:21)
[2019-06-13 06:09] LABS: ABS Lymphocytes 0.9 10^3/ul (1.0-4.8); ABS Monocytes 0.3 10^3/ul (0-0.8); ABS Neutrophils 6.5 10^3/ul (1.5-7.7); Eosinophil % 0.1 %; Hematocrit 35 % (35-47); Hemoglobin 12.1 g/dL (12.0-16.0); Lymphocyte % 11.8 %; Mean Corpuscular HGB Conc 35 g/dL (31-36); Mean Corpuscular Hemoglobin 30 pg (27-31); Mean Corpuscular Volume 87 fL (80-97); Mean Platelet Volume 7.1 fL (7.4-10.4); Platelet Count 409 10^3/uL (150-450); Red Blood Count 4.05 10^6 /uL (3.70-4.87); Red Cell Distribution Width 15 % (10-15); White Blood Count 7.8 10^3/uL (3.5-10.8)
[2019-06-13 06:24] LABS: BUN/Creatinine Ratio 17.5 (8-20); Calcium 9.6 mg/dL (8.6-10.3); EGFR African American 111.2 (>60); EGFR Non-African American 91.9 (>60); Potassium 3.8 mmol/L (3.5-5.0)
[2019-06-13] MEDS: Tiotropium Brom/Olodaterol MDI INH SCH (08:12)
--- NOTE | 2019-06-13 08:53 | PN ---
Subjective Date of Service: 06/13/19 Interval History: Admitted yesterday for COPD exacerbation. No signs of infection. Patient did well overnight and she reports that, at rest, she is back to her baseline. However, she is only able to ambulate to the commode and back, whereas usually she can "walk a lot". She had a coughing spell overnight, productive of white sputum. She denies fevers, chills, chest pain. She is still using more than her home O2 requirements. Switch steroids from IV to PO today. Transfer to floors. Objective Active Medications: Acetaminophen (Tylenol Tab*) 650 mg PO Q6H PRN PRN Reason: MILD PAIN or TEMP > 100.4 Last Admin: 06/12/19 20:53 Dose: 650 mg Albuterol (Ventolin 2.5 Mg/3 Ml Neb.Steph*) 2.5 mg INH Q2H PRN PRN Reason: SOB/WHEEZING Albuterol/Ipratropium (Duoneb (Albuterol 2.5 Mg/Ipratropium 0.5 Mg)) 1 neb INH [id number] AWAKE [facility] Last Admin: 06/13/19 07:51 Dose: 1 neb Alprazolam (Xanax Tab*) 0.5 mg PO DAILY PRN PRN Reason: ANXIETY Last Admin: 06/12/19 22:35 Dose: 0.5 mg Apixaban (Eliquis*) 5 mg PO BID [facility] Last Admin: 06/12/19 20:43 Dose: 5 mg Aspirin (Aspirin Ec Tab*) 81 mg PO DAILY [facility] Diltiazem HCl (Cardizem Cd Cap*) 120 mg PO DAILY [facility] Guaifenesin (Mucinex*) 1,200 mg PO BID [facility] Last Admin: 06/12/19 20:43 Dose: 1,200 mg Ondansetron HCl (Zofran Inj*) 4 mg IV Q6H PRN PRN Reason: NAUSEA Pantoprazole Sodium (Protonix Tab*) 40 mg PO DAILY [facility] Prednisone (Deltasone Tab*) 40 mg PO DAILY [facility] Tiotropium [place]/Olodaterol (Stiolto Respimat Inh [place] (60 Puff)) 2 puff INH DAILY [facility] Last Admin: 06/13/19 08:12 Dose: 2 puff Vital Signs - 8 hr 06/13/19 06/13/1906/13/19 01:00 02:00 03:00 Temperature Pulse Rate 95 92 94 Respiratory 21 21 23 Rate Blood Pressure 109/54 117/68 119/67 (mmHg) O2 Sat by Pulse 92 98 94 Oximetry 06/13/19 06/13/19 06/13/19 04:00 05:00 06:00 Temperature 98.4 F Pulse Rate 94 88 94 Respiratory 19 20 23 Rate Blood Pressure 109/54 (mmHg) O2 Sat by Pulse 94 97 96 Oximetry 06/13/19 06/13/19 06/13/19 07:32 07:54 08:03 Temperature 97.2 F Pulse Rate 102 105 Respiratory 19 19 Rate Blood Pressure (mmHg) O2 Sat by Pulse 95 95 Oximetry Oxygen Devices in Use Now: Nasal Cannula Appearance: frail elderly woman in NAD, pleasant and interactive, speaking in full sentences Eyes: No Scleral Icterus Ears/Nose/Mouth/Throat: Clear Oropharnyx, Mucous Membranes Moist Respiratory: - - scant expiratory wheeze, decreased breath sounds b/l Cardiovascular: NL Sounds; No Murmurs; No JVD, RRR Extremities: No Edema Skin: No Rash or Ulcers Neurological: Alert and Oriented x 3 Result Diagrams: 06/13/19 06:02 06/13/19 06:02 Microbiology and Other Data: Microbiology 06/12/19 12:33 Nasal Screen MRSA (PCR) - Final Nasal Mrsa Not Detected Assess/Plan/Problems-Billing Assessment: 74W with COPD on home O2, afib on apixaban, recent GIB from erosive esophagitis , who presents with dyspnea and wheeze, found with COPD exacerbation without evidence for infection. - Patient Problems (1) COPD exacerbation Comment: No signs of infection. Improved significantly with IV steroids. - switch to PO prednisone to complete burst, last day 06/15 - Spiriva daily, nebs prn - wean O2 to SaO2 88-92% - follows with Dr. Newton - monitor for signs of infection (2) Atrial fibrillation Comment: - cont apixaban, dilt 120mg (3) GERD (gastroesophageal reflux disease) Comment: Erosive GERD seen on EGD 10/2018 causing anemia. Now Hgb normal. - cont PPI (4) DNR (do not resuscitate) Current Visit: No Status: Acute
[2019-06-13] MEDS ORDERED: guaiFENesin ER TAB 600 MG PO SCH (09:00)
[2019-06-13] MEDS: Diltiazem CD CAP* 120 MG PO SCH (09:27)
[2019-06-13] MEDS: Apixaban* 5 MG TAB PO SCH ×2 (09:27→20:58)
[2019-06-13] MEDS: Aspirin EC TAB* 81 MG TAB.EC PO SCH (09:27)
[2019-06-13] MEDS: guaiFENesin ER TAB 600 MG PO SCH ×2 (09:27→20:58)
[2019-06-13] MEDS: predniSONE TAB* 20 MG PO SCH (09:27)
[2019-06-13] MEDS: Pantoprazole TAB * 40 MG TAB PO SCH (09:28)
[2019-06-14] MEDS: Albuterol/Ipratropium NEB.SOL* Albuterol 2.5 MG/Ipratropium 0.5 MG 3 ML INH SCH ×2 (01:30→06:58)
[2019-06-14] MEDS: Tiotropium Brom/Olodaterol MDI INH SCH ×2 (06:58→08:23)
[2019-06-14 08:18] VITALS: BP 131/72
[2019-06-14] MEDS: guaiFENesin ER TAB 600 MG PO SCH (08:50)
[2019-06-14] MEDS: Aspirin EC TAB* 81 MG TAB.EC PO SCH (08:55)
[2019-06-14] MEDS: Pantoprazole TAB * 40 MG TAB PO SCH (08:55)
[2019-06-14] MEDS: predniSONE TAB* 20 MG PO SCH (08:55)
[2019-06-14] MEDS: Apixaban* 5 MG TAB PO SCH (08:56)
[2019-06-14] MEDS: Diltiazem CD CAP* 120 MG PO SCH (08:57)
--- NOTE | 2019-06-14 14:23 | DS ---
CC: Dr. Kirby; Dr. Precious Womack; Dr. Elisa Newton* DISCHARGE SUMMARY: DATE OF ADMISSION: 06/12/19 DATE OF DISCHARGE: 06/14/19 PRIMARY CARE PROVIDER: Dr. Kirby. MY ATTENDING WHILE IN THE HOSPITAL: Dr. Precious Womack* (dictated by DAVID Echavarria). CURAM DEVELOPER: The patient's outpatient belt press operator, Dr. Elisa Newton. PRIMARY DISCHARGE DIAGNOSES: 1. Chronic obstructive pulmonary disease exacerbation 2. Acute on chronic hypoxic respiratory failure. SECONDARY DISCHARGE DIAGNOSES: 1. Chronic obstructive pulmonary disease with chronic hypoxic respiratory failure, on 2 L oxygen. 2. Atrial fibrillation. 3. Anxiety. 4. Hiatal hernia. 5. History of erosive esophagitis. STUDIES DONE WHILE IN THE HOSPITAL: Chest x-ray from 06/12/19 read as emphysema consistent with COPD, no evidence of acute disease. MEDICATIONS AT DISCHARGE: 1. Aspirin 81 mg p.o. daily. 2. EpiPen as needed. 3. Bevespi 2 puffs inhalation b.i.d. 4. Ipratropium 0.5 mg inhalation t.i.d. as needed. 5. Diltiazem 360 mg p.o. daily. 6. Albuterol 2 puffs inhalation q.i.d. as needed. 7. Budesonide 0.5 mg inhalation b.i.d. 8. Prednisone 20 mg p.o. daily after completing prednisone 40 mg p.o. daily x3 days. 9. Apixaban 5 mg p.o. b.i.d. 10. Alprazolam 0.5 mg p.o. daily as needed. 11. Omeprazole 20 mg p.o. daily. 12. Tylenol 650 mg p.o. q.6 hours as needed. 13. DuoNeb 1 nebulizer inhalation as needed every 6 hours as needed while awake. 14. Guaifenesin 1200 mg p.o. b.i.d. New medications at discharge: 1. Tylenol. 2. DuoNeb. 3. Mucinex. 4. Prednisone. HOSPITAL COURSE: This is a brief summary of the patient's presentation. For more details, please see the history and physical from this author on 06/12/19. In brief, the patient is a 74-year-old female with past medical history significant for the above who presented to the emergency department with 1 day of shortness of breath, not responding to her inhalers and weakness similar to previous COPD exacerbations, but worse. The patient felt like she is becoming fatigued from her work of breathing and she was admitted to the ICU for Vapotherm therapy. She was able to wean off this on the first day of her hospitalization. The patient had no signs of pneumonia. The patient initially was needing 6 L of oxygen. The patient, on hospital day 2, was able to be weaned down to her normal dose of oxygen at 2 L and she was saturating well with this; however the patient remains very dyspneic with exertion, but she was able to walk approximately 50 feet. The patient had no significant laboratory abnormalities except for slightly elevated pCO2 on her ABG, results have been consistent with what her previous baselines have been and she did not appear symptomatic from this. The patient on 06/14/19 was able to walk again 50 feet and felt much less dyspneic. She is very anxious about being in the hospital, this is the main cause of distress for her. The patient was stable medically and discharged on 06/14/19 to home. PHYSICAL EXAMINATION ON DAY OF DISCHARGE: General: The patient is a 74-year- old female who appears her stated age and sitting in the bed, in no acute distress. Vital signs at the time of evaluation: Temperature 98.0, pulse rate 79, respiratory rate 20, oxygen saturation 96% on 2 L, blood pressure 131/72. HEENT: Head normocephalic, atraumatic. Sclerae anicteric. No conjunctival injection. Nasal mucosa moist. Oral mucosa moist. No pharyngeal erythema, discharge or exudate. Neck: Supple, nontender. No lymphadenopathy. No carotid bruits auscultated. No JVD. Cardiac: Regular rate and rhythm. No clicks, murmurs, gallops, or rubs. Pulses are 2+ in the dorsalis pedis, posterior tibialis, and radial areas. Respiratory: Diminished throughout, slight expiratory wheeze in the bilateral lower lobes. No adventitious lung sounds. Good air exchange bilaterally. Abdomen: Soft, nontender, nondistended. Bowel sounds present, normoactive in all 4 quadrants. No hepatosplenomegaly. No abdominal bruits auscultated. No hepatojugular reflux. Genitourinary: No suprapubic or CVA tenderness. Skin: Clean, dry and intact. No rashes. Neuro: Cranial nerves II through XII intact. No focal deficits. Alert and oriented x3. Psychiatric: Pleasant and cooperative, somewhat anxious. DISCHARGE PLAN BY PROBLEM: 1. COPD exacerbation. The patient has improved greatly and is back down to her normal dose of oxygen. The patient will be treated with steroids for a pulse dose for 3 more days. The patient was not started on antibiotics and will not be prescribed them. The patient will have nebulizers both chronically and acutely as above, as well as pulmonary toileting. The patient should follow up closely with her primary care provider and Dr. Newton. The patient should be resumed on her 10 mg daily of prednisone after her burst, but consideration should be made for tapering her off of this given the possible long-term side effects. The patient will be continued on 2 L of oxygen chronically. 2. Atrial fibrillation. Continue the patient's anticoagulation. The patient is currently rhythm controlled on exam. 3. Erosive esophagitis. Continue the patient's pantoprazole. This does not appear to be a current issue for the patient. 4. Anxiety. Continue the patient's as needed antianxiety medication. 5. Disposition. Home. 6. Condition. Stable. TIME SPENT: Approximately 30 minutes was spent on the discharge of this patient , 30 of which was spent [id number] with the patient obtaining history and physical and discussing the treatment plan. DAVID ECHAVARRIA [id number]/KIRBY #: [id number] BELINDA
== END 2019-06-14 10:15 | disposition home or self-care (01) | DRG 189 ==
LOC: ED 08:44 → ICU 11:07 → MED 06-13 08:44
PROVIDERS: ADMIT Internal Medicine; ATTEND Internal Medicine
DX: J96.21 Acute and chronic respiratory failure with hypoxia (principal); J44.1 Chronic obstructive pulmonary disease with (acute) exacerbation; K22.10 Ulcer of esophagus without bleeding; I48.91 Unspecified atrial fibrillation; F41.9 Anxiety disorder, unspecified; Z66 Do not resuscitate; Z99.81 Dependence on supplemental oxygen; K44.9 Diaphragmatic hernia without obstruction or gangrene; Z79.01 Long term (current) use of anticoagulants; Z79.82 Long term (current) use of aspirin; Z79.51 Long term (current) use of inhaled steroids; Z79.52 Long term (current) use of systemic steroids; Z79.899 Other long term (current) drug therapy; Z91.030 Bee allergy status; Z82.3 Family history of stroke; Z82.49 Family history of ischemic heart disease and other diseases of the circulatory system; Z87.891 Personal history of nicotine dependence
CPT/HCPCS: 36415; 36600; 71045; 80048; 80053; 82607; 82803; 83735; 83880; 85025; 87641; 94640; 96374; 99285; A9270-GY; G8978-GP-CI; G8979-GP-CI; G8980-GP-CI; J2930; J3535; J7512; J7611

== ENCOUNTER 2022-04-26 10:48 | Observation (INO) ==
[2022-04-26] MEDS ORDERED: Iohexol 350 (CONTRAST) 500 ML MDV IV ONE (12:00)
[2022-04-26 13:10] LABS: ABS Eosinophils 0.1 10^3/ul (0-0.6); ABS Lymphocytes 1.7 10^3/ul (1.0-4.8); ABS Monocytes 0.6 10^3/ul (0-0.8); ABS Neutrophils 4.5 10^3/ul (1.5-7.7); Eosinophil % 0.7 %; Hematocrit 31 % (35-47); Hemoglobin 10.7 g/dL (12.0-16.0); Lymphocyte % 24.6 %; Mean Corpuscular HGB Conc 35 g/dL (31-36); Mean Corpuscular Hemoglobin 31 pg (27-31); Mean Corpuscular Volume 90 fL (80-97); Mean Platelet Volume 7.2 fL (7.4-10.4); Platelet Count 251 10^3/uL (150-450); Red Blood Count 3.41 10^6 /uL (3.70-4.87); Red Cell Distribution Width 13 % (10-15); White Blood Count 6.9 10^3/uL (3.5-10.8)
[2022-04-26 13:57] LABS: Albumin 3.7 g/dL (3.2-5.2); Albumin/Globulin Ratio 2.3 (1-3); Globulin 1.6 g/dL (2-4); Potassium 3.2 mmol/L (3.5-5.0); Total Bilirubin 0.5 mg/dL (0.2-1.0); Total Protein 5.3 g/dL (6.4-8.9); eGFR CKD-EPI 87.9 (>60)
[2022-04-26] MEDS: Potassium Chlor 20 meq TAB.ER PO ONE ×2 (15:06→15:28)
[2022-04-26 15:32] LABS: High Sensitivity Troponin 1 Hr 4 pg/mL (<15)
[2022-04-26] MEDS: KCL 20 MEQ/100 ML IVPREMIX 20 MEQ/100 ML BAG IV SCH ×2 (16:05→17:57)
[2022-04-26 16:08] LABS: Venous Bicarbonate HCO3 29.2 mmol/L (24-28)
[2022-04-26] MEDS ORDERED: Albuterol HFA INHALER 8 gm MDI INH PRN (16:55)
[2022-04-26 17:57] LABS: Urine Appearance Cloudy; Urine Bilirubin Negative (Negative); Urine Blood Negative (Negative); Urine Color Yellow; Urine Glucose Negative (Negative); Urine Ketones 1+ (Negative); Urine Nitrite Negative (Negative); Urine Protein 2+(100 mg/dL) (Negative); Urine Urobilinogen Negative (Negative)
[2022-04-26 18:06] LABS: Urine Amorphous Crystals Present (Absent); Urine Bacteria Absent (Absent); Urine Red Blood Cell Absent (Absent); Urine Squamous Epithelial Cell Present (Absent); Urine White Blood Cell Trace(0-5/hpf) (Absent)
[2022-04-26 18:12] LABS: Urine Benzodiazepine Screen Presumptive Positive (None Detect); Urine Cannabinoids Screen None Detected (None Detect); Urine Opiates Screen None Detected (None Detect)
[2022-04-26 18:34] LABS: TSH Ultra Thyroid Stim Horm 0.94 mcIU/mL (0.34-5.60)
[2022-04-26] MEDS ORDERED: guaiFENesin 100 mg/5 ml LIQ unit dose cup PO PRN (20:42)
[2022-04-27 06:49] LABS: ABS Eosinophils 0.2 10^3/ul (0-0.6); ABS Lymphocytes 1.7 10^3/ul (1.0-4.8); ABS Monocytes 0.6 10^3/ul (0-0.8); ABS Neutrophils 3.2 10^3/ul (1.5-7.7); Eosinophil % 2.9 %; Hematocrit 31 % (35-47); Hemoglobin 10.6 g/dL (12.0-16.0); Lymphocyte % 29.8 %; Mean Corpuscular HGB Conc 34 g/dL (31-36); Mean Corpuscular Hemoglobin 31 pg (27-31); Mean Corpuscular Volume 91 fL (80-97); Mean Platelet Volume 7.7 fL (7.4-10.4); Platelet Count 222 10^3/uL (150-450); Red Blood Count 3.43 10^6 /uL (3.70-4.87); Red Cell Distribution Width 13 % (10-15); White Blood Count 5.8 10^3/uL (3.5-10.8)
[2022-04-27 07:03] LABS: Calcium 8.9 mg/dL (8.6-10.3); Potassium 3.8 mmol/L (3.5-5.0); eGFR CKD-EPI 91.2 (>60)
[2022-04-27] MEDS: Fluticasone NASAL SPRAY 50MCG 16 gm SPRAY BTL INTRANASAL SCH ×2 (08:42→08:50)
[2022-04-27] MEDS ORDERED: ROFLUMILAST 250 MCG PO SCH (09:00)
[2022-04-27] MEDS ORDERED: Potassium Chlor 20 meq TAB.ER PO SCH (09:00)
[2022-04-27 10:12] LABS: C Reactive Protein 2.5 mg/L (<8.01)
[2022-04-27 10:58] VITALS: BP 108/62
== END 2022-04-27 12:45 | disposition home or self-care (01) ==
LOC: ED 10:48 → EDHOLD 10:48 → MED 19:18
PROVIDERS: ADMIT Internal Medicine; ATTEND Internal Medicine